=== PATIENT | male | born 1985 | race Caucasian/White ===

== ENCOUNTER 2016-07-14 23:17 | Inpatient (IN) | payer SELFPAY ==
[~2016-07-14] VITALS: Ht 167.6 cm; Wt 90.0 kg
[2016-07-14 23:17] VITALS: O2SAT 100
[~2016-07-14 23:17] MED LIST: NORMOSOL R INJ 1,000 ML IV ONE; ONDANSETRON HCL 4 MG/2 ML VIAL IV PUSH ONE; PRED1 PO; PROPOFOL 200 MG/20 ML AMP IV ONE; SULF-154 PO; Z.0.NO CURRENT MEDS
[2016-07-14] MEDS ORDERED: MORPHINE SULFATE 8 MG/ML INJ ONE (23:23)
[2016-07-14] MEDS ORDERED: ceFAZolin 2 GM PREMIX 50 ML ONE (23:30)
[2016-07-14] MEDS ORDERED: DIPHTH/TETANUS/ACEL PERTUSSIS (BOOSTER) 0.5 ML VIAL/PFS IM ONE (23:30)
[2016-07-14 23:35] LABS: I-STAT POTASSIUM 3.8 MMOL/L (3.5-4.9)
[2016-07-14 23:41] LABS: HEMATOCRIT 42.9 % (39.0-51.0); HEMO FLAGS AUTO DIFF; MEAN CELL VOLUME 88.2 FL (80.0-100.0); MEAN CORPUSCULAR HEMOGLOBIN 30.2 PG (27.0-34.0); MEAN CORPUSCULAR HGB CONC 34.3 % (32.0-36.0); PLATELET COUNT 379 TH/MM3 (150-450); RED BLOOD COUNT 4.86 MIL/MM3 (4.50-5.90); WHITE BLOOD COUNT 16.6 TH/MM3 (4.0-11.0)
[2016-07-14 23:45] LABS: APTT (PATIENT) 26.5 SEC (24.3-30.1); PROTHROMBIN TIME - PATIENT 10.8 SEC (9.8-11.6)
[2016-07-15] VITALS (7 sets, daily range): BP systolic 93–149; BP diastolic 54–81; PULSE 72–101; RESP 17–20; TEMP 97.9–99.5; O2SAT 95–100
[2016-07-15] MEDS ORDERED: SUGAMMADEX SODIUM 200 MG/2 ML VIAL IV PUSH ONE ×2 (00:16)
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
[2016-07-15 00:43] LABS: BANDS 1 % (0-6); EOSINOPHILS 4 % (0-4); METAMYELOCYTES 1 % (0-1); NEUTROPHIL # MANUAL DIFF 9.3 TH/MM3 (1.8-7.7); PLATELET ESTIMATE SMEAR HIGH (NORMAL); PLATELET MORPHOLOGY NORMAL (NORMAL); POLYS (SEG NEUTROPHILS) 54 % (16-70); SCAN/DIFF FINAL DIFF MANUAL; WBC DIFF SAMPLE 100
[2016-07-15] MEDS ORDERED: *MEPERIDINE 25 MG INJ VIAL PERIprocedural Use ONLY ONE (00:44)
[2016-07-15] MEDS ORDERED: Post-op Orders (for Pharmacy) MISC XX ONE (00:45)
[2016-07-15] MEDS ORDERED: NALOXONE HCL 0.4 MG/ML AMP IV PRN (00:45)
[2016-07-15] MEDS ORDERED: ONDANSETRON HCL 4 MG/2 ML VIAL IV PRN (00:45)
[2016-07-15] MEDS ORDERED: SODIUM CHLORIDE 0.9% FLUSH 10 ML FLUSH IV FLUSH PRN (00:45)
[2016-07-15] MEDS ORDERED: *diphenhydrAMINE HCL 50 MG/ML VIAL PERIprocedural Use ONLY ONE ×2 (00:50→01:50)
[2016-07-15] MEDS ORDERED: fentaNYL CITRATE 250 MCG/5 ML AMP ONE (00:51)
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
--- NOTE | 2016-07-15 01:17 | RADRPT ---
EXAM DATE/TIME: 07/15/2016 00:41 [facility] COMPARISON: CHEST SINGLE AP, July 14, 2016, 23:11. INDICATIONS : Chest tube placement. MEDICAL HISTORY : None. SURGICAL HISTORY : None. ENCOUNTER: Subsequent ACUITY: 1 day PAIN SCORE: Non-responsive. LOCATION: Left chest FINDINGS: The cardiac silhouette is normal in transverse diameter. The lungs are free of acute parenchymal opac ity. No effusions are identified. A left chest tube is in place. There is no evidence of pneumothorax . CONCLUSION: 1. Chest tube placement. There is no evidence of pneumothorax. Norris Boss MD on July 15, 2016 at 1:15 Board Certified Radiologist. This report was verified electronically.
[2016-07-15] MEDS ORDERED: MORPHINE SULFATE 8 MG/ML INJ ONE ×2 (01:27→01:49)
[2016-07-15] MEDS ORDERED: DO NOT ADM ANY ANTICOAGULANT DRUGS PRN (01:30)
[2016-07-15] MEDS: MORPHINE SULFATE 4 MG/ML INJ IV PRN ×5 (02:34→22:38)
[2016-07-15] MEDS: SODIUM CHLOR 0.9% 1000 ML INJ 1,000 ML IV SCH ×2 (05:55→11:00)
[2016-07-15] MEDS ORDERED: LACTULOSE SYRUP 20 GM/30 ML CUP PO PRN (07:45)
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
[2016-07-15] MEDS: DOCUSATE SODIUM 50 MG/SENNA 8.6 MG TAB PO SCH ×2 (09:44→20:44)
[2016-07-15] MEDS: SODIUM CHLORIDE 0.9% FLUSH 10 ML FLUSH IV FLUSH SCH ×2 (09:44→20:45)
[2016-07-15] MEDS: METHOCARBAMOL 500 MG TAB PO SCH ×3 (09:48→20:43)
--- NOTE | 2016-07-15 10:18 | RADRPT ---
EXAM DATE/TIME: 07/15/2016 07:44 [facility] COMPARISON: CHEST SINGLE AP, July 15, 2016, 0:41. INDICATIONS : Pneumothorax MEDICAL HISTORY : None. SURGICAL HISTORY : None. ENCOUNTER: Subsequent ACUITY: 2 days PAIN SCORE: 0/10 LOCATION: Bilateral chest FINDINGS: Single AP view of the chest. Left-sided chest tube. Increased patchy opacity in the left mid to lower lung. No evidence of pneumothorax or pleural effusion. Right lung clear. Cardiomediastinal silhouett e within normal limits. CONCLUSION: Increased patchy opacity in the left mid to lower lung. No evidence of pneumothorax. Sergio Johnston MD on July 15, 2016 at 10:16 Board Certified Radiologist. This report was verified electronically.
[2016-07-15] MEDS: oxyCODONE/ACETAMINOPHEN 5 MG/325 MG TAB PO PRN ×3 (10:54→20:45)
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
[2016-07-15 22:08] LABS: LDH SERUM 207 U/L (87-241)
[2016-07-15 22:10] LABS: BETA HCG TUMOR MARKER 3 MIU/ML (0-5)
[2016-07-16 00:41] VITALS: BP 133/80; PULSE 72; RESP 16; TEMP 98.2; O2SAT 96
[2016-07-16] MEDS ORDERED: LACTATED RINGER'S 1000 ML IV PRN (05:15)
[2016-07-16] MEDS ORDERED: INSULIN HUMAN REGULAR 1,000 UNITS/10 ML VIAL SQ PRN (05:15)
[2016-07-16] MEDS ORDERED: CHLORHEXIDINE GLUCONATE 2 % 1 PACK (2 CLOTHS) TOPICAL PRN (05:15)
[2016-07-16] MEDS ORDERED: SODIUM CHLORID 0.9% 500 ML IV PRN (05:15)
[2016-07-16] MEDS ORDERED: POVIDONE IODINE 5% (ANTISEPSIS KIT) 4 APPLICATIONS EACH NARE PRN (05:15)
[2016-07-16 05:16] VITALS: BP 130/65; PULSE 66; RESP 16; TEMP 98; O2SAT 96
[2016-07-16] MEDS: MORPHINE SULFATE 4 MG/ML INJ IV PRN ×2 (06:31→09:57)
[2016-07-16] MEDS: METHOCARBAMOL 500 MG TAB PO SCH ×3 (06:32→22:00)
[2016-07-16 08:00] VITALS: BP 132/79; PULSE 85; RESP 20; TEMP 96.3; O2SAT 99
[2016-07-16 08:53] LABS: AUTOMATED NEUTROPHIL # 9.3 TH/MM3 (1.8-7.7); BASOPHIL # 0.1 TH/MM3 (0-0.2); BASOPHIL % 0.6 % (0.0-2.0); EOSINOPHIL # 0.4 TH/MM3 (0-0.4); EOSINOPHIL % 2.9 % (0.0-4.0); HEMATOCRIT 38.9 % (39.0-51.0); HEMO FLAGS DIFF FINAL; LYMPH % 14.7 % (9.0-44.0); LYMPHOCYTE # 1.9 TH/MM3 (1.0-4.8); MEAN CELL VOLUME 89.3 FL (80.0-100.0); MEAN CORPUSCULAR HEMOGLOBIN 30.2 PG (27.0-34.0); MEAN CORPUSCULAR HGB CONC 33.9 % (32.0-36.0); MONO % 8.8 % (0.0-8.0); PLATELET COUNT 260 TH/MM3 (150-450); RED BLOOD COUNT 4.36 MIL/MM3 (4.50-5.90); RED CELL DISTRIBUTION WIDTH 13.1 % (11.6-17.2); WHITE BLOOD COUNT 12.8 TH/MM3 (4.0-11.0)
[2016-07-16] MEDS: SODIUM CHLORIDE 0.9% FLUSH 10 ML FLUSH IV FLUSH SCH (09:00)
--- NOTE | 2016-07-16 09:13 | RADRPT ---
EXAM DATE/TIME: 07/16/2016 07:55 [facility] COMPARISON: CHEST SINGLE AP, July 15, 2016, 7:44. INDICATIONS : Evaluate for pneumothorax. MEDICAL HISTORY : None. SURGICAL HISTORY : None. ENCOUNTER: Subsequent ACUITY: 3 days PAIN SCORE: 5/10 LOCATION: chest FINDINGS: Single AP view of the chest. Left-sided chest tube. Mild patchy left lung opacity unchanged. Cardiome diastinal silhouette unchanged. No evidence of pleural effusion or pneumothorax. CONCLUSION: No significant change. Left-sided chest tube in place. No evidence of pneumothorax. Sergio Johnston MD on July 16, 2016 at 9:11 Board Certified Radiologist. This report was verified electronically.
[2016-07-16 09:52] VITALS: O2SAT 94
[2016-07-16] MEDS: DOCUSATE SODIUM 50 MG/SENNA 8.6 MG TAB PO SCH ×2 (09:56→21:00)
[2016-07-16] MEDS ORDERED: LACTATED RINGER'S 1000 ML INJ 2,000 ML IV ONE (12:00)
[2016-07-16] MEDS ORDERED: PROPOFOL 200 MG/20 ML AMP IV ONE (12:00)
[2016-07-16] MEDS ORDERED: ONDANSETRON HCL 4 MG/2 ML VIAL IV PUSH ONE (12:00)
[2016-07-16] MEDS: oxyCODONE/ACETAMINOPHEN 5 MG/325 MG TAB PO PRN ×2 (13:42→23:00)
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
[2016-07-16] MEDS ORDERED: ACETAMINOPHEN 1000 MG/100 ML VIAL IV ONE (15:39)
[2016-07-16] MEDS ORDERED: DEXAMETHASONE SOD PHOS 4 MG/ML VIAL ONE (15:39)
[2016-07-16] MEDS ORDERED: FAMOTIDINE 20 MG/2 ML VIAL ONE (15:40)
[2016-07-16] MEDS ORDERED: ceFAZolin INJ 1,000 MG VIAL ONE (16:44)
[2016-07-16] MEDS ORDERED: BUPIVACAINE HCL PF 0.25% 30 ML VIAL ONE (17:20)
[2016-07-16] MEDS ORDERED: HYDROmorphone HCL PF 2 MG/ML VIAL ONE (17:42)
[2016-07-16] MEDS ORDERED: BACITRACIN TOP OINT 15 GM TUBE ONE (18:25)
[2016-07-16] MEDS ORDERED: DO NOT ADM ANY ANTICOAGULANT DRUGS PRN (19:30)
[2016-07-16] MEDS ORDERED: fentaNYL CITRATE 250 MCG/5 ML AMP ONE (20:05)
[2016-07-16] MEDS ORDERED: MIDAZOLAM HCL 2 MG/2 ML VIAL ONE (20:06)
[2016-07-16 20:48] VITALS: BP 145/90; PULSE 83; RESP 17; TEMP 98.5; O2SAT 95
[2016-07-17] MEDS: MORPHINE SULFATE 4 MG/ML INJ IV PRN ×2 (00:51→05:26)
[2016-07-17 00:52] VITALS: BP 152/72; PULSE 93; RESP 17; TEMP 98.2; O2SAT 97
[2016-07-17] MEDS: SODIUM CHLORIDE 0.9% FLUSH 10 ML FLUSH IV FLUSH SCH (01:49)
[2016-07-17] MEDS: METHOCARBAMOL 500 MG TAB PO SCH ×2 (05:24→14:45)
[2016-07-17 06:25] VITALS: BP 136/75; PULSE 86; RESP 17; TEMP 98.2; O2SAT 93
--- NOTE | 2016-07-17 08:11 | RADRPT ---
EXAM DATE/TIME: 07/17/2016 07:49 [place] COMPARISON: CHEST SINGLE AP, July 16, 2016, 7:55. INDICATIONS : Evaluate pneumothorax MEDICAL HISTORY : Pneumothorax SURGICAL HISTORY : Chest tube left side ENCOUNTER: Subsequent ACUITY: 4 - 6 days PAIN SCORE: 4/10 LOCATION: chest FINDINGS: Single AP view of the chest. Left-sided chest tube again seen. Patchy left lung opacity unchanged. No evidence of pleural effusion or pneumothorax. Cardiomediastinal silhouette unchanged. CONCLUSION: No significant interval change. Left sided chest tube remains in place. No evidence of pneumothorax. Sergio Johnston MD on July 17, 2016 at 8:07 Board Certified Radiologist. This report was verified electronically.
[2016-07-17 09:18] VITALS: BP 124/70; PULSE 78; RESP 18; TEMP 97.7; O2SAT 96
[2016-07-17] MEDS: DOCUSATE SODIUM 50 MG/SENNA 8.6 MG TAB PO SCH (09:20)
[2016-07-17] MEDS: oxyCODONE/ACETAMINOPHEN 5 MG/325 MG TAB PO PRN ×2 (09:21→14:46)
[2016-07-17 10:10] VITALS: O2SAT 95
[2016-07-17 12:30] VITALS: BP 124/67; PULSE 85; RESP 17; TEMP 97.4; O2SAT 94
[2016-07-17] MEDS ORDERED: PERC5TAB12 PO (13:07)
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
== END 2016-07-17 15:30 | disposition home or self-care (01) | DRG 983 ==
LOC: NEPI 23:17 → MERGE 07-15 00:15 → EDBD 07-15 00:15 → EEVIPCON 07-15 00:15 → NEDA 07-15 00:15 → N05A 07-15 02:21 → N05B 07-15 14:11
PROVIDERS: ADMIT Surgery; ATTEND Surgery
PROC: 0T9B70Z Drainage of Bladder with Drainage Device, Via Natural or Artificial Opening (ICD-10-PCS; 2016-07-14)
PROC: 0W9B30Z Drainage of Left Pleural Cavity with Drainage Device, Percutaneous Approach (ICD-10-PCS; 2016-07-14)
PROC: 0HQ5XZZ Repair Chest Skin, External Approach (ICD-10-PCS; 2016-07-14)
PROC: 0HQBXZZ Repair Right Upper Arm Skin, External Approach (ICD-10-PCS; 2016-07-14)
PROC: 30233N1 Transfusion of Nonautologous Red Blood Cells into Peripheral Vein, Percutaneous Approach (ICD-10-PCS; principal; 2016-07-14 23:38)
PROC: 0VTB0ZZ Resection of Left Testis, Open Approach (ICD-10-PCS; 2016-07-16)
DX: S21.112A Laceration without foreign body of left front wall of thorax without penetration into thoracic cavity, initial encounter (principal); F12.90 Cannabis use, unspecified, uncomplicated; S39.848A Other specified injuries of external genitals, initial encounter; N50.812 Left testicular pain; R00.0 Tachycardia, unspecified; S41.011A Laceration without foreign body of right shoulder, initial encounter; S41.112A Laceration without foreign body of left upper arm, initial encounter; X99.1XXA Assault by knife, initial encounter; Y93.9 Activity, unspecified; Y92.9 Unspecified place or not applicable; Y99.9 Unspecified external cause status; S27.0XXA Traumatic pneumothorax, initial encounter; Y04.0XXA Assault by unarmed brawl or fight, initial encounter
CPT/HCPCS: 36430; 71010; 76870; 82105; 82435; 82565; 82947; 83615; 84132; 84295; 84520; 84702; 85007; 85025; 85027; 85610; 85730; 86850; 86900; 86901; 86920; 88307; 88309; 90471; 90715; 93975; 94150; 96374; 96375; 99291; G0390; J0131; J0690; J1100; J1170; J1200; J2175; J2250; J2270; J2405; J3010; J7030; J7120; P9016

== ENCOUNTER 2016-07-20 11:34 | Emergency (ER) | payer SELFPAY ==
[~2016-07-20] VITALS: Ht 167.6 cm; Wt 93.0 kg
[~2016-07-20 11:34] MED LIST changes: -NORMOSOL R INJ 1,000 ML IV ONE; -ONDANSETRON HCL 4 MG/2 ML VIAL IV PUSH ONE; +PERC5TAB12 PO; -PROPOFOL 200 MG/20 ML AMP IV ONE
[2016-07-20 11:41] VITALS: BP 136/76; PULSE 111; RESP 20; TEMP 99.3; O2SAT 98
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
[2016-07-20] MEDS ORDERED: oxyCODONE/ACETAMINOPHEN 5 MG/325 MG TAB PO ONE (13:15)
[2016-07-20 14:27] LABS: AUTOMATED NEUTROPHIL # 8.4 TH/MM3 (1.8-7.7); BASOPHIL # 0.1 TH/MM3 (0-0.2); BASOPHIL % 0.7 % (0.0-2.0); EOSINOPHIL # 0.5 TH/MM3 (0-0.4); EOSINOPHIL % 3.9 % (0.0-4.0); HEMATOCRIT 32.9 % (39.0-51.0); HEMO FLAGS DIFF FINAL; LYMPH % 20.6 % (9.0-44.0); LYMPHOCYTE # 2.6 TH/MM3 (1.0-4.8); MEAN CELL VOLUME 88.1 FL (80.0-100.0); MEAN CORPUSCULAR HEMOGLOBIN 29.8 PG (27.0-34.0); MEAN CORPUSCULAR HGB CONC 33.9 % (32.0-36.0); MONO % 7.6 % (0.0-8.0); NEUT % 67.2 % (16.0-70.0); PLATELET COUNT 425 TH/MM3 (150-450); RED BLOOD COUNT 3.73 MIL/MM3 (4.50-5.90); RED CELL DISTRIBUTION WIDTH 12.8 % (11.6-17.2); WHITE BLOOD COUNT 12.6 TH/MM3 (4.0-11.0)
[2016-07-20 14:32] LABS: BLOOD, URINE NEG (NEG); COMMENT (UR) CULT NOT INDICATED; CULTURE IF INDICATED CULT NOT INDICATED; GLUCOSE,URINE NEG (NEG); KETONE, URINE NEG (NEG); MUCUS URINE FEW /lpf (OCC); NITRITE,URINE NEG (NEG); URINE COLOR YELLOW (YELLW/STRAW)
[2016-07-20 14:42] LABS: POTASSIUM 4.1 MEQ/L (3.5-5.1)
--- NOTE | 2016-07-20 14:56 | RADRPT ---
EXAM DATE/TIME: 07/20/2016 13:25 [facility] COMPARISON: No previous studies available for comparison. INDICATIONS : Testicle pain. MEDICAL HISTORY : None. Substance use. SURGICAL HISTORY : Testical removed. ENCOUNTER: Subsequent ACUITY: 1 week PAIN SCORE: 10/10 LOCATION: Left Testicular sac. MEASUREMENTS: RIGHT TESTICLE: 5.0 x 3.3 x 2.3cm LEFT TESTICLE: Removed FINDINGS: RIGHT TESTICLE: Homogeneous echotexture without intra or extratesticular mass. Blood flow is symmetric and within no rmal limits. No hydrocele or varicocele. Epididymis is within normal limits. LEFT TESTICLE: The patient is post left orchiectomy. There is debris and hydrocele evident within the testicular cav ity. This appears quite complex. I cannot exclude abscess. SCROTUM: Within normal limits. CONCLUSION: 1. The left scrotum is filled with debris and fluid. In the appropriate clinical setting this could r epresent abscess. 2. The right testicle is intact. Aron Abernathy MD on July 20, 2016 at 14:53 Board Certified Radiologist. This report was verified electronically.
[2016-07-20] MEDS ORDERED: BACT800T5 PO (15:03)
== END 2016-07-20 15:23 | disposition left against medical advice (07) ==
LOC: NEPD 11:34
DX: N45.4 Abscess of epididymis or testis (principal); F12.90 Cannabis use, unspecified, uncomplicated; Z72.0 Tobacco use; Z88.0 Allergy status to penicillin; Z53.21 Procedure and treatment not carried out due to patient leaving prior to being seen by health care provider
CPT/HCPCS: 76870; 80048; 81001; 85025; 93975; 99284

== ENCOUNTER 2016-07-22 19:04 | Emergency (ER) | payer SELFPAY ==
[~2016-07-22] VITALS: Ht 167.6 cm; Wt 72.0 kg
[~2016-07-22 19:04] MED LIST changes: +BACT800T5 PO
[2016-07-22 19:20] VITALS: RESP 16; O2SAT 98
[2016-07-22 19:23] VITALS: BP 153/75; PULSE 96; RESP 16; TEMP 98.3; O2SAT 98
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
[2016-07-22] MEDS ORDERED: SODIUM CHLOR 0.9% 1000 ML INJ 1,000 ML IV SCH (19:45)
[2016-07-22] MEDS ORDERED: VANCOMYCIN INJ 1,000 MG in SODIUM CHLOR 0.9% 250 ML INJ 250 ML IV ONE (19:45)
[2016-07-22 19:55] LABS: AUTOMATED NEUTROPHIL # 8.8 TH/MM3 (1.8-7.7); BASOPHIL # 0.1 TH/MM3 (0-0.2); BASOPHIL % 0.7 % (0.0-2.0); EOSINOPHIL # 0.4 TH/MM3 (0-0.4); EOSINOPHIL % 3.6 % (0.0-4.0); HEMATOCRIT 31.5 % (39.0-51.0); HEMO FLAGS DIFF FINAL; LYMPH % 17.6 % (9.0-44.0); LYMPHOCYTE # 2.1 TH/MM3 (1.0-4.8); MEAN CELL VOLUME 88.4 FL (80.0-100.0); MEAN CORPUSCULAR HEMOGLOBIN 30.3 PG (27.0-34.0); MEAN CORPUSCULAR HGB CONC 34.2 % (32.0-36.0); MONO % 5.4 % (0.0-8.0); NEUT % 72.7 % (16.0-70.0); PLATELET COUNT 466 TH/MM3 (150-450); RED BLOOD COUNT 3.57 MIL/MM3 (4.50-5.90); RED CELL DISTRIBUTION WIDTH 13.1 % (11.6-17.2); WHITE BLOOD COUNT 12.1 TH/MM3 (4.0-11.0)
[2016-07-22 20:07] LABS: ANION GAP 9 MEQ/L (5-15); AST (GOT) 31 U/L (15-37); BICARBONATE 23.8 MEQ/L (21.0-32.0); BLOOD UREA NITROGEN 12 MG/DL (7-18); CHLORIDE 106 MEQ/L (98-107); GLOMERULAR FILTRATION RATE 127 ML/MIN (>89); POTASSIUM 3.6 MEQ/L (3.5-5.1); SODIUM (NA) 139 MEQ/L (136-145)
[2016-07-22 20:08] LABS: ALT (GPT) 90 U/L (12-78)
[2016-07-22 20:10] LABS: ALKALINE PHOSPHATASE 132 U/L (45-117); TOTAL BILIRUBIN ADULT 0.4 MG/DL (0.2-1.0)
[2016-07-22 20:13] LABS: APTT (PATIENT) 26.2 SEC (24.3-30.1); INTERNATIONAL NORMALIZED RATIO 0.9 RATIO; PROTHROMBIN TIME - PATIENT 9.8 SEC (9.8-11.6)
[2016-07-22] MEDS ORDERED: diphenhydrAMINE HCL 50 MG/ML VIAL IV PUSH ONE (21:00)
[2016-07-22 21:27] LABS: BLOOD, URINE NEG (NEG); COMMENT (UR) CULT NOT INDICATED; CULTURE IF INDICATED CULT NOT INDICATED; GLUCOSE,URINE NEG (NEG); KETONE, URINE NEG (NEG); MUCUS URINE FEW /lpf (OCC); NITRITE,URINE NEG (NEG); PH, URINE 5.5 (5.0-8.5); URINE COLOR YELLOW (YELLW/STRAW)
== END 2016-07-22 22:15 | disposition left against medical advice (07) ==
LOC: NEPD 19:04
DX: N49.2 Inflammatory disorders of scrotum (principal); F17.210 Nicotine dependence, cigarettes, uncomplicated
CPT/HCPCS: 80053; 81001; 85025; 85610; 85730; 87040; 96374; 99284; J3370; J7030; J7050

== ENCOUNTER 2016-07-25 10:46 | Inpatient (IN) | payer SELFPAY ==
[~2016-07-25] VITALS: Ht 167.6 cm; Wt 91.5 kg
[~2016-07-25 10:46] MED LIST changes: -PRED1 PO; -SULF-154 PO; -Z.0.NO CURRENT MEDS
[2016-07-25 10:49] VITALS: BP 129/61; PULSE 84; RESP 24; TEMP 99.4; O2SAT 99
[2016-07-25 11:07] VITALS: BP 119/63; PULSE 82; RESP 20; TEMP 100.3; O2SAT 98
[2016-07-25] MEDS ORDERED: VANCOMYCIN INJ 1,000 MG in SODIUM CHLOR 0.9% 250 ML INJ 250 ML IV STA (11:17)
[2016-07-25] MEDS ORDERED: SODIUM CHLOR 0.9% 1000 ML INJ 1,000 ML IV SCH (11:17)
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
[2016-07-25] MEDS ORDERED: ONDANSETRON HCL 4 MG/2 ML VIAL IVP ONE (11:30)
[2016-07-25] MEDS ORDERED: MORPHINE SULFATE 4 MG/ML INJ IV PUSH ONE (11:30)
[2016-07-25] MEDS ORDERED: SODIUM CHLORIDE 0.9% FLUSH 10 ML FLUSH IV FLUSH PRN ×2 (11:30→12:45)
[2016-07-25 11:31] VITALS: O2SAT 98
[2016-07-25] MEDS ORDERED: ACETAMINOPHEN 325 MG TAB PO ONE (11:45)
--- NOTE | 2016-07-25 11:49 | RADRPT ---
EXAM DATE/TIME: 07/25/2016 11:25 [facility] COMPARISON: No previous studies available for comparison. INDICATIONS : Fever. MEDICAL HISTORY : None. SURGICAL HISTORY : None. ENCOUNTER: Initial ACUITY: 1 day PAIN SCORE: 0/10 LOCATION: Bilateral chest FINDINGS: Minimal parenchymal changes are seen in the left base. Considerations would include inflammatory pro cess. The right lung is clear. Herat and pulmonary vascularity are normal. CONCLUSION: Minimal parenchymal changes left base. Pete Abernathy MD FACR on July 25, 2016 at 11:42 Board Certified Radiologist. This report was verified electronically.
[2016-07-25 11:51] LABS: AUTOMATED NEUTROPHIL # 13.3 TH/MM3 (1.8-7.7); BASOPHIL # 0.1 TH/MM3 (0-0.2); BASOPHIL % 0.3 % (0.0-2.0); EOSINOPHIL # 0.3 TH/MM3 (0-0.4); HEMATOCRIT 30.5 % (39.0-51.0); HEMO FLAGS DIFF FINAL; LYMPH % 8.6 % (9.0-44.0); LYMPHOCYTE # 1.4 TH/MM3 (1.0-4.8); MEAN CELL VOLUME 87.2 FL (80.0-100.0); MEAN CORPUSCULAR HEMOGLOBIN 30.3 PG (27.0-34.0); MEAN CORPUSCULAR HGB CONC 34.7 % (32.0-36.0); MONO % 9.2 % (0.0-8.0); NEUT % 79.9 % (16.0-70.0); PLATELET COUNT 411 TH/MM3 (150-450); WHITE BLOOD COUNT 16.7 TH/MM3 (4.0-11.0)
[2016-07-25 12:02] LABS: APTT (PATIENT) 27.1 SEC (24.3-30.1); INTERNATIONAL NORMALIZED RATIO 0.9 RATIO
[2016-07-25 12:10] LABS: ALT (GPT) 73 U/L (12-78); ANION GAP 8 MEQ/L (5-15); AST (GOT) 21 U/L (15-37); BICARBONATE 24.1 MEQ/L (21.0-32.0); BLOOD UREA NITROGEN 11 MG/DL (7-18); CHLORIDE 106 MEQ/L (98-107); GLOMERULAR FILTRATION RATE 144 ML/MIN (>89); SODIUM (NA) 138 MEQ/L (136-145)
[2016-07-25 12:12] LABS: ALKALINE PHOSPHATASE 129 U/L (45-117); TOTAL BILIRUBIN ADULT 0.4 MG/DL (0.2-1.0)
[2016-07-25] MEDS ORDERED: ONDANSETRON HCL 4 MG/2 ML VIAL IVP PRN (12:45)
[2016-07-25] MEDS ORDERED: NALOXONE HCL 0.4 MG/ML AMP IV PRN (12:45)
[2016-07-25] MEDS ORDERED: ACETAMINOPHEN 325 MG TAB PO PRN ×2 (12:45)
[2016-07-25] MEDS ORDERED: ACETAMINOPHEN/HYDROcodone 325 MG/5 MG TAB PO PRN (12:45)
[2016-07-25] MEDS ORDERED: MAGNESIUM HYDROXIDE SUSP 30 ML CUP PO PRN (12:45)
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
[2016-07-25 15:41] LABS: BLOOD, URINE NEG (NEG); COMMENT (UR) CULT NOT INDICATED; CULTURE IF INDICATED CULT NOT INDICATED; GLUCOSE,URINE NEG (NEG); KETONE, URINE NEG (NEG); MUCUS URINE FEW /lpf (OCC); NITRITE,URINE NEG (NEG); PH, URINE 5.5 (5.0-8.5); URINE COLOR YELLOW (YELLW/STRAW)
[2016-07-25] MEDS: ACETAMINOPHEN/HYDROcodone 325 MG/7.5 MG TAB PO PRN ×2 (15:42→20:28)
[2016-07-25 16:25] VITALS: BP 110/78; PULSE 75; RESP 18; TEMP 98.4; O2SAT 99
--- NOTE | 2016-07-25 16:46 | RADRPT ---
EXAM DATE/TIME: 07/25/2016 13:29 [facility] COMPARISON: US TESTICLE W/DOPPLER, July 20, 2016, 13:25. INDICATIONS : Left testicular pain. MEDICAL HISTORY : Substance use. Tobacco use. SURGICAL HISTORY : Left testicle removal. ENCOUNTER: Subsequent ACUITY: 2 days PAIN SCORE: 8/10 LOCATION: Left scrotal fossa. MEASUREMENTS: LEFT TESTICLE: Surgically removed FINDINGS: RIGHT TESTICLE: Homogeneous echotexture without intra or extratesticular mass. Blood flow is sym metric and within normal limits. No hydrocele or varicocele. Epididymis is within normal limits. LEFT TESTICLE: The left testicle is surgically absent. There is a complex fluid collection in th e left scrotum that does show some peripheral blood flow evident. This may well be a hematoma. This does not extend into the inguinal canal. CONCLUSION: Complex fluid collection left evelio scrotum similar to what was seen on the study of 0 07/20/2016 without change. Differential continues to be abscess versus hematoma. Pete Abernathy MD FACR on July 25, 2016 at 16:33 Board Certified Radiologist. This report was verified electronically.
[2016-07-25] MEDS: MORPHINE SULFATE 4 MG/ML INJ IV PUSH PRN ×2 (17:14→23:37)
[2016-07-25 20:00] VITALS: BP 112/82; PULSE 79; RESP 18; TEMP 98.5; O2SAT 98
[2016-07-25] MEDS: LACTOBACILLUS ACIDOPHILUS TAB PO SCH (20:28)
[2016-07-25] MEDS: CLINDAMYCIN INJ 600 MG in SODIUM CHLORIDE 0.9% INJ 100 ML IV SCH (20:29)
[2016-07-25] MEDS: SODIUM CHLORIDE 0.9% FLUSH 10 ML FLUSH IV FLUSH SCH (20:29)
[2016-07-26] VITALS (7 sets, daily range): BP systolic 107–124; BP diastolic 62–75; PULSE 68–89; RESP 16–18; TEMP 97.6–99.6; O2SAT 96–99
[2016-07-26] MEDS: ACETAMINOPHEN/HYDROcodone 325 MG/7.5 MG TAB PO PRN ×2 (00:46→08:48)
[2016-07-26] MEDS: CLINDAMYCIN INJ 600 MG in SODIUM CHLORIDE 0.9% INJ 100 ML IV SCH ×2 (04:14→13:08)
[2016-07-26 05:07] LABS: AUTOMATED NEUTROPHIL # 8.9 TH/MM3 (1.8-7.7); BASOPHIL # 0.1 TH/MM3 (0-0.2); BASOPHIL % 0.6 % (0.0-2.0); EOSINOPHIL # 0.3 TH/MM3 (0-0.4); EOSINOPHIL % 2.7 % (0.0-4.0); HEMATOCRIT 31.8 % (39.0-51.0); HEMO FLAGS DIFF FINAL; LYMPH % 14.7 % (9.0-44.0); LYMPHOCYTE # 1.9 TH/MM3 (1.0-4.8); MEAN CELL VOLUME 88.9 FL (80.0-100.0); MEAN CORPUSCULAR HEMOGLOBIN 29.4 PG (27.0-34.0); MEAN CORPUSCULAR HGB CONC 33.1 % (32.0-36.0); MONO % 12.5 % (0.0-8.0); NEUT % 69.5 % (16.0-70.0); PLATELET COUNT 379 TH/MM3 (150-450); RED BLOOD COUNT 3.57 MIL/MM3 (4.50-5.90); RED CELL DISTRIBUTION WIDTH 13.4 % (11.6-17.2); WHITE BLOOD COUNT 12.8 TH/MM3 (4.0-11.0)
[2016-07-26 05:31] LABS: ANION GAP 10 MEQ/L (5-15); AST (GOT) 14 U/L (15-37); BICARBONATE 25.5 MEQ/L (21.0-32.0); BLOOD UREA NITROGEN 12 MG/DL (7-18); CHLORIDE 104 MEQ/L (98-107); GLOMERULAR FILTRATION RATE 153 ML/MIN (>89); POTASSIUM 3.5 MEQ/L (3.5-5.1); SODIUM (NA) 139 MEQ/L (136-145)
[2016-07-26 05:32] LABS: ALT (GPT) 57 U/L (12-78)
[2016-07-26 05:39] LABS: ALKALINE PHOSPHATASE 121 U/L (45-117); TOTAL BILIRUBIN ADULT 0.4 MG/DL (0.2-1.0)
[2016-07-26] MEDS: SODIUM CHLORIDE 0.9% FLUSH 10 ML FLUSH IV FLUSH SCH (08:47)
[2016-07-26] MEDS: LACTOBACILLUS ACIDOPHILUS TAB PO SCH (08:48)
--- NOTE | 2016-07-26 09:51 | HHI.PR ---
Subjective Remarks Follow-up left testicular abscess/hematoma 07/26/16-patient seen and examined, reports swelling of the left testicle however complains of poorly controlled pain and is requesting Percocet instead of Narco. Currently afebrile Objective Vitals Vital Signs Date Time Temp Pulse Resp B/P Pulse Ox O2 Delivery O2 Flow Rate FiO2 07/26/16 08:43 107/75 07/26/16 08:15 98.2 82 16 107/75 99 07/26/16 08:00 98.2 82 16 107/75 99 07/26/16 00:00 99.6 89 18 122/62 96 07/25/16 20:00 98.5 79 18 112/82 98 07/25/16 16:25 98.4 75 18 110/78 99 07/25/16 12:58 18 07/25/16 11:50 18 07/25/16 11:31 98 Room Air 07/25/16 11:07 100.3 82 20 119/63 98 Room Air 07/25/16 11:07 20 07/25/16 10:49 99.4 84 24 129/61 99 Room Air I/O 07/25/16 07/25/16 07/25/16 07/26/16 07/26/16 07/26/16 07:00 15:00 23:00 07:00 15:00 23:00 Intake Total 240 ml 240 ml Output Total 125 ml 0 ml Balance 115 ml 240 ml Intake Oral 240 ml 240 ml Output Urine Total 125 ml 0 ml # Bowel Movements 0 0 Result Diagram: 07/26/16 0423 07/26/16 0423 Imaging Last Impressions Chest X-Ray 07/25/16 1117 Signed Impressions: Service Date/Time: Monday, July 25, 2016 11:25 - CONCLUSION: Minimal parenchymal changes left base. Pete Abernathy MD FACR Scrotum Ultrasound 07/25/16 0000 Signed Impressions: Service Date/Time: Monday, July 25, 2016 13:29 - CONCLUSION: Complex fluid collection left evelio scrotum similar to what was seen on the study of 2016 without change. Differential continues to be abscess versus hematoma. Pete Abernathy MD FACR Objective Remarks GENERAL: NAD SKIN: Warm and dry. HEAD: Normocephalic. EYES: No scleral icterus. No injection or drainage. NECK: Supple, trachea midline. No JVD or lymphadenopathy. CARDIOVASCULAR: Regular rate and rhythm without murmurs, gallops, or rubs. RESPIRATORY: Breath sounds equal bilaterally. No accessory muscle use. GASTROINTESTINAL: Abdomen soft, non-tender, nondistended. MUSCULOSKELETAL: No cyanosis, or edema. BACK: Nontender without obvious deformity. No CVA tenderness. : Swelling left testicle; absent right testicle A/P Problem List: (1) Testicular abscess ICD Code: N45.4 Status: Acute (2) Scrotal abscess ICD Code: N49.2 Status: Acute Assessment and Plan 30-year-old man with Testicular abscess versus scrotal hematoma Status post vancomycin IV 1 in ED, continue Clindamycin 600mg IV Q8H pending blood and wound culture report Testicular ultrasound noted and review by me and Urology consultation pending Parenteral pain management Leukocytosis Likely secondary from above infectious process, continue to monitor wounds stitches and lucy RN to remove Tobacco abuse Tobacco counseling providing Nicotine patch DVT prophylaxis: Encourage ambulation Ernst Ordonez MD Jul 26, 2016 09:51
[2016-07-26] MEDS: MORPHINE SULFATE 4 MG/ML INJ IV PUSH PRN (10:30)
[2016-07-26] MEDS ORDERED: oxyCODONE/ACETAMINOPHEN 10 MG/325 MG TAB PO PRN (11:00)
[2016-07-26] MEDS ORDERED: oxyCODONE/ACETAMINOPHEN 5 MG/325 MG TAB PO PRN (11:00)
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
[2016-07-26] MEDS ORDERED: CLIN1CAP6 PO (15:26)
[2016-07-26] MEDS ORDERED: BACT800T5 PO (15:26)
[2016-07-26] MEDS ORDERED: PERC7.5T13 PO (15:27)
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
== END 2016-07-26 18:00 | disposition home or self-care (01) | DRG 920 ==
LOC: NEPC 10:46 → NEDA 12:34 → N07B 14:39
PROVIDERS: ADMIT Internal Medicine; ATTEND Internal Medicine
DX: N99.840 Postprocedural hematoma of a genitourinary system organ or structure following a genitourinary system procedure (principal); N45.4 Abscess of epididymis or testis; F17.210 Nicotine dependence, cigarettes, uncomplicated; Y83.8 Other surgical procedures as the cause of abnormal reaction of the patient, or of later complication, without mention of misadventure at the time of the procedure
CPT/HCPCS: 71010; 76870; 76999; 80053; 81001; 83605; 85025; 85610; 85730; 87040; 87070; 87077; 87186; 87205; 93975; 96365; 96375; J2270; J2405; J3370; J7030; J7050

== ENCOUNTER 2016-11-24 16:15 | Emergency (ER) | payer MEDICAID ==
[~2016-11-24] VITALS: Ht 167.6 cm; Wt 87.0 kg
[~2016-11-24 16:15] MED LIST changes: +CLIN1CAP6 PO; +PERC7.5T13 PO
[2016-11-24 16:17] VITALS: BP 129/81; PULSE 99; RESP 18; TEMP 98.7; O2SAT 94
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
[2016-11-24] MEDS ORDERED: SODIUM CHLORID 0.9% 500 ML INJ 500 ML IV ONE (17:30)
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
[2016-11-24 17:54] LABS: BLOOD, URINE NEG (NEG); COMMENT (UR) CULT NOT INDICATED; CULTURE IF INDICATED CULT NOT INDICATED; GLUCOSE,URINE NEG (NEG); KETONE, URINE NEG (NEG); MUCUS URINE MANY /lpf (OCC); NITRITE,URINE NEG (NEG); PH, URINE 5.5 (5.0-8.5); SQUAMOUS EPITHELIAL CELL URINE <1 /hpf (0-5); URINE COLOR YELLOW (YELLW/STRAW)
[2016-11-24 18:00] LABS: AUTOMATED NEUTROPHIL # 10.2 TH/MM3 (1.8-7.7); BASOPHIL # 0.1 TH/MM3 (0-0.2); BASOPHIL % 0.9 % (0.0-2.0); EOSINOPHIL # 1.1 TH/MM3 (0-0.4); EOSINOPHIL % 7.7 % (0.0-4.0); HEMATOCRIT 46.2 % (39.0-51.0); HEMO FLAGS DIFF FINAL; LYMPH % 13.5 % (9.0-44.0); LYMPHOCYTE # 1.9 TH/MM3 (1.0-4.8); MEAN CELL VOLUME 79.2 FL (80.0-100.0); MEAN CORPUSCULAR HEMOGLOBIN 26.9 PG (27.0-34.0); MONO % 5.7 % (0.0-8.0); NEUT % 72.2 % (16.0-70.0); PLATELET COUNT 326 TH/MM3 (150-450); RED BLOOD COUNT 5.83 MIL/MM3 (4.50-5.90); RED CELL DISTRIBUTION WIDTH 16.4 % (11.6-17.2); WHITE BLOOD COUNT 14.1 TH/MM3 (4.0-11.0)
[2016-11-24 18:17] LABS: ANION GAP 7 MEQ/L (5-15); AST (GOT) 21 U/L (15-37); BICARBONATE 24.7 MEQ/L (21.0-32.0); BLOOD UREA NITROGEN 9 MG/DL (7-18); CHLORIDE 104 MEQ/L (98-107); GLOMERULAR FILTRATION RATE 91 ML/MIN (>89); POTASSIUM 4.1 MEQ/L (3.5-5.1); SODIUM (NA) 136 MEQ/L (136-145)
[2016-11-24 18:18] LABS: ALT (GPT) 57 U/L (12-78)
[2016-11-24 18:20] LABS: ALCOHOL LESS THAN 3 MG/DL (0-5)
[2016-11-24 18:28] LABS: ALKALINE PHOSPHATASE 149 U/L (45-117); TOTAL BILIRUBIN ADULT 0.9 MG/DL (0.2-1.0)
[2016-11-24 18:33] LABS: ACETAMINOPHEN LESS THAN 2.0 MCG/ML (10.0-30.0)
[2016-11-24] MEDS ORDERED: VIST50CA PO (18:58)
== END 2016-11-24 20:12 | disposition home or self-care (01) ==
LOC: NEPD 16:15
DX: F41.9 Anxiety disorder, unspecified (principal); R42 Dizziness and giddiness; R11.11 Vomiting without nausea; F17.210 Nicotine dependence, cigarettes, uncomplicated
CPT/HCPCS: 80053; 80307; 81001; 84443; 85025; 99283; J7040

== ENCOUNTER 2016-12-06 07:48 | Inpatient (IN) | payer MEDICAID ==
[2016-12-06] VITALS (12 sets, daily range): BP systolic 109–132; BP diastolic 63–88; PULSE 73–105; RESP 16–25; TEMP 97.7–99; O2SAT 90–96
[~2016-12-06] VITALS: Ht 167.6 cm; Wt 94.1 kg
[~2016-12-06 07:48] MED LIST changes: +VIST50CA PO
[2016-12-06] MEDS ORDERED: ONDANSETRON HCL 4 MG/2 ML VIAL IV PUSH ONE (08:15)
[2016-12-06] MEDS: RESP: ALBUTEROL 2.5 MG/3 ML NEB (SCH) INH (08:33)
--- NOTE | 2016-12-06 08:40 | RADRPT ---
EXAM DATE/TIME: 12/06/2016 08:31 [facility] COMPARISON: CHEST SINGLE AP, July 25, 2016, 11:25. INDICATIONS : Chest pain and cough. MEDICAL HISTORY : None. SURGICAL HISTORY : None. ENCOUNTER: Initial ACUITY: 2 weeks PAIN SCORE: 7/10 LOCATION: Bilateral chest center FINDINGS: Markedly abnormal. Diffuse bilateral pulmonary nodules and masses measuring up to [address] eural effusion and associated left lower lobe airspace disease. Cardiomedi centimeters within normal limits. Bony thorax is intact. CONCLUSION: 1. Diffuse bilateral pulmonary nodules and masses. 2. Small left pleural effusion with left lower lobe airspace disease. 3. Differential considerations include septic emboli versus metastatic disease amongst other etiologi es. Fernando Singh MD on December 06, 2016 at 8:36 Board Certified Radiologist. This report was verified electronically.
[2016-12-06] MEDS ORDERED: LEVOFLOXACIN 750 MG PREMIX INJ 150 ML IV ONE (08:45)
[2016-12-06] MEDS ORDERED: SODIUM CHLORIDE 0.9% FLUSH 10 ML FLUSH IVF PRN (08:45)
[2016-12-06 08:46] LABS: AUTOMATED NEUTROPHIL # 8.9 TH/MM3 (1.8-7.7); BASOPHIL # 0.1 TH/MM3 (0-0.2); BASOPHIL % 0.7 % (0.0-2.0); EOSINOPHIL # 1.5 TH/MM3 (0-0.4); HEMATOCRIT 40.1 % (39.0-51.0); HEMO FLAGS DIFF FINAL; LYMPH % 14.1 % (9.0-44.0); MEAN CELL VOLUME 79.1 FL (80.0-100.0); MEAN CORPUSCULAR HEMOGLOBIN 26.2 PG (27.0-34.0); MEAN CORPUSCULAR HGB CONC 33.1 % (32.0-36.0); MONO % 9.9 % (0.0-8.0); NEUT % 64.3 % (16.0-70.0); PLATELET COUNT 384 TH/MM3 (150-450); RED BLOOD COUNT 5.07 MIL/MM3 (4.50-5.90); RED CELL DISTRIBUTION WIDTH 15.9 % (11.6-17.2); WHITE BLOOD COUNT 13.9 TH/MM3 (4.0-11.0)
[2016-12-06 08:51] LABS: BICARBONATE 22.3 MEQ/L (21.0-32.0); POTASSIUM 3.7 MEQ/L (3.5-5.1)
[2016-12-06] MEDS ORDERED: AZTREONAM INJ 2,000 MG in SODIUM CHLORIDE 0.9% INJ 100 ML IV ONE (09:15)
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
[2016-12-06 10:15] LABS: APTT (PATIENT) 32.5 SEC (24.3-30.1); PROTHROMBIN TIME - PATIENT 10.9 SEC (9.8-11.6)
[2016-12-06] MEDS ORDERED: IOHEXOL 350 MG/ML 10 ML VIAL (for RAD DIAG) IVCONTRAST ONE (10:52)
--- NOTE | 2016-12-06 11:07 | RADRPT ---
EXAM DATE/TIME: 12/06/2016 10:33 [facility] COMPARISON: CHEST PA & LAT, December 06, 2016, 8:31. CHEST SINGLE AP, July 17, 2016, 7:49. US TESTICLE W/DOPPLER , July 15, 2016, 14:59. US TESTICLE W/DOPPLER, July 25, 2016, 13:29. INDICATIONS : Shortness of breath IV CONTRAST: 75 cc Omnipaque 350 (iohexol) IV RADIATION DOSE: 20.34 CTDIvol (mGy) MEDICAL HISTORY : None SURGICAL HISTORY : None. ENCOUNTER: Initial ACUITY: 2 days PAIN SCALE: 0/10 LOCATION: chest TECHNIQUE: Volumetric scanning of the chest was performed using a pulmonary embolism protocol MIP images were re constructed. Using automated exposure control and adjustment of the mA and/or kV according to patien t size, radiation dose was kept as low as reasonably achievable to obtain optimal diagnostic quality images. DICOM format image data is available electronically for review and comparison. Follow-up recommendations for detected pulmonary nodules are based at a minimum on nodule size and pa tient risk factors according to Fleischner Society Guidelines. FINDINGS: PULMONARY ARTERIES: No filling defects are seen in the pulmonary arteries through the segmental level. LUNGS: Innumerable pulmonary masses. The majority measure 2 cm in diameter. There is a dominant mass within the left lower lobe that measures 11.0 x 1.0 x 8.6 cm. PLEURAE: A moderate size left pleural effusion. No effusion on the right. MEDIASTINUM: There is good visualization of the great vessels of the middle mediastinum. No evidence of mediastin al or hilar adenopathy/mass. MUSCULOSKELETAL: Within normal limits for patient age. MISCELLANEOUS: The visualized upper abdominal organs demonstrate no acute abnormality. CONCLUSION: 1. No pulmonary emboli. 2. Multiple pulmonary masses and a moderate size left pleural effusion. This is consistent with metas tatic disease possibly testicular in origin. Alternatively, lymphoma could have a similar appearance. Septic emboli are felt less likely although within the differential. Xavi Childers Jr., MD on December 06, 2016 at 10:58 Board Certified Radiologist. This report was verified electronically.
[2016-12-06] MEDS ORDERED: ACETAMINOPHEN 325 MG TAB PO PRN ×2 (11:15)
[2016-12-06] MEDS ORDERED: MORPHINE SULFATE 4 MG/ML INJ IV PUSH PRN ×2 (11:15)
[2016-12-06] MEDS ORDERED: BISACODYL 10 MG SUPP RECTAL PRN (11:15)
[2016-12-06] MEDS ORDERED: oxyCODONE/ACETAMINOPHEN 5 MG/325 MG TAB PO PRN (11:15)
[2016-12-06] MEDS ORDERED: SENNOSIDES 8.6 MG TAB PO PRN (11:15)
[2016-12-06] MEDS ORDERED: PROCHLORPERAZINE 25 MG SUPP RECTAL PRN (11:15)
[2016-12-06] MEDS ORDERED: NALOXONE HCL 0.4 MG/ML AMP IV PUSH PRN (11:15)
[2016-12-06] MEDS ORDERED: ONDANSETRON HCL 4 MG/2 ML VIAL IVP PRN (11:15)
[2016-12-06] MEDS ORDERED: RESP: ALBUTEROL 2.5 MG/IPRATROPIUM 0.5 MG NEB (PRN) INH (11:15)
[2016-12-06] MEDS ORDERED: SODIUM CHLORIDE 0.9% FLUSH 10 ML FLUSH IV FLUSH PRN ×2 (11:15)
[2016-12-06] MEDS ORDERED: LACTULOSE SYRUP 20 GM/30 ML CUP PO PRN (11:15)
[2016-12-06] MEDS ORDERED: MAGNESIUM HYDROXIDE SUSP 30 ML CUP PO PRN (11:15)
[2016-12-06 11:48] LABS: BLOOD, URINE NEG (NEG); GLUCOSE,URINE NEG (NEG); KETONE, URINE NEG (NEG); MUCUS URINE FEW /lpf (OCC); NITRITE,URINE NEG (NEG); PH, URINE 5.5 (5.0-8.5); URINE COLOR YELLOW (YELLW/STRAW)
[2016-12-06 11:54] LABS: COMMENT (UR) CULT NOT INDICATED; CULTURE IF INDICATED CULT NOT INDICATED
[2016-12-06 12:05] LABS: MAGNESIUM 1.9 MG/DL (1.5-2.5)
[2016-12-06] MEDS: guaiFENesin E.R. 600 MG TAB PO SCH ×2 (12:28→22:22)
[2016-12-06] MEDS: methylPREDNISolone SOD SUCC 40 MG/1 ML VIAL IV PUSH SCH ×2 (12:28→22:22)
[2016-12-06] MEDS: SODIUM CHLOR 0.9% 1000 ML INJ 1,000 ML IV SCH ×2 (12:29→22:23)
[2016-12-06] MEDS ORDERED: ENOXAPARIN SODIUM 40 MG/0.4 ML SYRINGE SQ SCH (13:00)
--- NOTE | 2016-12-06 13:36 | RADRPT ---
EXAM DATE/TIME: 12/06/2016 13:04 [facility] COMPARISON: US TESTICLE W/DOPPLER, July 25, 2016, 13:29. INDICATIONS : Shortness of breath. MEDICAL HISTORY : Shortness of breath. SURGICAL HISTORY : Left testicle removed. ENCOUNTER: Initial ACUITY: 1 day PAIN SCORE: 1/10 LOCATION: Left testicle. MEASUREMENTS: RIGHT TESTICLE: 4.0 x 1.9 x 3.8cm FINDINGS: RIGHT TESTICLE: Homogeneous echotexture without intra or extratesticular mass. Blood flow is symmetric and within no rmal limits. No hydrocele or varicocele. Epididymis is within normal limits. LEFT TESTICLE: Status post orchiectomy. SCROTUM: Interval resolution of previously described heterogeneous mass in the left scrotum. No significant re sidual mass in the left scrotum. CONCLUSION: 1. Status post left orchiectomy. No residual scrotal mass. 2. Unremarkable sonographic appearance of the right testicle. Fernando Singh MD on December 06, 2016 at 13:32 Board Certified Radiologist. This report was verified electronically.
--- NOTE | 2016-12-06 13:39 | RADRPT ---
EXAM DATE/TIME: 12/06/2016 12:39 [facility] COMPARISON: No previous studies available for comparison. INDICATIONS : Shortness of breath. MEDICAL HISTORY : Shortness of breath. SURGICAL HISTORY : Left testicle removed. ENCOUNTER: Initial ACUITY: 1 day PAIN SCORE: 3/10 LOCATION: Left chest MEASUREMENTS: SKIN TO PARIETAL PLEURA: 2.8 cm SKIN TO MAX SAFE DEPTH: 4.7 cm ESTIMATED FLUID VOLUME: 554 cc FLUID COMPOSITION: simple FINDINGS: Pleural effusion as above. A angella was placed on the skin surface superficial to the pleural fluid col lection. CONCLUSION: Moderate size left pleural effusion with skin marking performed Xavi Blakely MD on December 06, 2016 at 13:36 Board Certified Radiologist. This report was verified electronically.
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
--- NOTE | 2016-12-06 14:55 | EKG ---
Date Performed: 12/06/2016 Time Performed: 09:14:50 PTAGE: 31 years EKG: SINUS TACHYCARDIA INCOMPLETE RIGHT BUNDLE BRANCH BLOCK ABNORMAL RHYTHM ECG NO PREVIOUS TRACING DOCTOR: Arvind Martin Interpretating Date/Time 12/06/2016 14:53:08
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
[2016-12-06 16:34] LABS: TOTAL PROTEIN,PLEURAL FLUID 4.8 GM/DL
--- NOTE | 2016-12-06 16:37 | RADRPT ---
EXAM DATE/TIME: 12/06/2016 16:39 [facility] COMPARISON: CHEST PA & LAT, December 06, 2016, 8:31. CT PULMONARY ANGIOGRAM, December 06, 2016, 10:33. INDICATIONS : Post thoracentesis. MEDICAL HISTORY : None. SURGICAL HISTORY : None. ENCOUNTER: Initial ACUITY: 1 day PAIN SCORE: 4/10 LOCATION: Left chest. FINDINGS: Single frontal view of the chest and expiration status post left thoracentesis demonstrates no eviden ce of pneumothorax. Again noted are extensive numerous bilateral varying sized pulmonary nodules. T he heart is normal size. There is consolidation in the left lower lobe with loss of delineation of t he left hemidiaphragm. CONCLUSION: No evidence of pneumothorax status post thoracentesis. Xavi Blakely MD on December 06, 2016 at 16:34 Board Certified Radiologist. This report was verified electronically.
[2016-12-06] MEDS: oxyCODONE/ACETAMINOPHEN 10 MG/325 MG TAB PO PRN ×2 (16:53→22:38)
[2016-12-06] MEDS: ALPRAZolam 0.25 MG TAB PO PRN (16:53)
[2016-12-06] MEDS: cefTRIAXone INJ 1,000 MG in SODIUM CHLORIDE 0.9% INJ 100 ML IV SCH (16:54)
[2016-12-06] MEDS: AZITHROMYCIN INJ 500 MG in SODIUM CHLOR 0.9% 250 ML INJ 250 ML IV SCH (16:57)
[2016-12-06 17:31] LABS: PLEURAL FLUID LYMPHS 11 %
[2016-12-06] MEDS ORDERED: DIATRIZOATE MEGLUM/DIATRIZOATE SOD 9 ML CUP PO ONE (21:00)
[2016-12-06] MEDS: DOCUSATE SODIUM 50 MG/SENNA 8.6 MG TAB PO SCH (21:00)
[2016-12-06] MEDS ORDERED: SODIUM CHLORIDE 0.9% FLUSH 10 ML FLUSH IV FLUSH SCH (21:00)
[2016-12-06] MEDS: SODIUM CHLORIDE 0.9% FLUSH 10 ML FLUSH IV FLUSH SCH (21:00)
[2016-12-07] VITALS (12 sets, daily range): BP systolic 117–141; BP diastolic 57–83; PULSE 75–99; RESP 16–22; TEMP 97.4–98.2; O2SAT 92–96
[2016-12-07] MEDS ORDERED: IOHEXOL 350 MG/ML 10 ML VIAL (for RAD DIAG) IVCONTRAST ONE (00:40)
--- NOTE | 2016-12-07 00:45 | RADRPT ---
EXAM DATE/TIME: 12/07/2016 00:35 [facility] COMPARISON: No previous studies available for comparison. INDICATIONS : Evaluate for metastatic disease. RADIATION DOSE: 58.02 CTDIvol (mGy) ; Tabletop CT Head MEDICAL HISTORY : None SURGICAL HISTORY : Left orchiectomy ENCOUNTER: Initial ACUITY: 1 day PAIN SCALE: 0/10 LOCATION: cranial TECHNIQUE: Multiple contiguous axial images were obtained of the head. Using automated exposure control and adj ustment of the mA and/or kV according to patient size, radiation dose was kept as low as reasonably a chievable to obtain optimal diagnostic quality images. DICOM format image data is available electro nically for review and comparison. FINDINGS: CEREBRUM: The ventricles are normal for age. No evidence of midline shift, mass lesion, hemorrhage or acute in farction. No extra-axial fluid collections are seen. POSTERIOR FOSSA: The cerebellum and brainstem are intact. The 4th ventricle is midline. The cerebellopontine angle i s unremarkable. EXTRACRANIAL: The visualized portion of the orbits is intact. Minimal fluid in the maxillary sinuses. SKULL: The calvaria is intact. No evidence of skull fracture. CONCLUSION: 1. No acute intracranial abnormality. 2. Minimal fluid in maxillary sinuses. Ernst Sequeira MD on December 07, 2016 at 0:42 Board Certified Radiologist. This report was verified electronically.
[2016-12-07] MEDS: ALPRAZolam 0.25 MG TAB PO PRN ×3 (01:01→18:15)
--- NOTE | 2016-12-07 01:37 | RADRPT ---
EXAM DATE/TIME: 12/07/2016 00:38 [facility] COMPARISON: No previous studies available for comparison. INDICATIONS : Evaluate for metastatic disease. IV CONTRAST: 75 cc Omnipaque 350 (iohexol) IV ORAL CONTRAST: Prescribed oral contrast ingested. RADIATION DOSE: 15.02 CTDIvol (mGy) MEDICAL HISTORY : None SURGICAL HISTORY : Left orchiectomy ENCOUNTER: Initial ACUITY: 1 day PAIN SCALE: 0/10 LOCATION: Abdomen. TECHNIQUE: Volumetric scanning of the abdomen and pelvis was performed. Using automated exposure control and ad justment of the mA and/or kV according to patient size, radiation dose was kept as low as reasonably achievable to obtain optimal diagnostic quality images. DICOM format image data is available electro nically for review and comparison. FINDINGS: LOWER LUNGS: Numerous bilateral pulmonary nodules and masses are seen. Left pleural effusion which appears somewha t complex. LIVER: Homogeneous density without lesion. There is no dilation of the biliary tree. No calcified gallston es. SPLEEN: Normal size without lesion. PANCREAS: Within normal limits. KIDNEYS: Normal in size and shape. There is no mass, stone or hydronephrosis. ADRENAL GLANDS: Within normal limits. VASCULAR: There is no aortic aneurysm. BOWEL/MESENTERY: The stomach, small bowel, and colon demonstrate no acute abnormality. There is no free intraperitone al air or fluid. ABDOMINAL WALL: Within normal limits. RETROPERITONEUM: There is a mass in left para-aortic location along the lower aspects of each kidney measuring 4.0 x 4 .2 cm.. BLADDER: No wall thickening or mass. REPRODUCTIVE: Within normal limits. INGUINAL: There is no lymphadenopathy or hernia. MUSCULOSKELETAL: Within normal limits for patient age. CONCLUSION: 1. Large mass in the left periaortic region measuring 4.0 x 4.2 cm. 2. Numerous pulmonary metastasis and complex left pleural effusion. Ernst Sequeira MD on December 07, 2016 at 1:32 Board Certified Radiologist. This report was verified electronically.
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
[2016-12-07 08:25] LABS: AUTOMATED NEUTROPHIL # 15.9 TH/MM3 (1.8-7.7); BASOPHIL % 0.2 % (0.0-2.0); EOSINOPHIL % 0.1 % (0.0-4.0); HEMATOCRIT 42.1 % (39.0-51.0); HEMO FLAGS DIFF FINAL; LYMPH % 5.8 % (9.0-44.0); MEAN CELL VOLUME 79.2 FL (80.0-100.0); MEAN CORPUSCULAR HEMOGLOBIN 26.1 PG (27.0-34.0); MEAN CORPUSCULAR HGB CONC 32.9 % (32.0-36.0); MONO % 3.8 % (0.0-8.0); NEUT % 90.1 % (16.0-70.0); PLATELET COUNT 428 TH/MM3 (150-450); RED BLOOD COUNT 5.32 MIL/MM3 (4.50-5.90); RED CELL DISTRIBUTION WIDTH 15.8 % (11.6-17.2); WHITE BLOOD COUNT 17.7 TH/MM3 (4.0-11.0)
[2016-12-07] MEDS ORDERED: RESP: ALBUTEROL 2.5 MG/3 ML NEB (PRN) NEB (08:30)
[2016-12-07 08:43] LABS: ANION GAP 7 MEQ/L (5-15); AST (GOT) 26 U/L (15-37); BICARBONATE 22.6 MEQ/L (21.0-32.0); BLOOD UREA NITROGEN 11 MG/DL (7-18); CHLORIDE 104 MEQ/L (98-107); GLOMERULAR FILTRATION RATE 141 ML/MIN (>89); MAGNESIUM 2.2 MG/DL (1.5-2.5); POTASSIUM 4.3 MEQ/L (3.5-5.1); SODIUM (NA) 134 MEQ/L (136-145)
[2016-12-07 08:44] LABS: ALT (GPT) 47 U/L (12-78)
[2016-12-07 08:53] LABS: ALKALINE PHOSPHATASE 131 U/L (45-117); FREE T4 1.27 NG/DL (0.76-1.46); TOTAL BILIRUBIN ADULT 0.7 MG/DL (0.2-1.0)
[2016-12-07] MEDS: SODIUM CHLORIDE 0.9% FLUSH 10 ML FLUSH IV FLUSH SCH ×2 (09:00→20:23)
[2016-12-07 09:13] LABS: FERRITIN 151 NG/ML (26-388); TRANSFERRIN IRON PROFILE 198 MG/DL (200-360)
[2016-12-07] MEDS: guaiFENesin E.R. 600 MG TAB PO SCH ×2 (09:41→20:21)
[2016-12-07] MEDS: oxyCODONE/ACETAMINOPHEN 10 MG/325 MG TAB PO PRN ×2 (09:43→18:16)
[2016-12-07] MEDS: DOCUSATE SODIUM 50 MG/SENNA 8.6 MG TAB PO SCH ×2 (09:43→20:21)
[2016-12-07] MEDS: SODIUM CHLOR 0.9% 1000 ML INJ 1,000 ML IV SCH (09:49)
[2016-12-07] MEDS ORDERED: INFLUENZA VIRUS VACCINE (QUADRIVALENT) 0.5 ML SYR IM ONE (10:00)
[2016-12-07] MEDS ORDERED: PNEUMOCOCCAL POLYVALENT INJ 25 MCG/0.5 ML SYR IM ONE (10:00)
[2016-12-07] MEDS ORDERED: cefTRIAXone INJ 1,000 MG in SODIUM CHLORIDE 0.9% INJ 100 ML IV SCH (10:00)
[2016-12-07 10:45] LABS: HEMOGLOBIN A1a 1.2 %; HEMOGLOBIN A1b 1.7 %; HEMOGLOBIN Ao 84.8 %; HEMOGLOBIN LA1C 2.3 %; HEMOGLOBIN P3 3.9 %
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
[2016-12-07] MEDS: cefTRIAXone INJ 1,000 MG in SODIUM CHLORIDE 0.9% INJ 100 ML IV SCH (13:15)
[2016-12-07] MEDS ORDERED: MIDAZOLAM HCL 2 MG/2 ML VIAL ONE (13:33)
[2016-12-07] MEDS ORDERED: LIDOCAINE 1%/EPINEPHrine 1:100,000 SOLN 20 ML VIAL ONE (14:13)
--- NOTE | 2016-12-07 14:22 | PD.ONC.PN ---
Subjective Subjective Remarks Afebrile overnight Pt resting in bed surrounded by visitors Asking what time he will be going for biopsy Objective Data Date Time Temp Pulse Resp B/P (MAP) Pulse Ox O2 Delivery O2 Flow Rate FiO2 12/07/16 12:00 97.5 88 18 120/58 (78) 93 12/07/16 10:50 16 12/07/16 10:39 93 21 12/07/16 08:03 89 12/07/16 08:00 97.7 94 18 119/59 (79) 92 12/07/16 04:00 97.8 84 19 117/57 (77) 94 12/07/16 00:00 97.4 95 22 139/83 (101) 93 12/06/16 21:39 96 12/06/16 21:30 97.7 95 25 127/73 (91) 94 12/06/16 20:03 98.0 101 18 114/65 (81) 90 12/06/16 20:00 95 12/06/16 18:03 105 12/06/16 16:34 98.4 92 24 113/70 (84) 95 12/06/16 16:00 98.7 89 16 130/63 (85) 92 12/06/16 15:45 98.7 87 18 126/73 (90) 94 12/06/16 14:28 99.0 94 20 109/72 (84) 94 12/07/16 12/07/16 12/07/16 07:00 15:00 23:00 Intake Total 660 ml 1000 ml Output Total 850 ml Balance -190 ml 1000 ml Result Diagram: 12/07/16 0555 12/07/16 0555 Laboratory Results Laboratory Tests Test 12/06/16 14:42 12/07/16 05:55 Pleural Fluid pH 8.0 Pleural Fluid WBC 5192 /MM3 Pleural Fluid RBC 69491 /MM3 Pleural Fluid Neutrophils 8 % Pleural Fluid Lymphocytes 11 % Pleural Fluid Monocytes 2 % Pleural Fluid Eosinophils 77 % Pleural Fluid Histiocytes 2 % Pleural Fluid Total Protein 4.8 GM/DL Pleural Fluid LDH 1297 U/L Pleural Fluid Glucose 67 MG/DL White Blood Count 17.7 TH/MM3 Red Blood Count 5.32 MIL/MM3 Hemoglobin 13.9 GM/DL Hematocrit 42.1 % Mean Corpuscular Volume 79.2 FL Mean Corpuscular Hemoglobin 26.1 PG Mean Corpuscular Hemoglobin Concent 32.9 % Red Cell Distribution Width 15.8 % Platelet Count 428 TH/MM3 Mean Platelet Volume 7.8 FL Neutrophils (%) (Auto) 90.1 % Lymphocytes (%) (Auto) 5.8 % Monocytes (%) (Auto) 3.8 % Eosinophils (%) (Auto) 0.1 % Basophils (%) (Auto) 0.2 % Neutrophils # (Auto) 15.9 TH/MM3 Lymphocytes # (Auto) 1.0 TH/MM3 Monocytes # (Auto) 0.7 TH/MM3 Eosinophils # (Auto) 0.0 TH/MM3 Basophils # (Auto) 0.0 TH/MM3 CBC Comment DIFF FINAL Differential Comment Blood Urea Nitrogen 11 MG/DL Creatinine 0.66 MG/DL Random Glucose 114 MG/DL Total Protein 6.9 GM/DL Albumin 3.2 GM/DL Calcium Level 8.6 MG/DL Phosphorus Level 2.5 MG/DL Magnesium Level 2.2 MG/DL Alkaline Phosphatase 131 U/L Aspartate Amino Transf (AST/SGOT) 26 U/L Alanine Aminotransferase (ALT/SGPT) 47 U/L Total Bilirubin 0.7 MG/DL Sodium Level 134 MEQ/L Potassium Level 4.3 MEQ/L Chloride Level 104 MEQ/L Carbon Dioxide Level 22.6 MEQ/L Anion Gap 7 MEQ/L Estimat Glomerular Filtration Rate 141 ML/MIN Hemoglobin A1c 5.7 % Iron Level 25 MCG/DL Total Iron Binding Capacity 277 MCG/DL Percent Iron Saturation 9.0 % Ferritin 151 NG/ML Vitamin B12 Level 496 PG/ML Free Thyroxine 1.27 NG/DL Thyroid Stimulating Hormone 3rd Gen 0.402 uIU/ML Culture Results Microbiology Date/Time Source Procedure Growth Status 12/06/16 09:21 Blood Peripheral Aerobic Blood Culture - Preliminary NO GROWTH IN 1 DAY Resulted 12/06/16 09:21 Blood Peripheral Anaerobic Blood Culture - Preliminary NO GROWTH IN 1 DAY Resulted 12/06/16 09:11 Blood Peripheral Aerobic Blood Culture - Preliminary NO GROWTH IN 1 DAY Resulted 12/06/16 09:11 Blood Peripheral Anaerobic Blood Culture - Preliminary NO GROWTH IN 1 DAY Resulted 12/06/16 14:42 Fluid Pleural Fluid Acid Fast Stain Pending Received 12/06/16 14:42 Fluid Pleural Fluid Mycobacterial Culture Pending Received 12/06/16 14:42 Fluid Pleural Fluid Gram Stain - Final Resulted 12/06/16 14:42 Fluid Pleural Fluid Body Fluid Culture - Preliminary NO GROWTH IN 24 HOURS. Resulted 12/06/16 11:19 Urine Clean Catch Legionella Antigen - Final PRESUMPTIVE NEGATIVE FOR LEGIONELLA P... Complete 12/06/16 11:19 Urine Clean Catch Streptococcus pneumoniae Antigen (M - Final PRESUMPTIVE NEGATIVE FOR STREPTOCOCCU... Complete Administered Medications Medications (Trade) Dose Ordered Sig/Harleen Route PRN Reason Start Time Stop Time Status Last Admin Dose Admin Sodium Chloride 1,000 ml @ 100 mls/hr Q10H IV 12/06/16 11:02 12/07/16 09:49 Oxycodone/ Acetaminophen (Percocet 10-325 Mg) 1 tab Q6H PRN PO PAIN SCALE 6 TO 10 12/06/16 11:15 12/07/16 09:43 Senna/Docusate Sodium (Dorothy-Colace) 1 tab BID PO 12/06/16 21:00 12/07/16 09:43 Sodium Chloride (NS Flush) 2 ml BID IV FLUSH 12/06/16 21:00 12/06/16 21:00 Azithromycin 500 mg/Sodium Chloride 250 ml @ 250 mls/hr Q24H IV 12/06/16 15:00 12/06/16 16:57 Guaifenesin (Mucinex Er) 600 mg BID PO 12/06/16 11:15 12/07/16 09:41 Hydroxyzine Pamoate (Vistaril) 50 mg BID PO 12/06/16 21:00 12/07/16 11:26 Alprazolam (Xanax) 0.25 mg Q8H PRN PO ANXIETY 12/06/16 12:00 12/07/16 09:41 Ceftriaxone Sodium 1000 mg/ Sodium Chloride 100 ml @ 200 mls/hr Q24H IV 12/06/16 14:00 12/07/16 13:15 Objective Remarks GENERAL: Young male resting in bed in no acute distress SKIN: Warm and dry. HEAD: Normocephalic. EYES: No injection or drainage. NECK: Supple, trachea midline. CARDIOVASCULAR: Regular rate and rhythm RESPIRATORY: Diminished breath sounds to the left side. Breathing unlabored. GASTROINTESTINAL: Abdomen soft, non-tender, nondistended. EXTREMITIES: No cyanosis, or edema. MUSCULOSKELETAL: Adequate muscle tone. Assessment/Plan Problem List: (1) Lung mass ICD Codes: R91.8 - Other nonspecific abnormal finding of lung field Plan: -- CT-guided lung biopsy ordered -- CTA shows a large dominant mass in the left lower lobe which measures 11 x 1 x 8.6 cm. Most of the innumerable masses are greater than 2 cm. -- Differential diagnosis includes mediastinal teratoma versus germ cell tumor versus primary lung cancer versus lymphoma Hx/Workup: Patient endorses fever, night sweats and fatigue over the last few weeks. 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 However he was lost to follow-up. He had thoracentesis and the cytology is pending (2) Testicular teratoma ICD Codes: C62.90 - Malignant neoplasm of unspecified testis, unspecified whether descended or undescended Plan: -- He had undergone left testicular orchiectomy in July 2016. Surgery was complicated by postoperative hematoma versus abscess. --Ultrasound this admission shows left orchiectomy with no residual masses and a normal right testicle -- The patient was lost to follow-up after discharge (3) Iron deficiency ICD Codes: E61.1 - Iron deficiency Plan: -- Iron and iron saturation low -- Give iron sucrose 2 days Assessment This is a 31-year-old male with a past medical history of testicular teratoma status post orchiectomy who presents to the emergency department with progressive shortness of breath and was found to have a large lung mass along with multiple pulmonary nodules. Plan 1. Await CT-guided biopsy results 2. Give 2 days of iron sucrose as iron studies appear low 3. Monitor CBC Attending Statement The exam, history, and the medical decision-making described in the above note were completed with the assistance of the mid-level provider. I reviewed and agree with the findings presented. I attest that I had a [id number] encounter with the patient on the same day, and personally performed and documented my assessment and findings in the medical record. CT scans reviewed large periaortic mass d.w radiology--this mass is more amenable to biopsy//will biopsy check LDH, AFP and Beta HCG iron studies show some iron deficiency will replete iron via IV--if diagnosed with malignancy-- will need systemic treatment//this will help quickly restore iron reserves prior to any treatments d/w rn o/n events reviewed Jazmin Yepez Dec 07, 2016 14:22 Rip Olivier MD Dec 07, 2016 22:19
--- NOTE | 2016-12-07 14:26 | PD.RAD ---
Post CT Procedure Prog Note Pre Procedure Diagnosis: (1) Lung mass Post Procedure Diagnosis: (1) Lung mass Procedure Date: Dec 07, 2016 Supervising Radiologist: Fernando Singh Anesthesia: Conscious Sedation Plan of Activity Patient to Unit: Nursing Unit Patient Condition: Good See PACS Report for procedural detail/treatment Fernando Singh MD Dec 07, 2016 14:26
--- NOTE | 2016-12-07 15:41 | RADRPT ---
EXAM DATE/TIME: 12/07/2016 14:04 [facility] COMPARISON: No previous studies available for comparison. INDICATIONS : Numerous apparent metastases in the lungs with large left retroperitoneal mass. SEDATION TIME: 30 minutes BIOPSY SITE: Left retroperitoneum MEDICATION(S): 1.) 2 mg midazolam (Versed) IV 2.) 100 mcg fentanyl (Sublimaze) IV DEVICE(S): 1.) 17 gauge introducer 2.) 18 gauge Temno core biopsy needle MEDICAL HISTORY : Carcinoma, testicular. SURGICAL HISTORY : None. ENCOUNTER: Initial ACUITY: 1 day PAIN SCORE: 0/10 LOCATION: abdomen A total of four core specimen(s) were obtained and sent to the laboratory for pathologic evaluation. PROCEDURE: 1. CT guided abdomen biopsy. Prior to the procedure informed consent was obtained. Any appropriate prior imaging studies were rev iewed. Using automated exposure control and adjustment of the mA and/or kV according to patient size, radiat ion dose was kept as low as reasonably achievable to obtain optimal diagnostic quality images. DICOM format image data is available electronically for review and comparison. The site was prepped in a sterile fashion. Full sterile technique was used, including cap, mask, kelsi rile gloves and gown and a large sterile sheet. Hand hygiene and 2% chlorhexidine and/or betadine/al cohol prep was utilized per protocol for cutaneous antisepsis. The skin and subcutaneous tissues wer e infiltrated with local anesthetic solution. With CT guidance the previously identified target was localized. Biopsy was performed using the presc ribed needle as above. In total, five 18 gauge core biopsies were obtained. Adequate hemostasis was obtained with compression at the puncture site. Follow-up CT scan reveals no hemorrhage. The patient tolerated the procedure well and there were no complications. The patient was returned to the Radiology Outpatient Unit in stable condition. CONCLUSION: Uncomplicated CT guided biopsy of large left retroperitoneal mass. Fernando Singh MD on December 07, 2016 at 15:38 Board Certified Radiologist. This report was verified electronically.
[2016-12-07] MEDS: AZITHROMYCIN INJ 500 MG in SODIUM CHLOR 0.9% 250 ML INJ 250 ML IV SCH (18:09)
[2016-12-07] MEDS: IRON SUCROSE INJ 200 MG in SODIUM CHLORIDE 0.9% INJ 100 ML IV SCH (20:20)
--- NOTE | 2016-12-07 20:48 | ECHRPT ---
Indication: SHORTNESS OF BREATH CONCLUSIONS Normal left ventricular size. Wall thickness is normal. The left ventricular systolic function is normal with an estimated ejection fraction in the range of 55-60%. BP: 129 / 68 HR: 84 Rhythm: Sinus MEASUREMENTS (Male / Female) Normal Values Technical Quality:Good 2D ECHO LV Diastolic Diameter PLAX 4.9 cm 4.2 - 5.9 / 3.9 - 5.3 cm LV Systolic Diameter PLAX 3.6 cm IVS Diastolic Thickness 1.1 cm 0.6 - 1.0 / 0.6 - 0.9 cm LVPW Diastolic Thickness 0.8 cm 0.6 - 1.0 / 0.6 - 0.9 cm LV Relative Wall Thickness 0.4 LA Systolic Diameter LX 3.8 cm 3.0 - 4.0 / 2.7 - 3.8 cm M-MODE Aortic Root Diameter MM 3.7 cm AV Cusp Separation MM 2.0 cm DOPPLER Mitral E Point Velocity 78.5 cm/s Mitral A Point Velocity 66.6 cm/s Mitral E to A Ratio 1.2 TR Peak Velocity 151.0 cm/s TR Peak Gradient 9.1 mmHg FINDINGS LEFT VENTRICLE Normal left ventricular size. Wall thickness is normal. The left ventricular systolic function is normal with an estimated ejection fraction in the range of 55-60%. RIGHT VENTRICLE Normal right ventricular size and systolic function. LEFT ATRIUM The left atrial size is normal. RIGHT ATRIUM The right atrial size is normal. ATRIAL SEPTUM Normal atrial septal thickness without atrial level shunting by limited color doppler interrogation. AORTA The aortic root and proximal ascending aorta are normal in size on limited imaging. MITRAL VALVE Structurally normal mitral valve. No mitral valve stenosis or regurgitation. AORTIC VALVE Trileaflet aortic valve. No aortic valve stenosis or regurgitation. TRICUSPID VALVE Structurally normal tricuspid valve. No tricuspid valve stenosis or regurgitation. PULMONARY VALVE The pulmonary valve is not well visualized. VESSELS The inferior vena cava is normal in size. PERICARDIUM No pericardial effusion. Shant Doran MD, FACC (Electronically Signed) Final Date:07 December 2016 20:47
[2016-12-08] VITALS: BP 124/59; PULSE 88; RESP 18; TEMP 97.9; O2SAT 93
[2016-12-08] MEDS: oxyCODONE/ACETAMINOPHEN 10 MG/325 MG TAB PO PRN ×2 (00:03→06:54)
[2016-12-08] MEDS: SODIUM CHLOR 0.9% 1000 ML INJ 1,000 ML IV SCH (00:05)
[2016-12-08] MEDS: ALPRAZolam 0.25 MG TAB PO PRN (03:33)
[2016-12-08 04:10] VITALS: BP 117/72; PULSE 80; RESP 18; TEMP 97.9; O2SAT 81
[2016-12-08 08:00] VITALS: BP 105/56; PULSE 77; PULSE 82; RESP 18; TEMP 98.8; O2SAT 93
[2016-12-08] MEDS: IRON SUCROSE INJ 200 MG in SODIUM CHLORIDE 0.9% INJ 100 ML IV SCH (09:26)
[2016-12-08] MEDS: SODIUM CHLORIDE 0.9% FLUSH 10 ML FLUSH IV FLUSH SCH (09:27)
[2016-12-08] MEDS: DOCUSATE SODIUM 50 MG/SENNA 8.6 MG TAB PO SCH (09:27)
[2016-12-08] MEDS: guaiFENesin E.R. 600 MG TAB PO SCH (09:27)
[2016-12-08 10:04] VITALS: O2SAT 95
[2016-12-08 12:00] VITALS: BP 117/57; PULSE 82; RESP 18; TEMP 98.3; O2SAT 92
[2016-12-08] MEDS ORDERED: ALPR.25 PO (13:26)
[2016-12-08] MEDS ORDERED: OXYC1TAB63 PO (13:26)
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
[2016-12-08] MEDS ORDERED: LEVA750T9 PO (14:05)
[2016-12-08] MEDS: AZITHROMYCIN INJ 500 MG in SODIUM CHLOR 0.9% 250 ML INJ 250 ML IV SCH (15:00)
[2016-12-08 16:00] VITALS: BP 132/76; PULSE 80; RESP 16; TEMP 99.5; O2SAT 95
[2016-12-08] MEDS: cefTRIAXone INJ 1,000 MG in SODIUM CHLORIDE 0.9% INJ 100 ML IV SCH (16:30)
--- NOTE | 2016-12-09 00:05 | PD.ONC.PN ---
Subjective Subjective Remarks patient seen on 12/08 eager to go home f/u outpatient biopsy results pending AFP/BetaHCG pending Objective Data Date Time Temp Pulse Resp B/P (MAP) Pulse Ox O2 Delivery O2 Flow Rate FiO2 12/08/16 16:00 99.5 80 16 132/76 (94) 95 12/08/16 12:00 98.3 82 18 117/57 (77) 92 12/08/16 10:04 95 21 12/08/16 08:00 77 12/08/16 08:00 98.8 82 18 105/56 (72) 93 12/08/16 04:10 97.9 80 18 117/72 (87) 81 Result Diagram: 12/07/16 0555 12/07/16 0555 Laboratory Results Laboratory Tests Test 12/08/16 06:44 Tumor Marker Alpha Fetoprotein 2506.0 NG/ML Tumor Marker HCG 19 MIU/ML Culture Results Microbiology Date/Time Source Procedure Growth Status 12/06/16 09:21 Blood Peripheral Aerobic Blood Culture - Preliminary NO GROWTH IN 2 DAYS Resulted 12/06/16 09:21 Blood Peripheral Anaerobic Blood Culture - Preliminary NO GROWTH IN 2 DAYS Resulted 12/06/16 09:11 Blood Peripheral Aerobic Blood Culture - Preliminary NO GROWTH IN 2 DAYS Resulted 12/06/16 09:11 Blood Peripheral Anaerobic Blood Culture - Preliminary NO GROWTH IN 2 DAYS Resulted 12/06/16 14:42 Fluid Pleural Fluid Acid Fast Stain - Final NO ACID FAST BACILLI SEEN Resulted 12/06/16 14:42 Fluid Pleural Fluid Mycobacterial Culture Pending Resulted 12/06/16 14:42 Fluid Pleural Fluid Gram Stain - Final Resulted 12/06/16 14:42 Fluid Pleural Fluid Body Fluid Culture - Preliminary NO GROWTH IN 48 HOURS. Resulted 12/06/16 11:19 Urine Clean Catch Legionella Antigen - Final PRESUMPTIVE NEGATIVE FOR LEGIONELLA P... Complete 12/06/16 11:19 Urine Clean Catch Streptococcus pneumoniae Antigen (M - Final PRESUMPTIVE NEGATIVE FOR STREPTOCOCCU... Complete Objective Remarks GENERAL: nad SKIN: Warm and dry. NECK: Supple, trachea midline. No JVD or lymphadenopathy. LYMPHATIC: No adenopathy. CARDIOVASCULAR: Regular rate and rhythm without murmurs. RESPIRATORY: Breath sounds equal bilaterally. No accessory muscle use. GASTROINTESTINAL: Abdomen soft, non-tender, nondistended. EXTREMITIES: No cyanosis, or edema. Assessment/Plan Problem List: (1) Lung mass ICD Codes: R91.8 - Other nonspecific abnormal finding of lung field Plan: -- CT-guided lung biopsy ordered -- CTA shows a large dominant mass in the left lower lobe which measures 11 x 1 x 8.6 cm. Most of the innumerable masses are greater than 2 cm. -- Differential diagnosis includes mediastinal teratoma versus germ cell tumor versus primary lung cancer versus lymphoma Hx/Workup: Patient endorses fever, night sweats and fatigue over the last few weeks. 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 However he was lost to follow-up. He had thoracentesis and the cytology is pending (2) Testicular teratoma ICD Codes: C62.90 - Malignant neoplasm of unspecified testis, unspecified whether descended or undescended Plan: -- He had undergone left testicular orchiectomy in July 2016. Surgery was complicated by postoperative hematoma versus abscess. --Ultrasound this admission shows left orchiectomy with no residual masses and a normal right testicle -- The patient was lost to follow-up after discharge (3) Iron deficiency ICD Codes: E61.1 - Iron deficiency Plan: -- Iron and iron saturation low -- Give iron sucrose 2 days Assessment This is a 31-year-old male with a past medical history of testicular teratoma status post orchiectomy who presents to the emergency department with progressive shortness of breath and was found to have a large lung mass along with multiple pulmonary nodules. Plan 1. Await CT-guided biopsy results 2. tolerated iron infusions 3. Monitor CBC Rip Olivier MD Dec 09, 2016 00:05
== END 2016-12-08 19:15 | disposition home or self-care (01) | DRG 180 ==
LOC: NEPC 07:48 → NEDA 10:52 → NEPGCP 14:45 → N04B 21:14
PROVIDERS: ADMIT Internal Medicine; ATTEND Internal Medicine
PROC: 0W9B3ZZ Drainage of Left Pleural Cavity, Percutaneous Approach (ICD-10-PCS; principal; 2016-12-06)
PROC: 0WBH3ZX Excision of Retroperitoneum, Percutaneous Approach, Diagnostic (ICD-10-PCS; 2016-12-07)
DX: C78.02 Secondary malignant neoplasm of left lung (principal); J18.9 Pneumonia, unspecified organism; C78.6 Secondary malignant neoplasm of retroperitoneum and peritoneum; J90 Pleural effusion, not elsewhere classified; C78.01 Secondary malignant neoplasm of right lung; J45.909 Unspecified asthma, uncomplicated; E61.1 Iron deficiency; F12.90 Cannabis use, unspecified, uncomplicated; F17.210 Nicotine dependence, cigarettes, uncomplicated; Z23 Encounter for immunization; Z85.47 Personal history of malignant neoplasm of testis; Z88.0 Allergy status to penicillin; Z90.79 Acquired absence of other genital organ(s)
CPT/HCPCS: 32555; 49180; 70450; 71010; 71020; 71275; 74177; 76604; 76870; 77012; 80048; 80053; 80307; 81001; 82105; 82150; 82607; 82728; 82747; 82945; 83036; 83540; 83550; 83605; 83615; 83735; 83986; 84100; 84155; 84157; 84439; 84443; 84702; 85025; 85610; 85730; 87015; 87040; 87070; 87116; 87205; 87206; 87449; 88305; 88307; 89051; 90686; 90732; 93005; 93306; 93975; 94150; 94640; 94664; 96365; 96375; 99152; 99153; C1729; J0456; J0696; J1756; J1956; J2250; J2405; J2920; J3010; J7030; J7050; J7613; Q2038; Q9963; Q9967

== ENCOUNTER 2017-01-02 00:46 | Emergency (ER) | payer OTHER ==
[~2017-01-02] VITALS: Ht 175.3 cm; Wt 85.0 kg
[~2017-01-02 00:46] MED LIST changes: -BACT800T5 PO; -CLIN1CAP6 PO; +LEVA750T9 PO; +OXYC1TAB63 PO; -PERC5TAB12 PO; -PERC7.5T13 PO; -VIST50CA PO
[2017-01-02 00:47] VITALS: BP 131/78; PULSE 91; RESP 20; TEMP 98.4; O2SAT 94
[2017-01-02] MEDS ORDERED: SODIUM CHLORIDE 0.9% FLUSH 10 ML FLUSH IVF PRN (01:15)
[2017-01-02] MEDS ORDERED: KETOROLAC TROMETHAMINE 30 MG/ML (IVP) VIAL IV PUSH ONE (01:15)
[2017-01-02] MEDS ORDERED: RESP: ALBUTEROL 2.5 MG/IPRATROPIUM 0.5 MG NEB (SCH) INH ONE (01:15)
[2017-01-02 01:16] VITALS: O2SAT 95
[2017-01-02] MEDS ORDERED: ALBU6.7H INH (02:06)
[2017-01-02] MEDS ORDERED: HYDR-3516 PO (02:06)
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
[2017-01-02] MEDS ORDERED: ALBUTEROL SULFATE 90 MCG/ACT HFA 8 GM INHALER INH ONE (02:15)
== END 2017-01-02 02:35 | disposition home or self-care (01) ==
LOC: NEPC 00:46
DX: R06.09 Other forms of dyspnea (principal); M54.9 Dorsalgia, unspecified; J45.909 Unspecified asthma, uncomplicated; Z79.899 Other long term (current) drug therapy; Z72.0 Tobacco use
CPT/HCPCS: 94664; 96374; 99284; J1885

== ENCOUNTER 2017-01-08 11:18 | Inpatient (IN) | payer OTHER ==
[~2017-01-08] VITALS: Ht 167.6 cm; Wt 92.5 kg
[2017-01-08] VITALS (8 sets, daily range): BP systolic 114–140; BP diastolic 56–79; PULSE 100–118; RESP 16–32; TEMP 98.2; O2SAT 93–95
[~2017-01-08 11:18] MED LIST changes: +ALBU6.7H INH; +HYDR-3516 PO
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
[2017-01-08] MEDS ORDERED: SODIUM CHLORIDE 0.9% FLUSH 10 ML FLUSH IVF PRN (12:15)
[2017-01-08] MEDS ORDERED: methylPREDNISolone SOD SUCC 125 MG/2 ML VIAL IV PUSH ONE (12:15)
[2017-01-08] MEDS ORDERED: RESP: ALBUTEROL 2.5 MG/IPRATROPIUM 0.5 MG NEB (SCH) INH ONE (12:15)
--- NOTE | 2017-01-08 12:34 | RADRPT ---
EXAM DATE/TIME: 01/08/2017 12:10 [facility] COMPARISON: CHEST PA & LAT, December 12, 2016, 8:53. CHEST SINGLE AP, July 25, 2016, 11:25. INDICATIONS : Short of breath MEDICAL HISTORY : Carcinoma, lung. Metastatic disease. testicular ca. lung SURGICAL HISTORY : thoracentesis left lung ENCOUNTER: Initial ACUITY: 1 day PAIN SCORE: 0/10 LOCATION: chest FINDINGS: Prior chest x-ray on 12/12/16 demonstrated disseminated rounded masses throughout both lungs characte ristic of metastatic disease with the masses measuring up to 3.7 cm. On today's examination, there h as been a significant progression of disease with increase in size of almost all of the nodules seen. One example, lateral left midlung previously measured 2.4 cm and now measures 4.3 cm. There is los s of delineation of the left hemidiaphragm. The heart contours are obscured. CONCLUSION: Significant progression of metastatic disease with marked increase in size of disseminated bilateral pulmonary nodules when compared to 12/12/16. Xavi Blakely MD on January 08, 2017 at 12:30 Board Certified Radiologist. This report was verified electronically.
[2017-01-08 12:54] LABS: AUTOMATED NEUTROPHIL # 7.9 TH/MM3 (1.8-7.7); BASOPHIL # 0.1 TH/MM3 (0-0.2); BASOPHIL % 1.1 % (0.0-2.0); EOSINOPHIL # 0.5 TH/MM3 (0-0.4); EOSINOPHIL % 4.8 % (0.0-4.0); HEMATOCRIT 44.6 % (39.0-51.0); HEMO FLAGS DIFF FINAL; LYMPH % 15.3 % (9.0-44.0); LYMPHOCYTE # 1.7 TH/MM3 (1.0-4.8); MEAN CELL VOLUME 81.5 FL (80.0-100.0); MEAN CORPUSCULAR HEMOGLOBIN 26.3 PG (27.0-34.0); MEAN CORPUSCULAR HGB CONC 32.2 % (32.0-36.0); MONO % 8.7 % (0.0-8.0); NEUT % 70.1 % (16.0-70.0); PLATELET COUNT 377 TH/MM3 (150-450); RED BLOOD COUNT 5.48 MIL/MM3 (4.50-5.90); RED CELL DISTRIBUTION WIDTH 14.8 % (11.6-17.2); WHITE BLOOD COUNT 11.2 TH/MM3 (4.0-11.0)
[2017-01-08 13:02] LABS: PROTHROMBIN TIME - PATIENT 10.6 SEC (9.8-11.6)
[2017-01-08 13:22] LABS: BICARBONATE 22.8 MEQ/L (21.0-32.0)
[2017-01-08] MEDS ORDERED: IOHEXOL 350 MG/ML 10 ML VIAL (for RAD DIAG) IVCONTRAST ONE (14:02)
--- NOTE | 2017-01-08 14:40 | RADRPT ---
EXAM DATE/TIME: 01/08/2017 13:35 [facility] COMPARISON: CT PULMONARY ANGIOGRAM, December 06, 2016, 10:33. INDICATIONS : Shortness of breath. IV CONTRAST: 70 cc Omnipaque 350 (iohexol) IV RADIATION DOSE: 16.09 CTDIvol (mGy) MEDICAL HISTORY : Carcinoma, lung. SURGICAL HISTORY : None. ENCOUNTER: Initial ACUITY: 1 day PAIN SCALE: 4/10 LOCATION: Bilateral chest TECHNIQUE: Volumetric scanning of the chest was performed using a pulmonary embolism protocol MIP images were re constructed. Using automated exposure control and adjustment of the mA and/or kV according to patien t size, radiation dose was kept as low as reasonably achievable to obtain optimal diagnostic quality images. DICOM format image data is available electronically for review and comparison. Follow-up recommendations for detected pulmonary nodules are based at a minimum on nodule size and pa tient risk factors according to Fleischner Society Guidelines. FINDINGS: PULMONARY ARTERIES: No filling defects are seen in the pulmonary arteries through the segmental level. LUNGS: Numerous disseminated bilateral pulmonary nodules which have increased in size when compared to prior chest x-ray 12/12/16. The largest mass is posterior in the medial lower lung measuring 7.5 cm. The re is also a mass in the right para mediastinal region causing flattening of the right heart border w hich measures 8.3 cm. PLEURAE: 5.3 cm left pleural effusion with heterogeneous internal areas of density.. MEDIASTINUM: There is good visualization of the great vessels of the middle mediastinum. No evidence of mediastin al or hilar adenopathy/mass. CONCLUSION: 1. The study is negative for pulmonary embolism. 2. Progression of thoracic metastatic disease with numerous bilateral disseminated pulmonary nodules measuring up to 8 cm and large left pleural effusion. Xavi Blakely MD on January 08, 2017 at 14:35 Board Certified Radiologist. This report was verified electronically.
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
[2017-01-08] MEDS ORDERED: LACTULOSE SYRUP 20 GM/30 ML CUP PO PRN (17:15)
[2017-01-08] MEDS ORDERED: NALOXONE HCL 0.4 MG/ML AMP IV PUSH PRN ×2 (17:15)
[2017-01-08] MEDS ORDERED: SODIUM CHLORIDE 0.9% FLUSH 10 ML FLUSH IV FLUSH PRN (17:15)
[2017-01-08] MEDS ORDERED: MORPHINE SULFATE 4 MG/ML INJ IV PUSH PRN (17:15)
[2017-01-08] MEDS ORDERED: SENNOSIDES 8.6 MG TAB PO PRN (17:15)
[2017-01-08] MEDS ORDERED: BISACODYL 10 MG SUPP RECTAL PRN (17:15)
[2017-01-08] MEDS ORDERED: MAGNESIUM HYDROXIDE SUSP 30 ML CUP PO PRN (17:15)
[2017-01-08] MEDS: SODIUM CHLOR 0.9% 1000 ML INJ 1,000 ML IV SCH (17:17)
[2017-01-08] MEDS ORDERED: RESP: ALBUTEROL 2.5 MG/IPRATROPIUM 0.5 MG NEB (PRN) NEB (17:30)
[2017-01-08] MEDS ORDERED: ACETAMINOPHEN 500 MG CPLT PO PRN (17:30)
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
[2017-01-08] MEDS: ENOXAPARIN SODIUM 40 MG/0.4 ML SYRINGE SQ SCH (17:47)
[2017-01-08] MEDS: MORPHINE SULFATE 4 MG/ML INJ IV PUSH PRN ×2 (17:50→21:36)
[2017-01-08] MEDS: ONDANSETRON HCL 4 MG/2 ML VIAL IV PUSH PRN (17:51)
[2017-01-08 17:54] LABS: LDH SERUM 385 U/L (87-241)
[2017-01-08 17:57] LABS: BETA HCG TUMOR MARKER 39 MIU/ML (0-5)
[2017-01-08] MEDS: SODIUM CHLORIDE 0.9% FLUSH 10 ML FLUSH IV FLUSH SCH (21:00)
[2017-01-08] MEDS: DOCUSATE SODIUM 50 MG/SENNA 8.6 MG TAB PO SCH (21:00)
--- NOTE | 2017-01-08 21:19 | EKG ---
Date Performed: 01/08/2017 Time Performed: 12:34:35 PTAGE: 31 years EKG: SINUS TACHYCARDIA LEFT AXIS DEVIATION ABNORMAL ECG PREVIOUS TRACING : 12/06/2016 09.14 No significant change from previous tracing noted. DOCTOR: Tom Escoto Interpretating Date/Time 01/08/2017 21:17:20
[2017-01-08] MEDS: ALLOPURINOL 300 MG TAB PO SCH (21:31)
[2017-01-09] VITALS (10 sets, daily range): BP systolic 126–153; BP diastolic 76–86; PULSE 79–107; RESP 14–20; TEMP 97.6–99.5; O2SAT 92–96
[2017-01-09] MEDS: MORPHINE SULFATE 4 MG/ML INJ IV PUSH PRN ×6 (00:38→22:03)
[2017-01-09 05:21] LABS: APTT (PATIENT) 30.9 SEC (24.3-30.1); PROTHROMBIN TIME - PATIENT 10.7 SEC (9.8-11.6)
[2017-01-09 05:41] LABS: ANION GAP 7 MEQ/L (5-15); AST (GOT) 15 U/L (15-37); BLOOD UREA NITROGEN 16 MG/DL (7-18); CHLORIDE 102 MEQ/L (98-107); GLOMERULAR FILTRATION RATE 108 ML/MIN (>89); POTASSIUM 4.3 MEQ/L (3.5-5.1); SODIUM (NA) 136 MEQ/L (136-145)
[2017-01-09 05:42] LABS: ALT (GPT) 34 U/L (12-78)
[2017-01-09 05:45] LABS: ALKALINE PHOSPHATASE 130 U/L (45-117); TOTAL BILIRUBIN ADULT 0.6 MG/DL (0.2-1.0)
[2017-01-09 05:52] LABS: AUTOMATED NEUTROPHIL # 11.8 TH/MM3 (1.8-7.7); BASOPHIL % 0.1 % (0.0-2.0); HEMO FLAGS DIFF FINAL; LYMPH % 8.2 % (9.0-44.0); LYMPHOCYTE # 1.1 TH/MM3 (1.0-4.8); MEAN CELL VOLUME 80.6 FL (80.0-100.0); MEAN CORPUSCULAR HEMOGLOBIN 26.3 PG (27.0-34.0); MEAN CORPUSCULAR HGB CONC 32.6 % (32.0-36.0); MONO % 6.2 % (0.0-8.0); NEUT % 85.5 % (16.0-70.0); PLATELET COUNT 391 TH/MM3 (150-450); RED BLOOD COUNT 4.96 MIL/MM3 (4.50-5.90); RED CELL DISTRIBUTION WIDTH 14.6 % (11.6-17.2); WHITE BLOOD COUNT 13.9 TH/MM3 (4.0-11.0)
[2017-01-09] MEDS: SODIUM CHLOR 0.9% 1000 ML INJ 1,000 ML IV SCH ×2 (06:33→16:50)
--- NOTE | 2017-01-09 08:13 | PD.ONC.PN ---
Subjective Subjective Remarks Patient seen and examined, vital signs, labs and medications reviewed. Pulmonary function testing reviewed as well. Subjectively he reports feeling cold, he continues to feel short of breath and reports back pain. PICC line to be placed later today, CT head is pending as well. Objective Data Date Time Temp Pulse Resp B/P (MAP) Pulse Ox O2 Delivery O2 Flow Rate FiO2 01/09/17 07:55 93 Nasal Cannula 2.00 01/09/17 07:16 79 01/09/17 03:52 97.7 92 14 126/77 (93) 92 01/09/17 02:14 96 01/09/17 01:19 98.1 107 18 153/76 (101) 94 01/09/17 00:53 94 Nasal Cannula 3.00 01/08/17 22:46 100 16 114/56 (75) 95 Nasal Cannula 3.00 01/08/17 20:00 93 01/08/17 18:50 112 24 132/71 (91) 93 Nasal Cannula 5.00 01/08/17 18:00 20 01/08/17 17:10 103 28 130/75 (93) 93 Nasal Cannula 5.00 01/08/17 14:34 106 32 124/79 (94) 93 Nasal Cannula 2.00 01/08/17 12:44 95 Nasal Cannula 2.00 01/08/17 12:22 28 94 Nasal Cannula 2.00 01/08/17 12:15 93 Nasal Cannula 2.00 01/08/17 11:52 30 98 Nasal Cannula 2.00 01/08/17 11:19 98.2 118 18 140/73 (95) 95 01/09/17 01/09/17 01/09/17 07:00 15:00 23:00 Intake Total 1000 ml Output Total 250 ml Balance 750 ml Result Diagram: 01/09/17 0455 01/09/17 0455 Laboratory Results Laboratory Tests Test 01/08/17 12:15 01/08/17 17:03 01/09/17 04:55 White Blood Count 11.2 TH/MM3 13.9 TH/MM3 Red Blood Count 5.48 MIL/MM3 4.96 MIL/MM3 Hemoglobin 14.4 GM/DL 13.0 GM/DL Hematocrit 44.6 % 40.0 % Mean Corpuscular Volume 81.5 FL 80.6 FL Mean Corpuscular Hemoglobin 26.3 PG 26.3 PG Mean Corpuscular Hemoglobin Concent 32.2 % 32.6 % Red Cell Distribution Width 14.8 % 14.6 % Platelet Count 377 TH/MM3 391 TH/MM3 Mean Platelet Volume 7.4 FL 7.2 FL Neutrophils (%) (Auto) 70.1 % 85.5 % Lymphocytes (%) (Auto) 15.3 % 8.2 % Monocytes (%) (Auto) 8.7 % 6.2 % Eosinophils (%) (Auto) 4.8 % 0.0 % Basophils (%) (Auto) 1.1 % 0.1 % Neutrophils # (Auto) 7.9 TH/MM3 11.8 TH/MM3 Lymphocytes # (Auto) 1.7 TH/MM3 1.1 TH/MM3 Monocytes # (Auto) 1.0 TH/MM3 0.9 TH/MM3 Eosinophils # (Auto) 0.5 TH/MM3 0.0 TH/MM3 Basophils # (Auto) 0.1 TH/MM3 0.0 TH/MM3 CBC Comment DIFF FINAL DIFF FINAL Differential Comment Prothrombin Time 10.6 SEC 10.7 SEC Prothromb Time International Ratio 1.0 RATIO 1.0 RATIO Activated Partial Thromboplast Time 32.0 SEC 30.9 SEC Blood Urea Nitrogen 12 MG/DL 16 MG/DL Creatinine 0.73 MG/DL 0.83 MG/DL Random Glucose 92 MG/DL 144 MG/DL Calcium Level 8.9 MG/DL 8.6 MG/DL Sodium Level 134 MEQ/L 136 MEQ/L Potassium Level 4.0 MEQ/L 4.3 MEQ/L Chloride Level 103 MEQ/L 102 MEQ/L Carbon Dioxide Level 22.8 MEQ/L 27.0 MEQ/L Anion Gap 8 MEQ/L 7 MEQ/L Estimat Glomerular Filtration Rate 125 ML/MIN 108 ML/MIN Lactate Dehydrogenase 385 U/L Tumor Marker Alpha Fetoprotein 4797.7 NG/ML Tumor Marker HCG 39 MIU/ML Acetaminophen Level LESS THAN 2.0 MCG/ML Total Protein 7.2 GM/DL Albumin 3.2 GM/DL Alkaline Phosphatase 130 U/L Aspartate Amino Transf (AST/SGOT) 15 U/L Alanine Aminotransferase (ALT/SGPT) 34 U/L Total Bilirubin 0.6 MG/DL Imaging Studies Last 24 hours Impressions Chest X-Ray 01/08/17 1203 Signed Impressions: Service Date/Time: Sunday, January 08, 2017 12:10 - CONCLUSION: Significant progression of metastatic disease with marked increase in size of disseminated bilateral pulmonary nodules when compared to 12/12/16. Xavi Blakely MD CT Angiography 01/08/17 1203 Signed Impressions: Service Date/Time: Sunday, January 08, 2017 13:35 - CONCLUSION: 1. The study is negative for pulmonary embolism. 2. Progression of thoracic metastatic disease with numerous bilateral disseminated pulmonary nodules measuring up to 8 cm and large left pleural effusion. Xavi Blakely MD Administered Medications Medications (Trade) Dose Ordered Sig/Harleen Route PRN Reason Start Time Stop Time Status Last Admin Dose Admin Allopurinol (Zyloprim) 300 mg BID PO 01/08/17 21:00 01/08/17 21:31 Sodium Chloride 1,000 ml @ 84 mls/hr [id number] IV 01/08/17 17:00 01/09/17 06:33 Ondansetron HCl (Zofran Inj) 4 mg Q8HR PRN IV PUSH NAUSEA OR VOMITING 01/08/17 16:45 01/08/17 17:51 Morphine Sulfate (Morphine Inj) 4 mg Q3H PRN IV PUSH Pain 6-10 01/08/17 17:15 01/09/17 06:36 Enoxaparin Sodium (Lovenox Inj) 40 mg Q24H SQ 01/08/17 17:15 Future Hold 01/08/17 17:47 Objective Remarks GENERAL: Young male, laying in bed, appears to be trembling, not acutely distressed area SKIN: Cool and dry. Heavily tattooed. HEAD: Normocephalic. EYES: No scleral icterus. No injection or drainage. NECK: Supple, trachea midline. No JVD or lymphadenopathy. LYMPHATIC: No adenopathy. CARDIOVASCULAR: Tachycardic, regular, S1 and S2 normal murmurs or gallops. RESPIRATORY: Decreased bibasilar breath sounds, no wheezing, rhonchi or rails. GASTROINTESTINAL: Abdomen soft, non-tender, nondistended. EXTREMITIES: No cyanosis, or edema. MUSCULOSKELETAL: Adequate muscle tone. NEUROLOGICAL: No obvious focal deficit. Awake, alert, and oriented x3. PSYCHIATRIC: Appropriate mood and affect; insight and judgment normal. Urogenital: Status post left orchiectomy, right testicle without abnormalities or masses. No inguinal lymphadenopathy. Assessment/Plan Assessment Mr. 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 This patient has extensive pulmonary metastases, mediastinal lymphadenopathy as well as retroperitoneal lymphadenopathy. The primary tumor involving the left testis has been removed. He comes into the hospital with complaints of difficulty breathing and palpitations and the cause is the extensive mediastinal disease burden with what appears to be direct compression on the ventricles and the right atrium of the heart. He is being admitted to the hospital for urgent initiation of inpatient chemotherapy. He did undergo pulmonary function testing two weeks ago, I do not believe DLCO was performed at that time. He is otherwise healthy other than having been a smoker of both tobacco and cannabinoids. I did talk to the patient and his mother about his disease. I explained to him that his disease is very advanced and warrants urgent initiation of therapy. I will also explained to them that because he has a mixed germ cell tumor consisting mostly of mature and immature teratoma, his prognosis will defer from seminoma / non seminoma testicular cancers. Seminoma and non-seminoma testicular cancers typically have an excellent prognosis whereas the prognosis for teratomas is more guarded and often involves a multidisciplinary approach which includes chemotherapy followed by surgical resection. Plan 1. 31-year-old male with diagnosis of rapidly progressive testicular teratoma consisting of both mature and immature components as well as a minute component of yolk sac tumor. He has retroperitoneal lymph node metastases as well as extensive mediastinal metastases and pulmonary metastases. Pulmonary function testing was reviewed, his DLCO is 65% of predicted. I did talk to the patient about initiation of systemic chemotherapy emergently as a life saving measure given the extent of his thoracic disease burden and symptoms of dyspnea, tachycardia and hypoxia. I would recommend initiating him on systemic therapy with ifosfamide, cisplatin, etoposide and mesna. He will be dosed to a body surface area of 2 meters squared. Await PICC line placement. CT scan of the head with contrast to rule out brain metastases. Serum tumor markers were reviewed, alpha-fetoprotein level has increased to over 4500, LDH and beta hCG levels are also elevated. He has intermediate to high risk disease. Initiate IV fluids. Initiated DVT prophylaxis after placement of PICC line. Initiate allopurinol for tumor lysis syndrome prophylaxis. Chemotherapy orders have been written and are placed in the chart, the chemotherapy regimen template printout has also been placed in the chart along with appropriate references. The plan is to deliver first cycle of the current treatment regimen, repeat PFTs to be done after 1 cycle to assess for improvement in DLCO at which point if he has shown significant improvement and normalization we may treat him with bleomycin, etoposide, cisplatin which is the standard of care. Lul Carlson MD Jan 09, 2017 08:13
[2017-01-09] MEDS: ALLOPURINOL 300 MG TAB PO SCH (08:56)
[2017-01-09] MEDS: DOCUSATE SODIUM 50 MG/SENNA 8.6 MG TAB PO SCH ×2 (08:56→21:00)
[2017-01-09] MEDS: SODIUM CHLORIDE 0.9% FLUSH 10 ML FLUSH IV FLUSH SCH ×2 (08:59→22:03)
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
[2017-01-09] MEDS ORDERED: PNEUMOCOCCAL POLYVALENT INJ 25 MCG/0.5 ML SYR IM ONE (09:00)
[2017-01-09] MEDS ORDERED: INFLUENZA VIRUS VACCINE (QUADRIVALENT) 0.5 ML SYR IM ONE (09:00)
[2017-01-09] MEDS: ONDANSETRON HCL 4 MG/2 ML VIAL IV PUSH PRN ×3 (11:18→23:37)
[2017-01-09] MEDS ORDERED: D5-1/2 NS + KCL 20 MEQ INJ 1,000 ML IV SCH ×2 (12:00)
[2017-01-09] MEDS: oxyCODONE/ACETAMINOPHEN 10 MG/325 MG TAB PO PRN ×2 (13:26→19:25)
--- NOTE | 2017-01-09 13:29 | RADRPT ---
EXAM DATE/TIME: 01/09/2017 13:04 [facility] COMPARISON: CT PULMONARY ANGIOGRAM, January 08, 2017, 13:35. CHEST SINGLE AP, January 08, 2017, 12:10. INDICATIONS : Post PICC placement. MEDICAL HISTORY : Carcinoma, lung. Metastatic disease. testicular ca. lung SURGICAL HISTORY : thoracentesis left lung ENCOUNTER: Subsequent ACUITY: 2 days PAIN SCORE: 0/10 LOCATION: Bilateral chest FINDINGS: A single portable frontal view the chest shows numerous pulmonary masses consistent with metastatic d isease. These are grossly unchanged. There is a right-sided PICC line with the tip at the cavoatrial junction. No infiltrate or effusion. Heart is normal in size. CONCLUSION: 1. Right-sided PICC line in good position. 2. Metastatic disease to the chest. Xavi Childers Jr., MD on January 09, 2017 at 13:26 Board Certified Radiologist. This report was verified electronically.
--- NOTE | 2017-01-09 15:06 | ECHRPT ---
Indication: SOB, R/O TAMPONADE CONCLUSIONS The transthoracic study is normal by two-dimensional, color flow imaging and Doppler interrogation. BP: 126 / 77 HR: 92 Rhythm: Sinus MEASUREMENTS (Male / Female) Normal Values Technical Quality:Fair 2D ECHO LV Diastolic Diameter PLAX 5.6 cm 4.2 - 5.9 / 3.9 - 5.3 cm LV Systolic Diameter PLAX 3.0 cm IVS Diastolic Thickness 0.8 cm 0.6 - 1.0 / 0.6 - 0.9 cm LVPW Diastolic Thickness 0.8 cm 0.6 - 1.0 / 0.6 - 0.9 cm LV Relative Wall Thickness 0.3 LVOT Diameter 2.4 cm Aortic Root Diameter 3.1 cm LA Systolic Diameter LX 3.3 cm 3.0 - 4.0 / 2.7 - 3.8 cm M-MODE AV Cusp Separation MM 2.3 cm DOPPLER AV Peak Velocity 117.0 cm/s AV Peak Gradient 5.5 mmHg AV Mean Gradient 2.0 mmHg AV Velocity Time Integral 18.2 cm LVOT Peak Velocity 83.5 cm/s LVOT Peak Gradient 2.8 mmHg LVOT Velocity Time Integral 14.7 cm LVOT Cardiac Index 2892.6 cm/minm AV Area Cont Eq vti 3.7 cm AV Area Cont Eq pk 3.2 cm Mitral E Point Velocity 76.0 cm/s Mitral A Point Velocity 68.1 cm/s Mitral E to A Ratio 1.1 LV E' Lateral Velocity 13.1 cm/s Mitral E to LV E' Lateral Ratio 5.8 LV E' Septal Velocity 13.5 cm/s Mitral E to LV E' Septal Ratio 5.6 PV Peak Velocity 66.2 cm/s PV Peak Gradient 1.8 mmHg FINDINGS LEFT VENTRICLE Normal left ventricular size and wall thickness. The left ventricular systolic function is normal wi th an estimated ejection fraction in the range of 60-65%. No regional wall motion abnormalities are presen t. RIGHT VENTRICLE Normal right ventricular size and systolic function. LEFT ATRIUM The left atrial size is normal. RIGHT ATRIUM The right atrial size is normal. ATRIAL SEPTUM Normal atrial septal thickness without atrial level shunting by limited color doppler interrogation. AORTA The aortic root and proximal ascending aorta are normal in size on limited imaging. MITRAL VALVE Structurally normal mitral valve. No mitral valve stenosis or regurgitation. AORTIC VALVE Trileaflet aortic valve. No aortic valve stenosis or regurgitation. TRICUSPID VALVE Structurally normal tricuspid valve. No tricuspid valve stenosis or regurgitation. PULMONARY VALVE No pulmonary valve regurgitation or stenosis. VESSELS The inferior vena cava is normal in size. PERICARDIUM No pericardial effusion. Noam Gil MD (Electronically Signed) Final Date:09 January 2017 15:06
--- NOTE | 2017-01-09 16:10 | RADRPT ---
EXAM DATE/TIME: 01/09/2017 15:23 [facility] COMPARISON: No previous studies available for comparison. INDICATIONS : Cephalgia. IV CONTRAST: 75 cc Omnipaque 350 (iohexol) IV RADIATION DOSE: 45.62 CTDIvol (mGy) MEDICAL HISTORY : Carcinoma, lung. Carcinoma, testicular. SURGICAL HISTORY : None. ENCOUNTER: Initial ACUITY: 1 day PAIN SCALE: 0/10 LOCATION: cranial TECHNIQUE: Multiple contiguous axial images were obtained of the head. Using automated exposure control and adj ustment of the mA and/or kV according to patient size, radiation dose was kept as low as reasonably a chievable to obtain optimal diagnostic quality images. DICOM format image data is available electro nically for review and comparison. FINDINGS: CEREBRUM: The ventricles are normal for age. No evidence of midline shift, cerebral edema or blood products. No extra-axial fluid collections are seen. POSTERIOR FOSSA: The cerebellum and brainstem are intact. The 4th ventricle is midline. The cerebellar pontine angle is unremarkable. EXTRACRANIAL: The visualized portion of the orbits is intact. Mucosal thickening without air-fluid levels involving the ethmoid air cells bilaterally. SKULL: The calvaria is intact. No evidence of skull fracture. POST CONTRAST: No abnormal areas of parenchymal or dural enhancement. No evidence of blood-brain barrier breakdown. CONCLUSION: 1. No acute intracranial abnormality. 2. Chronic bilateral ethmoid sinus disease. Xavi Childers Jr., MD on January 09, 2017 at 16:05 Board Certified Radiologist. This report was verified electronically.
[2017-01-09] MEDS: GRANISETRON HCL 1 MG/ML VIAL IV SCH (16:57)
[2017-01-09] MEDS ORDERED: IOHEXOL 350 MG/ML 10 ML VIAL (for RAD DIAG) IVCONTRAST ONE (16:57)
[2017-01-09] MEDS: DEXAMETHASONE SOD PHOS 20 MG/5 ML VIAL IV SCH (16:58)
[2017-01-09] MEDS: LORazepam 2 MG/ML VIAL IV PUSH SCH (16:58)
[2017-01-09] MEDS: CISPLATIN IV SCH (17:32)
[2017-01-09] MEDS: SODIUM CHLOR 0.9% IV SCH (17:32)
[2017-01-09] MEDS: SODIUM CHLORIDE 0.9% IV SCH ×2 (18:17→23:12)
[2017-01-09] MEDS: MESNA IV SCH ×2 (18:17→23:12)
[2017-01-09] MEDS: SODIUM CHLORID 0.9% IV SCH (18:43)
[2017-01-09] MEDS: IFOSFAMIDE IV SCH (18:43)
[2017-01-09] MEDS: NS IV SCH (21:50)
[2017-01-09] MEDS: ETOPOSIDE IV SCH (21:50)
[2017-01-09] MEDS: D5-1/2 NS + KCL 20 MEQ INJ 1,000 ML IV SCH (22:02)
[2017-01-10] VITALS (8 sets, daily range): BP systolic 109–130; BP diastolic 60–83; PULSE 74–97; RESP 15–20; TEMP 97.7–98.4; O2SAT 92–95
[2017-01-10] MEDS: D5-1/2 NS + KCL 20 MEQ INJ 1,000 ML IV SCH ×5 (01:20→20:36)
[2017-01-10] MEDS: oxyCODONE/ACETAMINOPHEN 10 MG/325 MG TAB PO PRN ×3 (01:56→20:34)
[2017-01-10] MEDS: MESNA IV SCH ×3 (02:52→22:28)
[2017-01-10] MEDS: SODIUM CHLORIDE 0.9% IV SCH ×3 (02:52→22:28)
[2017-01-10] MEDS: SODIUM CHLOR 0.9% 1000 ML INJ 1,000 ML IV SCH ×2 (04:45→16:40)
[2017-01-10 04:48] LABS: AUTOMATED NEUTROPHIL # 11.6 TH/MM3 (1.8-7.7); BASOPHIL % 0.1 % (0.0-2.0); HEMO FLAGS DIFF FINAL; LYMPH % 6.3 % (9.0-44.0); LYMPHOCYTE # 0.8 TH/MM3 (1.0-4.8); MEAN CELL VOLUME 81.9 FL (80.0-100.0); MEAN CORPUSCULAR HGB CONC 32.9 % (32.0-36.0); MONO % 1.9 % (0.0-8.0); NEUT % 91.7 % (16.0-70.0); PLATELET COUNT 360 TH/MM3 (150-450); RED BLOOD COUNT 4.76 MIL/MM3 (4.50-5.90); RED CELL DISTRIBUTION WIDTH 14.7 % (11.6-17.2); WHITE BLOOD COUNT 12.7 TH/MM3 (4.0-11.0)
[2017-01-10 05:12] LABS: ALT (GPT) 41 U/L (12-78); ANION GAP 6 MEQ/L (5-15); AST (GOT) 15 U/L (15-37); BICARBONATE 27.4 MEQ/L (21.0-32.0); BLOOD UREA NITROGEN 14 MG/DL (7-18); CHLORIDE 103 MEQ/L (98-107); SODIUM (NA) 136 MEQ/L (136-145)
[2017-01-10 05:15] LABS: ALKALINE PHOSPHATASE 115 U/L (45-117); GLOMERULAR FILTRATION RATE 121 ML/MIN (>89); TOTAL BILIRUBIN ADULT 0.6 MG/DL (0.2-1.0)
--- NOTE | 2017-01-10 05:24 | RADRPT ---
EXAM DATE/TIME: 01/10/2017 04:17 [facility] COMPARISON: CHEST SINGLE AP, January 09, 2017, 13:04. INDICATIONS : Shortness of breath. MEDICAL HISTORY : Carcinoma, lung. Metastatic disease. testicular ca. lung SURGICAL HISTORY : thoracentesis left lung. ENCOUNTER: Subsequent ACUITY: 2 weeks PAIN SCORE: 0/10 LOCATION: Bilateral chest FINDINGS: Numerous masses are seen throughout the lungs bilaterally. The there is decreasing aeration throughou t much of the left lung when compared to the prior exam. The heart border is obscured. There is a PIC C line placed from the right arm with tip overlying the SVC. CONCLUSION: Numerous large masses. There is decreased aeration in the left lung suggesting superimposed inflammat ory change given the rapid change from yesterday's chest x-ray. Luis Enriquez MD on January 10, 2017 at 5:20 Board Certified Radiologist. This report was verified electronically.
--- NOTE | 2017-01-10 08:06 | HHI.FPPN ---
Subjective Remarks Patient seen and examined this morning. No acute events overnight. Vital signs remain stable with his oxygenation in the mid to upper 90s on 3L nasal cannula. Patient states he feels better to day overall, but did have a "couple" of episodes of vomiting with nausea overnight. He states that his pain is controlled on his current regiment and the Zofran alleviates his nausea. He currently has no other complaints and denies any fevers, chills, SOB, chest pain , ABD pain, or calf tenderness. (Trevor Xie MD R2) Objective Vitals Vital Signs Date Time Temp Pulse Resp B/P (MAP) Pulse Ox O2 Delivery O2 Flow Rate FiO2 01/10/17 04:00 86 01/10/17 04:00 98.4 76 18 123/67 (85) 95 01/10/17 02:56 20 01/10/17 00:00 85 01/10/17 00:00 98.3 90 20 130/83 (99) 92 01/09/17 23:03 18 01/09/17 20:10 95 Nasal Cannula 2.00 01/09/17 20:00 99.5 89 20 130/86 (101) 94 01/09/17 20:00 97 01/09/17 16:56 98.0 80 18 126/82 (97) 95 01/09/17 11:23 97.6 89 18 133/80 (97) 95 01/09/17 09:00 97.6 85 20 142/78 (99) 96 I/O 01/09/17 01/09/17 01/09/17 01/10/17 01/10/17 01/10/17 07:00 15:00 23:00 07:00 15:00 23:00 Intake Total 1000 ml 672 ml 3253 ml 1356 ml Output Total 250 ml 250 ml 750 ml 500 ml Balance 750 ml 422 ml 2503 ml 856 ml Intake Oral 1180 ml 240 ml IV Total 1000 ml 672 ml 2073 ml 1116 ml Output Urine Total 250 ml 250 ml 750 ml 500 ml (Trevor Xie MD R2) Result Diagram: 01/10/1742901/10/17429 Objective Remarks GENERAL: Well developed, well nourished male lying in bed awakened on entering the room in [facility]. SKIN: Wam and dry. Tattoos on trunk and extremities . HEENT: AT, NC with EOMI. MM dry. No rhinorrhea. No JVD or LAD appreciated. CARDIOVASCULAR: RRR with no MGR. 2+ pulses in all 4 ext. RESPIRATORY: Decreased bibasilar breath sounds. No CRW appreciated. No increased WOB. GASTROINTESTINAL: Abdomen soft, non-tender, nondistended with +BS. No masses appreciated. EXTREMITIES: No cyanosis or edema. No calf tenderness. NEUROLOGICAL: Afocal. AAOx3. Normal speech and judgement. 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 Patient also reports lower back pain x1 month and head pain for the past 1 1/2 weeks. Admitted for initiation of chemotherapy and supportive care. Discharge Planning Pending clinical stabilization s/p initiation of chemotherapy. (Trevor Xie MD R2) Attending Attestation Patient seen and examined. Case reviewed and discussed with the resident team. Agree with plan of care as discussed with me and documented in the resident note. he reports his nausea is better with zofran but then it wears off and he vomits before he gets his next dose of zofran. asked Ashley about phenergan as he could alternate this with zofran and hopefully improve with the nausea. He had nonsustained ventricular ectopy. he did not have a sustained arrhythmia. His EKG does not show QT prolongation. antiemetics can prolong QT but he should be fine as his QT is normal. appreciate Ashley and Dr Covington! (Ai Zaragoza MD) Problem List: (1) Shortness of breath ICD Codes: R06.02 - Shortness of breath Status: Acute Plan: Patient with shortness of breath for the past few weeks. Likely due to metastatic disease and associated pleural effusion. On admission, T 98.2, HR 106 , RR 28, pulse ox 94% on 2 L NC. WBC 11.2. Chest x-ray reads significant progression of metastatic disease with marked increase in size of disseminated bilateral pulmonary nodules when compared to 12/12/16. CT angiography reads negative for pulmonary embolism, progression of thoracic metastatic disease with numerous bilateral disseminated pulmonary nodules measuring up to 8 cm and large left pleural effusion. Orders/Labs: * Monitor oxygen saturation. * Incentive Spirometry. * Repeat CXR: Numerous large masses. Decreased aeration in the L lung suggesting superimposed inflammatory change for yesterday's CXR. Discussed findings with Dr. Carlson who agrees with low suspicion of inflammatory reaction due to his stable clinical picture and initial CT chest showing no inflammatory signs. * Plan for thoracentesis tomorrow. Discussed with Oncology and IR. Order to be placed tomorrow AM for US guided thoracentesis. Lovenox held 01/10/17 pre- procedure. Patient agrees to plan of care. 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 Tumor size 11.5 cm x 8.0 x 6.5 cm. Patient also with extensive metastasis to lungs, found on CT. Orders/Labs: * Consulted Oncology - patient seen by Dr. Carlson, appreciate recommendations * Lactate Dehydrogenase 385H, Tumor Marker AFP 4797.7H, and Tumor Marker HCG 39H. Medication: * Allopurinol 300mg BID PO for tumor lysis syndrome. * NS 1,000ml at 84ml/hr IV for hydration. * Initiated Mesna, Etoposide, Ifosfamide, and Cisplatin on 01/09/17 (3) Lung metastases ICD Codes: C78.00 - Secondary malignant neoplasm of unspecified lung Status: Acute Plan: See Plan for Shortness of breath. (4) Tachycardia ICD Codes: R00.0 - Tachycardia, unspecified Status: Acute Plan: HR 106 on admission. Likely due to metastatic disease with compression of the heart. Telemetry with 5-6 beat runs of V-tach with trigeminy overnight. Patient is high risk Orders/Labs: * Echocardiogram 01/09: Normal L ventricular size and thickness. Systolic function normal with EF of 60-65%. No wall motion abnormalities. * Cardiology consulted, appreciate recommendations (5) Back pain ICD Codes: M54.9 - Dorsalgia, unspecified Plan: Patient reports lower, left-sided back pain x1 month, the pain is a continuous, non-radiating, sharp pain. Orders/Labs: * May consider further imaging to investigate source of pain probably mets. Medication: * Pain medications as above (6) Headache ICD Codes: R51 - Headache Plan: Patient reports head pain, located on the right, anterior and superior to ear. Now better, thankfully. Orders/Labs: * CT [place]: No acute intracranial abnormality. Chronic bilateral sinus disease. Medications: * See Plan for Back pain. (7) Asthma ICD Codes: J45.909 - Unspecified asthma, uncomplicated Plan: History of asthma. No wheezing noted on exam. Breathing difficulties likely due to metastatic disease rather than asthma. Orders/Labs: * Monitor oxygen saturation. * Incentive Spirometry. Medication: * Duoneb q4hr NEB PRN SHORTNESS OF BREATH. (8) Pleural effusion on left ICD Codes: J90 - Pleural effusion, not elsewhere classified Status: Acute Plan: Evidence of pleural effusion. Likely due to metastatic disease process. thoracentesis when needed by IR Orders/Labs: * US thoracentesis planned for tomorrow, Lovenox held, order to be placed tomorrow (9) Fluid, Electrolyte, Nutrition, and Prophylaxis Status: Acute Plan: Fluids: * NS 1,000ml at 84ml/hr IV for hydration. Electrolytes: * Monitor and replete as necessary. Nutrition: * Regular diet Prophylaxis: * Lovenox held for thoracentesis scheduled for tomorrow (Trevor Xie MD R2) Problem Qualifiers (1) Testicular teratoma: Qualified Codes: C62.92 - Malignant neoplasm of left testis, unspecified whether descended or undescended (2) Lung metastases: Qualified Codes: C78.00 - Secondary malignant neoplasm of unspecified lung (3) Back pain: Qualified Codes: M54.6 - Pain in thoracic spine (4) Headache: Qualified Codes: G44.89 - Other headache syndrome (5) Asthma: Qualified Codes: J45.998 - Other asthma Trevor Xie MD R2 Jan 10, 2017 08:06 Ai Zaragoza MD Jan 10, 2017 15:54
--- NOTE | 2017-01-10 08:07 | PD.ONC.PN ---
Subjective Subjective Remarks Patient was seen and examined, vital signs, labs, medications, imaging studies and procedure notes were reviewed. He underwent right upper extremity PICC line placement yesterday following which he was initiated on systemic chemotherapy. The patient reports feeling less pressure in his chest this morning and subjectively feels his breathing to be improved. He continues to have back pain and tells me this is quite severe. He does have nausea, hiccups and loss of appetite. He denies fevers or chills. Objective Data Date Time Temp Pulse Resp B/P (MAP) Pulse Ox O2 Delivery O2 Flow Rate FiO2 01/10/17 04:00 86 01/10/17 04:00 98.4 76 18 123/67 (85) 95 01/10/17 02:56 20 01/10/17 00:00 85 01/10/17 00:00 98.3 90 20 130/83 (99) 92 01/09/17 23:03 18 01/09/17 20:10 95 Nasal Cannula 2.00 01/09/17 20:00 99.5 89 20 130/86 (101) 94 01/09/17 20:00 97 01/09/17 16:56 98.0 80 18 126/82 (97) 95 01/09/17 11:23 97.6 89 18 133/80 (97) 95 01/09/17 09:00 97.6 85 20 142/78 (99) 96 01/10/17 01/10/17 01/10/17 07:00 15:00 23:00 Intake Total 1356 ml Output Total 500 ml Balance 856 ml Result Diagram: 01/10/17 0430 01/10/17 0430 Laboratory Results Laboratory Tests Test 01/10/17 04:30 White Blood Count 12.7 TH/MM3 Red Blood Count 4.76 MIL/MM3 Hemoglobin 12.8 GM/DL Hematocrit 39.0 % Mean Corpuscular Volume 81.9 FL Mean Corpuscular Hemoglobin 27.0 PG Mean Corpuscular Hemoglobin Concent 32.9 % Red Cell Distribution Width 14.7 % Platelet Count 360 TH/MM3 Mean Platelet Volume 7.2 FL Neutrophils (%) (Auto) 91.7 % Lymphocytes (%) (Auto) 6.3 % Monocytes (%) (Auto) 1.9 % Eosinophils (%) (Auto) 0.0 % Basophils (%) (Auto) 0.1 % Neutrophils # (Auto) 11.6 TH/MM3 Lymphocytes # (Auto) 0.8 TH/MM3 Monocytes # (Auto) 0.2 TH/MM3 Eosinophils # (Auto) 0.0 TH/MM3 Basophils # (Auto) 0.0 TH/MM3 CBC Comment DIFF FINAL Differential Comment Blood Urea Nitrogen 14 MG/DL Creatinine 0.75 MG/DL Random Glucose 164 MG/DL Total Protein 6.9 GM/DL Albumin 3.1 GM/DL Calcium Level 8.2 MG/DL Alkaline Phosphatase 115 U/L Aspartate Amino Transf (AST/SGOT) 15 U/L Alanine Aminotransferase (ALT/SGPT) 41 U/L Total Bilirubin 0.6 MG/DL Sodium Level 136 MEQ/L Potassium Level 4.0 MEQ/L Chloride Level 103 MEQ/L Carbon Dioxide Level 27.4 MEQ/L Anion Gap 6 MEQ/L Estimat Glomerular Filtration Rate 121 ML/MIN Administered Medications Medications (Trade) Dose Ordered Sig/Harleen Route PRN Reason Start Time Stop Time Status Last Admin Dose Admin Sodium Chloride 1,000 ml @ 84 mls/hr [id number] IV 01/08/17 17:00 01/09/17 06:33 Morphine Sulfate (Morphine Inj) 2 mg Q3H PRN IV PUSH BREAKTHROUGH PAIN 01/08/17 17:15 01/09/17 22:03 Sodium Chloride (NS Flush) 2 ml BID IV FLUSH 01/08/17 21:00 01/09/17 22:03 Enoxaparin Sodium (Lovenox Inj) 40 mg Q24H SQ 01/08/17 17:15 Future Hold 01/08/17 17:47 Senna/Docusate Sodium (Dorothy-Colace) 1 tab BID PO 01/08/17 21:00 01/09/17 08:56 Cisplatin 40 mg/ Sodium Chloride 290 ml @ 580 mls/hr Q24H IV 01/09/17 14:00 01/13/17 14:29 01/09/17 17:32 Ifosfamide 2400 mg/Sodium Chloride 500 ml @ 250 mls/hr Q24H IV 01/09/17 14:00 01/13/17 15:59 01/09/17 18:43 Mesna 800 mg/ Sodium Chloride 58 ml @ 232 mls/hr Q24H IV 01/09/17 13:45 01/13/17 13:59 01/09/17 18:17 Mesna 800 mg/ Sodium Chloride 58 ml @ 232 mls/hr Q24H IV 01/09/17 18:00 01/13/17 18:14 01/09/17 23:12 Mesna 800 mg/ Sodium Chloride 58 ml @ 232 mls/hr Q24H IV 01/09/17 22:00 01/13/17 22:14 01/10/17 02:52 Potassium Chloride/Dextrose/ Sod Cl 1,000 ml @ 150 mls/hr Q6H40M IV 01/09/17 12:00 01/13/17 23:59 01/10/17 05:50 Granisetron HCl (Kytril Inj) 1 mg Q24H IV 01/09/17 13:30 01/14/17 13:31 01/09/17 16:57 Lorazepam (Ativan Inj) 1 mg Q24H IV PUSH 01/09/17 13:30 01/14/17 13:31 01/09/17 16:58 Dexamethasone Sodium Phosphate (Decadron Inj) 20 mg Q24H IV 01/09/17 13:30 01/14/17 13:31 01/09/17 16:58 Etoposide 200 mg/ Sodium Chloride 510 ml @ 510 mls/hr Q24H IV 01/09/17 16:00 01/13/17 16:59 01/09/17 21:50 Oxycodone/ Acetaminophen (Percocet 10-325 Mg) 1 tab Q4H PRN PO PAIN SCALE 6 TO 10 01/09/17 12:00 01/10/17 01:56 Ondansetron HCl (Zofran Inj) 4 mg Q4HR PRN IV PUSH NAUSEA OR VOMITING 01/09/17 16:00 01/09/17 23:37 Objective Remarks GENERAL: Young male, laying in bed, appears to be trembling, not acutely distressed area SKIN: Cool and dry. Heavily tattooed. HEAD: Normocephalic. EYES: No scleral icterus. No injection or drainage. NECK: Supple, trachea midline. No JVD or lymphadenopathy. LYMPHATIC: No adenopathy. CARDIOVASCULAR: Tachycardic, regular, S1 and S2 normal murmurs or gallops. RESPIRATORY: Decreased bibasilar breath sounds, no wheezing, rhonchi or rails. GASTROINTESTINAL: Abdomen soft, non-tender, nondistended. EXTREMITIES: No cyanosis, or edema. MUSCULOSKELETAL: Adequate muscle tone. NEUROLOGICAL: No obvious focal deficit. Awake, alert, and oriented x3. PSYCHIATRIC: Appropriate mood and affect; insight and judgment normal. Urogenital: Status post left orchiectomy, right testicle without abnormalities or masses. No inguinal lymphadenopathy. Assessment/Plan Assessment Mr. 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 This patient has extensive pulmonary metastases, mediastinal lymphadenopathy as well as retroperitoneal lymphadenopathy. The primary tumor involving the left testis has been removed. He comes into the hospital with complaints of difficulty breathing and palpitations and the cause is the extensive mediastinal disease burden with what appears to be direct compression on the ventricles and the right atrium of the heart. He is being admitted to the hospital for urgent initiation of inpatient chemotherapy. He did undergo pulmonary function testing two weeks ago, I do not believe DLCO was performed at that time. He is otherwise healthy other than having been a smoker of both tobacco and cannabinoids. I did talk to the patient and his mother about his disease. I explained to him that his disease is very advanced and warrants urgent initiation of therapy. I will also explained to them that because he has a mixed germ cell tumor consisting mostly of mature and immature teratoma, his prognosis will defer from seminoma / non seminoma testicular cancers. Seminoma and non-seminoma testicular cancers typically have an excellent prognosis whereas the prognosis for teratomas is more guarded and often involves a multidisciplinary approach which includes chemotherapy followed by surgical resection. Plan 1. 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 He has retroperitoneal lymph node metastases as well as extensive mediastinal metastases and pulmonary metastases. Pulmonary function testing was reviewed, his DLCO is 65% of predicted. He has been initiated on inpatient systemic chemotherapy as a life saving measure given the extent of his thoracic disease burden and symptoms of dyspnea, tachycardia and hypoxia. He was initiated on cycle 1 ifosfamide, cisplatin, etoposide and mesna on 01/09/2017. Chemotherapy was dosed to a body surface area of 2 meters squared. Serum tumor markers were reviewed, alpha-fetoprotein level has increased to over 4500, LDH and beta hCG levels are also elevated. He has intermediate to high risk disease. Continue ongoing care, today will be day 2 of the VIP chemotherapy regimen. He seems to be tolerating treatment without difficulties. Repeat CMP on 01/11/2017 with magnesium and phosphate levels to assess for tumor lysis. Continue allopurinol 300 mg daily and IV fluids. Lovenox for DVT prophylaxis. Lul Carlson MD Jan 10, 2017 08:06
[2017-01-10] MEDS: SODIUM CHLORIDE 0.9% FLUSH 10 ML FLUSH IV FLUSH SCH ×2 (09:00→20:34)
[2017-01-10] MEDS: ONDANSETRON HCL 4 MG/2 ML VIAL IV PUSH PRN (10:09)
[2017-01-10] MEDS: DOCUSATE SODIUM 50 MG/SENNA 8.6 MG TAB PO SCH ×2 (10:11→20:34)
[2017-01-10] MEDS: ALLOPURINOL 300 MG TAB PO SCH (10:12)
[2017-01-10] MEDS ORDERED: PROMETHAZINE HCL 25 MG TAB PO PRN (11:30)
[2017-01-10] MEDS: MORPHINE SULFATE 4 MG/ML INJ IV PUSH PRN ×2 (11:31→22:32)
[2017-01-10] MEDS: MAGNESIUM SULFATE 1 GM PREMIX 100 ML IV SCH ×2 (11:31→13:27)
[2017-01-10 12:29] LABS: ALT (GPT) 33 U/L (12-78); ANION GAP 6 MEQ/L (5-15); AST (GOT) 14 U/L (15-37); BICARBONATE 27.1 MEQ/L (21.0-32.0); BLOOD UREA NITROGEN 12 MG/DL (7-18); CHLORIDE 102 MEQ/L (98-107); GLOMERULAR FILTRATION RATE 151 ML/MIN (>89); MAGNESIUM 2.1 MG/DL (1.5-2.5); SODIUM (NA) 135 MEQ/L (136-145)
[2017-01-10 12:31] LABS: ALKALINE PHOSPHATASE 107 U/L (45-117); TOTAL BILIRUBIN ADULT 0.6 MG/DL (0.2-1.0)
[2017-01-10] MEDS: PROMETHAZINE INJ 25 MG/ML VIAL IV-CENTRAL PRN ×2 (13:10→22:32)
[2017-01-10] MEDS: 1/2 NS IV SCH ×2 (14:00→14:34)
[2017-01-10] MEDS: D5 IV SCH ×2 (14:00→14:34)
[2017-01-10] MEDS: KCL IV SCH ×2 (14:00→14:34)
--- NOTE | 2017-01-10 16:04 | MB ---
cc: TOM CALLEJAS M.D. DATE OF CONSULTATION 01/10/2017 REASON FOR CONSULTATION Ventricular tachycardia. HISTORY OF PRESENT ILLNESS History is currently unobtainable from the patient. He is very sedated from some pain medication he received earlier this afternoon. He apparently is a 31-year-old white male with a history of metastatic testicular cancer, asthma who presented to the emergency room with increasing shortness of breath, hemoptysis. On monitoring here in the hospital he has demonstrated salvos of wide complex tachycardia. According to his family member he has had no complaints of palpitations, dizziness, syncope, shortness of breath today. PAST MEDICAL HISTORY 1. Asthma 2. Metastatic left testicular cancer (teratoma), with extensive pulmonary metastases and mediastinal and retroperitoneal lymphadenopathy. PAST SURGICAL HISTORY 1. Left orchiectomy 07/16/2016. 2. Left retroperitoneal, periaortic mass biopsy. MEDICATIONS His current cardiac medications, none. ALLERGIES NO KNOWN DRUG ALLERGIES. FAMILY HISTORY Noncontributory. SOCIAL HISTORY The patient quit smoking 2 weeks ago. He smokes marijuana on a daily basis. There is no history of alcohol abuse. REVIEW OF SYSTEMS Currently unobtainable. PHYSICAL EXAMINATION VITAL SIGNS: Blood pressure 114/63 with a pulse of 87, respirations 18. GENERAL: He is a well-developed, somnolent white male in no acute distress, currently sleeping. HEENT: Jugular venous pressure is hard to assess. Carotid pulses are 2+ bilaterally and without bruits. CHEST: Examination of the chest reveals clear lung araya. CARDIOVASCULAR: On cardiac examination he has a regular rhythm and rate without S3-S4 or murmur. ABDOMEN: On abdominal examination he has a soft abdomen. Bowel sounds are present. There is no definite hepatosplenomegaly. EXTREMITIES: Examination of the extremities reveals no clubbing, cyanosis or edema. LABORATORY DATA EKG shows sinus rhythm, right axis deviation. Laboratory data includes WBC 12.7, hemoglobin 12.8, platelets 360. Potassium 4.0, BUN 12, creatinine 0.62. IMPRESSION Occasional salvos of wide complex tachycardia in this 31-year-old white male with a history of metastatic testicular cancer, asthma. His numerous rhythm strips have been reviewed. I suspect the wide complex tachy arrhythmias are aberrantly conducted supraventricular arrhythmias, although it is difficult to exclude ventricular tachycardia. Episodes do appear to began with a long- short RR interval, and in lead V1 the initial portion of the QRS complex is similar to the initial deflection of the complex in the tachycardia. A couple episodes also show preceding atrial activity. History is currently unobtainable from the patient, but according to his family he has been asymptomatic with these arrhythmias. Echocardiogram is pending. RECOMMENDATIONS 1. We will start sotalol. 2. Await his 2-D echo. Tom Callejas MD [facility] /3:06 PM /3:39 PM [place]
[2017-01-10] MEDS: GRANISETRON HCL 1 MG/ML VIAL IV SCH (16:22)
[2017-01-10] MEDS: LORazepam 2 MG/ML VIAL IV PUSH SCH (16:22)
[2017-01-10] MEDS: DEXAMETHASONE SOD PHOS 20 MG/5 ML VIAL IV SCH (16:22)
[2017-01-10] MEDS: CISPLATIN IV SCH (17:15)
[2017-01-10] MEDS: SODIUM CHLOR 0.9% IV SCH (17:15)
--- NOTE | 2017-01-10 17:40 | EKG ---
Date Performed: 01/10/2017 Time Performed: 11:08:34 PTAGE: 31 years EKG: Sinus rhythm WITH SINUS ARRHYTHMIA MARKED RIGHT AXIS DEVIATION Since previous tracing, no significant change note d ABNORMAL ECG PREVIOUS TRACING : 01/08/2017 12.34 DOCTOR: Dolores Daniel Interpretating Date/Time 01/10/2017 17:39:08
[2017-01-10] MEDS: SODIUM CHLORID 0.9% IV SCH (18:23)
[2017-01-10] MEDS: IFOSFAMIDE IV SCH (18:23)
[2017-01-10] MEDS: SOTALOL HCL 80 MG TAB PO SCH (20:34)
[2017-01-10] MEDS: NS IV SCH (20:56)
[2017-01-10] MEDS: ETOPOSIDE IV SCH (20:56)
[2017-01-11] VITALS (11 sets, daily range): BP systolic 104–119; BP diastolic 59–70; PULSE 63–100; RESP 17–21; TEMP 97.1–98.6; O2SAT 94–97
[2017-01-11] MEDS: SODIUM CHLORIDE 0.9% IV SCH ×4 (02:23→22:33)
[2017-01-11] MEDS: MESNA IV SCH ×4 (02:23→22:33)
[2017-01-11] MEDS: D5-1/2 NS + KCL 20 MEQ INJ 1,000 ML IV SCH ×3 (04:00→17:20)
[2017-01-11] MEDS: SODIUM CHLOR 0.9% 1000 ML INJ 1,000 ML IV SCH ×2 (04:35→16:30)
[2017-01-11 05:31] LABS: HEMATOCRIT 38.3 % (39.0-51.0); MEAN CELL VOLUME 81.4 FL (80.0-100.0); MEAN CORPUSCULAR HEMOGLOBIN 26.4 PG (27.0-34.0); MEAN CORPUSCULAR HGB CONC 32.4 % (32.0-36.0); PLATELET COUNT 372 TH/MM3 (150-450); RED BLOOD COUNT 4.71 MIL/MM3 (4.50-5.90); RED CELL DISTRIBUTION WIDTH 14.8 % (11.6-17.2); REVIEW FLAG FINAL; WHITE BLOOD COUNT 12.4 TH/MM3 (4.0-11.0)
[2017-01-11 05:40] LABS: APTT (PATIENT) 27.3 SEC (24.3-30.1); PROTHROMBIN TIME - PATIENT 11.1 SEC (9.8-11.6)
[2017-01-11 05:51] LABS: ANION GAP 7 MEQ/L (5-15); AST (GOT) 14 U/L (15-37); BLOOD UREA NITROGEN 10 MG/DL (7-18); CHLORIDE 105 MEQ/L (98-107); GLOMERULAR FILTRATION RATE 146 ML/MIN (>89); MAGNESIUM 2.2 MG/DL (1.5-2.5); POTASSIUM 4.2 MEQ/L (3.5-5.1); SODIUM (NA) 138 MEQ/L (136-145)
[2017-01-11 05:54] LABS: ALKALINE PHOSPHATASE 101 U/L (45-117); ALT (GPT) 36 U/L (12-78); TOTAL BILIRUBIN ADULT 0.5 MG/DL (0.2-1.0)
--- NOTE | 2017-01-11 07:42 | PD.ONC.PN ---
Subjective Subjective Remarks Patient seen and examined, vital signs, labs, medications, EKG and rhythm strips from yesterday were reviewed. Hat Presser notes are reviewed as well. Objective Data Date Time Temp Pulse Resp B/P (MAP) Pulse Ox O2 Delivery O2 Flow Rate FiO2 01/11/17 04:54 98.1 89 17 104/63 (77) 94 01/11/17 04:02 71 01/11/17 00:28 98.4 90 17 110/59 (76) 96 01/11/17 00:01 89 01/10/17 22:40 18 01/10/17 21:34 18 01/10/17 20:24 98.2 97 15 112/63 (79) 92 01/10/17 20:13 93 01/10/17 16:28 97.7 74 20 109/60 (76) 95 01/10/17 12:15 97.7 87 18 114/63 (80) 94 01/10/17 08:03 77 01/10/17 08:00 98.2 79 18 120/66 (84) 95 01/11/17 01/11/17 01/11/17 07:00 15:00 23:00 Intake Total 2005 ml Output Total 150 ml Balance 1855 ml Result Diagram: 01/11/17 0500 01/11/17 0500 Laboratory Results Laboratory Tests Test 01/10/17 11:53 01/11/17 05:00 Blood Urea Nitrogen 12 MG/DL 10 MG/DL Creatinine 0.62 MG/DL 0.64 MG/DL Random Glucose 104 MG/DL 140 MG/DL Total Protein 6.6 GM/DL 6.2 GM/DL Albumin 3.1 GM/DL 2.8 GM/DL Calcium Level 8.4 MG/DL 8.0 MG/DL Magnesium Level 2.1 MG/DL 2.2 MG/DL Alkaline Phosphatase 107 U/L 101 U/L Aspartate Amino Transf (AST/SGOT) 14 U/L 14 U/L Alanine Aminotransferase (ALT/SGPT) 33 U/L 36 U/L Total Bilirubin 0.6 MG/DL 0.5 MG/DL Sodium Level 135 MEQ/L 138 MEQ/L Potassium Level 4.0 MEQ/L 4.2 MEQ/L Chloride Level 102 MEQ/L 105 MEQ/L Carbon Dioxide Level 27.1 MEQ/L 26.0 MEQ/L Anion Gap 6 MEQ/L 7 MEQ/L Estimat Glomerular Filtration Rate 151 ML/MIN 146 ML/MIN White Blood Count 12.4 TH/MM3 Red Blood Count 4.71 MIL/MM3 Hemoglobin 12.4 GM/DL Hematocrit 38.3 % Mean Corpuscular Volume 81.4 FL Mean Corpuscular Hemoglobin 26.4 PG Mean Corpuscular Hemoglobin Concent 32.4 % Red Cell Distribution Width 14.8 % Platelet Count 372 TH/MM3 Mean Platelet Volume 7.1 FL Prothrombin Time 11.1 SEC Prothromb Time International Ratio 1.0 RATIO Activated Partial Thromboplast Time 27.3 SEC Phosphorus Level 2.9 MG/DL Administered Medications Medications (Trade) Dose Ordered Sig/Harleen Route PRN Reason Start Time Stop Time Status Last Admin Dose Admin Sodium Chloride 1,000 ml @ 84 mls/hr [id number] IV 01/08/17 17:00 01/09/17 06:33 Morphine Sulfate (Morphine Inj) 2 mg Q3H PRN IV PUSH BREAKTHROUGH PAIN 01/08/17 17:15 01/10/17 22:32 Sodium Chloride (NS Flush) 2 ml BID IV FLUSH 01/08/17 21:00 01/10/17 20:34 Enoxaparin Sodium (Lovenox Inj) 40 mg Q24H SQ 01/08/17 17:15 Future Hold 01/08/17 17:47 Senna/Docusate Sodium (Dorothy-Colace) 1 tab BID PO 01/08/17 21:00 01/10/17 20:34 Cisplatin 40 mg/ Sodium Chloride 290 ml @ 580 mls/hr Q24H IV 01/09/17 14:00 01/13/17 14:29 01/10/17 17:15 Ifosfamide 2400 mg/Sodium Chloride 500 ml @ 250 mls/hr Q24H IV 01/09/17 14:00 01/13/17 15:59 01/10/17 18:23 Mesna 800 mg/ Sodium Chloride 58 ml @ 232 mls/hr Q24H IV 01/09/17 13:45 01/13/17 13:59 01/10/17 17:51 Mesna 800 mg/ Sodium Chloride 58 ml @ 232 mls/hr Q24H IV 01/09/17 18:00 01/13/17 18:14 01/10/17 22:28 Mesna 800 mg/ Sodium Chloride 58 ml @ 232 mls/hr Q24H IV 01/09/17 22:00 01/13/17 22:14 01/11/17 02:23 Potassium Chloride/Dextrose/ Sod Cl 1,000 ml @ 150 mls/hr Q6H40M IV 01/09/17 12:00 01/13/17 23:59 01/10/17 20:36 Granisetron HCl (Kytril Inj) 1 mg Q24H IV 01/09/17 13:30 01/14/17 13:31 01/10/17 16:22 Lorazepam (Ativan Inj) 1 mg Q24H IV PUSH 01/09/17 13:30 01/14/17 13:31 01/10/17 16:22 Dexamethasone Sodium Phosphate (Decadron Inj) 20 mg Q24H IV 01/09/17 13:30 01/14/17 13:31 01/10/17 16:22 Etoposide 200 mg/ Sodium Chloride 510 ml @ 510 mls/hr Q24H IV 01/09/17 16:00 01/13/17 16:59 01/10/17 20:56 Allopurinol (Zyloprim) 300 mg DAILY PO 01/10/17 09:00 01/10/17 10:12 Oxycodone/ Acetaminophen (Percocet 10-325 Mg) 1 tab Q4H PRN PO PAIN SCALE 6 TO 10 01/09/17 12:00 01/10/17 20:34 Ondansetron HCl (Zofran Inj) 4 mg Q4HR PRN IV PUSH NAUSEA OR VOMITING 01/09/17 16:00 01/10/17 10:09 Potassium Chloride/Dextrose/ Sod Cl 500 ml @ 250 mls/hr Q24H IV 01/10/17 12:00 01/13/17 13:59 01/10/17 14:34 Promethazine HCl (Phenergan Inj) 12.5 mg Q4H PRN IV-CENTRAL vomiting 01/10/17 13:00 01/10/17 22:32 Sotalol HCl (Betapace) 80 mg Q12HR PO 01/10/17 21:00 01/10/17 20:34 Objective Remarks GENERAL: Young male, laying in bed, appears to be trembling, not acutely distressed area SKIN: Cool and dry. Heavily tattooed. HEAD: Normocephalic. EYES: No scleral icterus. No injection or drainage. NECK: Supple, trachea midline. No JVD or lymphadenopathy. LYMPHATIC: No adenopathy. CARDIOVASCULAR: Tachycardic, regular, S1 and S2 normal murmurs or gallops. RESPIRATORY: Decreased bibasilar breath sounds, no wheezing, rhonchi or rails. GASTROINTESTINAL: Abdomen soft, non-tender, nondistended. EXTREMITIES: No cyanosis, or edema. MUSCULOSKELETAL: Adequate muscle tone. NEUROLOGICAL: No obvious focal deficit. Awake, alert, and oriented x3. PSYCHIATRIC: Appropriate mood and affect; insight and judgment normal. Urogenital: Status post left orchiectomy, right testicle without abnormalities or masses. No inguinal lymphadenopathy. Assessment/Plan Assessment Mr. 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 This patient has extensive pulmonary metastases, mediastinal lymphadenopathy as well as retroperitoneal lymphadenopathy. The primary tumor involving the left testis has been removed. He comes into the hospital with complaints of difficulty breathing and palpitations and the cause is the extensive mediastinal disease burden with what appears to be direct compression on the ventricles and the right atrium of the heart. He is being admitted to the hospital for urgent initiation of inpatient chemotherapy. He did undergo pulmonary function testing two weeks ago, I do not believe DLCO was performed at that time. He is otherwise healthy other than having been a smoker of both tobacco and cannabinoids. I did talk to the patient and his mother about his disease. I explained to him that his disease is very advanced and warrants urgent initiation of therapy. I will also explained to them that because he has a mixed germ cell tumor consisting mostly of mature and immature teratoma, his prognosis will defer from seminoma / non seminoma testicular cancers. Seminoma and non-seminoma testicular cancers typically have an excellent prognosis whereas the prognosis for teratomas is more guarded and often involves a multidisciplinary approach which includes chemotherapy followed by surgical resection. Plan 1. 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 He has retroperitoneal lymph node metastases as well as extensive mediastinal metastases and pulmonary metastases. Pulmonary function testing was reviewed, his DLCO is 65% of predicted. He has been initiated on inpatient systemic chemotherapy as a life saving measure given the extent of his thoracic disease burden and symptoms of dyspnea, tachycardia and hypoxia. He was initiated on cycle 1 ifosfamide, cisplatin, etoposide and mesna on 01/09/2017. Chemotherapy was dosed to a body surface area of 2 meters squared. Serum tumor markers were reviewed, alpha-fetoprotein level has increased to over 4500, LDH and beta hCG levels are also elevated. He has intermediate to high risk disease. Continue ongoing care, today will be day 3 of the VIP chemotherapy regimen. Patient developed 5 beat run of white complex ventricular tachycardia/QRS complexes on the morning of 01/10/2017. Cardiology input appreciated. He was initiated on sotalol for management of cardiac arrhythmia. Recurrent arrhythmias have not been reported. Continue allopurinol 300 mg daily and IV fluids. Left sided pleural effusion: Ultrasound-guided thoracentesis planned for later today. Draining this may help his respiratory status and help his hiccups as well. Lul Carlson MD Jan 11, 2017 07:42
--- NOTE | 2017-01-11 07:57 | PD.CARD.PN ---
Subjective Subjective Remarks No CP, palpitations, dyspnea. Occasional brief palpitations yesterday, none today so far. Objective Medications Item Value Date Time Sotalol HCl 80 mg 01/10/172099 (Betapace) Q12HR/PO 01/10/172033 Current Medications Medications (Trade) Dose Ordered Sig/Harleen Route Start Time Stop Time Status Last Admin (NS Flush) 2 ml UNSCH PRN IVF 01/08/17 12:15 Sodium Chloride 1,000 ml @ 84 mls/hr [id number] IV 01/08/17 17:00 01/09/17 06:33 (Morphine Inj) 2 mg Q3H PRN IV PUSH 01/08/17 17:15 01/10/17 22:32 (Narcan Inj) 0.4 mg UNSCH PRN IV PUSH 01/08/17 17:15 (NS Flush) 2 ml UNSCH PRN IV FLUSH 01/08/17 17:15 (NS Flush) 2 ml BID IV FLUSH 01/08/17 21:00 01/10/17 20:34 (Lovenox Inj) 40 mg Q24H SQ 01/08/17 17:15 Future Hold 01/08/17 17:47 (Narcan Inj) 0.4 mg UNSCH PRN IV PUSH 01/08/17 17:15 (Dorothy-Colace) 1 tab BID PO 01/08/17 21:00 01/10/17 20:34 (Milk Of Magnesia Liq) 30 ml Q12H PRN PO 01/08/17 17:15 (Senokot) 17.2 mg Q12H PRN PO 01/08/17 17:15 (Dulcolax Supp) 10 mg DAILY PRN RECTAL 01/08/17 17:15 (Lactulose Liq) 30 ml DAILY PRN PO 01/08/17 17:15 (Duoneb Neb) 1 ampule Q4HR NEB PRN NEB 01/08/17 17:30 (Tylenol) 500 mg Q4H PRN PO 01/08/17 17:30 Cisplatin 40 mg/ Sodium Chloride 290 ml @ 580 mls/hr Q24H IV 01/09/17 14:00 01/13/17 14:29 01/10/17 17:15 Ifosfamide 2400 mg/Sodium Chloride 500 ml @ 250 mls/hr Q24H IV 01/09/17 14:00 01/13/17 15:59 01/10/17 18:23 Mesna 800 mg/ Sodium Chloride 58 ml @ 232 mls/hr Q24H IV 01/09/17 13:45 01/13/17 13:59 01/10/17 17:51 Mesna 800 mg/ Sodium Chloride 58 ml @ 232 mls/hr Q24H IV 01/09/17 18:00 01/13/17 18:14 01/10/17 22:28 Mesna 800 mg/ Sodium Chloride 58 ml @ 232 mls/hr Q24H IV 01/09/17 22:00 01/13/17 22:14 01/11/17 02:23 Potassium Chloride/Dextrose/ Sod Cl 1,000 ml @ 150 mls/hr Q6H40M IV 01/09/17 12:00 01/13/17 23:59 01/10/17 20:36 (Kytril Inj) 1 mg Q24H IV 01/09/17 13:30 01/14/17 13:31 01/10/17 16:22 (Ativan Inj) 1 mg Q24H IV PUSH 01/09/17 13:30 01/14/17 13:31 01/10/17 16:22 (Decadron Inj) 20 mg Q24H IV 01/09/17 13:30 01/14/17 13:31 01/10/17 16:22 Etoposide 200 mg/ Sodium Chloride 510 ml @ 510 mls/hr Q24H IV 01/09/17 16:00 01/13/17 16:59 01/10/17 20:56 (Zyloprim) 300 mg DAILY PO 01/10/17 09:00 01/10/17 10:12 (Percocet 10-325 Mg) 1 tab Q4H PRN PO 01/09/17 12:00 01/10/17 20:34 (Zofran Inj) 4 mg Q4HR PRN IV PUSH 01/09/17 16:00 01/10/17 10:09 Potassium Chloride/Dextrose/ Sod Cl 500 ml @ 250 mls/hr Q24H IV 01/10/17 12:00 01/13/17 13:59 01/10/17 14:34 Potassium Chloride/Dextrose/ Sod Cl 500 ml @ 75 mls/hr Q24H IV 01/10/17 14:00 01/13/17 20:39 (Phenergan Inj) 12.5 mg Q4H PRN IV-CENTRAL 01/10/17 13:00 01/10/17 22:32 (Betapace) 80 mg Q12HR PO 01/10/17 21:00 01/10/17 20:34 Vital Signs / I&O Vital Signs Date Time Temp Pulse Resp B/P (MAP) Pulse Ox O2 Delivery O2 Flow Rate FiO2 01/11/17 04:54 98.1 89 17 104/63 (77) 94 01/11/17 04:02 71 01/11/17 00:28 98.4 90 17 110/59 (76) 96 01/11/17 00:01 89 01/10/17 22:40 18 01/10/17 21:34 18 01/10/17 20:24 98.2 97 15 112/63 (79) 92 01/10/17 20:13 93 01/10/17 16:28 97.7 74 20 109/60 (76) 95 01/10/17 12:15 97.7 87 18 114/63 (80) 94 01/10/17 08:03 77 01/10/17 08:00 98.2 79 18 120/66 (84) 95 I/O 01/10/17 01/10/17 01/10/17 01/11/17 01/11/17 01/11/17 07:00 15:00 23:00 07:00 15:00 23:00 Intake Total 1356 ml 200 ml 850 ml 2005 ml Output Total 500 ml 650 ml 850 ml 150 ml Balance 856 ml -450 ml 0 ml 1855 ml Intake Oral 240 ml IV Total 1116 ml 200 ml 850 ml 2005 ml Output Urine Total 500 ml 650 ml 850 ml 150 ml Physical Exam GENERAL: Well developed, well nourished. No acute distress. HEENT: Jugular venous pressure is normal. CHEST: Lungs clear to auscultation bilaterally. Unlabored respiratory effort. CARDIAC: Regular rate and rhythm without S3, S4, or murmur. ABDOMEN: Soft, nontender, no hepatosplenomegaly. Bowel sounds present. EXTREMITIES: No clubbing, cyanosis, or edema. Laboratory Laboratory Tests Test 01/10/17 11:53 01/11/17 05:00 Blood Urea Nitrogen 12 MG/DL 10 MG/DL Creatinine 0.62 MG/DL 0.64 MG/DL Random Glucose 104 MG/DL 140 MG/DL Total Protein 6.6 GM/DL 6.2 GM/DL Albumin 3.1 GM/DL 2.8 GM/DL Calcium Level 8.4 MG/DL 8.0 MG/DL Magnesium Level 2.1 MG/DL 2.2 MG/DL Alkaline Phosphatase 107 U/L 101 U/L Aspartate Amino Transf (AST/SGOT) 14 U/L 14 U/L Alanine Aminotransferase (ALT/SGPT) 33 U/L 36 U/L Total Bilirubin 0.6 MG/DL 0.5 MG/DL Sodium Level 135 MEQ/L 138 MEQ/L Potassium Level 4.0 MEQ/L 4.2 MEQ/L Chloride Level 102 MEQ/L 105 MEQ/L Carbon Dioxide Level 27.1 MEQ/L 26.0 MEQ/L Anion Gap 6 MEQ/L 7 MEQ/L Estimat Glomerular Filtration Rate 151 ML/MIN 146 ML/MIN White Blood Count 12.4 TH/MM3 Red Blood Count 4.71 MIL/MM3 Hemoglobin 12.4 GM/DL Hematocrit 38.3 % Mean Corpuscular Volume 81.4 FL Mean Corpuscular Hemoglobin 26.4 PG Mean Corpuscular Hemoglobin Concent 32.4 % Red Cell Distribution Width 14.8 % Platelet Count 372 TH/MM3 Mean Platelet Volume 7.1 FL Prothrombin Time 11.1 SEC Prothromb Time International Ratio 1.0 RATIO Activated Partial Thromboplast Time 27.3 SEC Phosphorus Level 2.9 MG/DL Assessment and Plan Problem List: (1) Wide QRS ventricular tachycardia ICD Codes: I47.2 - Ventricular tachycardia Status: Acute Plan: Stable overnight. Much less wide complex ectopy and salvoes on sotalol. Again, suspect the wide complex arrhythmias have been aberrantly conducted SVT , possibly atrial tachycardia. Echo normal this admission. REC continue sotalol Code Status full code Discussed Condition With patient Tom Escoto MD Jan 11, 2017 07:57
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
[2017-01-11] MEDS: ONDANSETRON HCL 4 MG/2 ML VIAL IV PUSH PRN ×2 (08:58→20:34)
[2017-01-11] MEDS: SODIUM CHLORIDE 0.9% FLUSH 10 ML FLUSH IV FLUSH SCH ×2 (09:00→20:36)
[2017-01-11] MEDS: DOCUSATE SODIUM 50 MG/SENNA 8.6 MG TAB PO SCH ×2 (10:04→20:35)
[2017-01-11] MEDS: SOTALOL HCL 80 MG TAB PO SCH ×2 (10:04→20:35)
[2017-01-11] MEDS: ALLOPURINOL 300 MG TAB PO SCH (10:04)
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
[2017-01-11] MEDS: oxyCODONE/ACETAMINOPHEN 10 MG/325 MG TAB PO PRN ×3 (10:07→22:32)
[2017-01-11] MEDS: PROMETHAZINE INJ 25 MG/ML VIAL IV-CENTRAL PRN (12:22)
[2017-01-11] MEDS: MORPHINE SULFATE 4 MG/ML INJ IV PUSH PRN ×2 (12:22→20:35)
[2017-01-11] MEDS: D5 IV SCH ×2 (14:08→16:03)
[2017-01-11] MEDS: 1/2 NS IV SCH ×2 (14:08→16:03)
[2017-01-11] MEDS: KCL IV SCH ×2 (14:08→16:03)
[2017-01-11] MEDS: DEXAMETHASONE SOD PHOS 20 MG/5 ML VIAL IV SCH (16:02)
[2017-01-11] MEDS: GRANISETRON HCL 1 MG/ML VIAL IV SCH (16:03)
[2017-01-11] MEDS: LORazepam 2 MG/ML VIAL IV PUSH SCH (16:03)
[2017-01-11] MEDS: SODIUM CHLOR 0.9% IV SCH (17:10)
[2017-01-11] MEDS: CISPLATIN IV SCH (17:10)
[2017-01-11] MEDS: ENOXAPARIN SODIUM 40 MG/0.4 ML SYRINGE SQ SCH (18:29)
[2017-01-11] MEDS: SODIUM CHLORID 0.9% IV SCH (18:36)
[2017-01-11] MEDS: IFOSFAMIDE IV SCH (18:36)
[2017-01-11] MEDS: ETOPOSIDE IV SCH (23:00)
[2017-01-11] MEDS: NS IV SCH (23:00)
[2017-01-12] VITALS (14 sets, daily range): BP systolic 112–135; BP diastolic 67–79; PULSE 69–90; RESP 16–22; TEMP 96.8–98.6; O2SAT 92–97
[2017-01-12] MEDS: PROMETHAZINE INJ 25 MG/ML VIAL IV-CENTRAL PRN ×2 (00:23→19:49)
[2017-01-12] MEDS: MORPHINE SULFATE 4 MG/ML INJ IV PUSH PRN ×3 (00:23→19:50)
[2017-01-12] MEDS: D5-1/2 NS + KCL 20 MEQ INJ 1,000 ML IV SCH ×4 (02:43→20:00)
[2017-01-12] MEDS: MESNA IV SCH ×3 (02:44→22:16)
[2017-01-12] MEDS: SODIUM CHLORIDE 0.9% IV SCH ×3 (02:44→22:16)
[2017-01-12] MEDS: SODIUM CHLOR 0.9% 1000 ML INJ 1,000 ML IV SCH ×2 (04:25→16:20)
[2017-01-12] MEDS: oxyCODONE/ACETAMINOPHEN 10 MG/325 MG TAB PO PRN ×4 (05:31→23:40)
--- NOTE | 2017-01-12 07:42 | PD.ONC.PN ---
Subjective Subjective Remarks Patient seen and examined, vital signs, labs, medications, chemotherapy administration timings and imaging studies including ultrasound of the chest dated 01/11/2017 were reviewed. Subjectively; patient reports his back pain and breathing are both improved. He tells me he continues to have nausea, hiccups and occasional vomiting. He is overall tolerating chemotherapy without significant additional adverse effects and denies febrile illness. Objective Data Date Time Temp Pulse Resp B/P (MAP) Pulse Ox O2 Delivery O2 Flow Rate FiO2 01/12/17 06:30 16 01/12/17 05:14 98.2 77 16 118/71 (87) 96 01/12/17 04:05 76 01/12/17 00:29 97.9 83 20 118/71 (87) 94 01/12/17 00:28 16 01/12/17 00:02 90 01/11/17 20:42 98.6 100 21 118/70 (86) 95 01/11/17 20:05 91 01/11/17 16:25 98.2 89 18 107/63 (78) 96 01/11/17 16:12 97 Nasal Cannula 2.00 01/11/17 09:15 97.1 64 20 105/67 (80) 97 01/11/17 08:53 98.5 63 20 119/66 (83) 95 01/11/17 07:59 77 01/12/17 01/12/17 01/12/17 07:00 15:00 23:00 Output Total 1300 ml Balance -1300 ml Result Diagram: 01/11/17 0500 01/11/17 0500 Administered Medications Medications (Trade) Dose Ordered Sig/Harleen Route PRN Reason Start Time Stop Time Status Last Admin Dose Admin Sodium Chloride 1,000 ml @ 84 mls/hr [id number] IV 01/08/17 17:00 01/09/17 06:33 Morphine Sulfate (Morphine Inj) 2 mg Q3H PRN IV PUSH BREAKTHROUGH PAIN 01/08/17 17:15 01/12/17 00:23 Sodium Chloride (NS Flush) 2 ml BID IV FLUSH 01/08/17 21:00 01/11/17 20:36 Enoxaparin Sodium (Lovenox Inj) 40 mg Q24H SQ 01/08/17 17:15 Future hold 01/11/17 18:29 Senna/Docusate Sodium (Dorothy-Colace) 1 tab BID PO 01/08/17 21:00 01/11/17 20:35 Cisplatin 40 mg/ Sodium Chloride 290 ml @ 580 mls/hr Q24H IV 01/09/17 14:00 01/13/17 14:29 01/11/17 17:10 Ifosfamide 2400 mg/Sodium Chloride 500 ml @ 250 mls/hr Q24H IV 01/09/17 14:00 01/13/17 15:59 01/11/17 18:36 Mesna 800 mg/ Sodium Chloride 58 ml @ 232 mls/hr Q24H IV 01/09/17 13:45 01/13/17 13:59 01/11/17 13:45 Mesna 800 mg/ Sodium Chloride 58 ml @ 232 mls/hr Q24H IV 01/09/17 18:00 01/13/17 18:14 01/11/17 22:33 Mesna 800 mg/ Sodium Chloride 58 ml @ 232 mls/hr Q24H IV 01/09/17 22:00 01/13/17 22:14 01/12/17 02:44 Potassium Chloride/Dextrose/ Sod Cl 1,000 ml @ 150 mls/hr Q6H40M IV 01/09/17 12:00 01/13/17 23:59 01/12/17 02:43 Granisetron HCl (Kytril Inj) 1 mg Q24H IV 01/09/17 13:30 01/14/17 13:31 01/11/17 16:03 Lorazepam (Ativan Inj) 1 mg Q24H IV PUSH 01/09/17 13:30 01/14/17 13:31 01/11/17 16:03 Dexamethasone Sodium Phosphate (Decadron Inj) 20 mg Q24H IV 01/09/17 13:30 01/14/17 13:31 01/11/17 16:02 Etoposide 200 mg/ Sodium Chloride 510 ml @ 510 mls/hr Q24H IV 01/09/17 16:00 01/13/17 16:59 01/11/17 23:00 Allopurinol (Zyloprim) 300 mg DAILY PO 01/10/17 09:00 01/11/17 10:04 Oxycodone/ Acetaminophen (Percocet 10-325 Mg) 1 tab Q4H PRN PO PAIN SCALE 6 TO 10 01/09/17 12:00 01/12/17 05:31 Ondansetron HCl (Zofran Inj) 4 mg Q4HR PRN IV PUSH NAUSEA OR VOMITING 01/09/17 16:00 01/11/17 20:34 Potassium Chloride/Dextrose/ Sod Cl 500 ml @ 250 mls/hr Q24H IV 01/10/17 12:00 01/13/17 13:59 01/11/17 14:08 Potassium Chloride/Dextrose/ Sod Cl 500 ml @ 75 mls/hr Q24H IV 01/10/17 14:00 01/13/17 20:39 01/11/17 16:03 Promethazine HCl (Phenergan Inj) 12.5 mg Q4H PRN IV-CENTRAL vomiting 01/10/17 13:00 01/12/17 00:23 Sotalol HCl (Betapace) 80 mg Q12HR PO 01/10/17 21:00 01/11/17 20:35 Objective Remarks GENERAL: Young male, laying in bed, appears to be trembling, not acutely distressed area SKIN: Cool and dry. Heavily tattooed. HEAD: Normocephalic. EYES: No scleral icterus. No injection or drainage. NECK: Supple, trachea midline. No JVD or lymphadenopathy. LYMPHATIC: No adenopathy. CARDIOVASCULAR: Tachycardic, regular, S1 and S2 normal murmurs or gallops. RESPIRATORY: Decreased bibasilar breath sounds, no wheezing, rhonchi or rails. GASTROINTESTINAL: Abdomen soft, non-tender, nondistended. EXTREMITIES: No cyanosis, or edema. MUSCULOSKELETAL: Adequate muscle tone. NEUROLOGICAL: No obvious focal deficit. Awake, alert, and oriented x3. PSYCHIATRIC: Appropriate mood and affect; insight and judgment normal. Urogenital: Status post left orchiectomy, right testicle without abnormalities or masses. No inguinal lymphadenopathy. Assessment/Plan Assessment Mr. 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 This patient has extensive pulmonary metastases, mediastinal lymphadenopathy as well as retroperitoneal lymphadenopathy. The primary tumor involving the left testis has been removed. He comes into the hospital with complaints of difficulty breathing and palpitations and the cause is the extensive mediastinal disease burden with what appears to be direct compression on the ventricles and the right atrium of the heart. He is being admitted to the hospital for urgent initiation of inpatient chemotherapy. He did undergo pulmonary function testing two weeks ago, I do not believe DLCO was performed at that time. He is otherwise healthy other than having been a smoker of both tobacco and cannabinoids. I did talk to the patient and his mother about his disease. I explained to him that his disease is very advanced and warrants urgent initiation of therapy. I will also explained to them that because he has a mixed germ cell tumor consisting mostly of mature and immature teratoma, his prognosis will defer from seminoma / non seminoma testicular cancers. Seminoma and non-seminoma testicular cancers typically have an excellent prognosis whereas the prognosis for teratomas is more guarded and often involves a multidisciplinary approach which includes chemotherapy followed by surgical resection. Plan 1. 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 He has retroperitoneal lymph node metastases as well as extensive mediastinal metastases and pulmonary metastases. Pulmonary function testing was reviewed, his DLCO is 65% of predicted. He has been initiated on inpatient systemic chemotherapy as a life saving measure given the extent of his thoracic disease burden and symptoms of dyspnea, tachycardia and hypoxia. He was initiated on cycle 1 ifosfamide, cisplatin, etoposide and mesna on 01/09/2017. Chemotherapy was dosed to a body surface area of 2 meters squared. Serum tumor markers were reviewed, alpha-fetoprotein level has increased to over 4500, LDH and beta hCG levels are also elevated. He has intermediate to high risk disease. Continue ongoing care, today will be day 4 of the VIP chemotherapy regimen. Patient developed 5 beat run of white complex ventricular tachycardia/QRS complexes on the morning of 01/10/2017. And was initiated on sotalol for management of the cardiac arrhythmia. Recurrent arrhythmias have not been reported. Continue allopurinol 300 mg daily and IV fluids. Left sided pleural effusion: Was evaluated with ultrasonography, there was no fluid present, the abnormality noted on CT scan is in fact a solid metastatic mass. Disposition: He may be cleared for discharge following completion of chemotherapy day 5. He will require growth factor support and close outpatient follow-up. I will make arrangements for outpatient follow-up and growth factor support with [facility]. Lul Carlson MD Jan 12, 2017 07:42
[2017-01-12] MEDS: DOCUSATE SODIUM 50 MG/SENNA 8.6 MG TAB PO SCH ×2 (08:05→19:49)
[2017-01-12] MEDS: SODIUM CHLORIDE 0.9% FLUSH 10 ML FLUSH IV FLUSH SCH ×2 (08:05→19:50)
[2017-01-12] MEDS: SOTALOL HCL 80 MG TAB PO SCH ×2 (08:05→19:49)
[2017-01-12] MEDS: ALLOPURINOL 300 MG TAB PO SCH (08:05)
[2017-01-12 08:08] LABS: HEMATOCRIT 39.1 % (39.0-51.0); MEAN CELL VOLUME 82.2 FL (80.0-100.0); MEAN CORPUSCULAR HEMOGLOBIN 27.3 PG (27.0-34.0); MEAN CORPUSCULAR HGB CONC 33.3 % (32.0-36.0); PLATELET COUNT 335 TH/MM3 (150-450); RED BLOOD COUNT 4.76 MIL/MM3 (4.50-5.90); RED CELL DISTRIBUTION WIDTH 14.7 % (11.6-17.2); REVIEW FLAG FINAL; WHITE BLOOD COUNT 11.9 TH/MM3 (4.0-11.0)
[2017-01-12 08:17] LABS: BICARBONATE 26.5 MEQ/L (21.0-32.0); POTASSIUM 4.2 MEQ/L (3.5-5.1)
--- NOTE | 2017-01-12 08:22 | PD.CARD.PN ---
Subjective Subjective Remarks No CP, palpitations, dyspnea, palpitations Objective Medications Item Value Date Time Sotalol HCl 80 mg 01/10/17 2100 (Betapace) Q12HR/PO 01/12/17 0805 Current Medications Medications (Trade) Dose Ordered Sig/Harleen Route Start Time Stop Time Status Last Admin (NS Flush) 2 ml UNSCH PRN IVF 01/08/17 12:15 Sodium Chloride 1,000 ml @ 84 mls/hr [id number] IV 01/08/17 17:00 01/09/17 06:33 (Morphine Inj) 2 mg Q3H PRN IV PUSH 01/08/17 17:15 01/12/17 00:23 (Narcan Inj) 0.4 mg UNSCH PRN IV PUSH 01/08/17 17:15 (NS Flush) 2 ml UNSCH PRN IV FLUSH 01/08/17 17:15 (NS Flush) 2 ml BID IV FLUSH 01/08/17 21:00 01/11/17 20:36 (Lovenox Inj) 40 mg Q24H SQ 01/08/17 17:15 Future hold 01/11/17 18:29 (Narcan Inj) 0.4 mg UNSCH PRN IV PUSH 01/08/17 17:15 (Dorothy-Colace) 1 tab BID PO 01/08/17 21:00 01/12/17 08:05 (Milk Of Magnesia Liq) 30 ml Q12H PRN PO 01/08/17 17:15 (Senokot) 17.2 mg Q12H PRN PO 01/08/17 17:15 (Dulcolax Supp) 10 mg DAILY PRN RECTAL 01/08/17 17:15 (Lactulose Liq) 30 ml DAILY PRN PO 01/08/17 17:15 (Duoneb Neb) 1 ampule Q4HR NEB PRN NEB 01/08/17 17:30 (Tylenol) 500 mg Q4H PRN PO 01/08/17 17:30 Cisplatin 40 mg/ Sodium Chloride 290 ml @ 580 mls/hr Q24H IV 01/09/17 14:00 01/13/17 14:29 01/11/17 17:10 Ifosfamide 2400 mg/Sodium Chloride 500 ml @ 250 mls/hr Q24H IV 01/09/17 14:00 01/13/17 15:59 01/11/17 18:36 Mesna 800 mg/ Sodium Chloride 58 ml @ 232 mls/hr Q24H IV 01/09/17 13:45 01/13/17 13:59 01/11/17 13:45 Mesna 800 mg/ Sodium Chloride 58 ml @ 232 mls/hr Q24H IV 01/09/17 18:00 01/13/17 18:14 01/11/17 22:33 Mesna 800 mg/ Sodium Chloride 58 ml @ 232 mls/hr Q24H IV 01/09/17 22:00 01/13/17 22:14 01/12/17 02:44 Potassium Chloride/Dextrose/ Sod Cl 1,000 ml @ 150 mls/hr Q6H40M IV 01/09/17 12:00 01/13/17 23:59 01/12/17 02:43 (Kytril Inj) 1 mg Q24H IV 01/09/17 13:30 01/14/17 13:31 01/11/17 16:03 (Ativan Inj) 1 mg Q24H IV PUSH 01/09/17 13:30 01/14/17 13:31 01/11/17 16:03 (Decadron Inj) 20 mg Q24H IV 01/09/17 13:30 01/14/17 13:31 01/11/17 16:02 Etoposide 200 mg/ Sodium Chloride 510 ml @ 510 mls/hr Q24H IV 01/09/17 16:00 01/13/17 16:59 01/11/17 23:00 (Zyloprim) 300 mg DAILY PO 01/10/17 09:00 01/12/17 08:05 (Percocet 10-325 Mg) 1 tab Q4H PRN PO 01/09/17 12:00 01/12/17 05:31 (Zofran Inj) 4 mg Q4HR PRN IV PUSH 01/09/17 16:00 01/11/17 20:34 Potassium Chloride/Dextrose/ Sod Cl 500 ml @ 250 mls/hr Q24H IV 01/10/17 12:00 01/13/17 13:59 01/11/17 14:08 Potassium Chloride/Dextrose/ Sod Cl 500 ml @ 75 mls/hr Q24H IV 01/10/17 14:00 01/13/17 20:39 01/11/17 16:03 (Phenergan Inj) 12.5 mg Q4H PRN IV-CENTRAL 01/10/17 13:00 01/12/17 00:23 (Betapace) 80 mg Q12HR PO 01/10/17 21:00 01/12/17 08:05 Vital Signs / I&O Vital Signs Date Time Temp Pulse Resp B/P (MAP) Pulse Ox O2 Delivery O2 Flow Rate FiO2 01/12/17 08:03 98.5 73 18 112/71 (85) 95 01/12/17 06:30 16 01/12/17 05:14 98.2 77 16 118/71 (87) 96 01/12/17 04:05 76 01/12/17 00:29 97.9 83 20 118/71 (87) 94 01/12/17 00:28 16 01/12/17 00:02 90 01/11/17 20:42 98.6 100 21 118/70 (86) 95 01/11/17 20:05 91 01/11/17 16:25 98.2 89 18 107/63 (78) 96 01/11/17 16:12 97 Nasal Cannula 2.00 01/11/17 09:15 97.1 64 20 105/67 (80) 97 01/11/17 08:53 98.5 63 20 119/66 (83) 95 I/O 01/11/17 01/11/17 01/11/17 01/12/17 01/12/17 01/12/17 07:00 15:00 23:00 07:00 15:00 23:00 Intake Total 2005 ml 400 ml 1150 ml Output Total 150 ml 125 ml 800 ml 1300 ml Balance 1855 ml 275 ml 350 ml -1300 ml Intake Oral 400 ml IV Total 2005 ml 1150 ml Output Urine Total 150 ml 125 ml 800 ml 1300 ml Physical Exam GENERAL: Well developed, well nourished. No acute distress. HEENT: Jugular venous pressure is normal. CHEST: Lungs clear to auscultation anteriorly. CARDIAC: Regular rate and rhythm without S3, S4, or murmur. ABDOMEN: Soft, nontender, no hepatosplenomegaly. Bowel sounds present. EXTREMITIES: No clubbing, cyanosis, or edema. Laboratory Laboratory Tests Test 01/12/17 06:52 White Blood Count 11.9 TH/MM3 Red Blood Count 4.76 MIL/MM3 Hemoglobin 13.0 GM/DL Hematocrit 39.1 % Mean Corpuscular Volume 82.2 FL Mean Corpuscular Hemoglobin 27.3 PG Mean Corpuscular Hemoglobin Concent 33.3 % Red Cell Distribution Width 14.7 % Platelet Count 335 TH/MM3 Mean Platelet Volume 7.2 FL Blood Urea Nitrogen 9 MG/DL Creatinine 0.61 MG/DL Random Glucose 95 MG/DL Calcium Level 8.0 MG/DL Phosphorus Level 2.8 MG/DL Magnesium Level 2.0 MG/DL Sodium Level 134 MEQ/L Potassium Level 4.2 MEQ/L Chloride Level 102 MEQ/L Carbon Dioxide Level 26.5 MEQ/L Anion Gap 6 MEQ/L Estimat Glomerular Filtration Rate 154 ML/MIN Assessment and Plan Problem List: (1) Wide QRS ventricular tachycardia ICD Codes: I47.2 - Ventricular tachycardia Status: Acute Plan: Stable overnight. Monitoring uneventful. Again, suspect the wide complex arrhythmias were aberrantly conducted SVT, possibly atrial tachycardia. Echo normal this admission. REC continue sotalol, will f/u as needed Code Status full code Discussed Condition With patient Tom Escoto MD Jan 12, 2017 08:22
--- NOTE | 2017-01-12 08:54 | HHI.FPPN ---
Subjective Remarks Seen and examined this morning by medical team. No acute events overnight, however patient reports he has had continued vomiting with some dark red blood. He feels that his back pain and breathing have improved since admission. He states that he is tolerating chemotherapy well with his only other complaint being continued checkups which are likely related to mass effect causing diaphragmatic irritation. He denies any new fevers, chills, chest pain, abdominal pain, or calf tenderness. (Trevor Xie MD R2) Objective Vitals Vital Signs Date Time Temp Pulse Resp B/P (MAP) Pulse Ox O2 Delivery O2 Flow Rate FiO2 01/12/17 08:03 98.5 73 18 112/71 (85) 95 01/12/17 06:30 16 01/12/17 05:14 98.2 77 16 118/71 (87) 96 01/12/17 04:05 76 01/12/17 00:29 97.9 83 20 118/71 (87) 94 01/12/17 00:28 16 01/12/17 00:02 90 01/11/17 20:42 98.6 100 21 118/70 (86) 95 01/11/17 20:05 91 01/11/17 16:25 98.2 89 18 107/63 (78) 96 01/11/17 16:12 97 Nasal Cannula 2.00 01/11/17 09:15 97.1 64 20 105/67 (80) 97 01/11/17 08:53 98.5 63 20 119/66 (83) 95 I/O 01/11/17 01/11/17 01/11/17 01/12/17 01/12/17 01/12/17 06:59 14:59 22:59 06:59 14:59 22:59 Intake Total 2005 ml 400 ml 1150 ml Output Total 150 ml 125 ml 800 ml 1300 ml Balance 1855 ml 275 ml 350 ml -1300 ml Intake Oral 400 ml IV Total 2005 ml 1150 ml Output Urine Total 150 ml 125 ml 800 ml 1300 ml (Trevor Xie MD R2) Result Diagram: 01/12/1752 01/12/1752 Objective Remarks GENERAL: Well developed, well nourished male lying in bed watching television a significant other at bedside. SKIN: Wam and dry. Tattoos on trunk and extremities . HEENT: AT, NC with EOMI. MMM.. No rhinorrhea. No JVD or LAD appreciated. CARDIOVASCULAR: RRR with no MGR. 2+ pulses in all 4 ext. RESPIRATORY: Improved breath sounds bilaterally since admission. No CRW appreciated. No increased WOB. GASTROINTESTINAL: Abdomen soft, non-tender, nondistended with +BS. No masses appreciated. EXTREMITIES: No cyanosis or edema. No calf tenderness. Ambulating well. NEUROLOGICAL: Afocal. AAOx3. Normal speech and judgement. 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 Patient also reports lower back pain x1 month and head pain for the past 1 1/2 weeks. Admitted for initiation of chemotherapy and supportive care. Discharge Planning Following completion of chemotherapy day 5, 01/13/17, with oncology recommendations. (Trevor Xie MD R2) Attending Attestation Patient seen and examined. Case reviewed and discussed with the resident team. Agree with plan of care as discussed with me and documented in the resident note. he is tolerating chemo well overall. (Ai Zaragoza MD) Problem List: (1) Shortness of breath ICD Codes: R06.02 - Shortness of breath Status: Acute Plan: Patient with shortness of breath for the past few weeks. Likely due to metastatic disease and associated pleural effusion. On admission, T 98.2, HR 106 , RR 28, pulse ox 94% on 2 L NC. WBC 11.2. Chest x-ray reads significant progression of metastatic disease with marked increase in size of disseminated bilateral pulmonary nodules when compared to 12/12/16. CT angiography reads negative for pulmonary embolism, progression of thoracic metastatic disease with numerous bilateral disseminated pulmonary nodules measuring up to 8 cm and large left pleural effusion. Patient reporting continued hiccups since admission , likely related to mass effect causing diaphragmatic irritation. Orders/Labs: * Monitor oxygen saturation. * Incentive Spirometry. * Repeat CXR: Numerous large masses. Decreased aeration in the L lung suggesting superimposed inflammatory change for yesterday's CXR. Discussed findings with Dr. Carlson who agrees with low suspicion of inflammatory reaction due to his stable clinical picture and initial CT chest showing no inflammatory signs. * Thoracentesis ordered, however repeat ultrasound shows no drainable pleural effusion, 01/11/17. 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 Tumor size 11.5 cm x 8.0 x 6.5 cm. Patient also with extensive metastasis to lungs, found on CT. Orders/Labs: * Consulted Oncology - patient seen by Dr. Carlson, appreciate recommendations * Lactate Dehydrogenase 385H, Tumor Marker AFP 4797.7H, and Tumor Marker HCG 39H. Medication: * Allopurinol 300mg BID PO for tumor lysis syndrome. * NS 1,000ml at 84ml/hr IV for hydration. * Initiated Mesna, Etoposide, Ifosfamide, and Cisplatin on 01/09/17 (3) Hematemesis with nausea ICD Codes: K92.0 - Hematemesis Status: Acute Plan: Patient with reported hematemesis overnight on 01/11/17. Patient recently initiated chemotherapy due to testicular teratoma resulting in numerous episodes of vomiting and likely gastric/esophageal irritation causing bleed. Patient also endorses new onset as reflux. Imaging/study: * CBC: H/H13/39.1, stable from admission Medications: * Protonix 40 mg daily (4) Lung metastases ICD Codes: C78.00 - Secondary malignant neoplasm of unspecified lung Status: Acute Plan: See Plan for Shortness of breath. (5) Tachycardia ICD Codes: R00.0 - Tachycardia, unspecified Status: Acute Plan: HR 106 on admission. Likely due to metastatic disease with compression of the heart. Telemetry with 5-6 beat runs of V-tach with trigeminy. Patient is high risk. Orders/Labs: * Echocardiogram 01/09: Normal L ventricular size and thickness. Systolic function normal with EF of 60-65%. No wall motion abnormalities. * Cardiology consulted, appreciate recommendations Medications: * Sotalol 80 mg twice a day (6) Back pain ICD Codes: M54.9 - Dorsalgia, unspecified Plan: Patient reports lower, left-sided back pain x1 month, the pain is a continuous, non-radiating, sharp pain. Orders/Labs: * May consider further imaging to investigate source of pain probably mets. Medication: * Pain medications as above (7) Headache ICD Codes: R51 - Headache Plan: Patient reports head pain, located on the right, anterior and superior to ear. Now better, thankfully. Orders/Labs: * CT [place]: No acute intracranial abnormality. Chronic bilateral sinus disease. Medications: * See Plan for Back pain. (8) Asthma ICD Codes: J45.909 - Unspecified asthma, uncomplicated Plan: History of asthma. No wheezing noted on exam. Breathing difficulties likely due to metastatic disease rather than asthma. Orders/Labs: * Monitor oxygen saturation. * Incentive Spirometry. Medication: * Duoneb q4hr NEB PRN SHORTNESS OF BREATH. (9) Pleural effusion on left ICD Codes: J90 - Pleural effusion, not elsewhere classified Status: Acute Plan: Evidence of pleural effusion. Likely due to metastatic disease process. thoracentesis when needed by IR Orders/Labs: * US thoracentesis planned for tomorrow, Lovenox held, order to be placed tomorrow (10) Fluid, Electrolyte, Nutrition, and Prophylaxis Status: Acute Plan: Fluids: * NS 1,000ml at 84ml/hr IV for hydration. Electrolytes: * Monitor and replete as necessary. Nutrition: * Regular diet Prophylaxis: * Lovenox (Trevor Xie MD R2) Problem Qualifiers (1) Testicular teratoma: Qualified Codes: C62.92 - Malignant neoplasm of left testis, unspecified whether descended or undescended (2) Lung metastases: Qualified Codes: C78.00 - Secondary malignant neoplasm of unspecified lung (3) Back pain: Qualified Codes: M54.6 - Pain in thoracic spine (4) Headache: Qualified Codes: G44.89 - Other headache syndrome (5) Asthma: Qualified Codes: J45.998 - Other asthma Trevor Xie MD R2 Jan 12, 2017 08:54 Ai Zaragoza MD Jan 12, 2017 13:19
[2017-01-12] MEDS: PANTOPRAZOLE SOD 40 MG DELAYED RELEASE TAB PO SCH (10:00)
[2017-01-12] MEDS: D5 IV SCH ×2 (12:49→14:00)
[2017-01-12] MEDS: KCL IV SCH ×2 (12:49→14:00)
[2017-01-12] MEDS: 1/2 NS IV SCH ×2 (12:49→14:00)
[2017-01-12] MEDS: GRANISETRON HCL 1 MG/ML VIAL IV SCH (13:20)
[2017-01-12] MEDS: DEXAMETHASONE SOD PHOS 20 MG/5 ML VIAL IV SCH (13:20)
[2017-01-12] MEDS: LORazepam 2 MG/ML VIAL IV PUSH SCH (13:21)
[2017-01-12] MEDS: CISPLATIN IV SCH (15:41)
[2017-01-12] MEDS: SODIUM CHLOR 0.9% IV SCH (15:41)
[2017-01-12] MEDS: ENOXAPARIN SODIUM 40 MG/0.4 ML SYRINGE SQ SCH (15:41)
[2017-01-12] MEDS: ONDANSETRON HCL 4 MG/2 ML VIAL IV PUSH PRN (15:56)
[2017-01-12] MEDS: SODIUM CHLORID 0.9% IV SCH (17:56)
[2017-01-12] MEDS: IFOSFAMIDE IV SCH (17:56)
[2017-01-12] MEDS: ETOPOSIDE IV SCH (22:16)
[2017-01-12] MEDS: NS IV SCH (22:16)
[2017-01-13] VITALS (9 sets, daily range): BP systolic 111–136; BP diastolic 53–76; PULSE 67–91; RESP 18–20; TEMP 98.1–98.8; O2SAT 94–95
[2017-01-13] MEDS: D5-1/2 NS + KCL 20 MEQ INJ 1,000 ML IV SCH ×3 (02:17→20:50)
[2017-01-13] MEDS: SODIUM CHLORIDE 0.9% IV SCH ×3 (02:17→21:01)
[2017-01-13] MEDS: MESNA IV SCH ×3 (02:17→21:01)
[2017-01-13] MEDS: SODIUM CHLOR 0.9% 1000 ML INJ 1,000 ML IV SCH ×2 (04:15→16:10)
[2017-01-13 06:35] LABS: HEMATOCRIT 39.5 % (39.0-51.0); MEAN CELL VOLUME 81.9 FL (80.0-100.0); MEAN CORPUSCULAR HEMOGLOBIN 27.2 PG (27.0-34.0); MEAN CORPUSCULAR HGB CONC 33.2 % (32.0-36.0); PLATELET COUNT 363 TH/MM3 (150-450); RED BLOOD COUNT 4.82 MIL/MM3 (4.50-5.90); RED CELL DISTRIBUTION WIDTH 14.7 % (11.6-17.2); REVIEW FLAG FINAL; WHITE BLOOD COUNT 11.1 TH/MM3 (4.0-11.0)
[2017-01-13 06:54] LABS: BICARBONATE 25.5 MEQ/L (21.0-32.0); POTASSIUM 4.1 MEQ/L (3.5-5.1)
[2017-01-13] MEDS: PANTOPRAZOLE SOD 40 MG DELAYED RELEASE TAB PO SCH (07:56)
[2017-01-13] MEDS: DOCUSATE SODIUM 50 MG/SENNA 8.6 MG TAB PO SCH (07:56)
[2017-01-13] MEDS: ALLOPURINOL 300 MG TAB PO SCH (07:56)
[2017-01-13] MEDS: SOTALOL HCL 80 MG TAB PO SCH ×2 (07:56→20:51)
[2017-01-13] MEDS: ONDANSETRON HCL 4 MG/2 ML VIAL IV PUSH PRN ×3 (07:57→20:43)
[2017-01-13] MEDS: oxyCODONE/ACETAMINOPHEN 10 MG/325 MG TAB PO PRN ×4 (08:03→23:04)
[2017-01-13] MEDS: SODIUM CHLORIDE 0.9% FLUSH 10 ML FLUSH IV FLUSH SCH ×2 (08:05→20:51)
[2017-01-13] MEDS: PROMETHAZINE INJ 25 MG/ML VIAL IV-CENTRAL PRN ×2 (10:21→23:05)
[2017-01-13] MEDS: MORPHINE SULFATE 4 MG/ML INJ IV PUSH PRN ×3 (10:48→20:44)
--- NOTE | 2017-01-13 13:42 | HHI.FPPN ---
Subjective Remarks Patient seen and examined by medical team this morning. No acute events overnight with stable vital signs. Patient continues to have nausea with intermittent episodes of vomiting. He denies any new episodes of hematemesis. He reports his lower back pain is controlled on his current pain regimen. Otherwise he has not complaints and denies any new fevers, chills, chest pain, shortness of breath, abdominal pain, or calf tenderness. (Trevor Xie MD R2) Objective Vitals Vital Signs Date Time Temp Pulse Resp B/P (MAP) Pulse Ox O2 Delivery O2 Flow Rate FiO2 01/13/17 10:52 98.1 82 20 120/74 (89) 95 01/13/17 10:29 94 01/13/17 08:00 77 01/13/17 07:57 98.2 67 20 129/71 (90) 95 01/13/17 05:37 98.6 84 18 131/71 (91) 95 01/13/17 04:12 74 01/13/17 00:40 16 01/12/17 23:41 98.6 72 16 120/74 (89) 96 01/12/17 23:02 70 01/12/17 20:02 83 01/12/17 19:55 16 01/12/17 19:45 97.9 79 22 131/79 (96) 94 01/12/17 17:31 94 Nasal Cannula 1.00 01/12/17 16:39 96.8 84 18 135/79 (97) 92 I/O 01/12/17 01/12/17 01/12/17 01/13/17 01/13/17 01/13/17 07:00 15:00 23:00 07:00 15:00 23:00 Output Total 1300 ml 2150 ml 1350 ml 750 ml Balance -1300 ml -2150 ml -1350 ml -750 ml Output Urine Total 1300 ml 2150 ml 1350 ml 750 ml (Trevor Xie MD R2) Result Diagram: 01/13/1754401/13/17544 Objective Remarks GENERAL: Well developed, well nourished male lying in bed watching television in [facility]. SKIN: Wam and dry. Tattoos on trunk and extremities . HEENT: AT, NC with EOMI. MMM.. No rhinorrhea. No JVD or LAD appreciated. CARDIOVASCULAR: RRR with no MGR. 2+ pulses in all 4 ext. RESPIRATORY: Improved breath sounds bilaterally since admission. No CRW appreciated. No increased WOB. GASTROINTESTINAL: Abdomen soft, non-tender, nondistended with +BS. No masses appreciated. EXTREMITIES: No cyanosis or edema. No calf tenderness. Ambulating well per report. NEUROLOGICAL: Afocal. AAOx3. Normal speech and judgement. 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 Patient also reports lower back pain x1 month and head pain for the past 1 1/2 weeks. Admitted for initiation of chemotherapy and supportive care. Discharge Planning Following completion of chemotherapy day 5, 01/13/17, with oncology recommendations. Patient to be discharged home on 01/14/17. (Trevor Xie MD R2) Attending Attestation Patient seen and examined. Case reviewed and discussed with the resident team. Agree with plan of care as discussed with me and documented in the resident note. He is tolerating his chemo well and looking forward to going home soon (Ai Zaragoza MD) Problem List: (1) Shortness of breath ICD Codes: R06.02 - Shortness of breath Status: Acute Plan: Patient with shortness of breath for the past few weeks. Likely due to metastatic disease and associated pleural effusion. On admission, T 98.2, HR 106 , RR 28, pulse ox 94% on 2 L NC. WBC 11.2. Chest x-ray reads significant progression of metastatic disease with marked increase in size of disseminated bilateral pulmonary nodules when compared to 12/12/16. CT angiography reads negative for pulmonary embolism, progression of thoracic metastatic disease with numerous bilateral disseminated pulmonary nodules measuring up to 8 cm and large left pleural effusion. Patient reporting continued hiccups since admission , likely related to mass effect causing diaphragmatic irritation. Orders/Labs: * Monitor oxygen saturation. * Incentive Spirometry. * Repeat CXR: Numerous large masses. Decreased aeration in the L lung suggesting superimposed inflammatory change for yesterday's CXR. Discussed findings with Dr. Carlson who agrees with low suspicion of inflammatory reaction due to his stable clinical picture and initial CT chest showing no inflammatory signs. * Thoracentesis ordered, however repeat ultrasound shows no drainable pleural effusion, 01/11/17. 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 Tumor size 11.5 cm x 8.0 x 6.5 cm. Patient also with extensive metastasis to lungs, found on CT. Orders/Labs: * Consulted Oncology - patient seen by Dr. Carlson, appreciate recommendations * Lactate Dehydrogenase 385H, Tumor Marker AFP 4797.7H, and Tumor Marker HCG 39H. Medication: * Allopurinol 300mg BID PO for tumor lysis syndrome. * NS 1,000ml at 84ml/hr IV for hydration. * Initiated Mesna, Etoposide, Ifosfamide, and Cisplatin on 01/09/17 (3) Hematemesis with nausea ICD Codes: K92.0 - Hematemesis Status: Resolved Plan: Patient with reported hematemesis overnight on 01/11/17. Patient recently initiated chemotherapy due to testicular teratoma resulting in numerous episodes of vomiting and likely gastric/esophageal irritation causing bleed. Patient also endorses new onset as reflux. Imaging/study: * CBC: H/H13/39.1, stable from admission Medications: * Protonix 40 mg daily (4) Lung metastases ICD Codes: C78.00 - Secondary malignant neoplasm of unspecified lung Status: Acute Plan: See Plan for Shortness of breath. (5) Tachycardia ICD Codes: R00.0 - Tachycardia, unspecified Status: Acute Plan: HR 106 on admission. Likely due to metastatic disease with compression of the heart. Telemetry with 5-6 beat runs of V-tach with trigeminy. Patient is high risk. Orders/Labs: * Echocardiogram 01/09: Normal L ventricular size and thickness. Systolic function normal with EF of 60-65%. No wall motion abnormalities. * Cardiology consulted, appreciate recommendations Medications: * Sotalol 80 mg twice a day (6) Back pain ICD Codes: M54.9 - Dorsalgia, unspecified Plan: Patient reports lower, left-sided back pain x1 month, the pain is a continuous, non-radiating, sharp pain. Orders/Labs: * May consider further imaging to investigate source of pain probably mets. Medication: * Pain medications as above (7) Headache ICD Codes: R51 - Headache Plan: Patient reports head pain, located on the right, anterior and superior to ear. Now better, thankfully. Orders/Labs: * CT [facility]: No acute intracranial abnormality. Chronic bilateral sinus disease. Medications: * See Plan for Back pain. (8) Asthma ICD Codes: J45.909 - Unspecified asthma, uncomplicated Plan: History of asthma. No wheezing noted on exam. Breathing difficulties likely due to metastatic disease rather than asthma. Orders/Labs: * Monitor oxygen saturation. * Incentive Spirometry. Medication: * Duoneb q4hr NEB PRN SHORTNESS OF BREATH. (9) Pleural effusion on left ICD Codes: J90 - Pleural effusion, not elsewhere classified Status: Acute Plan: Evidence of pleural effusion. Likely due to metastatic disease process. thoracentesis when needed by IR Orders/Labs: * US thoracentesis planned for tomorrow, Lovenox held, order to be placed tomorrow (10) Fluid, Electrolyte, Nutrition, and Prophylaxis Status: Acute Plan: Fluids: * NS 1,000ml at 84ml/hr IV for hydration. Electrolytes: * Monitor and replete as necessary. Nutrition: * Regular diet Prophylaxis: * Lovenox (Trevor Xie MD R2) Problem Qualifiers (1) Testicular teratoma: Qualified Codes: C62.92 - Malignant neoplasm of left testis, unspecified whether descended or undescended (2) Lung metastases: Qualified Codes: C78.00 - Secondary malignant neoplasm of unspecified lung (3) Back pain: Qualified Codes: M54.6 - Pain in thoracic spine (4) Headache: Qualified Codes: G44.89 - Other headache syndrome (5) Asthma: Qualified Codes: J45.998 - Other asthma Trevor Xie MD R2 Jan 13, 2017 13:42 Ai Zaragoza MD Jan 14, 2017 16:34
[2017-01-13] MEDS: KCL IV SCH (14:07)
[2017-01-13] MEDS: D5 IV SCH (14:07)
[2017-01-13] MEDS: 1/2 NS IV SCH (14:07)
--- NOTE | 2017-01-13 14:40 | HHI.DCPOC ---
Discharge Care Plan Diagnosis: (1) Testicular teratoma (2) Lung metastases Goals to Promote Your Health * To prevent worsening of your condition and complications * To maintain your health at the optimal level Directions to Meet Your Goals Take your medications as prescribed Follow your dietary instruction Follow activity as directed Keep your appointments as scheduled Take your immunizations and boosters as scheduled If your symptoms worsen call your PCP, if no PCP go to Urgent Care Center or Emergency Room Smoking is Dangerous to Your Health. Avoid second hand smoke Call the 24-hour hour crisis hotline for domestic abuse at Trevor Xie MD R2 Jan 13, 2017 14:40
[2017-01-13] MEDS ORDERED: PANT40TA3 PO (14:44)
[2017-01-13] MEDS ORDERED: SOTA80 PO (14:44)
[2017-01-13] MEDS ORDERED: PERI PO (14:44)
[2017-01-13] MEDS: GRANISETRON HCL 1 MG/ML VIAL IV SCH (15:15)
[2017-01-13] MEDS: DEXAMETHASONE SOD PHOS 20 MG/5 ML VIAL IV SCH (15:15)
[2017-01-13] MEDS: LORazepam 2 MG/ML VIAL IV PUSH SCH (15:15)
[2017-01-13] MEDS ORDERED: NEBULIZER1 MI1 (15:33)
[2017-01-13] MEDS ORDERED: NEBULIZER/ADULT1 KIT (15:33)
[2017-01-13] MEDS ORDERED: ALBU0.08 NEB (15:33)
[2017-01-13] MEDS: SODIUM CHLOR 0.9% IV SCH (16:09)
[2017-01-13] MEDS: CISPLATIN IV SCH (16:09)
--- NOTE | 2017-01-13 16:50 | PD.ONC.PN ---
Subjective Subjective Remarks Pt seen and examined at 7:00AM this morning, this note reflects that encounter. Subjectively, the pt reports nausea after chemo infusion. He tells me he is able to eat and drink well until he gets the chemotherapy at night time. He denies fevers, or chills, he feels less short of breath, he denies chest pain. He continues to have back pain. He is eager to go home when chemo infusion is complete. Objective Data Date Time Temp Pulse Resp B/P (MAP) Pulse Ox O2 Delivery O2 Flow Rate FiO2 01/13/17 15:27 98.8 82 20 111/53 (72) 95 01/13/17 10:52 98.1 82 20 120/74 (89) 95 01/13/17 10:29 94 01/13/17 08:00 77 01/13/17 07:57 98.2 67 20 129/71 (90) 95 01/13/17 05:37 98.6 84 18 131/71 (91) 95 01/13/17 04:12 74 01/13/17 00:40 16 01/12/17 23:41 98.6 72 16 120/74 (89) 96 01/12/17 23:02 70 01/12/17 20:02 83 01/12/17 19:55 16 01/12/17 19:45 97.9 79 22 131/79 (96) 94 01/12/17 17:31 94 Nasal Cannula 1.00 01/13/17 01/13/17 01/13/17 07:00 15:00 23:00 Intake Total 200 ml Output Total 1350 ml 750 ml 350 ml Balance -1350 ml -750 ml -150 ml Result Diagram: 01/13/17 0545 01/13/17 0545 Laboratory Results Laboratory Tests Test 01/13/17 05:45 White Blood Count 11.1 TH/MM3 Red Blood Count 4.82 MIL/MM3 Hemoglobin 13.1 GM/DL Hematocrit 39.5 % Mean Corpuscular Volume 81.9 FL Mean Corpuscular Hemoglobin 27.2 PG Mean Corpuscular Hemoglobin Concent 33.2 % Red Cell Distribution Width 14.7 % Platelet Count 363 TH/MM3 Mean Platelet Volume 7.2 FL Blood Urea Nitrogen 10 MG/DL Creatinine 0.62 MG/DL Random Glucose 106 MG/DL Calcium Level 8.2 MG/DL Phosphorus Level 2.9 MG/DL Magnesium Level 2.0 MG/DL Sodium Level 133 MEQ/L Potassium Level 4.1 MEQ/L Chloride Level 102 MEQ/L Carbon Dioxide Level 25.5 MEQ/L Anion Gap 6 MEQ/L Estimat Glomerular Filtration Rate 151 ML/MIN Administered Medications Medications (Trade) Dose Ordered Sig/Harleen Route PRN Reason Start Time Stop Time Status Last Admin Dose Admin Sodium Chloride 1,000 ml @ 84 mls/hr [id number] IV 01/08/17 17:00 01/09/17 06:33 Morphine Sulfate (Morphine Inj) 2 mg Q3H PRN IV PUSH BREAKTHROUGH PAIN 01/08/17 17:15 01/13/17 10:48 Sodium Chloride (NS Flush) 2 ml BID IV FLUSH 01/08/17 21:00 01/12/17 19:50 Enoxaparin Sodium (Lovenox Inj) 40 mg Q24H SQ 01/08/17 17:15 Future hold 01/12/17 15:41 Senna/Docusate Sodium (Dorothy-Colace) 1 tab BID PO 01/08/17 21:00 01/13/17 07:56 Mesna 800 mg/ Sodium Chloride 58 ml @ 232 mls/hr Q24H IV 01/09/17 18:00 01/13/17 18:14 01/12/17 22:16 Mesna 800 mg/ Sodium Chloride 58 ml @ 232 mls/hr Q24H IV 01/09/17 22:00 01/13/17 22:14 01/13/17 02:17 Potassium Chloride/Dextrose/ Sod Cl 1,000 ml @ 150 mls/hr Q6H40M IV 01/09/17 12:00 01/13/17 23:59 01/13/17 10:48 Granisetron HCl (Kytril Inj) 1 mg Q24H IV 01/09/17 13:30 01/14/17 13:31 01/13/17 15:15 Lorazepam (Ativan Inj) 1 mg Q24H IV PUSH 01/09/17 13:30 01/14/17 13:31 01/13/17 15:15 Dexamethasone Sodium Phosphate (Decadron Inj) 20 mg Q24H IV 01/09/17 13:30 01/14/17 13:31 01/13/17 15:15 Etoposide 200 mg/ Sodium Chloride 510 ml @ 510 mls/hr Q24H IV 01/09/17 16:00 01/13/17 16:59 01/12/17 22:16 Allopurinol (Zyloprim) 300 mg DAILY PO 01/10/17 09:00 01/13/17 07:56 Oxycodone/ Acetaminophen (Percocet 10-325 Mg) 1 tab Q4H PRN PO PAIN SCALE 6 TO 10 01/09/17 12:00 01/13/17 14:07 Ondansetron HCl (Zofran Inj) 4 mg Q4HR PRN IV PUSH NAUSEA OR VOMITING 01/09/17 16:00 01/13/17 14:06 Potassium Chloride/Dextrose/ Sod Cl 500 ml @ 75 mls/hr Q24H IV 01/10/17 14:00 01/13/17 20:39 01/12/17 14:00 Promethazine HCl (Phenergan Inj) 12.5 mg Q4H PRN IV-CENTRAL vomiting 01/10/17 13:00 01/13/17 10:21 Sotalol HCl (Betapace) 80 mg Q12HR PO 01/10/17 21:00 01/13/17 07:56 Pantoprazole Sodium (Protonix) 40 mg DAILY PO 01/12/17 09:00 01/13/17 07:56 Objective Remarks GENERAL: Young male, laying in bed, appears to be trembling, not acutely distressed area SKIN: Cool and dry. Heavily tattooed. HEAD: Normocephalic. EYES: No scleral icterus. No injection or drainage. NECK: Supple, trachea midline. No JVD or lymphadenopathy. LYMPHATIC: No adenopathy. CARDIOVASCULAR: Tachycardic, regular, S1 and S2 normal murmurs or gallops. RESPIRATORY: Decreased bibasilar breath sounds, no wheezing, rhonchi or rails. GASTROINTESTINAL: Abdomen soft, non-tender, nondistended. EXTREMITIES: No cyanosis, or edema. MUSCULOSKELETAL: Adequate muscle tone. NEUROLOGICAL: No obvious focal deficit. Awake, alert, and oriented x3. PSYCHIATRIC: Appropriate mood and affect; insight and judgment normal. Urogenital: Status post left orchiectomy, right testicle without abnormalities or masses. No inguinal lymphadenopathy. Assessment/Plan Assessment Mr. 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 This patient has extensive pulmonary metastases, mediastinal lymphadenopathy as well as retroperitoneal lymphadenopathy. The primary tumor involving the left testis has been removed. He comes into the hospital with complaints of difficulty breathing and palpitations and the cause is the extensive mediastinal disease burden with what appears to be direct compression on the ventricles and the right atrium of the heart. He is being admitted to the hospital for urgent initiation of inpatient chemotherapy. He did undergo pulmonary function testing two weeks ago, I do not believe DLCO was performed at that time. He is otherwise healthy other than having been a smoker of both tobacco and cannabinoids. I did talk to the patient and his mother about his disease. I explained to him that his disease is very advanced and warrants urgent initiation of therapy. I will also explained to them that because he has a mixed germ cell tumor consisting mostly of mature and immature teratoma, his prognosis will defer from seminoma / non seminoma testicular cancers. Seminoma and non-seminoma testicular cancers typically have an excellent prognosis whereas the prognosis for teratomas is more guarded and often involves a multidisciplinary approach which includes chemotherapy followed by surgical resection. Plan 1. 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 He has retroperitoneal lymph node metastases as well as extensive mediastinal metastases and pulmonary metastases. Pulmonary function testing was reviewed, his DLCO is 65% of predicted. He has been initiated on inpatient systemic chemotherapy as a life saving measure given the extent of his thoracic disease burden and symptoms of dyspnea, tachycardia and hypoxia. He was initiated on cycle 1 ifosfamide, cisplatin, etoposide and mesna on 01/09/2017. Chemotherapy was dosed to a body surface area of 2 meters squared. Serum tumor markers were reviewed, alpha-fetoprotein level has increased to over 4500, LDH and beta hCG levels are also elevated. He has intermediate to high risk disease. Continue ongoing care, today will be day 5 of the VIP chemotherapy regimen. He should be done with the chemo infusion by late tonight/early tomorrow morning. Patient developed 5 beat run of white complex ventricular tachycardia/QRS complexes on the morning of 01/10/2017. And was initiated on sotalol for management of the cardiac arrhythmia. Recurrent arrhythmias have not been reported. Continue allopurinol 300 mg daily and IV fluids. Left sided pleural effusion: Was evaluated with ultrasonography, there was no fluid present, the abnormality noted on CT scan is in fact a solid metastatic mass. Disposition: He may be d/jerome home on the morning of 12 if he is able to tolerated liquids and nutritional supplements. I have requested he receive out patient GCSF growth factor support next week; Monday - Monday at my [facility] Oncology clinic (Neupogen 480mcg SQ daily). Weekly blood work. He will follow up with [facility] in clinic next week or the week after for lab checks and symptom assessment. If he is recovering well, we will schedule re-admission in late January for the cycle 2 VIP. I would advise the primary team to d/c the patient with zofran 4mg po q6hrs prn for nausea. Lul Carlson MD Jan 13, 2017 16:50
[2017-01-13] MEDS: ENOXAPARIN SODIUM 40 MG/0.4 ML SYRINGE SQ SCH (17:11)
[2017-01-13] MEDS: SODIUM CHLORID 0.9% IV SCH (17:50)
[2017-01-13] MEDS: IFOSFAMIDE IV SCH (17:50)
[2017-01-13] MEDS: ETOPOSIDE IV SCH (23:10)
[2017-01-13] MEDS: NS IV SCH (23:10)
[2017-01-14] MEDS: ONDANSETRON HCL 4 MG/2 ML VIAL IV PUSH PRN ×2 (00:37→07:02)
[2017-01-14] MEDS: MORPHINE SULFATE 4 MG/ML INJ IV PUSH PRN (00:37)
[2017-01-14] MEDS: DOCUSATE SODIUM 50 MG/SENNA 8.6 MG TAB PO SCH ×2 (00:37→09:25)
[2017-01-14 00:45] VITALS: BP 119/68; PULSE 81; RESP 20; TEMP 97.9; O2SAT 94
[2017-01-14] MEDS: MESNA IV SCH (01:44)
[2017-01-14] MEDS: SODIUM CHLORIDE 0.9% IV SCH (01:44)
[2017-01-14] MEDS: PROMETHAZINE INJ 25 MG/ML VIAL IV-CENTRAL PRN (03:25)
[2017-01-14] MEDS: SODIUM CHLOR 0.9% 1000 ML INJ 1,000 ML IV SCH (04:05)
[2017-01-14 04:46] VITALS: BP 118/67; PULSE 74; RESP 18; TEMP 98; O2SAT 93
[2017-01-14 05:59] LABS: HEMATOCRIT 39.2 % (39.0-51.0); MEAN CELL VOLUME 81.5 FL (80.0-100.0); MEAN CORPUSCULAR HEMOGLOBIN 27.4 PG (27.0-34.0); MEAN CORPUSCULAR HGB CONC 33.6 % (32.0-36.0); PLATELET COUNT 346 TH/MM3 (150-450); RED BLOOD COUNT 4.82 MIL/MM3 (4.50-5.90); RED CELL DISTRIBUTION WIDTH 14.3 % (11.6-17.2); REVIEW FLAG FINAL; WHITE BLOOD COUNT 10.1 TH/MM3 (4.0-11.0)
[2017-01-14 06:26] LABS: ALKALINE PHOSPHATASE 104 U/L (45-117); ALT (GPT) 95 U/L (12-78); ANION GAP 8 MEQ/L (5-15); AST (GOT) 33 U/L (15-37); BLOOD UREA NITROGEN 13 MG/DL (7-18); CHLORIDE 98 MEQ/L (98-107); GLOMERULAR FILTRATION RATE 132 ML/MIN (>89); SODIUM (NA) 131 MEQ/L (136-145); TOTAL BILIRUBIN ADULT 0.8 MG/DL (0.2-1.0)
[2017-01-14] MEDS: oxyCODONE/ACETAMINOPHEN 10 MG/325 MG TAB PO PRN (07:00)
[2017-01-14 07:42] VITALS: O2SAT 94
[2017-01-14 08:00] VITALS: PULSE 77
[2017-01-14] MEDS ORDERED: ONDA4TAB7 SL ×2 (09:21→12:11)
--- NOTE | 2017-01-14 09:24 | HHI.FPPN ---
Subjective Remarks Patient seen and examined this morning. No acute events overnight vital signs stable. Patient endorses continued vomiting in relation to his chemotherapy. He does state that Zofran helps, but did have 2 episodes of "mucous vomiting." He denies any abdominal pain, constipation, or hematemesis. He states that his back pain is currently controlled on his pain medications. Otherwise has no complaints and denies a complete review of systems including no headaches, fever , chest pain, or calf tenderness. Objective Vitals Vital Signs Date Time Temp Pulse Resp B/P (MAP) Pulse Ox O2 Delivery O2 Flow Rate FiO2 01/14/17 07:42 94 Nasal Cannula 1.00 01/14/17 04:46 98.0 74 18 118/67 (84) 93 01/14/17 00:45 97.9 81 20 119/68 (85) 94 01/13/17 20:00 98.2 91 20 136/76 (96) 94 01/13/17 17:51 95 Nasal Cannula 1.00 01/13/17 15:27 98.8 82 20 111/53 (72) 95 01/13/17 10:52 98.1 82 20 120/74 (89) 95 01/13/17 10:29 94 I/O 01/13/17 01/13/17 01/13/17 01/14/17 01/14/17 01/14/17 07:00 15:00 23:00 07:00 15:00 23:00 Intake Total 560 ml Output Total 1350 ml 750 ml 350 ml 600 ml Balance -1350 ml -750 ml 210 ml -600 ml Intake Oral 200 ml IV Total 360 ml Output Urine Total 1350 ml 750 ml 350 ml 600 ml Result Diagram: 01/14/17 0505 01/14/17 0505 Objective Remarks GENERAL: Well developed, well nourished male lying in bed watching television in [facility]. Significant other and children at bedside. SKIN: Wam and dry. Tattoos on trunk and extremities . HEENT: AT, NC with EOMI. MMM. No rhinorrhea. No JVD or LAD appreciated. CARDIOVASCULAR: RRR with no MGR. 2+ pulses in all 4 ext. RESPIRATORY: Clear to auscultation bilaterally with no CRW. No increased WOB. GASTROINTESTINAL: Abdomen soft, non-tender, nondistended with +BS. No masses appreciated. EXTREMITIES: No cyanosis or edema. No calf tenderness. Ambulating well per report. NEUROLOGICAL: Afocal. AAOx3. Normal speech and judgement. 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 Patient also reports lower back pain x1 month and head pain for the past 1 1/2 weeks. Admitted for initiation of chemotherapy and supportive care. Discharge Planning Following completion of chemotherapy day 5, 01/13/17, with oncology recommendations. Patient to be discharged home on 01/14/17 pending respiratory walk test. Nursing staff to notify M.D. for discharge or after test completion. Problem List: (1) Shortness of breath ICD Codes: R06.02 - Shortness of breath Status: Acute Plan: Patient with shortness of breath for the past few weeks. Likely due to metastatic disease and associated pleural effusion. On admission, T 98.2, HR 106 , RR 28, pulse ox 94% on 2 L NC. WBC 11.2. Chest x-ray reads significant progression of metastatic disease with marked increase in size of disseminated bilateral pulmonary nodules when compared to 12/12/16. CT angiography reads negative for pulmonary embolism, progression of thoracic metastatic disease with numerous bilateral disseminated pulmonary nodules measuring up to 8 cm and large left pleural effusion. Patient reporting continued hiccups since admission , likely related to mass effect causing diaphragmatic irritation. Orders/Labs: * Monitor oxygen saturation. * Incentive Spirometry. * Repeat CXR: Numerous large masses. Decreased aeration in the L lung suggesting superimposed inflammatory change for yesterday's CXR. Discussed findings with Dr. Carlson who agrees with low suspicion of inflammatory reaction due to his stable clinical picture and initial CT chest showing no inflammatory signs. * Thoracentesis ordered, however repeat ultrasound shows no drainable pleural effusion, 01/11/17. 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 Tumor size 11.5 cm x 8.0 x 6.5 cm. Patient also with extensive metastasis to lungs, found on CT. Orders/Labs: * Consulted Oncology - patient seen by Dr. Carlson, appreciate recommendations * Lactate Dehydrogenase 385H, Tumor Marker AFP 4797.7H, and Tumor Marker HCG 39H. Medication: * Allopurinol 300mg BID PO for tumor lysis syndrome. * NS 1,000ml at 84ml/hr IV for hydration. * Initiated Mesna, Etoposide, Ifosfamide, and Cisplatin on 01/09/[address] Carlson, patient will receive outpatient Neupogen next week at his office with lab checks and symptom management. Plan to receive second chemotherapy cycle in late January. (3) Hematemesis with nausea ICD Codes: K92.0 - Hematemesis Status: Acute Plan: Patient with reported hematemesis overnight on 01/11/17. Patient recently initiated chemotherapy due to testicular teratoma resulting in numerous episodes of vomiting and likely gastric/esophageal irritation causing bleed. Patient also endorses new onset as reflux. Imaging/study: * CBC: H/H13/39.1, stable from admission Medications: * Protonix 40 mg daily Patient to be discharged home on daily Protonix and Zofran when necessary for nausea/vomiting (4) Lung metastases ICD Codes: C78.00 - Secondary malignant neoplasm of unspecified lung Status: Acute Plan: See Plan for Shortness of breath. (5) Tachycardia ICD Codes: R00.0 - Tachycardia, unspecified Status: Acute Plan: HR 106 on admission. Likely due to metastatic disease with compression of the heart. Telemetry with 5-6 beat runs of V-tach with trigeminy. Patient is high risk. Orders/Labs: * Echocardiogram 01/09: Normal L ventricular size and thickness. Systolic function normal with EF of 60-65%. No wall motion abnormalities. * Cardiology consulted, appreciate recommendations Medications: * Sotalol 80 mg twice a day Patient to be discharged home on sotalol twice a day (6) Back pain ICD Codes: M54.9 - Dorsalgia, unspecified Plan: Patient reports lower, left-sided back pain x1 month, the pain is a continuous, non-radiating, sharp pain. Orders/Labs: * May consider further imaging to investigate source of pain probably mets. Medication: * Pain medications as above (7) Headache ICD Codes: R51 - Headache Plan: Patient reports head pain, located on the right, anterior and superior to ear. Now better, thankfully. Orders/Labs: * CT [place]: No acute intracranial abnormality. Chronic bilateral sinus disease. Medications: * See Plan for Back pain. (8) Asthma ICD Codes: J45.909 - Unspecified asthma, uncomplicated Plan: History of asthma. No wheezing noted on exam. Breathing difficulties likely due to metastatic disease rather than asthma. Orders/Labs: * Monitor oxygen saturation. * Incentive Spirometry. Medication: * Duoneb q4hr NEB PRN SHORTNESS OF BREATH. (9) Pleural effusion on left ICD Codes: J90 - Pleural effusion, not elsewhere classified Status: Acute Plan: Evidence of pleural effusion. Likely due to metastatic disease process. thoracentesis when needed by IR Orders/Labs: * US thoracentesis planned for tomorrow, Lovenox held, order to be placed tomorrow (10) Fluid, Electrolyte, Nutrition, and Prophylaxis Status: Acute Plan: Fluids: * NS 1,000ml at 84ml/hr IV for hydration. Electrolytes: * Monitor and replete as necessary. Nutrition: * Regular diet Prophylaxis: * Lovenox Problem Qualifiers (1) Testicular teratoma: Qualified Codes: C62.92 - Malignant neoplasm of left testis, unspecified whether descended or undescended (2) Lung metastases: Qualified Codes: C78.00 - Secondary malignant neoplasm of unspecified lung (3) Back pain: Qualified Codes: M54.6 - Pain in thoracic spine (4) Headache: Qualified Codes: G44.89 - Other headache syndrome (5) Asthma: Qualified Codes: J45.998 - Other asthma Trevor Xie MD R2 Jan 14, 2017 09:24
[2017-01-14] MEDS: ALLOPURINOL 300 MG TAB PO SCH (09:25)
[2017-01-14] MEDS: SOTALOL HCL 80 MG TAB PO SCH (09:25)
[2017-01-14] MEDS: PANTOPRAZOLE SOD 40 MG DELAYED RELEASE TAB PO SCH (09:25)
[2017-01-14 09:29] VITALS: BP 125/73; PULSE 84; RESP 12; TEMP 98.8; O2SAT 95
--- NOTE | 2017-01-14 09:59 | PD.ONC.PN ---
Subjective Subjective Remarks Afebrile Reports he needs a refill of his pain meds prior to discharge Excited to be going home today Objective Data Date Time Temp Pulse Resp B/P (MAP) Pulse Ox O2 Delivery O2 Flow Rate FiO2 01/14/17 09:29 98.8 84 12 125/73 (90) 95 01/14/17 07:42 94 Nasal Cannula 1.00 01/14/17 04:46 98.0 74 18 118/67 (84) 93 01/14/17 00:45 97.9 81 20 119/68 (85) 94 01/13/17 20:00 98.2 91 20 136/76 (96) 94 01/13/17 17:51 95 Nasal Cannula 1.00 01/13/17 15:27 98.8 82 20 111/53 (72) 95 01/13/17 10:52 98.1 82 20 120/74 (89) 95 01/13/17 10:29 94 01/14/17 01/14/17 01/14/17 07:00 15:00 23:00 Output Total 600 ml Balance -600 ml Result Diagram: 01/14/17 0505 01/14/17 0505 Laboratory Results Laboratory Tests Test 01/14/17 05:05 White Blood Count 10.1 TH/MM3 Red Blood Count 4.82 MIL/MM3 Hemoglobin 13.2 GM/DL Hematocrit 39.2 % Mean Corpuscular Volume 81.5 FL Mean Corpuscular Hemoglobin 27.4 PG Mean Corpuscular Hemoglobin Concent 33.6 % Red Cell Distribution Width 14.3 % Platelet Count 346 TH/MM3 Mean Platelet Volume 7.3 FL Blood Urea Nitrogen 13 MG/DL Creatinine 0.70 MG/DL Random Glucose 121 MG/DL Total Protein 6.5 GM/DL Albumin 3.1 GM/DL Calcium Level 8.1 MG/DL Phosphorus Level 2.6 MG/DL Magnesium Level 2.0 MG/DL Alkaline Phosphatase 104 U/L Aspartate Amino Transf (AST/SGOT) 33 U/L Alanine Aminotransferase (ALT/SGPT) 95 U/L Total Bilirubin 0.8 MG/DL Sodium Level 131 MEQ/L Potassium Level 4.0 MEQ/L Chloride Level 98 MEQ/L Carbon Dioxide Level 25.0 MEQ/L Anion Gap 8 MEQ/L Estimat Glomerular Filtration Rate 132 ML/MIN Administered Medications Medications (Trade) Dose Ordered Sig/Harleen Route PRN Reason Start Time Stop Time Status Last Admin Dose Admin Sodium Chloride 1,000 ml @ 84 mls/hr [id number] IV 01/08/17 17:00 01/09/17 06:33 Morphine Sulfate (Morphine Inj) 2 mg Q3H PRN IV PUSH BREAKTHROUGH PAIN 01/08/17 17:15 01/14/17 00:37 Sodium Chloride (NS Flush) 2 ml BID IV FLUSH 01/08/17 21:00 01/12/17 19:50 Enoxaparin Sodium (Lovenox Inj) 40 mg Q24H SQ 01/08/17 17:15 Future hold 01/13/17 17:11 Senna/Docusate Sodium (Dorothy-Colace) 1 tab BID PO 01/08/17 21:00 01/14/17 09:25 Granisetron HCl (Kytril Inj) 1 mg Q24H IV 01/09/17 13:30 01/14/17 13:31 01/13/17 15:15 Lorazepam (Ativan Inj) 1 mg Q24H IV PUSH 01/09/17 13:30 01/14/17 13:31 01/13/17 15:15 Dexamethasone Sodium Phosphate (Decadron Inj) 20 mg Q24H IV 01/09/17 13:30 01/14/17 13:31 01/13/17 15:15 Allopurinol (Zyloprim) 300 mg DAILY PO 01/10/17 09:00 01/14/17 09:25 Oxycodone/ Acetaminophen (Percocet 10-325 Mg) 1 tab Q4H PRN PO PAIN SCALE 6 TO 10 01/09/17 12:00 01/14/17 07:00 Ondansetron HCl (Zofran Inj) 4 mg Q4HR PRN IV PUSH NAUSEA OR VOMITING 01/09/17 16:00 01/14/17 07:02 Promethazine HCl (Phenergan Inj) 12.5 mg Q4H PRN IV-CENTRAL vomiting 01/10/17 13:00 01/14/17 03:25 Sotalol HCl (Betapace) 80 mg Q12HR PO 01/10/17 21:00 01/14/17 09:25 Pantoprazole Sodium (Protonix) 40 mg DAILY PO 01/12/17 09:00 01/14/17 09:25 Objective Remarks GENERAL: Young male, laying in bed in no obvious distress SKIN: Cool and dry. Multiple tattoos HEAD: Normocephalic. EYES: No injection or drainage. NECK: Supple, trachea midline. CARDIOVASCULAR: + S1/S2. Regular rhythm RESPIRATORY: Clear anteriorly. Breathing unlabored. GASTROINTESTINAL: Abdomen soft, non-tender, nondistended. EXTREMITIES: No cyanosis, or edema. MUSCULOSKELETAL: Adequate muscle tone. NEUROLOGICAL: No obvious focal deficit. Awake, alert, and oriented x3. Assessment/Plan Assessment Mr. 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 This patient has extensive pulmonary metastases, mediastinal lymphadenopathy as well as retroperitoneal lymphadenopathy. The primary tumor involving the left testis has been removed. He comes into the hospital with complaints of difficulty breathing and palpitations and the cause is the extensive mediastinal disease burden with what appears to be direct compression on the ventricles and the right atrium of the heart. He is being admitted to the hospital for urgent initiation of inpatient chemotherapy. He did undergo pulmonary function testing two weeks ago, I do not believe DLCO was performed at that time. He is otherwise healthy other than having been a smoker of both tobacco and cannabinoids. I did talk to the patient and his mother about his disease. I explained to him that his disease is very advanced and warrants urgent initiation of therapy. I will also explained to them that because he has a mixed germ cell tumor consisting mostly of mature and immature teratoma, his prognosis will defer from seminoma / non seminoma testicular cancers. Seminoma and non-seminoma testicular cancers typically have an excellent prognosis whereas the prognosis for teratomas is more guarded and often involves a multidisciplinary approach which includes chemotherapy followed by surgical resection. Plan 1. 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 He has retroperitoneal lymph node metastases as well as extensive mediastinal metastases and pulmonary metastases. Pulmonary function testing was reviewed, his DLCO is 65% of predicted. He has been initiated on inpatient systemic chemotherapy as a life saving measure given the extent of his thoracic disease burden and symptoms of dyspnea, tachycardia and hypoxia. He was initiated on cycle 1 ifosfamide, cisplatin, etoposide and mesna on 01/09/2017. Chemotherapy was dosed to a body surface area of 2 meters squared. 2. Patient is completed chemotherapy and will be discharged today 3. Discontinue PICC line prior to discharge 4. It was discussed with the patient that [place] [facility] [place] He was instructed to call the office early Monday morning to make sure they receive the approval from his insurance company 5. He is tentatively slated to return for cycle number 2 February 07. Attending Statement The exam, history, and the medical decision-making described in the above note were completed with the assistance of the mid-level provider. I reviewed and agree with the findings presented. I attest that I had a [id number] encounter with the patient on the same day, and personally performed and documented my assessment and findings in the medical record. Completed chemotherapy. +nausea but tolerating po. Continue antiemetic. F/u oncology clinic for [facility] [place] and monitor CBC after d/c. Jazmin Yepez Jan 14, 2017 09:59 Lanre Parks MD Jan 14, 2017 15:17
--- NOTE | 2017-01-14 10:30 | HHI.DCPOC ---
Discharge Care Plan Diagnosis: (1) Testicular teratoma (2) Lung metastases Goals to Promote Your Health * To prevent worsening of your condition and complications * To maintain your health at the optimal level Directions to Meet Your Goals Take your medications as prescribed Follow your dietary instruction Follow activity as directed Keep your appointments as scheduled Take your immunizations and boosters as scheduled If your symptoms worsen call your PCP, if no PCP go to Urgent Care Center or Emergency Room Smoking is Dangerous to Your Health. Avoid second hand smoke Call the 24-hour hour crisis hotline for domestic abuse at Trevor Xie MD R2 Jan 14, 2017 10:30
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
[2017-01-14] MEDS ORDERED: ALLO300 PO (10:57)
[2017-01-14] MEDS ORDERED: OXYC1TAB36 PO (12:12)
[2017-01-14] MEDS ORDERED: ZOFR4TAB3 SL (22:45)
[2017-01-15] MEDS ORDERED: NEBULIZER/ADULT1 KIT INH (09:52)
[2017-01-15] MEDS ORDERED: ALLO300T2 PO (09:52)
[2017-01-15] MEDS ORDERED: DOCU8.6T PO (09:52)
[2017-01-15] MEDS ORDERED: PERC5TAB12 PO (09:52)
[2017-01-15] MEDS ORDERED: NEBULIZER1 MI1 INH (09:52)
[2017-01-15] MEDS ORDERED: ONDA4TAB7 SL (09:52)
[2017-01-15] MEDS ORDERED: SOTA80TA PO (09:52)
[2017-01-15] MEDS ORDERED: PANT40TA3 PO (09:52)
[2017-01-15] MEDS ORDERED: ALBU0.08 NEB (09:52)
== END 2017-01-14 12:52 | disposition home or self-care (01) | DRG 180 ==
LOC: NEPE 11:18 → NEDA 14:55 → HCIN 01-09 01:08
PROVIDERS: ADMIT Family Medicine; ATTEND Family Medicine
PROC: 02HV33Z Insertion of Infusion Device into Superior Vena Cava, Percutaneous Approach (ICD-10-PCS; principal; 2017-01-09)
DX: C78.1 Secondary malignant neoplasm of mediastinum (principal); E88.3 Tumor lysis syndrome; I47.2 Ventricular tachycardia; K92.0 Hematemesis; C78.01 Secondary malignant neoplasm of right lung; C77.1 Secondary and unspecified malignant neoplasm of intrathoracic lymph nodes; C78.02 Secondary malignant neoplasm of left lung; J90 Pleural effusion, not elsewhere classified; C78.6 Secondary malignant neoplasm of retroperitoneum and peritoneum; R04.2 Hemoptysis; C79.51 Secondary malignant neoplasm of bone; C62.92 Malignant neoplasm of left testis, unspecified whether descended or undescended; R51 Headache; R59.0 Localized enlarged lymph nodes; J45.909 Unspecified asthma, uncomplicated; F12.90 Cannabis use, unspecified, uncomplicated; R63.0 Anorexia; R06.6 Hiccough; K21.9 Gastro-esophageal reflux disease without esophagitis; M54.5 Low back pain; F17.210 Nicotine dependence, cigarettes, uncomplicated; Z80.3 Family history of malignant neoplasm of breast; Z90.79 Acquired absence of other genital organ(s)
CPT/HCPCS: 36569; 70470; 71010; 71275; 76604; 76937; 80048; 80053; 80307; 82105; 83615; 83735; 84100; 84702; 85025; 85027; 85610; 85730; 93005; 93306; 94150; 94620; 94664; 96374; J1100; J1626; J1650; J2060; J2270; J2405; J2550; J2930; J3475; J3480; J7030; J7040; J7050; J9060; J9181; J9208; J9209; Q9967

== ENCOUNTER 2017-01-14 21:38 | Emergency (ER) | payer OTHER ==
[~2017-01-14] VITALS: Ht 167.6 cm; Wt 90.0 kg
[~2017-01-14 21:38] MED LIST changes: +ALBU0.08 NEB; +ALLO300 PO; -HYDR-3516 PO; -LEVA750T9 PO; +NEBULIZER/ADULT1 KIT; +NEBULIZER1 MI1; +ONDA4TAB7 SL; +OXYC1TAB36 PO; -OXYC1TAB63 PO; +PANT40TA3 PO; +PERI PO; +SOTA80 PO
[2017-01-14 21:43] VITALS: BP 132/67; PULSE 93; RESP 20; TEMP 99.1; O2SAT 96
[2017-01-14] MEDS ORDERED: ONDANSETRON ODT 4 MG TAB PO ONE ×2 (22:00→23:00)
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
[2017-01-14] MEDS ORDERED: ZOFR4TAB3 SL (22:45)
[2017-01-15] MEDS ORDERED: PANT40TA3 PO (09:52)
[2017-01-15] MEDS ORDERED: ALBU0.08 NEB (09:52)
[2017-01-15] MEDS ORDERED: PERC5TAB12 PO (09:52)
[2017-01-15] MEDS ORDERED: ONDA4TAB7 SL (09:52)
[2017-01-15] MEDS ORDERED: NEBULIZER1 MI1 INH (09:52)
[2017-01-15] MEDS ORDERED: ALLO300T2 PO (09:52)
[2017-01-15] MEDS ORDERED: SOTA80TA PO (09:52)
[2017-01-15] MEDS ORDERED: DOCU8.6T PO (09:52)
[2017-01-15] MEDS ORDERED: NEBULIZER/ADULT1 KIT INH (09:52)
== END 2017-01-14 23:23 | disposition home or self-care (01) ==
LOC: NEPE 21:38
DX: R11.2 Nausea with vomiting, unspecified (principal); T45.1X5A Adverse effect of antineoplastic and immunosuppressive drugs, initial encounter; C61 Malignant neoplasm of prostate; C78.00 Secondary malignant neoplasm of unspecified lung; Z87.09 Personal history of other diseases of the respiratory system; Z86.59 Personal history of other mental and behavioral disorders
CPT/HCPCS: 99283

== ENCOUNTER 2017-01-15 08:07 | Emergency (ER) | payer OTHER ==
[~2017-01-15] VITALS: Ht 167.6 cm; Wt 82.0 kg
[~2017-01-15 08:07] MED LIST changes: +ZOFR4TAB3 SL
[2017-01-15 08:11] VITALS: BP 125/65; PULSE 90; RESP 18; TEMP 98.7; O2SAT 94
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
[2017-01-15] MEDS ORDERED: oxyCODONE/ACETAMINOPHEN 5 MG/325 MG TAB PO ONE ×2 (08:30→10:00)
[2017-01-15] MEDS ORDERED: SODIUM CHLOR 0.9% 1000 ML INJ 1,000 ML IV ONE (08:30)
[2017-01-15] MEDS ORDERED: ONDANSETRON HCL 4 MG/2 ML VIAL IV PUSH ONE (08:30)
[2017-01-15 09:00] LABS: AUTOMATED NEUTROPHIL # 12.2 TH/MM3 (1.8-7.7); BASOPHIL # 0.1 TH/MM3 (0-0.2); BASOPHIL % 0.4 % (0.0-2.0); EOSINOPHIL # 0.2 TH/MM3 (0-0.4); EOSINOPHIL % 1.7 % (0.0-4.0); HEMATOCRIT 43.8 % (39.0-51.0); HEMO FLAGS DIFF FINAL; LYMPH % 12.1 % (9.0-44.0); LYMPHOCYTE # 1.7 TH/MM3 (1.0-4.8); MEAN CORPUSCULAR HEMOGLOBIN 26.5 PG (27.0-34.0); MEAN CORPUSCULAR HGB CONC 32.8 % (32.0-36.0); MONO % 0.5 % (0.0-8.0); NEUT % 85.3 % (16.0-70.0); PLATELET COUNT 342 TH/MM3 (150-450); RED CELL DISTRIBUTION WIDTH 14.9 % (11.6-17.2); WHITE BLOOD COUNT 14.3 TH/MM3 (4.0-11.0)
[2017-01-15 09:27] LABS: BICARBONATE 24.2 MEQ/L (21.0-32.0)
[2017-01-15] MEDS ORDERED: PANT40TA3 PO (09:52)
[2017-01-15] MEDS ORDERED: ALLO300T2 PO (09:52)
[2017-01-15] MEDS ORDERED: NEBULIZER1 MI1 INH (09:52)
[2017-01-15] MEDS ORDERED: ONDA4TAB7 SL (09:52)
[2017-01-15] MEDS ORDERED: DOCU8.6T PO (09:52)
[2017-01-15] MEDS ORDERED: NEBULIZER/ADULT1 KIT INH (09:52)
[2017-01-15] MEDS ORDERED: ALBU0.08 NEB (09:52)
[2017-01-15] MEDS ORDERED: SOTA80TA PO (09:52)
[2017-01-15] MEDS ORDERED: PERC5TAB12 PO (09:52)
[2017-01-15 10:32] VITALS: BP 119/78; PULSE 80; RESP 20; O2SAT 98
== END 2017-01-15 10:33 | disposition home or self-care (01) ==
LOC: NEPC 08:07
DX: G89.3 Neoplasm related pain (acute) (chronic) (principal); R11.0 Nausea; D72.829 Elevated white blood cell count, unspecified; E87.1 Hypo-osmolality and hyponatremia; R06.02 Shortness of breath; J45.909 Unspecified asthma, uncomplicated; F41.9 Anxiety disorder, unspecified; Z79.51 Long term (current) use of inhaled steroids; Z79.899 Other long term (current) drug therapy
CPT/HCPCS: 80048; 85025; 96361; 96374; J2405; J7030

== ENCOUNTER 2017-01-16 13:50 | Inpatient (IN) | payer OTHER ==
[~2017-01-16 13:50] MED LIST changes: +ALLO300T2 PO; +DOCU8.6T PO; +NEBULIZER/ADULT1 KIT INH; +NEBULIZER1 MI1 INH; -OXYC1TAB36 PO; +PERC5TAB12 PO; +SOTA80TA PO; -ZOFR4TAB3 SL
[2017-01-16 13:53] VITALS: BP 120/68; PULSE 115; RESP 24; TEMP 99.2; O2SAT 95
[2017-01-16 14:09] VITALS: BP 117/78; PULSE 102; RESP 17; O2SAT 94
[2017-01-16] MEDS ORDERED: ONDANSETRON HCL 4 MG/2 ML VIAL IV PUSH ONE (14:30)
[2017-01-16] MEDS ORDERED: SODIUM CHLOR 0.9% 1000 ML INJ 1,000 ML IV ONE (14:30)
[2017-01-16] MEDS ORDERED: MORPHINE SULFATE 8 MG/ML INJ IV PUSH ONE (14:30)
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
[2017-01-16 15:27] LABS: BLOOD, URINE NEG (NEG); COMMENT (UR) CULT NOT INDICATED; CULTURE IF INDICATED CULT NOT INDICATED; GLUCOSE,URINE NEG (NEG); KETONE, URINE 40 mg/dL (NEG); MUCUS URINE FEW /lpf (OCC); NITRITE,URINE NEG (NEG); URINE COLOR YELLOW (YELLW/STRAW)
[2017-01-16 15:28] LABS: AUTOMATED NEUTROPHIL # 9.8 TH/MM3 (1.8-7.7); BASOPHIL % 0.3 % (0.0-2.0); EOSINOPHIL # 0.2 TH/MM3 (0-0.4); EOSINOPHIL % 1.7 % (0.0-4.0); HEMATOCRIT 42.5 % (39.0-51.0); HEMO FLAGS DIFF FINAL; LYMPH % 9.4 % (9.0-44.0); MEAN CELL VOLUME 80.8 FL (80.0-100.0); MEAN CORPUSCULAR HEMOGLOBIN 27.3 PG (27.0-34.0); MEAN CORPUSCULAR HGB CONC 33.7 % (32.0-36.0); MONO % 0.7 % (0.0-8.0); NEUT % 87.9 % (16.0-70.0); PLATELET COUNT 310 TH/MM3 (150-450); RED BLOOD COUNT 5.25 MIL/MM3 (4.50-5.90); RED CELL DISTRIBUTION WIDTH 13.9 % (11.6-17.2); WHITE BLOOD COUNT 11.2 TH/MM3 (4.0-11.0)
--- NOTE | 2017-01-16 15:43 | RADRPT ---
EXAM DATE/TIME: 01/16/2017 14:48 [facility] COMPARISON: CT ABDOMEN & PELVIS W CONTRAST, December 07, 2016, 0:38. CT PULMONARY ANGIOGRAM, January 08, 2017, 1 3:35. CHEST SINGLE AP, January 09, 2017, 13:04. CHEST SINGLE AP, January 10, 2017, 4:17. INDICATIONS : Shortness of breath and chest pain- Stage 4 lung cancer. MEDICAL HISTORY : Testicular cancer, asthma. SURGICAL HISTORY : Thoracentesis. ENCOUNTER: Initial ACUITY: 1 week PAIN SCORE: 6/10 LOCATION: Bilateral chest FINDINGS: Portable AP view of the chest demonstrates a normal-sized cardiac silhouette. There are innumerable b ilateral lung masses similar to the prior study. Left lung demonstrates improved aeration. No pneumot horax is visualized. There is a stable left pleural-based opacity. Bones and soft tissues demonstrate no acute finding. CONCLUSION: Improved aeration of the left lung. There are innumerable bilateral pulmonary masses characteristic o f metastatic disease. Moderate size left pleural effusion is also likely present. Luis Almonte MD on January 16, 2017 at 15:38 Board Certified Radiologist. This report was verified electronically.
[2017-01-16 15:56] LABS: ALKALINE PHOSPHATASE 131 U/L (45-117); TOTAL BILIRUBIN ADULT 1.6 MG/DL (0.2-1.0)
[2017-01-16 16:05] LABS: ALT (GPT) 81 U/L (12-78); ANION GAP 9 MEQ/L (5-15); AST (GOT) 31 U/L (15-37); BLOOD UREA NITROGEN 12 MG/DL (7-18); CHLORIDE 99 MEQ/L (98-107); GLOMERULAR FILTRATION RATE 129 ML/MIN (>89); MAGNESIUM 2.3 MG/DL (1.5-2.5); SODIUM (NA) 131 MEQ/L (136-145)
[2017-01-16 16:08] LABS: POTASSIUM 4.4 MEQ/L (3.5-5.1)
[2017-01-16] MEDS ORDERED: SODIUM CHLORIDE 0.9% FLUSH 10 ML FLUSH IV FLUSH PRN (16:45)
[2017-01-16] MEDS ORDERED: ONDANSETRON HCL 4 MG/2 ML VIAL IVP PRN (16:45)
[2017-01-16] MEDS ORDERED: MAGNESIUM HYDROXIDE SUSP 30 ML CUP PO PRN (16:45)
[2017-01-16] MEDS ORDERED: SENNOSIDES 8.6 MG TAB PO PRN (16:45)
[2017-01-16] MEDS ORDERED: BISACODYL 10 MG SUPP RECTAL PRN (16:45)
[2017-01-16] MEDS ORDERED: ACETAMINOPHEN 325 MG TAB PO PRN (16:45)
[2017-01-16] MEDS ORDERED: METOCLOPRAMIDE HCL 10 MG/2 ML VIAL IV PUSH PRN (16:45)
[2017-01-16] MEDS ORDERED: DOCUSATE SODIUM 50 MG/SENNA 8.6 MG TAB PO PRN (16:45)
[2017-01-16] MEDS ORDERED: LACTULOSE SYRUP 20 GM/30 ML CUP PO PRN (16:45)
[2017-01-16] MEDS ORDERED: NALOXONE HCL 0.4 MG/ML AMP IV PUSH PRN ×2 (16:45)
--- NOTE | 2017-01-16 16:54 | HHI.HP ---
[facility] Service Family Medicine Primary Care Physician Lul Carlson MD Admission Diagnosis Metastitic disease, dehydration Diagnoses: International Travel<30 Days: No Contact w/Intl Traveler<30days: No Known Affected Area: No History of Present Illness Mr. Malik is a 31 y/o M presenting to the ED with intractable nausea and vomiting as well as pain secondary to metastatic testicular cancer. Patient recently discharged from the hospital for rapid induction of chemotherapy due to stage IV testicular teratoma. Patient was discharged home after 5 days of chemotherapy on 01/14/17. Since his discharge he has been seen in the ER each of the last 2 days for nausea/vomiting and intractable pain. He states that the Zofran medication is not controlling his nausea like it did in the hospital. He also reports that the Percocet medication "does not even put a different and his pain right now." He rates his pain a 10/10 in describes it as all over his body. He is unable to sleep due to the pain and feels that he has become dehydrated due to the nausea and vomiting. He has started experiencing dizziness , but denies any loss of consciousness. Otherwise he has no complaints and denies any fevers, chest pain, shortness of breath, or calf tenderness. Review of Systems Constitutional: COMPLAINS OF: Dizziness, DENIES: Fever Eyes: DENIES: Blurred vision Ears, nose, mouth, throat: DENIES: Nasal discharge, Throat pain Respiratory: COMPLAINS OF: Cough, Sputum production, DENIES: Shortness of breath Cardiovascular: DENIES: Chest pain Gastrointestinal: COMPLAINS OF: Nausea, Vomiting, Anorexia, DENIES: Diarrhea Genitourinary: DENIES: Dysuria Musculoskeletal: COMPLAINS OF: Joint pain, Muscle aches, Back pain Integumentary: DENIES: Rash Hematologic/lymphatic: DENIES: Lymphadenopathy Neurologic: DENIES: Headache Psychiatric: DENIES: Mood changes Past Family Social History Past Medical History Asthma - diagnosed when patient was 16 years old Testicular cancer with lung metastasis - diagnosed on December 12, 2016 Past Surgical History Left orchiectomy Allergies: Coded Allergies: broccoli (Unverified Allergy, Severe, Hives, 01/15/17) Penicillins (Verified Allergy, Unknown, 01/16/17) amoxicillin (Verified Allergy, Unknown, 01/16/17) Family History Maternal cousin: breast cancer (30s) Maternal cousin: lung cancer (20s) Maternal great aunt: breast cancer (30s) Maternal grandfather: testicular cancer (unknown age) Social History Lives alone. Alcohol: None; never heavy drinker Tobacco: 3 cigarettes per day; used to smoke 1 pack to 1 1/2 pack per day Drugs: Marijuana use every day, multiple times per day Physical Exam Vital Signs Vital Signs Date Time Temp Pulse Resp B/P (MAP) Pulse Ox O2 Delivery O2 Flow Rate FiO2 01/16/17 14:09 102 17 117/78 (91) 94 Room Air 01/16/17 13:53 99.2 115 24 120/68 (85) 95 Room Air Physical Exam GENERAL: This is a well-nourished, well-developed patient, in minimal respiratory distress due to pain. SKIN: No rashes, ecchymoses or lesions. Cool and dry. HEENT: Atraumatic, normocephalic with EOMI. PERRLA. Oropharynx clear without erythema or exudate. Mucous membranes dry. No rhinorrhea. No LAD, JVD, or thyroid abnormality appreciated. CARDIOVASCULAR: Regular rate and rhythm without murmurs, gallops, or rubs. RESPIRATORY: Decreased aeration bilaterally throughout both lung araya. No wheezes, rales, or rhonchi. Mild accessory muscle use. Patient able to speak in complete full sentences. GASTROINTESTINAL: Abdomen soft, nondistended with positive bowel sounds. Mild tenderness to right upper quadrant. Negative Montez sign. No rebound tenderness. No hepatosplenomegaly appreciated. MUSCULOSKELETAL: Extremities without clubbing, cyanosis, or edema. No joint tenderness, effusion, or edema noted. No calf tenderness. BACK: Tenderness upon palpation over left lateral back/flank. NEUROLOGICAL: AAO 3. Afocal. Normal speech and judgment. Ambulating well. Laboratory Laboratory Tests Test 01/16/17 14:35 01/16/17 14:45 White Blood Count 11.2 Red Blood Count 5.25 Hemoglobin 14.3 Hematocrit 42.5 Mean Corpuscular Volume 80.8 Mean Corpuscular Hemoglobin 27.3 Mean Corpuscular Hemoglobin Concent 33.7 Red Cell Distribution Width 13.9 Platelet Count 310 Mean Platelet Volume 7.5 Neutrophils (%) (Auto) 87.9 Lymphocytes (%) (Auto) 9.4 Monocytes (%) (Auto) 0.7 Eosinophils (%) (Auto) 1.7 Basophils (%) (Auto) 0.3 Neutrophils # (Auto) 9.8 Lymphocytes # (Auto) 1.0 Monocytes # (Auto) 0.1 Eosinophils # (Auto) 0.2 Basophils # (Auto) 0.0 CBC Comment DIFF FINAL Differential Comment Blood Urea Nitrogen 12 Creatinine 0.71 Random Glucose 88 Total Protein 7.5 Albumin 3.4 Calcium Level 8.9 Magnesium Level 2.3 Alkaline Phosphatase 131 Aspartate Amino Transf (AST/SGOT) 31 Alanine Aminotransferase (ALT/SGPT) 81 Total Bilirubin 1.6 Sodium Level 131 Potassium Level 4.4 Chloride Level 99 Carbon Dioxide Level 23.0 Anion Gap 9 Estimat Glomerular Filtration Rate 129 Troponin I LESS THAN 0.02 Urine Color YELLOW Urine Turbidity CLEAR Urine pH 6.0 Urine Specific [place] 1.024 Urine Protein 30 Urine Glucose (UA) NEG Urine Ketones 40 Urine Occult Blood NEG Urine Nitrite NEG Urine Bilirubin NEG Urine Urobilinogen 2.0 Urine Leukocyte Esterase NEG Urine WBC 3 Urine Mucus FEW Microscopic Urinalysis Comment CULT NOT INDICATED Result Diagram: 01/16/17 1435 01/16/17 1435 Caprini VTE Risk Assessment Caprini VTE Risk Assessment: Mod/High Risk (score >= 2) Caprini Risk Assessment Model Point Value = 1 Point Value = 2 Point Value = 3 Point Value = 5 Age 41-60 Minor surgery BMI > 25 kg/m2 Swollen legs Varicose veins or History of unexplained or recurrent spontaneous Oral contraceptives or hormone replacement Sepsis (< 1 month) Serious lung disease, including pneumonia (< 1 month) Abnormal pulmonary function Acute myocardial infarction Congestive heart failure (< 1 month) History of inflammatory bowel disease Medical patient at bed rest Age 61-74 Arthroscopic surgery Major open surgery (> 45 min) Laparoscopic surgery (> 45 min) Malignancy Confined to bed (> 72 hours) Immobilizing plaster cast Central venous access Age >= 75 History of VTE Family history of VTE Factor V Leiden Prothrombin [id number] Lupus anticoagulant Anticardiolipin antibodies Elevated serum homocysteine Heparin-induced thrombocytopenia Other congenital or acquired thrombophilia Stroke (< 1 month) Elective arthroplasty Hip, pelvis, or leg fracture Acute spinal cord injury (< 1 month) Prophylaxis Regimen Total Risk Factor Score Risk Level Prophylaxis Regimen 0-1 Low Early ambulation 2 Moderate Order ONE of the following: *Sequential Compression Device (SCD) *Heparin 5000 units SQ BID 3-4 Higher Order ONE of the following medications: *Heparin 5000 units SQ TID *Enoxaparin/Lovenox 40 mg SQ daily (WT < 150 kg, CrCl > 30 mL/min) *Enoxaparin/Lovenox 30 mg SQ daily (WT < 150 kg, CrCl > 10-29 mL/min) *Enoxaparin/Lovenox 30 mg SQ BID (WT < 150 kg, CrCl > 30 mL/min) AND/OR *Sequential Compression Device (SCD) 5 or more Highest Order ONE of the following medications: *Heparin 5000 units SQ TID (Preferred with Epidurals) *Enoxaparin/Lovenox 40 mg SQ daily (WT < 150 kg, CrCl > 30 mL/min) *Enoxaparin/Lovenox 30 mg SQ daily (WT < 150 kg, CrCl > 10-29 mL/min) *Enoxaparin/Lovenox 30 mg SQ BID (WT < 150 kg, CrCl > 30 mL/min) AND *Sequential Compression Device (SCD) Assessment and Plan Assessment and Plan Mr. Malik is a 31 y/o M presenting to the ED with intractable nausea and vomiting as well as pain secondary to metastatic testicular cancer admitted for treatment for dehydration as well as pain control. Code Status Full code Discussed Condition With Dr. Holcomb Problem List: (1) Testicular teratoma ICD Codes: C62.90 - Malignant neoplasm of unspecified testis, unspecified whether descended or undescended Status: Acute Plan: Patient diagnosed with stage IV rapidly progressive testicular teratoma consisting of mature component (70%), immature component (29%) and a minute component of yolk sac tumor (1%). Patient recently completed cycle 1 of ifosfamide, cisplatin, etoposide, and Mensa from 01/09-01/13. Images/orders/studies: -CBC: H/H -CMP: Hyponatremic to 131 -Uric acid: 3.2 -Lipase 55 -Troponin less than 0.02 -Abdominal ultrasound: Pending -Oncology consulted, appreciate recommendations (Patient requesting Dr. Redd) Medications: -Percocet when necessary for pain with morphine for breakthrough pain -Constipation protocol in place -Zofran when necessary for nausea/vomiting -Tylenol when necessary for fever -Continue allopurinol (2) Metastatic cancer to lung ICD Codes: C78.00 - Secondary malignant neoplasm of unspecified lung Status: Acute Plan: Please see plan as above (3) Back pain ICD Codes: M54.9 - Dorsalgia, unspecified Status: Acute Plan: Please see plan as above (4) Tachycardia ICD Codes: R00.0 - Tachycardia, unspecified Status: Acute Plan: Patient found to have intermittent tachycardia during prior hospitalization -Continue sotalol 80 mg twice a day (5) Dehydration ICD Codes: E86.0 - Dehydration Status: Acute Plan: Patient presenting with dehydration and anorexia due to metastatic disease -Regular diet as tolerated -Normal saline at 100 mL per hour -Zofran when necessary for nausea/vomiting (6) Nutrition, metabolism, and development symptoms ICD Codes: R63.8 - Other symptoms and signs concerning food and fluid intake Status: Acute Plan: Diet: Regular as tolerated Fluids: Normal saline at 100 mL per hour Electrolytes hyponatremic, continue to monitor Prophylaxis: Zofran when necessary for nausea/vomiting, Percocet when necessary for pain with morphine for breakthrough pain, Tylenol when necessary for fever (7) No contraindication to deep vein thrombosis (DVT) prophylaxis ICD Codes: Z78.9 - Other specified health status Status: Acute Plan: Lovenox daily SCD/TEDs Problem Qualifiers (1) Testicular teratoma: Qualified Codes: C62.92 - Malignant neoplasm of left testis, unspecified whether descended or undescended Trevor Xie MD R2 Jan 16, 2017 16:54
[2017-01-16] MEDS: SODIUM CHLOR 0.9% 1000 ML INJ 1,000 ML IV SCH (17:33)
[2017-01-16] MEDS: ALLOPURINOL 300 MG TAB PO SCH (18:46)
[2017-01-16] MEDS: ENOXAPARIN SODIUM 40 MG/0.4 ML SYRINGE SQ SCH (18:46)
[2017-01-16 20:00] VITALS: O2SAT 95
[2017-01-16 20:17] LABS: URIC ACID 3.2 MG/DL (2.6-7.2)
[2017-01-16] MEDS: SODIUM CHLORIDE 0.9% FLUSH 10 ML FLUSH IV FLUSH SCH (20:42)
[2017-01-16] MEDS: SOTALOL HCL 80 MG TAB PO SCH (20:42)
[2017-01-16] MEDS: oxyCODONE/ACETAMINOPHEN 10 MG/325 MG TAB PO PRN (20:43)
[2017-01-17] VITALS (7 sets, daily range): BP systolic 110–123; BP diastolic 62–69; PULSE 84–100; RESP 18–20; TEMP 97.8–100.8; O2SAT 94–96
[2017-01-17] MEDS: MORPHINE SULFATE 4 MG/ML INJ IV PUSH PRN ×3 (00:50→17:37)
[2017-01-17] MEDS: oxyCODONE/ACETAMINOPHEN 5 MG/325 MG TAB PO PRN ×3 (03:35→23:00)
[2017-01-17] MEDS: SODIUM CHLOR 0.9% 1000 ML INJ 1,000 ML IV SCH ×3 (03:35→23:09)
[2017-01-17 06:58] LABS: AUTOMATED NEUTROPHIL # 4.6 TH/MM3 (1.8-7.7); BASOPHIL % 0.5 % (0.0-2.0); EOSINOPHIL # 0.1 TH/MM3 (0-0.4); HEMO FLAGS DIFF FINAL; LYMPH % 18.8 % (9.0-44.0); LYMPHOCYTE # 1.1 TH/MM3 (1.0-4.8); MEAN CELL VOLUME 80.9 FL (80.0-100.0); MEAN CORPUSCULAR HEMOGLOBIN 26.9 PG (27.0-34.0); MEAN CORPUSCULAR HGB CONC 33.2 % (32.0-36.0); MONO % 0.9 % (0.0-8.0); NEUT % 77.8 % (16.0-70.0); PLATELET COUNT 228 TH/MM3 (150-450); RED BLOOD COUNT 4.46 MIL/MM3 (4.50-5.90); RED CELL DISTRIBUTION WIDTH 14.3 % (11.6-17.2); WHITE BLOOD COUNT 5.9 TH/MM3 (4.0-11.0)
[2017-01-17 07:01] LABS: PROTHROMBIN TIME - PATIENT 10.2 SEC (9.8-11.6)
[2017-01-17 07:31] LABS: ALKALINE PHOSPHATASE 110 U/L (45-117); ALT (GPT) 55 U/L (12-78); ANION GAP 7 MEQ/L (5-15); AST (GOT) 14 U/L (15-37); BICARBONATE 25.4 MEQ/L (21.0-32.0); BLOOD UREA NITROGEN 11 MG/DL (7-18); CHLORIDE 102 MEQ/L (98-107); GLOMERULAR FILTRATION RATE 163 ML/MIN (>89); MAGNESIUM 2.2 MG/DL (1.5-2.5); POTASSIUM 3.8 MEQ/L (3.5-5.1); SODIUM (NA) 134 MEQ/L (136-145)
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
[2017-01-17] MEDS: SODIUM CHLORIDE 0.9% FLUSH 10 ML FLUSH IV FLUSH SCH ×2 (09:00→20:50)
[2017-01-17] MEDS ORDERED: FILGRASTIM 480 MCG/1.6 ML VIAL SQ ONE (09:00)
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
[2017-01-17] MEDS: SOTALOL HCL 80 MG TAB PO SCH ×2 (10:01→20:50)
[2017-01-17] MEDS: PANTOPRAZOLE SOD 40 MG DELAYED RELEASE TAB PO SCH (10:01)
[2017-01-17] MEDS: ALLOPURINOL 300 MG TAB PO SCH (10:01)
--- NOTE | 2017-01-17 17:12 | HHI.HP ---
[facility] Service Family Medicine Primary Care Physician Lul Carlson MD Admission Diagnosis Metastitic disease, dehydration Diagnoses: (1) Testicular teratoma Diagnosis: Principal (2) Metastatic cancer to lung Diagnosis: Principal (3) Back pain Diagnosis: Principal (4) Tachycardia Diagnosis: Principal (5) Dehydration Diagnosis: Principal (6) Nutrition, metabolism, and development symptoms Diagnosis: Principal (7) No contraindication to deep vein thrombosis (DVT) prophylaxis Diagnosis: Principal International Travel<30 Days: No Contact w/Intl Traveler<30days: No Known Affected Area: No History of Present Illness Mr. Malik is a 31 y/o M presenting to the ED with intractable nausea and vomiting as well as pain secondary to metastatic testicular cancer and s/p chemotherapy. Patient recently discharged from the hospital after rapid induction of chemotherapy due to stage IV testicular teratoma. Patient was discharged home after 5 days of chemotherapy on 01/14/17. Since his discharge he has been seen in the ER each of the last 2 days for nausea/vomiting and intractable pain. He states that the Zofran medication is not controlling his nausea like it did in the hospital. He also reports that the Percocet medication "does not even put a dent in his pain right now." He rated his pain a 10/10 in described it as all over his body. He is unable to sleep due to the pain and feels that he has become dehydrated due to the nausea and vomiting. He has started experiencing dizziness, but denies any loss of consciousness. Otherwise he has no complaints and denies any fevers, chest pain, shortness of breath, or calf tenderness. He was hydrated overnight and feels somewhat improved this am. He is still lying in bed but has been able to eat a little today and drink a bit. His pain is better controlled now. He does complain about some throat pain today as well but is much improved since admission. Review of Systems Other Constitutional: COMPLAINS OF: Dizziness, DENIES: Fever Eyes: DENIES: Blurred vision Ears, nose, mouth, throat: DENIES: Nasal discharge, Throat pain Respiratory: COMPLAINS OF: Cough, Sputum production, DENIES: Shortness of breath Cardiovascular: DENIES: Chest pain Gastrointestinal: COMPLAINS OF: Nausea, Vomiting, Anorexia, DENIES: Diarrhea Genitourinary: DENIES: Dysuria Musculoskeletal: COMPLAINS OF: Joint pain, Muscle aches, Back pain Integumentary: DENIES: Rash Hematologic/lymphatic: DENIES: Lymphadenopathy Neurologic: DENIES: Headache Psychiatric: DENIES: Mood changes Past Family Social History Past Medical History Asthma - diagnosed when patient was 16 years old Testicular cancer with lung metastasis - diagnosed on December 12, 2016 Past Surgical History Left orchiectomy Allergies: Coded Allergies: broccoli (Unverified Allergy, Severe, Hives, 01/15/17) Penicillins (Verified Allergy, Unknown, 01/16/17) amoxicillin (Verified Allergy, Unknown, 01/16/17) Family History Maternal cousin: breast cancer (30s) Maternal cousin: lung cancer (20s) Maternal great aunt: breast cancer (30s) Maternal grandfather: testicular cancer (unknown age) Social History Lives alone. Alcohol: None; never heavy drinker Tobacco: 3 cigarettes per day; used to smoke 1 pack to 1 1/2 pack per day Drugs: Marijuana use every day, multiple times per day Physical Exam Vital Signs Vital Signs Date Time Temp Pulse Resp B/P (MAP) Pulse Ox O2 Delivery O2 Flow Rate FiO2 01/17/17 15:44 98.0 94 18 110/69 (83) 94 01/17/17 11:59 97.8 92 18 118/64 (82) 96 01/17/17 08:18 95 21 01/17/17 08:13 98.3 87 18 114/62 (79) 94 01/16/17 20:00 95 01/16/17 18:13 01/16/17 17:30 21 Physical Exam GENERAL: This is a well-nourished, well-developed patient, who looks strong and healthy at baseline but is lying in bed and weakened at this point SKIN: No rashes, ecchymoses or lesions. Cool and dry. HEENT: Atraumatic, normocephalic with EOMI. PERRLA. Oropharynx clear without erythema or exudate. Mucous membranes dry. No rhinorrhea. No LAD, JVD, or thyroid abnormality appreciated. no obvious mouth ulcers. CARDIOVASCULAR: Regular rate and rhythm without murmurs, gallops, or rubs. RESPIRATORY: Decreased aeration bilaterally throughout both lung araya. No wheezes, rales, or rhonchi. no accessory muscle use now. Patient able to speak in complete full sentences. GASTROINTESTINAL: Abdomen soft, nondistended with positive bowel sounds. Mild tenderness to right upper quadrant. Negative Montez sign. No rebound tenderness. No hepatosplenomegaly appreciated. MUSCULOSKELETAL: Extremities without clubbing, cyanosis, or edema. No joint tenderness, effusion, or edema noted. No calf tenderness. BACK: Tenderness upon palpation over left lateral back/flank. NEUROLOGICAL: AAO 3. Afocal. Normal speech and judgment. Ambulating well. Laboratory Laboratory Tests Test 01/16/17 19:30 01/17/17 05:55 Uric Acid 3.2 Phosphorus Level 2.5 2.7 Magnesium Level 2.0 2.2 Lipase 55 White Blood Count 5.9 Red Blood Count 4.46 Hemoglobin 12.0 Hematocrit 36.0 Mean Corpuscular Volume 80.9 Mean Corpuscular Hemoglobin 26.9 Mean Corpuscular Hemoglobin Concent 33.2 Red Cell Distribution Width 14.3 Platelet Count 228 Mean Platelet Volume 7.1 Neutrophils (%) (Auto) 77.8 Lymphocytes (%) (Auto) 18.8 Monocytes (%) (Auto) 0.9 Eosinophils (%) (Auto) 2.0 Basophils (%) (Auto) 0.5 Neutrophils # (Auto) 4.6 Lymphocytes # (Auto) 1.1 Monocytes # (Auto) 0.1 Eosinophils # (Auto) 0.1 Basophils # (Auto) 0.0 CBC Comment DIFF FINAL Differential Comment Prothrombin Time 10.2 Prothromb Time International Ratio 1.0 Blood Urea Nitrogen 11 Creatinine 0.58 Random Glucose 91 Total Protein 6.1 Albumin 2.9 Calcium Level 8.1 Alkaline Phosphatase 110 Aspartate Amino Transf (AST/SGOT) 14 Alanine Aminotransferase (ALT/SGPT) 55 Total Bilirubin 1.0 Sodium Level 134 Potassium Level 3.8 Chloride Level 102 Carbon Dioxide Level 25.4 Anion Gap 7 Estimat Glomerular Filtration Rate 163 Result Diagram: 01/17/1755 01/17/17554 Caprini VTE Risk Assessment Caprini VTE Risk Assessment: Mod/High Risk (score >= 2) Caprini Risk Assessment Model Point Value = 1 Point Value = 2 Point Value = 3 Point Value = 5 Age 41-60 Minor surgery BMI > 25 kg/m2 Swollen legs Varicose veins or History of unexplained or recurrent spontaneous Oral contraceptives or hormone replacement Sepsis (< 1 month) Serious lung disease, including pneumonia (< 1 month) Abnormal pulmonary function Acute myocardial infarction Congestive heart failure (< 1 month) History of inflammatory bowel disease Medical patient at bed rest Age 61-74 Arthroscopic surgery Major open surgery (> 45 min) Laparoscopic surgery (> 45 min) Malignancy Confined to bed (> 72 hours) Immobilizing plaster cast Central venous access Age >= 75 History of VTE Family history of VTE Factor V Leiden Prothrombin [id number] Lupus anticoagulant Anticardiolipin antibodies Elevated serum homocysteine Heparin-induced thrombocytopenia Other congenital or acquired thrombophilia Stroke (< 1 month) Elective arthroplasty Hip, pelvis, or leg fracture Acute spinal cord injury (< 1 month) Prophylaxis Regimen Total Risk Factor Score Risk Level Prophylaxis Regimen 0-1 Low Early ambulation 2 Moderate Order ONE of the following: *Sequential Compression Device (SCD) *Heparin 5000 units SQ BID 3-4 Higher Order ONE of the following medications: *Heparin 5000 units SQ TID *Enoxaparin/Lovenox 40 mg SQ daily (WT < 150 kg, CrCl > 30 mL/min) *Enoxaparin/Lovenox 30 mg SQ daily (WT < 150 kg, CrCl > 10-29 mL/min) *Enoxaparin/Lovenox 30 mg SQ BID (WT < 150 kg, CrCl > 30 mL/min) AND/OR *Sequential Compression Device (SCD) 5 or more Highest Order ONE of the following medications: *Heparin 5000 units SQ TID (Preferred with Epidurals) *Enoxaparin/Lovenox 40 mg SQ daily (WT < 150 kg, CrCl > 30 mL/min) *Enoxaparin/Lovenox 30 mg SQ daily (WT < 150 kg, CrCl > 10-29 mL/min) *Enoxaparin/Lovenox 30 mg SQ BID (WT < 150 kg, CrCl > 30 mL/min) AND *Sequential Compression Device (SCD) Assessment and Plan Assessment and Plan Mr. Malik is a 31 y/o M presenting to the ED with intractable nausea and vomiting as well as pain secondary to metastatic testicular cancer admitted for treatment for dehydration as well as pain control. Problem List: (1) Testicular teratoma ICD Codes: C62.90 - Malignant neoplasm of unspecified testis, unspecified whether descended or undescended Status: Acute Plan: Patient diagnosed with stage IV rapidly progressive testicular teratoma consisting of mature component (70%), immature component (29%) and a minute component of yolk sac tumor (1%). Patient recently completed cycle 1 of ifosfamide, cisplatin, etoposide, and Mensa from 01/09-01/13. Images/orders/studies: -CBC: H/H -CMP: Hyponatremic to 131 -Uric acid: 3.2 -Lipase 55 -Troponin less than 0.02 -Abdominal ultrasound: Pending -Oncology consulted, appreciate recommendations (Patient requesting Dr. Covington) Medications: -Percocet when necessary for pain with morphine for breakthrough pain -Constipation protocol in place -Zofran when necessary for nausea/vomiting -Tylenol when necessary for fever -Continue allopurinol (2) Metastatic cancer to lung ICD Codes: C78.00 - Secondary malignant neoplasm of unspecified lung Status: Acute Plan: Please see plan as above (3) Back pain ICD Codes: M54.9 - Dorsalgia, unspecified Status: Acute Plan: Please see plan as above (4) Tachycardia ICD Codes: R00.0 - Tachycardia, unspecified Status: Acute Plan: Patient found to have intermittent tachycardia during prior hospitalization -Continue sotalol 80 mg twice a day (5) Dehydration ICD Codes: E86.0 - Dehydration Status: Acute Plan: Patient presenting with dehydration and anorexia due to metastatic disease -Regular diet as tolerated -Normal saline at 100 mL per hour -Zofran when necessary for nausea/vomiting he is improving now and hopefully the worst of the nausea and vomiting is over (6) Nutrition, metabolism, and development symptoms ICD Codes: R63.8 - Other symptoms and signs concerning food and fluid intake Status: Acute Plan: Diet: Regular as tolerated Fluids: Normal saline at 100 mL per hour Electrolytes hyponatremic, continue to monitor Prophylaxis: Zofran when necessary for nausea/vomiting, Percocet when necessary for pain with morphine for breakthrough pain, Tylenol when necessary for fever (7) No contraindication to deep vein thrombosis (DVT) prophylaxis ICD Codes: Z78.9 - Other specified health status Status: Acute Plan: Lovenox daily SCD/TEDs (8) Pain in throat ICD Codes: R07.0 - Pain in throat Status: Acute Plan: he just finished chemo so will give "magic mouthwash". I don't see ulcers right now. Problem Qualifiers (1) Testicular teratoma: Qualified Codes: C62.92 - Malignant neoplasm of left testis, unspecified whether descended or undescended (2) Metastatic cancer to lung: Qualified Codes: C78.00 - Secondary malignant neoplasm of unspecified lung (3) Back pain: Qualified Codes: M54.5 - Low back pain Ai Zaragoza MD Jan 17, 2017 17:12
--- NOTE | 2017-01-17 17:12 | EKG ---
Date Performed: 01/16/2017 Time Performed: 15:06:14 PTAGE: 31 years EKG: Sinus rhythm LEFT AXIS DEVIATION When compared to previous tracing, there has been a leftward Shifted axis. T wav e invertion in lead III is no longer evident. ABNORMAL ECG PREVIOUS TRACING : 01/10/2017 11.08 DOCTOR: Cinthia Hill Interpretating Date/Time 01/17/2017 17:11:09
[2017-01-17] MEDS: ENOXAPARIN SODIUM 40 MG/0.4 ML SYRINGE SQ SCH (17:35)
[2017-01-17] MEDS: oxyCODONE/ACETAMINOPHEN 10 MG/325 MG TAB PO PRN (17:37)
[2017-01-17] MEDS: NYSTAT/DIPHENHY/LIDO MOUTHWASH (Adult) 120ML SWISH-SWAL SCH ×2 (20:50→21:00)
[2017-01-18 00:02] VITALS: PULSE 85
[2017-01-18] MEDS: MORPHINE SULFATE 4 MG/ML INJ IV PUSH PRN ×2 (01:09→04:04)
[2017-01-18 01:30] VITALS: BP 118/57; PULSE 82; RESP 20; TEMP 98.6; O2SAT 95
[2017-01-18 04:08] VITALS: PULSE 89
[2017-01-18 04:20] VITALS: BP 102/48; PULSE 81; RESP 18; TEMP 98.5; O2SAT 94
[2017-01-18 05:29] LABS: MEAN CELL VOLUME 79.9 FL (80.0-100.0); MEAN CORPUSCULAR HEMOGLOBIN 26.5 PG (27.0-34.0); MEAN CORPUSCULAR HGB CONC 33.2 % (32.0-36.0); PLATELET COUNT 198 TH/MM3 (150-450); RED BLOOD COUNT 4.38 MIL/MM3 (4.50-5.90); RED CELL DISTRIBUTION WIDTH 14.2 % (11.6-17.2); WHITE BLOOD COUNT 4.8 TH/MM3 (4.0-11.0)
[2017-01-18 05:38] LABS: HEMO FLAGS AUTO DIFF
[2017-01-18 05:56] LABS: ANION GAP 8 MEQ/L (5-15); AST (GOT) 15 U/L (15-37); BICARBONATE 24.1 MEQ/L (21.0-32.0); BLOOD UREA NITROGEN 8 MG/DL (7-18); CHLORIDE 99 MEQ/L (98-107); GLOMERULAR FILTRATION RATE 167 ML/MIN (>89); POTASSIUM 3.4 MEQ/L (3.5-5.1); SODIUM (NA) 131 MEQ/L (136-145)
[2017-01-18 05:57] LABS: ALT (GPT) 37 U/L (12-78)
[2017-01-18 05:59] LABS: ALKALINE PHOSPHATASE 113 U/L (45-117); TOTAL BILIRUBIN ADULT 0.8 MG/DL (0.2-1.0)
--- NOTE | 2017-01-18 07:44 | PD.ONC.PN ---
Subjective Subjective Remarks Patient was seen and examined, vital signs, labs and medications reviewed. Patient reports his nausea has near completely resolved, he was able to eat a full and regular diet yesterday and feels less pain. He denies difficulty breathing and tells me he has been ambulating in his room without the need for supplemental oxygen. He feels well enough to go home today and is looking forward to going home today. Objective Data Date Time Temp Pulse Resp B/P (MAP) Pulse Ox O2 Delivery O2 Flow Rate FiO2 01/18/17 04:20 98.5 81 18 102/48 (66) 94 01/18/17 04:08 89 01/18/17 01:30 98.6 82 20 118/57 (77) 95 01/18/17 00:02 85 01/17/17 21:39 100 01/17/17 21:18 100.8 96 20 123/66 (85) 94 01/17/17 20:40 99.9 84 20 120/64 (82) 94 01/17/17 15:44 98.0 94 18 110/69 (83) 94 01/17/17 11:59 97.8 92 18 118/64 (82) 96 01/17/17 08:18 95 21 01/17/17 08:13 98.3 87 18 114/62 (79) 94 01/18/17 01/18/17 01/18/17 07:00 15:00 23:00 Intake Total 480 ml Output Total 200 ml Balance 280 ml Result Diagram: 01/18/17 0410 01/18/17 0410 Laboratory Results Laboratory Tests Test 01/18/17 04:10 White Blood Count 4.8 TH/MM3 Red Blood Count 4.38 MIL/MM3 Hemoglobin 11.6 GM/DL Hematocrit 35.0 % Mean Corpuscular Volume 79.9 FL Mean Corpuscular Hemoglobin 26.5 PG Mean Corpuscular Hemoglobin Concent 33.2 % Red Cell Distribution Width 14.2 % Platelet Count 198 TH/MM3 Mean Platelet Volume 7.1 FL CBC Comment AUTO DIFF Blood Urea Nitrogen 8 MG/DL Creatinine 0.57 MG/DL Random Glucose 110 MG/DL Total Protein 6.2 GM/DL Albumin 2.8 GM/DL Calcium Level 7.7 MG/DL Alkaline Phosphatase 113 U/L Aspartate Amino Transf (AST/SGOT) 15 U/L Alanine Aminotransferase (ALT/SGPT) 37 U/L Total Bilirubin 0.8 MG/DL Sodium Level 131 MEQ/L Potassium Level 3.4 MEQ/L Chloride Level 99 MEQ/L Carbon Dioxide Level 24.1 MEQ/L Anion Gap 8 MEQ/L Estimat Glomerular Filtration Rate 167 ML/MIN Administered Medications Medications (Trade) Dose Ordered Sig/Harleen Route PRN Reason Start Time Stop Time Status Last Admin Dose Admin Sodium Chloride 1,000 ml @ 100 mls/hr Q10H IV 01/16/17 16:40 01/17/17 23:09 Sodium Chloride (NS Flush) 2 ml BID IV FLUSH 01/16/17 21:00 01/16/17 20:42 Ondansetron HCl (Zofran Inj) 4 mg Q6H PRN IVP NAUSEA OR VOMITING 01/16/17 16:45 01/17/17 23:03 Enoxaparin Sodium (Lovenox Inj) 40 mg Q24H SQ 01/16/17 18:00 01/17/17 17:35 Oxycodone/ Acetaminophen (Percocet 5-325 Mg) 1 tab Q6H PRN PO PAIN SCALE 1 TO 5 01/16/17 16:45 01/17/17 23:00 Oxycodone/ Acetaminophen (Percocet 10-325 Mg) 1 tab Q6H PRN PO PAIN SCALE 6 TO 10 01/16/17 16:45 01/16/17 20:43 Morphine Sulfate (Morphine Inj) 2 mg Q3H PRN IV PUSH BREAKTHROUGH PAIN 01/16/17 16:45 01/18/17 04:04 Allopurinol (Zyloprim) 300 mg DAILY PO 01/16/17 17:00 01/17/17 10:01 Pantoprazole Sodium (Protonix) 40 mg DAILY PO 01/17/17 09:00 01/17/17 10:01 Sotalol HCl (Betapace) 80 mg BID PO 01/16/17 21:00 01/17/17 20:50 Multi-Ingredient Mouthwash/Gargle (Magic Mouthwash Adult Liq) 10 ml QID SWISH-SWAL 01/17/17 18:00 01/17/17 20:50 Objective Remarks GENERAL APPEARANCE: Jonathan is a young male. He is short and heavyset. He appears to be in no acute distress at this time. He is lying in bed. HEENT: Head is atraumatic, normocephalic. Conjunctivae are non-pale. Sclerae are anicteric. EOMI. PERRLA. Oral exam no pharyngeal erythema. NECK: No palpable cervical or supraclavicular lymphadenopathy. LUNGS: Decreased bibasilar breath sounds, prolonged expiratory phase, scattered rhonchi but overall good air movement over the upper and middle lung zones. HEART: Regular rate and rhythm, S1, S2, no obvious murmurs, rubs or gallops. ABDOMEN: Protuberant belly, soft. No obvious organ enlargement, specifically no hepatosplenomegaly. EXTREMITIES: No pretibial edema. No calf tenderness. NEUROLOGIC: No focal sensory or motor deficits. Good muscle mass, tone and strength. Assessment/Plan Assessment Mr. Malik is a 31-year-old male with a recent diagnosis of metastatic testicular teratoma with both mature and immature components as well as a yolk sac component. He was initially diagnosed in July 2016. Eventually he was able to establish outpatient follow-up and endocrine staging studies. He was found to have extensive and bulky pulmonary metastases as well as mediastinal lymph node involvement as well as retroperitoneal lymph node involvement. His serum tumor markers including LDH, alpha-fetoprotein and beta hCG were elevated. All-in-all he was assessed to have intermediate to high-risk disease and was initiated on systemic chemotherapy with the VIP regimen. He was not eligible for the BEP treatment regimen due to poor pulmonary function which assessed his DLCO to be 65% of predicted. The reason for the impaired pulmonary function was thought to be the extensive tumor burden in his lungs. The plan is to treat him with 1 or 2 cycles of VIP and then repeat pulmonary functions, if at that time he is able to tolerate bleomycin he will be transitioned to the BEP treatment regimen which is considered standard of care. Mr. Malik after being discharged from [facility] on 01/14/2017 reports developing significant nausea and vomiting. He reports feeling weak and tired and spent the past 3 days in bed, unable to eat or drink much. He did come in twice to the emergency room but was given IV fluids and discharged home. On Monday01/16/2017 he called my office quite distraught at his condition. Due to his inability to hold down liquids and solids he was advised to come into the emergency department and from there he has been admitted to the observation unit for IV fluid resuscitation and intravenous antiemetics. Over the past 12 hours the patient reports he has been able to have one meal and has been able to drink. His nausea is improved with IV antiemetics. Plan 1. Chemotherapy associated nausea and vomiting with resultant dehydration: Clinically improved with intravenous Zofran and IV fluid hydration. He has been able to have a regular diet. I have advised him to have his nausea medicines and other prescriptions picked up from the pharmacy before he leaves the hospital so we can ensure he has the appropriate medicines to take at home. One of the issues which occurred after his discharge on Monday01/14/2017 was that he was unable to picker/puller his anti- emetic medications from the pharmacy after discharge. I would like our nurses to review his anti-emetic regimen with him before he leaves so there is no question or confusion about how to take the antiemetic therapy. He has been prescribed Zofran 4 mg by mouth every 6 hours as needed for nausea; it may be appropriate for him to take Zofran 4 mg around the clock for the next 2 or 3 days to prevent recurrent nausea and vomiting. 2. Anticipated myelosuppression related to high dose combination chemotherapy with ifosfamide, etoposide and cisplatin: Neupogen 480 g subcutaneous injection today while inpatient. The patient will be dosed tomorrow and the day after in my clinic. Outpatient follow-up: With Ms. Jazmin RUVALCABA next week with CBC and CMP. Lul Carlson MD Jan 18, 2017 07:44
[2017-01-18] MEDS ORDERED: FILGRASTIM 480 MCG/1.6 ML VIAL SQ ONE (07:45)
[2017-01-18 08:00] VITALS: BP 119/65; PULSE 114; TEMP 98.8; O2SAT 97
[2017-01-18 08:06] LABS: BANDS 1 % (0-6); BASOPHILS 2 % (0-2); NEUTROPHIL # MANUAL DIFF 3.6 TH/MM3 (1.8-7.7); POLYS (SEG NEUTROPHILS) 75 % (16-70); WBC DIFF SAMPLE 100
[2017-01-18 08:07] LABS: PLATELET ESTIMATE SMEAR NORMAL (NORMAL); PLATELET MORPHOLOGY NORMAL (NORMAL); SCAN/DIFF FINAL DIFF MANUAL
[2017-01-18] MEDS ORDERED: ONDA4TAB7 SL (08:29)
--- NOTE | 2017-01-18 08:30 | HHI.FPPN ---
Subjective Remarks Patient seen and examined this morning. 2 acute events overnight per staff. Patient states that his nausea has resolved with Zofran medication and IV hydration. His pain is currently controlled on oral therapy and states that he is ready to be discharged home today. He is discussed proper follow-up with Dr. Carlson and will be seen next week in his office. He has no current complaints and denies any fevers, chills, chest pain, shortness of breath, NVD, abdominal pain, or calf tenderness. (Trevor Xie MD R2) Objective Vitals Vital Signs Date Time Temp Pulse Resp B/P (MAP) Pulse Ox O2 Delivery O2 Flow Rate FiO2 01/18/17 04:20 98.5 81 18 102/48 (66) 94 01/18/17 04:08 89 01/18/17 01:30 98.6 82 20 118/57 (77) 95 01/18/17 00:02 85 01/17/17 21:39 100 01/17/17 21:18 100.8 96 20 123/66 (85) 94 01/17/17 20:40 99.9 84 20 120/64 (82) 94 01/17/17 15:44 98.0 94 18 110/69 (83) 94 01/17/17 11:59 97.8 92 18 118/64 (82) 96 I/O 01/17/17 01/17/17 01/17/17 01/18/17 01/18/17 01/18/17 07:00 15:00 23:00 07:00 15:00 23:00 Intake Total 200 ml 1000 ml 480 ml Output Total 200 ml Balance 200 ml 1000 ml 280 ml Intake Oral 200 ml 480 ml IV Total 1000 ml Output Urine Total 200 ml # Voids 3 (Trevor Xie MD R2) Result Diagram: 01/18/1740901/18/17409 Objective Remarks GENERAL: This is a well-nourished, well-developed patient lying in bed in no acute distress. SKIN: No rashes, ecchymoses or lesions. Cool and dry. HEENT: Atraumatic, normocephalic with EOMI. MMM. No rhinorrhea. No LAD or JVD appreciated. CARDIOVASCULAR: Regular rate and rhythm without murmurs, gallops, or rubs. RESPIRATORY: Improved aeration bilaterally throughout both lung araya. No wheezes, rales, or rhonchi. No accessory muscle use. Patient able to speak in complete full sentences. GASTROINTESTINAL: Abdomen soft, nondistended, nontender with positive bowel sounds. No hepatosplenomegaly appreciated. MUSCULOSKELETAL: Extremities without cyanosis or edema. No calf tenderness. NEUROLOGICAL: AAO 3. Afocal. Normal speech and judgment. Ambulating well. (Trevor Xie MD R2) A/P Assessment and Plan Mr. Malik is a 31 y/o M presenting to the ED with intractable nausea and vomiting as well as pain secondary to metastatic testicular cancer admitted for treatment for dehydration as well as pain control. Discharge Planning Patient to be discharged home today with close oncology and PCP follow-up. (Trevor Xie MD R2) Attending Attestation Patient seen and examined. Case reviewed and discussed with the resident team. Agree with plan of care as discussed with me and documented in the resident note. had discussions with pt about how normally when someone starts to get over the nausea of chemo they don't get worse again until they have their next round. We discussed different strategies to help him stay out of trouble. per pt, the ED did not give him fluids so I encouraged him in future to let his Oncologist know so that he could get the help he needs (Ai Zaragoza MD) Problem List: (1) Testicular teratoma ICD Codes: C62.90 - Malignant neoplasm of unspecified testis, unspecified whether descended or undescended Status: Acute Plan: Patient diagnosed with stage IV rapidly progressive testicular teratoma consisting of mature component (70%), immature component (29%) and a minute component of yolk sac tumor (1%). Patient recently completed cycle 1 of ifosfamide, cisplatin, etoposide, and Mensa from 01/09-01/13. Images/orders/studies: -Oncology consulted, appreciate recommendations (Patient requesting Dr. Covington) -Patient be discharged home with follow-up CBC and CMP next week with his oncology appointment. Medications: -Percocet when necessary for pain with morphine for breakthrough pain -Constipation protocol in place -Zofran when necessary for nausea/vomiting -Tylenol when necessary for fever -Continue allopurinol (2) Metastatic cancer to lung ICD Codes: C78.00 - Secondary malignant neoplasm of unspecified lung Status: Acute Plan: Please see plan as above (3) Back pain ICD Codes: M54.9 - Dorsalgia, unspecified Status: Acute Plan: Please see plan as above (4) Tachycardia ICD Codes: R00.0 - Tachycardia, unspecified Status: Acute Plan: Patient found to have intermittent tachycardia during prior hospitalization -Continue sotalol 80 mg twice a day (5) Dehydration ICD Codes: E86.0 - Dehydration Status: Resolved Plan: Patient presenting with dehydration and anorexia due to metastatic disease -Regular diet as tolerated -Normal saline at 100 mL per hour -Zofran when necessary for nausea/vomiting (6) Pain in throat ICD Codes: R07.0 - Pain in throat Status: Acute Plan: Patient with pain and throat without ulceration s/p chemotherapy. Medications: -Magic mouthwash as needed (7) Nutrition, metabolism, and development symptoms ICD Codes: R63.8 - Other symptoms and signs concerning food and fluid intake Status: Acute Plan: Diet: Regular as tolerated Fluids: Normal saline at 100 mL per hour Electrolytes hyponatremic, continue to monitor Prophylaxis: Zofran when necessary for nausea/vomiting, Percocet when necessary for pain with morphine for breakthrough pain, Tylenol when necessary for fever (8) No contraindication to deep vein thrombosis (DVT) prophylaxis ICD Codes: Z78.9 - Other specified health status Status: Acute Plan: Lovenox daily SCD/TEDs (Trevor Xie MD R2) Problem Qualifiers (1) Testicular teratoma: Qualified Codes: C62.92 - Malignant neoplasm of left testis, unspecified whether descended or undescended (2) Metastatic cancer to lung: Qualified Codes: C78.00 - Secondary malignant neoplasm of unspecified lung (3) Back pain: Qualified Codes: M54.5 - Low back pain Trevor Xie MD R2 Jan 18, 2017 08:30 Ai Zaragoza MD Jan 19, 2017 12:42
--- NOTE | 2017-01-18 08:30 | HHI.DCPOC ---
Discharge Care Plan Diagnosis: (1) Pain in throat (2) Back pain (3) Metastatic cancer to lung (4) Testicular teratoma (5) Tachycardia (6) Dehydration Goals to Promote Your Health * To prevent worsening of your condition and complications * To maintain your health at the optimal level Directions to Meet Your Goals Take your medications as prescribed Follow your dietary instruction Follow activity as directed Keep your appointments as scheduled Take your immunizations and boosters as scheduled If your symptoms worsen call your PCP, if no PCP go to Urgent Care Center or Emergency Room Smoking is Dangerous to Your Health. Avoid second hand smoke Call the 24-hour hour crisis hotline for domestic abuse at Trevor Xie MD R2 Jan 18, 2017 08:30
[2017-01-18] MEDS: SODIUM CHLOR 0.9% 1000 ML INJ 1,000 ML IV SCH (08:40)
[2017-01-18] MEDS: SOTALOL HCL 80 MG TAB PO SCH (09:05)
[2017-01-18] MEDS: PANTOPRAZOLE SOD 40 MG DELAYED RELEASE TAB PO SCH (09:05)
[2017-01-18] MEDS: ALLOPURINOL 300 MG TAB PO SCH (09:05)
[2017-01-18] MEDS: SODIUM CHLORIDE 0.9% FLUSH 10 ML FLUSH IV FLUSH SCH (09:07)
[2017-01-18] MEDS: NYSTAT/DIPHENHY/LIDO MOUTHWASH (Adult) 120ML SWISH-SWAL SCH ×2 (09:10→12:49)
[2017-01-18] MEDS ORDERED: PERC5TAB12 PO (09:24)
[2017-01-18] MEDS ORDERED: POTASSIUM CHLORIDE 10 MEQ CONTROLLED RELEASE TAB PO ONE (10:00)
[2017-01-18] MEDS ORDERED: ONDANSETRON ODT 4 MG TAB PO PRN (12:30)
== END 2017-01-18 15:00 | disposition home or self-care (01) | DRG 948 ==
LOC: NEPC 13:50 → NEDA 16:25 → NEPGCP 18:00 → OBSVTOIN 01-17 13:00 → HCIN 01-17 21:21
PROVIDERS: ADMIT Family Medicine; ATTEND Family Medicine
DX: G89.3 Neoplasm related pain (acute) (chronic) (principal); C78.00 Secondary malignant neoplasm of unspecified lung; C62.90 Malignant neoplasm of unspecified testis, unspecified whether descended or undescended; E86.0 Dehydration; C78.1 Secondary malignant neoplasm of mediastinum; E87.1 Hypo-osmolality and hyponatremia; R63.0 Anorexia; F17.210 Nicotine dependence, cigarettes, uncomplicated; R11.2 Nausea with vomiting, unspecified; J45.909 Unspecified asthma, uncomplicated; T45.1X5A Adverse effect of antineoplastic and immunosuppressive drugs, initial encounter; F41.9 Anxiety disorder, unspecified; M54.5 Low back pain; R07.0 Pain in throat
CPT/HCPCS: 71010; 76700; 80048; 80053; 81001; 83690; 83735; 84100; 84484; 84550; 85007; 85025; 85027; 85610; 93005; 94620; 96361; 96372; 96374; 96375; 96376; G0378; G8987-GP; G8988-GP; J1442; J1650; J2270; J2405; J7030

== ENCOUNTER 2017-01-29 22:32 | Emergency (ER) | payer OTHER ==
[~2017-01-29] VITALS: Ht 167.6 cm; Wt 90.0 kg
[~2017-01-29 22:32] MED LIST changes: -ALLO300T2 PO; -SOTA80 PO
[2017-01-29 22:34] VITALS: BP 132/72; PULSE 73; RESP 16; TEMP 98.9; O2SAT 96
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
[2017-01-29] MEDS ORDERED: MORPHINE SULFATE 8 MG/ML INJ IV PUSH ONE (23:00)
[2017-01-29] MEDS ORDERED: SODIUM CHLORIDE 0.9% FLUSH 10 ML FLUSH IV FLUSH PRN (23:00)
[2017-01-29 23:25] VITALS: O2SAT 98
[2017-01-29 23:30] LABS: AUTOMATED NEUTROPHIL # 6.6 TH/MM3 (1.8-7.7); BASOPHIL % 0.3 % (0.0-2.0); EOSINOPHIL # 0.1 TH/MM3 (0-0.4); HEMATOCRIT 36.9 % (39.0-51.0); HEMOGLOBIN 12.9 GM/DL (13.0-17.0); LYMPH % 22.3 % (9.0-44.0); LYMPHOCYTE # 2.4 TH/MM3 (1.0-4.8); MEAN CELL VOLUME 79.9 FL (80.0-100.0); MEAN CORPUSCULAR HEMOGLOBIN 27.9 PG (27.0-34.0); MEAN PLATELET VOLUME 7.2 FL (7.0-11.0); MONO % 13.9 % (0.0-8.0); MONOCYTE # 1.5 TH/MM3 (0-0.9); NEUT % 62.5 % (16.0-70.0); PLATELET COUNT 275 TH/MM3 (150-450); RED BLOOD COUNT 4.62 MIL/MM3 (4.50-5.90); RED CELL DISTRIBUTION WIDTH 14.8 % (11.6-17.2); WHITE BLOOD COUNT 10.6 TH/MM3 (4.0-11.0)
[2017-01-29 23:45] LABS: ALBUMIN 3.8 GM/DL (3.4-5.0); AST (GOT) 17 U/L (15-37); BICARBONATE 25.5 MEQ/L (21.0-32.0); BLOOD UREA NITROGEN 15 MG/DL (7-18); CALCIUM 8.7 MG/DL (8.5-10.1); CHLORIDE 107 MEQ/L (98-107); CREATININE 0.82 MG/DL (0.60-1.30); GLOMERULAR FILTRATION RATE 110 ML/MIN (>89); GLUCOSE,RANDOM 96 MG/DL (74-106); LIPASE 73 U/L (73-393); SODIUM (NA) 139 MEQ/L (136-145)
[2017-01-29 23:47] LABS: ALKALINE PHOSPHATASE 148 U/L (45-117); ALT (GPT) 49 U/L (12-78); TOTAL BILIRUBIN ADULT 0.3 MG/DL (0.2-1.0); TOTAL PROTEIN 7.6 GM/DL (6.4-8.2)
[2017-01-29 23:50] VITALS: RESP 16
[2017-01-30] MEDS ORDERED: IOHEXOL 350 MG/ML 10 ML VIAL (for RAD DIAG) IVCONTRAST ONE (00:16)
--- NOTE | 2017-01-30 00:32 | RADRPT ---
EXAM DATE/TIME: 01/30/2017 00:10 [facility] COMPARISON: CT ABDOMEN & PELVIS W CONTRAST, December 07, 2016, 0:38. INDICATIONS : Abdominal and back pain; history of stage IV testicular cancer. IV CONTRAST: 70 cc Omnipaque 350 (iohexol) IV ; Cumulative dose for multiple exams. ORAL CONTRAST: No oral contrast ingested. RADIATION DOSE: 17.99 CTDIvol (mGy) ; Combined studies - Thorax/Abdomen/Pelvis MEDICAL HISTORY : Carcinoma, testicular. SURGICAL HISTORY : None. ENCOUNTER: Initial ACUITY: 1 day PAIN SCALE: 8/10 LOCATION: abdomen TECHNIQUE: Volumetric scanning of the abdomen and pelvis was performed. Using automated exposure control and ad justment of the mA and/or kV according to patient size, radiation dose was kept as low as reasonably achievable to obtain optimal diagnostic quality images. DICOM format image data is available electro nically for review and comparison. FINDINGS: LOWER LUNGS: There are multiple masses in the lung bases which appear larger. There is a large mass at the inferio r aspect of the left base LIVER: There is diffuse decreased density to the liver without focal hepatic lesions. SPLEEN: Normal size without lesion. PANCREAS: Within normal limits. KIDNEYS: Normal in size and shape. There is no mass, stone or hydronephrosis. ADRENAL GLANDS: Within normal limits. VASCULAR: There is no aortic aneurysm. BOWEL/MESENTERY: The stomach, small bowel, and colon demonstrate no acute abnormality. There is no free intraperitone al air or fluid. ABDOMINAL WALL: Within normal limits. RETROPERITONEUM: There is a 6.4 cm left retroperitoneal mass in the periaortic region likely related to enlarged adeno oliva. This is increased in size from the prior exam when it measured 4.2 cm. No new areas of adenopa thy are seen. BLADDER: No wall thickening or mass. REPRODUCTIVE: Within normal limits. INGUINAL: There is no lymphadenopathy or hernia. MUSCULOSKELETAL: Within normal limits for patient age. CONCLUSION: 1. Enlarging lung metastatic lesions and enlarging left periaortic lymph node. 2. Hepatic steatosis. Luis Enriquez MD on January 30, 2017 at 0:22 Board Certified Radiologist. This report was verified electronically.
--- NOTE | 2017-01-30 00:38 | RADRPT ---
EXAM DATE/TIME: 01/30/2017 00:10 [facility] COMPARISON: CT ABDOMEN & PELVIS W CONTRAST, December 07, 2016, 0:38. CT PULMONARY ANGIOGRAM, January 08, 2017, 1 3:35. INDICATIONS : Abdominal and back pain; history of stage IV testicular cancer. IV CONTRAST: 70 cc Omnipaque 350 (iohexol) IV ; Cumulative dose for multiple exams. RADIATION DOSE: 17.99 CTDIvol (mGy) ; Combined studies - Thorax/Abdomen/Pelvis MEDICAL HISTORY : Carcinoma, testicular. SURGICAL HISTORY : None. ENCOUNTER: Initial ACUITY: 1 day PAIN SCALE: 8/10 LOCATION: chest TECHNIQUE: Volumetric scanning of the chest was performed. Using automated exposure control and adjustment of t he mA and/or kV according to patient size, radiation dose was kept as low as reasonably achievable to obtain optimal diagnostic quality images. DICOM format image data is available electronically for review and comparison. Follow-up recommendations for detected pulmonary nodules are based at a minimum on nodule size and pa tient risk factors according to Fleischner Society Guidelines. FINDINGS: LUNGS: There are numerous masses seen throughout the lungs compared to the prior CT pulmonary angiogram from 01/08/2017, these masses appear similar. The masses are larger compared to the CT of the abdomen per formed on 12/07/2016. PLEURA: There are several subpleural masses including a large mass at the posterior inferior left base. There is a mild accompanying left pleural effusion. MEDIASTINUM: Definite adenopathy is not clearly identified. There are several appear to be pleural-based masses ab utting the mediastinum. AXILLAE: Within normal limits. No lymphadenopathy. SKELETAL: Within normal limits for patient age. MISCELLANEOUS: Please see the CT of the abdomen and pelvis report. CONCLUSION: Extensive pulmonary masses and pleural masses throughout the chest bilaterally. When compared to the most recent CT pulmonary angiogram, these are unchanged. Compared to the older CT of the abdomen, the se have increased in size. Luis Enriquez MD on January 30, 2017 at 0:30 Board Certified Radiologist. This report was verified electronically.
[2017-01-30] MEDS ORDERED: MORPHINE SULFATE 4 MG/ML INJ IV PUSH ONE (00:45)
[2017-01-30] MEDS ORDERED: HYDR-3580 PO (00:45)
[2017-01-30 01:11] LABS: BANDS 21 % (0-6); LYMPHOCYTES 16 % (9-44); METAMYELOCYTES 5 % (0-1); MONOCYTES 11 % (0-8); MYELOCYTES 3 % (0-0); NEUTROPHIL # MANUAL DIFF 7.7 TH/MM3 (1.8-7.7); POLYS (SEG NEUTROPHILS) 44 % (16-70)
[2017-01-30 01:13] LABS: TOXIC GRANULATION 1+ (NORMAL)
[2017-01-31] MEDS ORDERED: HYDR-4107 PO (05:10)
[2017-01-31] MEDS ORDERED: LEVA500T33 PO (05:10)
[2017-01-31] MEDS ORDERED: MEDR4PAK PO (05:10)
== END 2017-01-30 01:10 | disposition home or self-care (01) ==
LOC: NEPD 22:32
DX: C62.90 Malignant neoplasm of unspecified testis, unspecified whether descended or undescended (principal); C78.00 Secondary malignant neoplasm of unspecified lung; R10.11 Right upper quadrant pain; R10.13 Epigastric pain; J45.909 Unspecified asthma, uncomplicated; F41.9 Anxiety disorder, unspecified; Z79.51 Long term (current) use of inhaled steroids; Z79.899 Other long term (current) drug therapy; Z88.0 Allergy status to penicillin
CPT/HCPCS: 71260; 74177; 80053; 83690; 85007; 85027; 96374; 96375; 99285; J2270; Q9967

== ENCOUNTER 2017-01-31 | Emergency (ER) | payer OTHER ==
[~2017-01-31] VITALS: Ht 167.6 cm; Wt 85.0 kg
[~2017-01-31] MED LIST changes: +HYDR-3580 PO
[2017-01-31 00:04] VITALS: BP 138/71; PULSE 59; RESP 16; TEMP 98.6; O2SAT 97
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
[2017-01-31] MEDS ORDERED: methylPREDNISolone SOD SUCC 125 MG/2 ML VIAL IV PUSH ONE (00:45)
[2017-01-31] MEDS ORDERED: SODIUM CHLORIDE 0.9% FLUSH 10 ML FLUSH IVF PRN (00:45)
[2017-01-31] MEDS: RESP: ALBUTEROL 2.5 MG/IPRATROPIUM 0.5 MG NEB (SCH) INH ×2 (00:55→00:56)
[2017-01-31] MEDS ORDERED: LEVOFLOXACIN 750 MG PREMIX INJ 150 ML IV ONE (01:30)
[2017-01-31] MEDS ORDERED: ACETAMINOPHEN/HYDROcodone 325 MG/5 MG TAB PO ONE (01:30)
--- NOTE | 2017-01-31 01:44 | RADRPT ---
EXAM DATE/TIME: 01/31/2017 01:20 [facility] COMPARISON: CT THORAX W CONTRAST, January 30, 2017, 0:10. CHEST SINGLE AP, January 16, 2017, 14:48. INDICATIONS : Shortness of breath. MEDICAL HISTORY : None. SURGICAL HISTORY : None. ENCOUNTER: Initial ACUITY: 1 day PAIN SCORE: 0/10 LOCATION: Bilateral chest FINDINGS: There are numerous masses throughout the lungs. The heart size is normal. CONCLUSION: Widespread metastatic disease. Luis Enriquez MD on January 31, 2017 at 1:41 Board Certified Radiologist. This report was verified electronically.
[2017-01-31 02:05] LABS: AUTOMATED NEUTROPHIL # 6.7 TH/MM3 (1.8-7.7); BASOPHIL % 0.5 % (0.0-2.0); EOSINOPHIL # 0.1 TH/MM3 (0-0.4); EOSINOPHIL % 0.9 % (0.0-4.0); HEMATOCRIT 37.9 % (39.0-51.0); HEMOGLOBIN 12.8 GM/DL (13.0-17.0); LYMPH % 21.9 % (9.0-44.0); LYMPHOCYTE # 2.2 TH/MM3 (1.0-4.8); MEAN CELL VOLUME 80.5 FL (80.0-100.0); MEAN CORPUSCULAR HEMOGLOBIN 27.2 PG (27.0-34.0); MEAN CORPUSCULAR HGB CONC 33.8 % (32.0-36.0); MEAN PLATELET VOLUME 7.5 FL (7.0-11.0); MONO % 9.6 % (0.0-8.0); NEUT % 67.1 % (16.0-70.0); PLATELET COUNT 291 TH/MM3 (150-450); RED BLOOD COUNT 4.71 MIL/MM3 (4.50-5.90); RED CELL DISTRIBUTION WIDTH 14.7 % (11.6-17.2)
[2017-01-31 02:11] LABS: BILIRUBIN, URINE NEG (NEG); BLOOD, URINE NEG (NEG); GLUCOSE,URINE NEG (NEG); KETONE, URINE NEG (NEG); MUCUS URINE FEW /lpf (OCC); NITRITE,URINE NEG (NEG); URINE COLOR YELLOW (YELLW/STRAW); URINE LEUKOCYTE ESTERASE NEG (NEG)
[2017-01-31 02:30] LABS: ALBUMIN 3.5 GM/DL (3.4-5.0); ALT (GPT) 44 U/L (12-78); AST (GOT) 26 U/L (15-37); BICARBONATE 23.8 MEQ/L (21.0-32.0); BLOOD UREA NITROGEN 12 MG/DL (7-18); CALCIUM 8.5 MG/DL (8.5-10.1); CHLORIDE 105 MEQ/L (98-107); CREATININE 0.77 MG/DL (0.60-1.30); GLOMERULAR FILTRATION RATE 118 ML/MIN (>89); GLUCOSE,RANDOM 124 MG/DL (74-106); MAGNESIUM 2.1 MG/DL (1.5-2.5); SODIUM (NA) 137 MEQ/L (136-145)
[2017-01-31 02:33] LABS: ALKALINE PHOSPHATASE 147 U/L (45-117); TOTAL BILIRUBIN ADULT 0.3 MG/DL (0.2-1.0); TOTAL PROTEIN 7.3 GM/DL (6.4-8.2); TROPONIN I LESS THAN 0.02 NG/ML (0.02-0.05)
[2017-01-31 03:04] LABS: BANDS 6 % (0-6); LYMPHOCYTES 17 % (9-44); MONOCYTES 6 % (0-8); MYELOCYTES 1 % (0-0); NEUTROPHIL # MANUAL DIFF 7.7 TH/MM3 (1.8-7.7); POLYS (SEG NEUTROPHILS) 70 % (16-70)
[2017-01-31 03:05] VITALS: O2SAT 97
[2017-01-31] MEDS ORDERED: IOHEXOL 350 MG/ML 10 ML VIAL (for RAD DIAG) IVCONTRAST ONE (04:00)
--- NOTE | 2017-01-31 04:12 | RADRPT ---
EXAM DATE/TIME: 01/31/2017 03:21 [facility] COMPARISON: CT PULMONARY ANGIOGRAM, January 08, 2017, 13:35. INDICATIONS : Shortness of breath. IV CONTRAST: 75 cc Omnipaque 350 (iohexol) IV RADIATION DOSE: 15.29 CTDIvol (mGy) MEDICAL HISTORY : Carcinoma, testicular. Carcinoma, lung. SURGICAL HISTORY : None. ENCOUNTER: Initial ACUITY: 1 day PAIN SCALE: 5/10 LOCATION: Bilateral chest TECHNIQUE: Volumetric scanning of the chest was performed using a pulmonary embolism protocol MIP images were re constructed. Using automated exposure control and adjustment of the mA and/or kV according to patien t size, radiation dose was kept as low as reasonably achievable to obtain optimal diagnostic quality images. DICOM format image data is available electronically for review and comparison. Follow-up recommendations for detected pulmonary nodules are based at a minimum on nodule size and pa tient risk factors according to Fleischner Society Guidelines. FINDINGS: PULMONARY ARTERIES: No filling defects are seen in the pulmonary arteries through the segmental level. LUNGS: There are numerous masses seen throughout the lungs. There are several pleural based masses. A mass a t the medial right mid chest appears to be narrowing the right atrium. PLEURAE: There is no pleural thickening or pleural effusion. MEDIASTINUM: A pleural-based mass is causing compression of the right atrium. MUSCULOSKELETAL: Within normal limits for patient age. MISCELLANEOUS: The visualized upper abdominal organs demonstrate no acute abnormality. CONCLUSION: 1. No pulmonary embolus. 2. Compression of the right atrium from a pleural-based mass at the right medial chest. 3. Numerous metastatic lesions throughout the lungs. These appear similar to the prior exam. Luis Enriquez MD on January 31, 2017 at 4:08 Board Certified Radiologist. This report was verified electronically.
[2017-01-31] MEDS ORDERED: HYDR-4107 PO (05:10)
[2017-01-31] MEDS ORDERED: MEDR4PAK PO (05:10)
[2017-01-31] MEDS ORDERED: LEVA500T33 PO (05:10)
--- NOTE | 2017-01-31 12:47 | EKG ---
Date Performed: 01/31/2017 Time Performed: 03:12:57 PTAGE: 31 years EKG: Sinus rhythm NORMAL ECG PREVIOUS TRACING : 01/16/2017 15.06 Since previous tracing, no significant change noted DOCTOR: Favio Webber Interpretating Date/Time 01/31/2017 12:46:03
== END 2017-01-31 05:34 | disposition home or self-care (01) ==
LOC: NEPC
DX: J45.41 Moderate persistent asthma with (acute) exacerbation (principal); C78.00 Secondary malignant neoplasm of unspecified lung; C62.90 Malignant neoplasm of unspecified testis, unspecified whether descended or undescended; Z79.899 Other long term (current) drug therapy
CPT/HCPCS: 71010; 71275; 80053; 81001; 82550; 82552; 83605; 83735; 83880; 84484; 85007; 85027; 86403; 87040; 87077; 87205; 93005; 94640; 94664; 96374; 99285; J1956; J2930; Q9967; 87186

== ENCOUNTER 2017-03-04 22:57 | Emergency (ER) | payer OTHER ==
[~2017-03-04] VITALS: Ht 165.1 cm; Wt 78.0 kg
[~2017-03-04 22:57] MED LIST changes: +HYDR-4107 PO; +LEVA500T33 PO; +MEDR4PAK PO
[2017-03-04 22:59] VITALS: BP 131/85; PULSE 73; RESP 20; TEMP 97.8; O2SAT 97
[2017-03-04] MEDS ORDERED: HYDR-3583 (23:32)
--- NOTE | 2017-03-05 00:20 | PD ---
Data Data Last Documented VS Vital Signs Date Time Temp Pulse Resp B/P (MAP) Pulse Ox O2 Delivery O2 Flow Rate FiO2 03/04/17 22:59 97.8 73 20 131/85 (100) 97 Room Air MDM Supervised Visit with DILIP: No Narrative Course Went to see patient in the room, patient with not there. Presumed to have eloped. Patient was not seen. Cristian Watkins MD Mar 05, 2017 00:20
[2017-03-05] MEDS ORDERED: ONDANSETRON HCL 4 MG/2 ML VIAL IV ONE (00:30)
[2017-03-05] MEDS ORDERED: SODIUM CHLOR 0.9% 1000 ML INJ 1,000 ML IV ONE ×2 (00:30)
[2017-03-05] MEDS ORDERED: LOPERAMIDE HCL 2 MG CAP PO ONE (00:30)
== END 2017-03-05 00:22 | disposition left against medical advice (07) ==
LOC: NEPE 22:57
DX: R09.89 Other specified symptoms and signs involving the circulatory and respiratory systems (principal); Z53.21 Procedure and treatment not carried out due to patient leaving prior to being seen by health care provider
CPT/HCPCS: 99281

== ENCOUNTER 2017-03-31 14:55 | Emergency (ER) | payer OTHER ==
[~2017-03-31] VITALS: Ht 167.6 cm; Wt 90.0 kg
[~2017-03-31 14:55] MED LIST changes: -DOCU8.6T PO; -HYDR-3580 PO; +HYDR-3583; -HYDR-4107 PO; -LEVA500T33 PO; -MEDR4PAK PO; -ONDA4TAB7 SL; -PERC5TAB12 PO
[2017-03-31] MEDS ORDERED: IOHEXOL 350 MG/ML 10 ML VIAL (for RAD DIAG) IVCONTRAST ONE (14:56)
[2017-03-31 15:00] VITALS: BP 107/70; PULSE 94; RESP 20; TEMP 101.8; O2SAT 97
[2017-03-31 15:09] VITALS: O2SAT 96
[2017-03-31] MEDS ORDERED: MORPHINE SULFATE 2 MG/ML INJ IV PUSH ONE ×2 (15:15→17:15)
[2017-03-31] MEDS ORDERED: SODIUM CHLOR 0.9% 1000 ML INJ 1,000 ML IV ONE (15:15)
[2017-03-31] MEDS ORDERED: SODIUM CHLORIDE 0.9% FLUSH 10 ML FLUSH IVF PRN (15:15)
[2017-03-31] MEDS ORDERED: ONDANSETRON HCL 4 MG/2 ML VIAL IV PUSH ONE (15:15)
[2017-03-31] MEDS ORDERED: ACETAMINOPHEN 325 MG TAB PO ONE (15:30)
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
[2017-03-31 15:52] LABS: AUTOMATED NEUTROPHIL # 4.1 TH/MM3 (1.8-7.7); BASOPHIL # 0.1 TH/MM3 (0-0.2); EOSINOPHIL # 0.3 TH/MM3 (0-0.4); EOSINOPHIL % 5.3 % (0.0-4.0); HEMATOCRIT 34.9 % (39.0-51.0); HEMOGLOBIN 12.4 GM/DL (13.0-17.0); LYMPH % 14.3 % (9.0-44.0); LYMPHOCYTE # 0.8 TH/MM3 (1.0-4.8); MEAN CELL VOLUME 84.5 FL (80.0-100.0); MEAN CORPUSCULAR HEMOGLOBIN 30.1 PG (27.0-34.0); MEAN CORPUSCULAR HGB CONC 35.6 % (32.0-36.0); MEAN PLATELET VOLUME 7.2 FL (7.0-11.0); MONO % 6.8 % (0.0-8.0); MONOCYTE # 0.4 TH/MM3 (0-0.9); NEUT % 72.6 % (16.0-70.0); PLATELET COUNT 180 TH/MM3 (150-450); RED BLOOD COUNT 4.13 MIL/MM3 (4.50-5.90); RED CELL DISTRIBUTION WIDTH 19.4 % (11.6-17.2); WHITE BLOOD COUNT 5.7 TH/MM3 (4.0-11.0)
[2017-03-31 16:06] LABS: ALBUMIN 3.6 GM/DL (3.4-5.0); ALT (GPT) 32 U/L (12-78); AST (GOT) 13 U/L (15-37); BICARBONATE 23.6 MEQ/L (21.0-32.0); BLOOD UREA NITROGEN 12 MG/DL (7-18); CALCIUM 8.6 MG/DL (8.5-10.1); CHLORIDE 102 MEQ/L (98-107); CREATININE 0.68 MG/DL (0.60-1.30); GLOMERULAR FILTRATION RATE 136 ML/MIN (>89); GLUCOSE,RANDOM 98 MG/DL (74-106); MAGNESIUM 1.9 MG/DL (1.5-2.5); SODIUM (NA) 134 MEQ/L (136-145)
[2017-03-31 16:10] LABS: ALKALINE PHOSPHATASE 121 U/L (45-117); TOTAL BILIRUBIN ADULT 1.6 MG/DL (0.2-1.0); TOTAL PROTEIN 7.3 GM/DL (6.4-8.2); TROPONIN I LESS THAN 0.02 NG/ML (0.02-0.05)
--- NOTE | 2017-03-31 16:16 | RADRPT ---
EXAM DATE/TIME: 03/31/2017 15:47 [facility] COMPARISON: CHEST SINGLE AP, January 31, 2017, 1:20. INDICATIONS : Chest pain for one day. MEDICAL HISTORY : Carcinoma, testicular. Carcinoma, lung. Asthma. SURGICAL HISTORY : Tonsillectomy. Infusa-port. ENCOUNTER: Initial ACUITY: 1 day PAIN SCORE: 3/10 LOCATION: Bilateral chest FINDINGS: Stable right IJ central line. Redemonstration of numerous bilateral lung masses which appear slightly more prominent in the right lower lung zone. Cardiomediastinal contours are stable. Remainder of exa m is unchanged. CONCLUSION: 1. Progressive metastatic disease to the lungs. Fernando Singh MD on March 31, 2017 at 16:13 Board Certified Radiologist. This report was verified electronically.
--- NOTE | 2017-03-31 18:03 | RADRPT ---
EXAM DATE/TIME: 03/31/2017 17:35 [facility] COMPARISON: CT PULMONARY ANGIOGRAM, January 31, 2017, 3:21. INDICATIONS : Chest pains with mets to the lungs. IV CONTRAST: 99 cc Omnipaque 350 (iohexol) IV RADIATION DOSE: 26.43 CTDIvol (mGy) ; Combined studies MEDICAL HISTORY : Carcinoma, lung. Stage 4 Testicular cancer, SURGICAL HISTORY : Left testicle sx ENCOUNTER: Initial ACUITY: 1 day PAIN SCALE: 10/10 LOCATION: Bilateral chest TECHNIQUE: Volumetric scanning of the chest was performed using a pulmonary embolism protocol MIP images were re constructed. Using automated exposure control and adjustment of the mA and/or kV according to patien t size, radiation dose was kept as low as reasonably achievable to obtain optimal diagnostic quality images. DICOM format image data is available electronically for review and comparison. Follow-up recommendations for detected pulmonary nodules are based at a minimum on nodule size and pa tient risk factors according to Fleischner Society Guidelines. FINDINGS: No filling defects to suggest pulmonary embolic disease. Widespread lung metastases slightly worse th an in January 31, 2017. Pleural-based mass on the right continues to compress the right atrium. Infu se-a-Port in superior vena cava. No significant pleural effusion. No acute findings in the upper abdo men. CONCLUSION: 1. Negative for pulmonary embolus. 2. Widespread pulmonary and pleural metastatic disease stable to slightly worse compared with Decembe r 2017. Rodrigo Villarreal MD on March 31, 2017 at 17:58 Board Certified Radiologist. This report was verified electronically.
--- NOTE | 2017-03-31 18:19 | RADRPT ---
EXAM DATE/TIME: 03/31/2017 17:39 [facility] COMPARISON: No previous studies available for comparison. INDICATIONS : Diffuse abdomen pain with history of mets. IV CONTRAST: 99 cc Omnipaque 350 (iohexol) IV ORAL CONTRAST: No oral contrast ingested. RADIATION DOSE: 26.43 CTDIvol (mGy) MEDICAL HISTORY : Carcinoma, lung. Stage 4 testicular cancer. SURGICAL HISTORY : Left testicle removed. ENCOUNTER: Initial ACUITY: 1 day PAIN SCALE: 10/10 LOCATION: Bilateral lower quadrant TECHNIQUE: Volumetric scanning of the abdomen and pelvis was performed. Using automated exposure control and ad justment of the mA and/or kV according to patient size, radiation dose was kept as low as reasonably achievable to obtain optimal diagnostic quality images. DICOM format image data is available electro nically for review and comparison. FINDINGS: Compare January 30, 2017. There is an enlarging left para-aortic lymph node measuring 7.3 cm compare d with previous measurement of 6.4 cm. Mild fatty liver. Spleen, adrenals, kidneys and pancreas unrem arkable. No calcified gallstones. No free fluid. No bowel obstruction. No acute bony abnormalities. Extensive metastatic disease presen t at the lung bases. CONCLUSION: 1. Enlarging basilar lung metastases and left para-aortic lymph node. Mild fatty liver. Rodrigo Villarreal MD on March 31, 2017 at 18:16 Board Certified Radiologist. This report was verified electronically.
[2017-03-31 18:31] VITALS: BP 100/54; PULSE 94; RESP 17; O2SAT 94
[2017-03-31] MEDS ORDERED: ZOFR4TAB PO (18:35)
[2017-03-31] MEDS ORDERED: RESP: ALBUTEROL 2.5 MG/IPRATROPIUM 0.5 MG NEB (SCH) INH ONE (18:45)
[2017-03-31 18:53] VITALS: TEMP 99.4
[2017-03-31] MEDS ORDERED: CIPROFLOXACIN 200 MG PREMIX 100 ML IV ONE (19:00)
[2017-03-31] MEDS ORDERED: CIPR-9 PO (19:21)
[2017-03-31] MEDS ORDERED: ACETAMINOPHEN/HYDROcodone 325 MG/10 MG TAB PO ONE (20:15)
[2017-03-31] MEDS ORDERED: ZOFR4TAB3 SL (21:54)
[2017-03-31] MEDS ORDERED: ALBUAER3 INH (21:54)
--- NOTE | 2017-04-01 14:37 | EKG ---
Date Performed: 03/31/2017 Time Performed: 15:23:29 PTAGE: 31 years EKG: Sinus rhythm INDETERMINATE AXIS ABNORMAL ECG Since PREVIOUS TRACING , no significant change noted PREVIOUS TRACIN01/31/2017 03.12 DOCTOR: Arvind Martin Interpretating Date/Time 04/01/2017 14:36:49
== END 2017-03-31 22:04 | disposition home or self-care (01) ==
LOC: NEPC 14:55
DX: C78.00 Secondary malignant neoplasm of unspecified lung (principal); R50.9 Fever, unspecified; R07.89 Other chest pain; R94.31 Abnormal electrocardiogram [ECG] [EKG]; C62.90 Malignant neoplasm of unspecified testis, unspecified whether descended or undescended; R10.9 Unspecified abdominal pain; R11.2 Nausea with vomiting, unspecified; J45.909 Unspecified asthma, uncomplicated; Z72.0 Tobacco use
CPT/HCPCS: 71045; 71275; 74177; 80053; 82550; 83605; 83690; 83735; 83880; 84484; 85025; 85610; 85730; 87040; 87804; 93005; 94664; 96361; 96365; 96375; J0744; J2270; J2405; J7030; Q9967

== ENCOUNTER 2017-04-01 13:44 | Inpatient (IN) | payer OTHER ==
[~2017-04-01] VITALS: Ht 167.6 cm; Wt 108.3 kg
[~2017-04-01 13:44] MED LIST changes: +ALBUAER3 INH; +CIPR-9 PO; -PANT40TA3 PO; -PERI PO; -SOTA80TA PO; +ZOFR4TAB PO; +ZOFR4TAB3 SL
[2017-04-01 13:46] VITALS: BP 119/85; PULSE 124; RESP 26; TEMP 100.1; O2SAT 93
[2017-04-01] MEDS ORDERED: SODIUM CHLOR 0.9% 1000 ML INJ 700 ML IV ONE (14:14)
[2017-04-01] MEDS ORDERED: SODIUM CHLOR 0.9% 1000 ML INJ 1,000 ML IV ONE ×2 (14:14)
[2017-04-01] MEDS ORDERED: ACETAMINOPHEN 325 MG TAB PO ONE (14:15)
[2017-04-01] MEDS ORDERED: KETOROLAC TROMETHAMINE 30 MG/ML (IVP) VIAL IV PUSH ONE (14:15)
[2017-04-01] MEDS ORDERED: ONDANSETRON HCL 4 MG/2 ML VIAL IV PUSH ONE (14:15)
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
[2017-04-01 15:04] LABS: AUTOMATED NEUTROPHIL # 2.6 TH/MM3 (1.8-7.7); BASOPHIL % 0.8 % (0.0-2.0); EOSINOPHIL % 0.6 % (0.0-4.0); HEMATOCRIT 32.6 % (39.0-51.0); HEMOGLOBIN 11.4 GM/DL (13.0-17.0); LYMPH % 13.8 % (9.0-44.0); LYMPHOCYTE # 0.5 TH/MM3 (1.0-4.8); MEAN CELL VOLUME 84.5 FL (80.0-100.0); MEAN CORPUSCULAR HEMOGLOBIN 29.6 PG (27.0-34.0); MEAN PLATELET VOLUME 7.1 FL (7.0-11.0); MONO % 12.9 % (0.0-8.0); MONOCYTE # 0.5 TH/MM3 (0-0.9); NEUT % 71.9 % (16.0-70.0); PLATELET COUNT 168 TH/MM3 (150-450); RED BLOOD COUNT 3.87 MIL/MM3 (4.50-5.90); RED CELL DISTRIBUTION WIDTH 18.8 % (11.6-17.2); WHITE BLOOD COUNT 3.7 TH/MM3 (4.0-11.0)
[2017-04-01 15:27] LABS: ALBUMIN 3.3 GM/DL (3.4-5.0); ALKALINE PHOSPHATASE 118 U/L (45-117); ALT (GPT) 35 U/L (12-78); AST (GOT) 50 U/L (15-37); BICARBONATE 22.9 MEQ/L (21.0-32.0); BLOOD UREA NITROGEN 10 MG/DL (7-18); CALCIUM 8.5 MG/DL (8.5-10.1); CHLORIDE 98 MEQ/L (98-107); CREATININE 0.68 MG/DL (0.60-1.30); GLOMERULAR FILTRATION RATE 136 ML/MIN (>89); GLUCOSE,RANDOM 115 MG/DL (74-106); SODIUM (NA) 129 MEQ/L (136-145); TOTAL BILIRUBIN ADULT 2.9 MG/DL (0.2-1.0); TOTAL PROTEIN 7.2 GM/DL (6.4-8.2)
[2017-04-01] MEDS ORDERED: MAGNESIUM HYDROXIDE SUSP 30 ML CUP PO PRN (16:45)
[2017-04-01] MEDS ORDERED: SODIUM CHLORIDE 0.9% FLUSH 10 ML FLUSH IV FLUSH PRN (16:45)
[2017-04-01] MEDS ORDERED: CIPROFLOXACIN 400 MG PREMIX 200 ML IV ONE (16:45)
[2017-04-01] MEDS ORDERED: NALOXONE HCL 0.4 MG/ML AMP IV PUSH PRN ×2 (16:45→18:30)
[2017-04-01] MEDS ORDERED: AZTREONAM INJ 1,000 MG in SODIUM CHLORIDE 0.9% INJ 100 ML IV SCH (16:45)
[2017-04-01] MEDS ORDERED: MORPHINE SULFATE 4 MG/ML INJ IV PUSH ONE (16:45)
[2017-04-01] MEDS ORDERED: BISACODYL 10 MG SUPP RECTAL PRN (16:45)
[2017-04-01] MEDS ORDERED: LACTULOSE SYRUP 20 GM/30 ML CUP PO PRN (16:45)
[2017-04-01] MEDS ORDERED: SENNOSIDES 8.6 MG TAB PO PRN (16:45)
[2017-04-01] MEDS ORDERED: VANCOMYCIN INJ 1,000 MG in SODIUM CHLOR 0.9% 250 ML INJ 250 ML IV ONE (17:00)
[2017-04-01] MEDS ORDERED: Vancomycin Consult Pharmacy 1 EA OTHER SCH (17:00)
[2017-04-01 17:06] LABS: BILIRUBIN, URINE NEG (NEG); BLOOD, URINE SMALL (NEG); GLUCOSE,URINE NEG (NEG); KETONE, URINE NEG (NEG); MUCUS URINE FEW /lpf (OCC); NITRITE,URINE NEG (NEG); PH, URINE 5.5 (5.0-8.5); URINE COLOR YELLOW (YELLW/STRAW); URINE LEUKOCYTE ESTERASE NEG (NEG)
--- NOTE | 2017-04-01 17:59 | HHI.HP ---
HPI Service [facility] Primary Care Physician Unknown Admission Diagnosis febrile illness, SIRS, immunocompromised Diagnoses: Chief Complaint: Fever Travel History International Travel<30 Days: No Contact w/Intl Traveler <30 Da: No Traveled to Known Affected Are: No History of Present Illness This is this is a 31-year-old male with history of testicular cancer diagnosed mid-2016, has been started on chemotherapy, received his third cycle of chemotherapy 03/28/2016, presenting with fever, chills and generalized body ache. Per patient, right after chemotherapy, he started having nausea, dry heaves and generalized body aches including chest pain and lower back pain. Yesterday he started having fever, T-max 106, chills, mild cough productive with dark colored sputum associated with mild shortness of breath and dysuria without any frequency or urgency. Patient has had poor oral intake. Admission was recommended however patient decided to go home on antibiotics however today , patient had recurrence of severe symptoms hence he decided to come back to the hospital. There is no vomiting, abdominal pain, or diarrhea. He had mild epistaxis yesterday and this morning. Chest pain is mostly with deep inspiration. Patient denies any sick contacts. 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 Gout Past Surgical History L orchiectomy Reported Medications Zofran Odt (Ondansetron Odt) 4 Mg Tab 4 Mg SL Q6HR PRN Proair Hfa 8.5 GM Inh (Albuterol Sulfate) 90 Mcg/Act Aer 2 Puff INH Q4-6H PRN 108 mcg/actuation Levaquin Zyloprim (Allopurinol) 300 Mg Tab 300 Mg PO DAILY Albuterol Neb (Albuterol Sulfate) 2.5 Mg/3 Ml Neb 2.5 Mg NEB Q4HR NEB PRN Hydrocodone-Acetamin 10-325 mg (Hydrocodone/Acetaminophen) 10 Mg-325 Mg Tablet Allergies: Coded Allergies: broccoli (Unverified Allergy, Severe, Hives, 03/04/17) Penicillins (Verified Allergy, Unknown, 03/04/17) amoxicillin (Verified Allergy, Unknown, 03/04/17) Family History Aunt - breast CA Uncle - lung CA Social History Smokes 1 cigarette a day, no significant alcohol use. Physical Exam Vital Signs Vital Signs Date Time Temp Pulse Resp B/P (MAP) Pulse Ox O2 Delivery O2 Flow Rate FiO2 04/01/17 14:53 96 Nasal Cannula 3.00 04/01/17 13:46 100.1 124 26 119/85 (96) 93 Physical Exam GENERAL: Not in acute distress, swears every 2 minutes. HEAD: Atraumatic. Normocephalic. EYES: PERRL, full EOMs, no jaundice, nonicteric, pink conjunctivae without injection, moist mucosa ENT: Nose without bleeding, purulent drainage. NECK: Trachea midline, no mass, no obvious thyromegaly. CARDIOVASCULAR: Regular rate and rhythm without murmurs, gallops, or rubs. No tenderness on palpation of the anterior chest. RESPIRATORY: Clear to auscultation with normal respiratory effort. Breath sounds equal bilaterally. No use of accessory muscles of respiration. GASTROINTESTINAL: Abdomen soft, normal bowel sounds, non-tender, nondistended. No hepato-splenomegaly or palpable mass. No guarding. NEO and exam deferred. No CVA tenderness. MUSCULOSKELETAL: Extremities without clubbing, cyanosis, or edema. Distal pulses intact, 2+ bilaterally. INTEGUMENTARY: Warm and dry, no rash of generalized distribution. NEUROLOGICAL: Awake, alert, oriented 3. No obvious cranial nerve deficits. Moves all 4 extremities, muscle strength testing 5 over 5. Motor and sensory grossly within normal limits. .Supple neck, no meningeal signs. Grossly negative cerebellar examination. No focal neurologic deficits. PSYCHIATRIC: Normal mood, appropriate affect. Laboratory Laboratory Tests Test 04/01/17 14:40 04/01/17 16:43 White Blood Count 3.7 Red Blood Count 3.87 Hemoglobin 11.4 Hematocrit 32.6 Mean Corpuscular Volume 84.5 Mean Corpuscular Hemoglobin 29.6 Mean Corpuscular Hemoglobin Concent 35.0 Red Cell Distribution Width 18.8 Platelet Count 168 Mean Platelet Volume 7.1 Neutrophils (%) (Auto) 71.9 Lymphocytes (%) (Auto) 13.8 Monocytes (%) (Auto) 12.9 Eosinophils (%) (Auto) 0.6 Basophils (%) (Auto) 0.8 Neutrophils # (Auto) 2.6 Lymphocytes # (Auto) 0.5 Monocytes # (Auto) 0.5 Eosinophils # (Auto) 0.0 Basophils # (Auto) 0.0 CBC Comment DIFF FINAL Differential Comment Blood Urea Nitrogen 10 Creatinine 0.68 Random Glucose 115 Total Protein 7.2 Albumin 3.3 Calcium Level 8.5 Magnesium Level 2.0 Alkaline Phosphatase 118 Aspartate Amino Transf (AST/SGOT) 50 Alanine Aminotransferase (ALT/SGPT) 35 Total Bilirubin 2.9 Sodium Level 129 Potassium Level 3.8 Chloride Level 98 Carbon Dioxide Level 22.9 Anion Gap 8 Estimat Glomerular Filtration Rate 136 Lactic Acid Level 1.1 Urine Color YELLOW Urine Turbidity CLEAR Urine pH 5.5 Urine Specific [place] 1.018 Urine Protein 30 Urine Glucose (UA) NEG Urine Ketones NEG Urine Occult Blood SMALL Urine Nitrite NEG Urine Bilirubin NEG Urine Urobilinogen 2.0 Urine Leukocyte Esterase NEG Urine RBC LESS THAN 1 Urine WBC 1 Urine Mucus FEW Microscopic Urinalysis Comment CULT NOT INDICATED Date/Time Source Procedure Growth Status 04/01/17 17:18 Nasal Washing Influenza Types A,B Antigen (JUANITO) Pending Received Result Diagram: 04/01/17 1440 04/01/17 1440 Caprini VTE Risk Assessment Caprini Risk Assessment Model Point Value = 1 Point Value = 2 Point Value = 3 Point Value = 5 Age 41-60 Minor surgery BMI > 25 kg/m2 Swollen legs Varicose veins or History of unexplained or recurrent spontaneous Oral contraceptives or hormone replacement Sepsis (< 1 month) Serious lung disease, including pneumonia (< 1 month) Abnormal pulmonary function Acute myocardial infarction Congestive heart failure (< 1 month) History of inflammatory bowel disease Medical patient at bed rest Age 61-74 Arthroscopic surgery Major open surgery (> 45 min) Laparoscopic surgery (> 45 min) Malignancy Confined to bed (> 72 hours) Immobilizing plaster cast Central venous access Age >= 75 History of VTE Family history of VTE Factor V Leiden Prothrombin [id number] Lupus anticoagulant Anticardiolipin antibodies Elevated serum homocysteine Heparin-induced thrombocytopenia Other congenital or acquired thrombophilia Stroke (< 1 month) Elective arthroplasty Hip, pelvis, or leg fracture Acute spinal cord injury (< 1 month) Prophylaxis Regimen Total Risk Factor Score Risk Level Prophylaxis Regimen 0-1 Low Early ambulation 2 Moderate Order ONE of the following: *Sequential Compression Device (SCD) *Heparin 5000 units SQ BID 3-4 Higher Order ONE of the following medications: *Heparin 5000 units SQ TID *Enoxaparin/Lovenox 40 mg SQ daily (WT < 150 kg, CrCl > 30 mL/min) *Enoxaparin/Lovenox 30 mg SQ daily (WT < 150 kg, CrCl > 10-29 mL/min) *Enoxaparin/Lovenox 30 mg SQ BID (WT < 150 kg, CrCl > 30 mL/min) AND/OR *Sequential Compression Device (SCD) 5 or more Highest Order ONE of the following medications: *Heparin 5000 units SQ TID (Preferred with Epidurals) *Enoxaparin/Lovenox 40 mg SQ daily (WT < 150 kg, CrCl > 30 mL/min) *Enoxaparin/Lovenox 30 mg SQ daily (WT < 150 kg, CrCl > 10-29 mL/min) *Enoxaparin/Lovenox 30 mg SQ BID (WT < 150 kg, CrCl > 30 mL/min) AND *Sequential Compression Device (SCD) Assessment and Plan Assessment and Plan This is a 31-year-old male with history of [place] cancer and chemotherapy presenting with fever, chest pain, dysuria, and cough Chest pain-likely secondary to metastatic disease, CTA revealed no PE, widespread and worsening metastatic pleural and parenchymal disease. Continue pain control. Check troponin and EKG, likely pleuritic pain Upper back pain-likely secondary to metastatic disease as well Neutropenic fever versus pneumonia-possible pneumonia versus evolving neutropenic fever, recheck CBC tomorrow. Consult hematology. Start cefepime and vancomycin. Follow-up blood culture, check sputum culture, redraw blood cultures today. Rapid flu negative. Mild hyperbilirubinemia and AST elevation-recheck LFTs. Hyponatremia-likely secondary to dehydration, start normal saline, recheck BMP tomorrow. Gout - resume home meds DVT prophylaxis: Lovenox Physician Certification Order for Inpatient Services The services are ordered in accordance with Medicare regulations or non- Medicare payer requirements, as applicable. In the case of services not specified as inpatient-only, they are appropriately provided as inpatient services in accordance with the 2-midnight benchmark. days is the estimated time the patient will need to remain in the hospital, assuming treatment plan goals are met and no additional complications. Jolene Haynes MD Apr 01, 2017 17:59
[2017-04-01] MEDS ORDERED: oxyCODONE/ACETAMINOPHEN 5 MG/325 MG TAB PO PRN (18:30)
[2017-04-01] MEDS ORDERED: ONDANSETRON HCL 4 MG/2 ML VIAL IV PUSH PRN (18:30)
[2017-04-01] MEDS ORDERED: ACETAMINOPHEN 325 MG TAB PO PRN (18:30)
[2017-04-01] MEDS ORDERED: RESP: ALBUTEROL 2.5 MG/IPRATROPIUM 0.5 MG NEB (PRN) NEB (18:30)
[2017-04-01] MEDS ORDERED: VANCOMYCIN INJ 2,000 MG in SODIUM CHLORID 0.9% 500 ML INJ 500 ML IV ONE (19:00)
[2017-04-01] MEDS ORDERED: PHARMACY ORDERED LAB ONE (19:15)
[2017-04-01] MEDS: SODIUM CHLOR 0.9% 1000 ML INJ 1,000 ML IV SCH ×2 (19:25→22:45)
[2017-04-01] MEDS: ENOXAPARIN SODIUM 30 MG/0.3 ML SYRINGE SQ SCH (19:26)
[2017-04-01] MEDS: CEFEPIME INJ 1,000 MG in SODIUM CHLORIDE 0.9% INJ 100 ML IV SCH (19:26)
[2017-04-01 19:29] VITALS: BP 114/60; PULSE 85; RESP 22; O2SAT 93
[2017-04-01] MEDS: oxyCODONE/ACETAMINOPHEN 10 MG/325 MG TAB PO PRN (19:44)
[2017-04-01 20:06] VITALS: O2SAT 92
[2017-04-01] MEDS: DOCUSATE SODIUM 50 MG/SENNA 8.6 MG TAB PO SCH (20:50)
[2017-04-01] MEDS: SODIUM CHLORIDE 0.9% FLUSH 10 ML FLUSH IV FLUSH SCH (20:50)
[2017-04-01 22:55] VITALS: PULSE 106
[2017-04-01] MEDS: MORPHINE SULFATE 2 MG/ML INJ IV PUSH PRN (23:17)
[2017-04-02] VITALS (7 sets, daily range): BP systolic 108–137; BP diastolic 57–69; PULSE 93–114; RESP 16–26; TEMP 100.2–102.2; O2SAT 90–94
[2017-04-02] MEDS: ONDANSETRON HCL 4 MG/2 ML VIAL IVP PRN ×2 (01:59→08:15)
[2017-04-02] MEDS: oxyCODONE/ACETAMINOPHEN 10 MG/325 MG TAB PO PRN ×3 (02:00→21:31)
[2017-04-02] MEDS: CEFEPIME INJ 1,000 MG in SODIUM CHLORIDE 0.9% INJ 100 ML IV SCH ×3 (02:00→17:40)
[2017-04-02] MEDS: MORPHINE SULFATE 2 MG/ML INJ IV PUSH PRN ×4 (02:50→23:34)
[2017-04-02] MEDS: VANCOMYCIN 1,500 MG/NS 500 ML IV SCH ×6 (02:50→19:31)
[2017-04-02] MEDS: DOCUSATE SODIUM 50 MG/SENNA 8.6 MG TAB PO SCH ×2 (08:15→20:39)
[2017-04-02] MEDS: ALLOPURINOL 300 MG TAB PO SCH (08:15)
[2017-04-02] MEDS: SODIUM CHLORIDE 0.9% FLUSH 10 ML FLUSH IV FLUSH SCH ×2 (08:16→20:39)
[2017-04-02 08:49] LABS: AUTOMATED NEUTROPHIL # 1.4 TH/MM3 (1.8-7.7); BASOPHIL % 0.6 % (0.0-2.0); EOSINOPHIL % 2.1 % (0.0-4.0); HEMATOCRIT 29.5 % (39.0-51.0); HEMOGLOBIN 10.3 GM/DL (13.0-17.0); LYMPH % 22.8 % (9.0-44.0); LYMPHOCYTE # 0.5 TH/MM3 (1.0-4.8); MEAN CELL VOLUME 86.8 FL (80.0-100.0); MEAN CORPUSCULAR HEMOGLOBIN 30.4 PG (27.0-34.0); MEAN PLATELET VOLUME 7.1 FL (7.0-11.0); MONO % 15.2 % (0.0-8.0); MONOCYTE # 0.4 TH/MM3 (0-0.9); NEUT % 59.3 % (16.0-70.0); PLATELET COUNT 149 TH/MM3 (150-450); RED CELL DISTRIBUTION WIDTH 18.6 % (11.6-17.2); WHITE BLOOD COUNT 2.3 TH/MM3 (4.0-11.0)
[2017-04-02 08:54] LABS: ALBUMIN 2.8 GM/DL (3.4-5.0); BICARBONATE 26.4 MEQ/L (21.0-32.0); CALCIUM 8.2 MG/DL (8.5-10.1); CREATININE 0.69 MG/DL (0.60-1.30); DIRECT BILIRUBIN ADULT 0.5 MG/DL (0.0-0.2)
[2017-04-02 08:57] LABS: TOTAL BILIRUBIN ADULT 1.5 MG/DL (0.2-1.0); TOTAL PROTEIN 6.5 GM/DL (6.4-8.2)
[2017-04-02] MEDS: SODIUM CHLOR 0.9% 1000 ML INJ 1,000 ML IV SCH ×2 (09:30→20:40)
--- NOTE | 2017-04-02 12:06 | HHI.PR ---
Subjective Remarks Patient seen and examined this morning. Temperature 101.5, pulse 109, respiratory rate 22, blood pressure 137/69, pulse ox 94 on room air. 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 Currently concern for neutropenic fever. He denies any vomiting, but does feel nauseated. Continues to complain of some back pain and chest pain likely due to the metastatic cancer. Objective Vitals Vital Signs Date Time Temp Pulse Resp B/P (MAP) Pulse Ox O2 Delivery O2 Flow Rate FiO2 04/02/17 08:00 101.5 109 26 137/69 (91) 94 04/02/17 04:00 100.2 109 16 117/57 (77) 90 04/02/17 04:00 107 04/02/17 00:04 114 04/02/17 00:00 101.0 105 16 126/67 (86) 90 04/01/17 22:55 106 04/01/17 21:33 04/01/17 20:06 92 04/01/17 19:29 85 22 114/60 (78) 93 Room Air 04/01/17 14:53 96 Nasal Cannula 3.00 04/01/17 13:46 100.1 124 26 119/85 (96) 93 I/O 04/01/17 04/01/17 04/01/17 04/02/17 04/02/17 04/02/17 07:00 15:00 23:00 07:00 15:00 23:00 Intake Total 2900 ml 815 ml Output Total 250 ml Balance 2900 ml 815 ml -250 ml Intake Oral 200 ml IV Total 2900 ml 615 ml Output Urine Total 250 ml # Voids 1 Result Diagram: 04/02/17 0620 04/02/17 0620 Objective Remarks GEN: Well-developed, well-nourished patient. No acute distress. CV: Regular rate and rhythm without obvious murmurs LUNGS: Clear to auscultation bilaterally. Normal respiratory effort. No wheezes , rales, rhonchi. GI: Soft, nontender, nondistended. No palpable masses. Bowel sounds WNL. EXT: No edema. NEURO/PSYCH: Afocal. Awake, alert, and oriented x3. Appropriate insight and judgment. Medications and IVs Current Medications Medications (Trade) Dose Ordered Sig/Harleen Route Start Time Stop Time Status Last Admin Sodium Chloride 1,000 ml @ 125 mls/hr Q8H IV 04/01/17 16:44 04/02/17 09:30 (NS Flush) 2 ml UNSCH PRN IV FLUSH 04/01/17 16:45 (NS Flush) 2 ml BID IV FLUSH 04/01/17 21:00 (Tylenol) 650 mg Q4H PRN PO 04/01/17 16:45 (Zofran Inj) 4 mg Q6H PRN IVP 04/01/17 16:45 04/02/17 08:15 (Lovenox Inj) 30 mg Q24H SQ 04/01/17 17:00 04/01/17 19:26 (Dorothy-Colace) 1 tab BID PO 04/01/17 21:00 04/02/17 08:15 (Milk Of Magnesia Liq) 30 ml Q12H PRN PO 04/01/17 16:45 (Senokot) 17.2 mg Q12H PRN PO 04/01/17 16:45 (Dulcolax Supp) 10 mg DAILY PRN RECTAL 04/01/17 16:45 (Lactulose Liq) 30 ml DAILY PRN PO 04/01/17 16:45 Pharmacy Profile Note 0 ml @ 0 mls/hr UNSCH OTHER 04/01/17 17:00 (Tylenol) 650 mg Q6H PRN PO 04/01/17 18:30 04/02/17 11:26 (Percocet 5-325 Mg) 1 tab Q6H PRN PO 04/01/17 18:30 (Percocet 10-325 Mg) 1 tab Q6H PRN PO 04/01/17 18:30 04/02/17 08:15 (Narcan Inj) 0.4 mg UNSCH PRN IV PUSH 04/01/17 18:30 (Duoneb Neb) 1 ampule Q4HR NEB PRN NEB 04/01/17 18:30 (Zyloprim) 300 mg DAILY PO 04/02/17 09:00 04/02/17 08:15 Cefepime HCl 1000 mg/Sodium Chloride 100 ml @ 200 mls/hr Q8H IV 04/01/17 19:00 04/02/17 09:30 Vancomycin HCl 1500 mg/Sodium Chloride 515 ml @ 257.5 mls/ hr Q8H IV 04/02/17 03:00 04/02/17 10:58 (Morphine Inj) 2 mg Q3H PRN IV PUSH 04/01/17 23:00 04/02/17 09:28 A/P Problem List: (1) Neutropenic ICD Code: D70.9 - Neutropenia, unspecified (2) Metastatic cancer to lung ICD Code: C78.00 - Secondary malignant neoplasm of unspecified lung Status: Acute (3) Back pain ICD Code: M54.9 - Dorsalgia, unspecified Status: Acute (4) SIRS (systemic inflammatory response syndrome) ICD Code: R65.10 - Systemic inflammatory response syndrome (SIRS) of non- infectious origin without acute organ dysfunction Status: Acute (5) Fever ICD Code: R50.9 - Fever, unspecified Status: Acute (6) Testicular teratoma ICD Code: C62.90 - Malignant neoplasm of unspecified testis, unspecified whether descended or undescended Status: Acute (7) Atypical chest pain ICD Code: R07.89 - Other chest pain Status: Acute Assessment and Plan This is a 31-year-old male with history of testicular cancer and chemotherapy presenting with fever, chest pain, dysuria, and cough Chest pain-likely secondary to metastatic disease, CTA revealed no PE, widespread and worsening metastatic pleural and parenchymal disease. Continue pain control. Troponin EKG negative, likely pleuritic pain Upper back pain-likely secondary to metastatic disease as well -Continue morphine and Percocet Neutropenic fever versus pneumonia-possible pneumonia versus evolving neutropenic fever, recheck CBC tomorrow. Consult hematology, recommendations appreciate. Continue cefepime and vancomycin. Follow-up blood culture, check sputum culture. Rapid flu negative. Mild hyperbilirubinemia and AST elevation-trending LFTs, currently within normal limits Hyponatremia-likely secondary to dehydration, improved now 133, patient has increased his fluid intake will decrease IV fluids at this time Gout - resume home meds DVT prophylaxis: Lovenox Discharge Planning Medical workup in process Problem Qualifiers (1) Fever: Qualified Codes: R50.9 - Fever, unspecified Julian Maher MD, R3 Apr 02, 2017 12:06
--- NOTE | 2017-04-02 15:19 | EKG ---
Date Performed: 04/01/2017 Time Performed: 19:20:22 PTAGE: 31 years EKG: Sinus rhythm Since previous tracing, no significant change noted NORMAL ECG PREVIOUS TRACING : 03/31/2017 15.23 DOCTOR: Arvind Martin Interpretating Date/Time 04/02/2017 15:18:46
[2017-04-02] MEDS ORDERED: ACETAMINOPHEN 325 MG TAB PO ONE (15:45)
[2017-04-02] MEDS: ENOXAPARIN SODIUM 30 MG/0.3 ML SYRINGE SQ SCH (16:08)
--- NOTE | 2017-04-02 16:40 | MB ---
cc: HIMA FOWLER RUBY ANNE E. M.D. DATE OF 1985 DATE OF SERVICE 04/02/[address] Varner CHIEF COMPLAINT Dr. Varner requested consultation for Mr. Malik regarding neutropenic fever associated with testicular cancer. HISTORY OF PRESENT ILLNESS Mr. Malik is a 31-year-old man diagnosed with testicular teratoma. He presented with a large mass of the left testis. He underwent orchiectomy and staging evaluation showed retroperitoneal disease and extensive pulmonary metastatic disease. He was under the care of Dr. Lul Carlson and then subsequently by Dr. Olivier. He has been referred to [facility]. He understands that his appointment is supposed to be for the bone marrow transplant. He does not have a contact number or the information with him. He is intent on keeping his appointment on 04/04/2017. He presented to the emergency room on 03/31/2015 with fevers, right-sided chest pain. He had received VIP chemotherapy. His white count on admission was 5.7. During the course of hospitalization his white count has trended down. It is currently 1.4 at the time of the consultation. His bilirubin was elevated at 2.9, trended down to 1.5. They were predominately indirect. Sodium is decreased. He has mild anemia and thrombocytopenia. Denies any mucositis. Denies any diarrhea or urinary complaints. He is complaining of headache and nausea. He has had some persistent headache over the last day. T-max today is 101.5. His blood culture continued to be negative. Sputum was negative. CT scan of the chest / CT angiogram was negative for pulmonary embolism. There is pulmonary metastatic disease that appears to be worse. The CT scan of the abdomen shows left periaortic lymph node and mild fatty liver. No acute process to explain the fevers. PAST MEDICAL HISTORY Testicular teratoma, metastatic disease. PAST SURGICAL HISTORY 1. CT-guided retroperitoneal lymph node biopsy. 2. Orchiectomy. FAMILY HISTORY Parents are both living. Sister is at bedside. Paternal aunt had breast cancer. Paternal grandfather had testicular cancer. Mother and father have no cancer. SOCIAL HISTORY He is single. 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 He is a former smoker. Denies any alcohol or illicit drug use. However, urine tox was positive for cannabinoids from November of 2016. ALLERGIES PENICILLIN, AMOXICILLIN, BROCCOLI. MEDICATIONS Current medications: 1. Acetaminophen. 2. Allopurinol. 3. Vancomycin. 4. Morphine. 5. Dorothy-Colace. 6. Cefepime. 7. Acetaminophen. 8. Percocet p.r.n. PHYSICAL EXAMINATION VITAL SIGNS: Temperature 100.5, heart rate 95, respiratory 20, blood pressure 108/59, saturation 94%. GENERAL: Mr. Malik is a well-developed, well-nourished young man. He has alopecia. He looks clinically ill. HEENT: Pupils are round, reactive to light and accommodation. Oropharynx is clear. NECK: Supple. LUNGS: With rhonchi on both sides. CARDIOVASCULAR: Exam reveals tachycardia. ABDOMEN: Benign. EXTREMITIES: Lower extremities with no edema. NEUROLOGIC: Exam is nonfocal. He has a productive cough. IMAGING STUDIES Described above. LABORATORY DATA Labs with a white blood cell count of 2.3, hemoglobin 10.3, platelet count 149. ANC 1400. ASSESSMENT/PLAN Mr. Malik is a 31-year-old man with metastatic testicular cancer. He is receiving chemotherapy with VIP. There is curative intent. He seems to be having toxicity associated with the chemotherapy with fevers. There is a question of progression in most recent scans compared to previous. We discussed obtaining the information about his transplant referral and appointment. He will get that from home. We will consult with case management to either coordinate rescheduling. Mr. Malik is intent on going even if he has to leave the hospital. He is advised that there might be a better way. We discussed followup with Dr. Carlson on Monday. He reports he has been under care Dr. Olivier at present at [facility]. For now we will continue supportive treatment for his neutropenic fever. His white count is trending down. G-CSF support will be offered. No transfusion is needed at this point. Repeat cultures for the next temperature greater than 100.5. In light of his headaches and metastatic disease MRI of the brain is recommended. He is offered Tylenol for the headaches. In case that the ondansetron is giving him headaches, ondansetron was discontinued. He is offered a trial of Compazine to manage his nausea symptoms. Further recommendations pending on the results of the above. MD MARIA E Love /3:40 PM /4:09 PM
[2017-04-02] MEDS ORDERED: GADODIAMIDE PF 287 MG/ML 20 ML VIAL (for RAD MRI) IVCONTRAST ONE (17:22)
[2017-04-02] MEDS: PROCHLORPERAZINE INJ 10 MG/2 ML VIAL IV PUSH PRN ×2 (17:41→23:34)
--- NOTE | 2017-04-02 17:55 | RADRPT ---
EXAM DATE/TIME: 04/02/2017 16:47 [facility] COMPARISON: CT ABDOMEN & PELVIS W CONTRAST, March 31, 2017, 17:39. INDICATIONS : Metastatic disease. CONTRAST: 20 cc Omniscan (gadodiamide) IV MEDICAL HISTORY : Metastatic, lung. Carcinoma, testicular. SURGICAL HISTORY : Orchiectomy. ENCOUNTER: Initial ACUITY: 1 day PAIN SCORE: 0/10 LOCATION: Abdomen. TECHNIQUE: Multiplanar, multisequence magnetic resonance imaging of the abdomen was performed without and with i ntravenous contrast. FINDINGS: LIVER: No measures 18.8 cm in length and demonstrates moderate severity signal loss on out of phase imaging indicating steatosis. No liver lesion is identified. Portal vein is within normal limits. BILIARY: There is no intra- or extra-hepatic biliary ductal dilatation. Gallbladder contains no stones. SPLEEN: Within normal limits. PANCREAS: Within normal limits. ADRENALS: Within normal limits. KIDNEYS: Normal size and signal intensity. There is no hydronephrosis or mass. There is a simple cyst in the right mid kidney measuring 8 mm. OTHER: Aorta is nonaneurysmal. There is a cystic and solid left periaortic mass and has mild mass effect on the aorta and left psoas muscle. It measures 7.2 x 6.6 x 9.4 cm. There are innumerable nodules and ma sses at the lung bases with the largest confluent mass at the anterior right lung base measuring 10 c m. CONCLUSION: 1. Partially cystic and solid enhancing mass in a left para-aortic location measuring up to 9.4 cm. B ased on location and appearance it is highly suggestive of metastatic disease. This lesion would be a menable to image guided percutaneous biopsy if histologic diagnosis is needed. 2. Innumerable nodules and masses at both lung bases that also likely represent metastatic disease. 3. Hepatic steatosis. No liver lesion is present. Luis Almonte MD on April 02, 2017 at 17:46 Board Certified Radiologist. This report was verified electronically.
[2017-04-02] MEDS ORDERED: PHARMACY ORDERED LAB-VANCO TROUGH ONE (18:45)
[2017-04-02] MEDS: ACETAMINOPHEN 325 MG TAB PO PRN (21:29)
[2017-04-03] VITALS (15 sets, daily range): BP systolic 113–133; BP diastolic 58–70; PULSE 84–108; RESP 15–19; TEMP 97.9–102.1; O2SAT 92–97
[2017-04-03] MEDS: VANCOMYCIN INJ 2,000 MG in SODIUM CHLORID 0.9% 500 ML INJ 500 ML IV SCH ×3 (03:06→23:17)
[2017-04-03] MEDS: CEFEPIME INJ 1,000 MG in SODIUM CHLORIDE 0.9% INJ 100 ML IV SCH ×3 (03:06→19:37)
[2017-04-03] MEDS: PROCHLORPERAZINE INJ 10 MG/2 ML VIAL IV PUSH PRN ×2 (05:38→14:11)
[2017-04-03] MEDS: MORPHINE SULFATE 2 MG/ML INJ IV PUSH PRN ×3 (05:40→23:31)
[2017-04-03 05:51] LABS: HEMATOCRIT 28.3 % (39.0-51.0); HEMOGLOBIN 9.8 GM/DL (13.0-17.0); MEAN CELL VOLUME 85.3 FL (80.0-100.0); MEAN CORPUSCULAR HEMOGLOBIN 29.6 PG (27.0-34.0); MEAN CORPUSCULAR HGB CONC 34.7 % (32.0-36.0); MEAN PLATELET VOLUME 6.8 FL (7.0-11.0); PLATELET COUNT 193 TH/MM3 (150-450); RED BLOOD COUNT 3.32 MIL/MM3 (4.50-5.90); RED CELL DISTRIBUTION WIDTH 18.3 % (11.6-17.2); WHITE BLOOD COUNT 2.1 TH/MM3 (4.0-11.0)
[2017-04-03 06:21] LABS: ALBUMIN 2.6 GM/DL (3.4-5.0); AST (GOT) 23 U/L (15-37); BICARBONATE 24.9 MEQ/L (21.0-32.0); BLOOD UREA NITROGEN 5 MG/DL (7-18); CALCIUM 8.6 MG/DL (8.5-10.1); CHLORIDE 98 MEQ/L (98-107); CREATININE 0.51 MG/DL (0.60-1.30); GLOMERULAR FILTRATION RATE 190 ML/MIN (>89); GLUCOSE,RANDOM 101 MG/DL (74-106); SODIUM (NA) 132 MEQ/L (136-145)
[2017-04-03 06:25] LABS: ALKALINE PHOSPHATASE 97 U/L (45-117); ALT (GPT) 23 U/L (12-78); TOTAL BILIRUBIN ADULT 1.3 MG/DL (0.2-1.0); TOTAL PROTEIN 6.6 GM/DL (6.4-8.2)
--- NOTE | 2017-04-03 08:29 | PD.ONC.PN ---
Subjective Subjective Remarks Patient is seen and examined, vital signs, labs, medications and microbiology reviewed. Subjectively; patient reports some pain in his back but overall feels better than he did when he came into the hospital. The patient had a temperature spike of 102.2F at 4 PM yesterday. He remains on broad-spectrum antibiotic therapy with vancomycin and cefepime and is on growth factor support with Neupogen. Objective Data Date Time Temp Pulse Resp B/P (MAP) Pulse Ox O2 Delivery O2 Flow Rate FiO2 04/03/17 08:05 107 04/03/17 04:15 101 04/03/17 04:00 100.2 95 16 123/66 (85) 93 04/03/17 00:15 94 04/03/17 00:00 98.3 84 15 115/65 (82) 94 04/02/17 20:00 110 04/02/17 20:00 101.6 93 17 131/69 (89) 92 04/02/17 16:00 102.2 113 19 130/67 (88) 93 04/02/17 12:00 100.5 95 22 108/59 (75) 94 04/03/17 04/03/17 04/03/17 07:00 15:00 23:00 Intake Total 1000 ml Balance 1000 ml Result Diagram: 04/03/17 0528 04/03/17 0528 Laboratory Results Laboratory Tests Test 04/02/17 18:45 04/03/17 05:28 Vancomycin Level Trough 8.9 MCG/ML White Blood Count 2.1 TH/MM3 Red Blood Count 3.32 MIL/MM3 Hemoglobin 9.8 GM/DL Hematocrit 28.3 % Mean Corpuscular Volume 85.3 FL Mean Corpuscular Hemoglobin 29.6 PG Mean Corpuscular Hemoglobin Concent 34.7 % Red Cell Distribution Width 18.3 % Platelet Count 193 TH/MM3 Mean Platelet Volume 6.8 FL Blood Urea Nitrogen 5 MG/DL Creatinine 0.51 MG/DL Random Glucose 101 MG/DL Total Protein 6.6 GM/DL Albumin 2.6 GM/DL Calcium Level 8.6 MG/DL Alkaline Phosphatase 97 U/L Aspartate Amino Transf (AST/SGOT) 23 U/L Alanine Aminotransferase (ALT/SGPT) 23 U/L Total Bilirubin 1.3 MG/DL Sodium Level 132 MEQ/L Potassium Level 3.6 MEQ/L Chloride Level 98 MEQ/L Carbon Dioxide Level 24.9 MEQ/L Anion Gap 9 MEQ/L Estimat Glomerular Filtration Rate 190 ML/MIN Culture Results Microbiology Date/Time Source Procedure Growth Status 04/02/17 18:15 Blood Peripheral Aerobic Blood Culture Pending Received 04/02/17 18:15 Blood Peripheral Anaerobic Blood Culture Pending Received 04/02/17 18:00 Blood Peripheral Aerobic Blood Culture Pending Received 04/02/17 18:00 Blood Peripheral Anaerobic Blood Culture Pending Received 04/01/17 19:30 Blood Peripheral Aerobic Blood Culture - Preliminary NO GROWTH IN 1 DAY Resulted 04/01/17 19:30 Blood Peripheral Anaerobic Blood Culture - Preliminary NO GROWTH IN 1 DAY Resulted 04/01/17 19:25 Blood Peripheral Aerobic Blood Culture - Preliminary NO GROWTH IN 1 DAY Resulted 04/01/17 19:25 Blood Peripheral Anaerobic Blood Culture - Preliminary NO GROWTH IN 1 DAY Resulted 04/01/17 19:30 Sputum Expectorated Sputum Gram Stain - Final Resulted 04/01/17 19:30 Sputum Expectorated Sputum Sputum Culture - Preliminary HEAVY GROWTH NORMAL RESPIRATORY MARK... Resulted 04/01/17 17:18 Nasal Washing Influenza Types A,B Antigen (JUANITO) - Final NEGATIVE FOR FLU A AND B ANTIGEN.... Complete Administered Medications Medications (Trade) Dose Ordered Sig/Harleen Route PRN Reason Start Time Stop Time Status Last Admin Dose Admin Sodium Chloride 1,000 ml @ 75 mls/hr [id number] IV 04/01/17 16:44 04/02/17 20:40 Acetaminophen (Tylenol) 650 mg Q4H PRN PO TEMP > 100.4 04/01/17 16:45 04/02/17 21:29 Enoxaparin Sodium (Lovenox Inj) 30 mg Q24H SQ 04/01/17 17:00 04/02/17 16:08 Senna/Docusate Sodium (Dorothy-Colace) 1 tab BID PO 04/01/17 21:00 04/02/17 20:39 Acetaminophen (Tylenol) 650 mg Q6H PRN PO PAIN SCALE 1 TO 2 04/01/17 18:30 04/02/17 11:26 Oxycodone/ Acetaminophen (Percocet 10-325 Mg) 1 tab Q6H PRN PO PAIN SCALE 6 TO 10 04/01/17 18:30 2/18/18 21:31 Allopurinol (Zyloprim) 300 mg DAILY PO 04/02/17 09:00 04/02/17 08:15 Cefepime HCl 1000 mg/Sodium Chloride 100 ml @ 200 mls/hr Q8H IV 04/01/17 19:00 04/03/17 03:06 Morphine Sulfate (Morphine Inj) 2 mg Q3H PRN IV PUSH breakthrough 04/01/17 23:00 04/03/17 05:40 Prochlorperazine Edisylate (Compazine Inj) 5 mg Q6H PRN IV PUSH nausea 04/02/17 15:45 04/03/17 05:38 Vancomycin HCl 2000 mg/Sodium Chloride 520 ml @ 257.5 mls/ hr Q8H IV 04/03/17 04:00 04/03/17 03:06 Objective Remarks GENERAL: Young man, laying in bed, he appears to be no acute distress he's speaking to me in full sentences. SKIN: Warm and dry. HEAD: Normocephalic. EYES: No scleral icterus. No injection or drainage. NECK: Supple, trachea midline. No JVD or lymphadenopathy. LYMPHATIC: No adenopathy. CARDIOVASCULAR: Regular rate and rhythm without murmurs. RESPIRATORY: Breath sounds equal bilaterally. No accessory muscle use. GASTROINTESTINAL: Abdomen soft, non-tender, nondistended. EXTREMITIES: No cyanosis, or edema. MUSCULOSKELETAL: Adequate muscle tone. NEUROLOGICAL: No obvious focal deficit. Awake, alert, and oriented x3. PSYCHIATRIC: Appropriate mood and affect; insight and judgment normal. Assessment/Plan Assessment Mr. 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 The primary tumor involved the left testes and has been removed surgically. The patient has intermediate/high risk disease with elevated serum tumor markers. He is status post 3 cycles of systemic chemotherapy with VIP. The first cycle was delivered at [place] under my care, following that the patient chose to Establish Follow-Up with [facility] and he received the subsequent 2 cycles of VIP under their care. He comes into our hospital with febrile neutropenia. As far as his disease status is concerned he reports his tumors have been shrinking and he has been referred to the [facility] [place] [facility] for possible autologous stem cell transplant evaluation. Plan 1. Testicular teratoma: Currently with chemotherapy associated myelosuppression with resultant febrile neutropenia. Continue G-CSF support and broad-spectrum antibiotics. Encourage by mouth intake. Once he is afebrile and blood cultures are finalized I will would recommend transitioning him from IV to by mouth antibiotics and discharging him home. Continue daily CBC with differential while on Neupogen. Lul Carlson MD Apr 03, 2017 08:29
[2017-04-03] MEDS: DOCUSATE SODIUM 50 MG/SENNA 8.6 MG TAB PO SCH ×2 (08:32→19:43)
[2017-04-03] MEDS: SODIUM CHLORIDE 0.9% FLUSH 10 ML FLUSH IV FLUSH SCH ×2 (08:32→19:46)
[2017-04-03] MEDS: ALLOPURINOL 300 MG TAB PO SCH (08:32)
[2017-04-03] MEDS: oxyCODONE/ACETAMINOPHEN 10 MG/325 MG TAB PO PRN ×2 (08:32→22:07)
[2017-04-03] MEDS: SODIUM CHLOR 0.9% 1000 ML INJ 1,000 ML IV SCH (08:33)
[2017-04-03] MEDS: FILGRASTIM 480 MCG/1.6 ML VIAL SQ SCH (14:10)
[2017-04-03] MEDS ORDERED: LORazepam 2 MG/ML VIAL IV PUSH SCH (15:30)
--- NOTE | 2017-04-03 15:30 | HHI.PR ---
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 Per patient, right after chemotherapy, he started having nausea, dry heaves and generalized body aches including chest pain and lower back pain. Yesterday he started having fever, T-max 106, chills, mild cough productive with dark colored sputum associated with mild shortness of breath and dysuria without any frequency or urgency. Patient has had poor oral intake. Admission was recommended however patient decided to go home on antibiotics however today , patient had recurrence of severe symptoms hence he decided to come back to the hospital. There is no vomiting, abdominal pain, or diarrhea. He had mild epistaxis yesterday and this morning. Chest pain is mostly with deep inspiration. Patient denies any sick contacts. 04-02 Patient seen and examined this morning. Temperature 101.5, pulse 109, respiratory rate 22, blood pressure 137/69, pulse ox 94 on room air. Patient is awaiting evaluation by [employer]. Currently concern for neutropenic fever. He denies any vomiting, but does feel nauseated. Continues to complain of some back pain and chest pain likely due to the metastatic cancer. 04-03 NEEDS TO HAVE MRI OF BRAIN- HAS NOT HAD IT YET DW RN AND PT WILL HAVE [facility]IV[facility] AVAILABLE Objective Vitals Vital Signs Date Time Temp Pulse Resp B/P (MAP) Pulse Ox O2 Delivery O2 Flow Rate FiO2 04/03/17 15:08 90 04/03/17 14:44 89 04/03/17 12:00 97.9 86 18 118/70 (86) 95 04/03/17 09:52 101 04/03/17 08:05 107 04/03/17 08:00 100.6 108 18 113/58 (76) 92 04/03/17 04:15 101 04/03/17 04:00 100.2 95 16 123/66 (85) 93 04/03/17 00:15 94 04/03/17 00:00 98.3 84 15 115/65 (82) 94 04/02/17 20:00 110 04/02/17 20:00 101.6 93 17 131/69 (89) 92 04/02/17 16:00 102.2 113 19 130/67 (88) 93 I/O 04/02/17 04/02/17 04/02/17 04/03/17 04/03/17 04/03/17 07:00 15:00 23:00 07:00 15:00 23:00 Intake Total 815 ml 600 ml 1000 ml 355 ml Output Total 250 ml Balance 815 ml -250 ml 600 ml 1000 ml 355 ml Intake Oral 200 ml 900 ml IV Total 615 ml 600 ml 100 ml 355 ml Output Urine Total 250 ml # Voids 1 10 3 Result Diagram: 04/03/17 0528 04/03/17 0528 Other Results Laboratory Tests Test 04/01/17 14:40 04/01/17 16:43 04/02/17 06:20 04/02/17 18:45 White Blood Count 3.7 TH/MM3 2.3 TH/MM3 Red Blood Count 3.87 MIL/MM3 3.40 MIL/MM3 Hemoglobin 11.4 GM/DL 10.3 GM/DL Hematocrit 32.6 % 29.5 % Mean Corpuscular Volume 84.5 FL 86.8 FL Mean Corpuscular Hemoglobin 29.6 PG 30.4 PG Mean Corpuscular Hemoglobin Concent 35.0 % 35.0 % Red Cell Distribution Width 18.8 % 18.6 % Platelet Count 168 TH/MM3 149 TH/MM3 Mean Platelet Volume 7.1 FL 7.1 FL Neutrophils (%) (Auto) 71.9 % 59.3 % Lymphocytes (%) (Auto) 13.8 % 22.8 % Monocytes (%) (Auto) 12.9 % 15.2 % Eosinophils (%) (Auto) 0.6 % 2.1 % Basophils (%) (Auto) 0.8 % 0.6 % Neutrophils # (Auto) 2.6 TH/MM3 1.4 TH/MM3 Lymphocytes # (Auto) 0.5 TH/MM3 0.5 TH/MM3 Monocytes # (Auto) 0.5 TH/MM3 0.4 TH/MM3 Eosinophils # (Auto) 0.0 TH/MM3 0.0 TH/MM3 Basophils # (Auto) 0.0 TH/MM3 0.0 TH/MM3 CBC Comment DIFF FINAL DIFF FINAL Differential Comment Blood Urea Nitrogen 10 MG/DL 7 MG/DL Creatinine 0.68 MG/DL 0.69 MG/DL Random Glucose 115 MG/DL 94 MG/DL Total Protein 7.2 GM/DL 6.5 GM/DL Albumin 3.3 GM/DL 2.8 GM/DL Calcium Level 8.5 MG/DL 8.2 MG/DL Magnesium Level 2.0 MG/DL Alkaline Phosphatase 118 U/L 97 U/L Aspartate Amino Transf (AST/SGOT) 50 U/L 29 U/L Alanine Aminotransferase (ALT/SGPT) 35 U/L 26 U/L Total Bilirubin 2.9 MG/DL 1.5 MG/DL Sodium Level 129 MEQ/L 133 MEQ/L Potassium Level 3.8 MEQ/L 3.9 MEQ/L Chloride Level 98 MEQ/L 99 MEQ/L Carbon Dioxide Level 22.9 MEQ/L 26.4 MEQ/L Anion Gap 8 MEQ/L 8 MEQ/L Estimat Glomerular Filtration Rate 136 ML/MIN 134 ML/MIN Lactic Acid Level 1.1 mmol/L Troponin I LESS THAN 0.02 NG/ML Urine Color YELLOW Urine Turbidity CLEAR Urine pH 5.5 Urine Specific [place] 1.018 Urine Protein 30 mg/dL Urine Glucose (UA) NEG mg/dL Urine Ketones NEG mg/dL Urine Occult Blood SMALL Urine Nitrite NEG Urine Bilirubin NEG Urine Urobilinogen 2.0 MG/DL Urine Leukocyte Esterase NEG Urine RBC LESS THAN 1 /hpf Urine WBC 1 /hpf Urine Mucus FEW /lpf Microscopic Urinalysis Comment CULT NOT INDICATED Direct Bilirubin 0.5 MG/DL Indirect Bilirubin 1.0 MG/DL Vancomycin Level Trough 8.9 MCG/ML Test 04/03/17 05:28 White Blood Count 2.1 TH/MM3 Red Blood Count 3.32 MIL/MM3 Hemoglobin 9.8 GM/DL Hematocrit 28.3 % Mean Corpuscular Volume 85.3 FL Mean Corpuscular Hemoglobin 29.6 PG Mean Corpuscular Hemoglobin Concent 34.7 % Red Cell Distribution Width 18.3 % Platelet Count 193 TH/MM3 Mean Platelet Volume 6.8 FL Blood Urea Nitrogen 5 MG/DL Creatinine 0.51 MG/DL Random Glucose 101 MG/DL Total Protein 6.6 GM/DL Albumin 2.6 GM/DL Calcium Level 8.6 MG/DL Alkaline Phosphatase 97 U/L Aspartate Amino Transf (AST/SGOT) 23 U/L Alanine Aminotransferase (ALT/SGPT) 23 U/L Total Bilirubin 1.3 MG/DL Sodium Level 132 MEQ/L Potassium Level 3.6 MEQ/L Chloride Level 98 MEQ/L Carbon Dioxide Level 24.9 MEQ/L Anion Gap 9 MEQ/L Estimat Glomerular Filtration Rate 190 ML/MIN Imaging Last Impressions Abdomen MRI 04/02/17 0000 Signed Impressions: Service Date/Time: Sunday, April 02, 2017 16:47 - CONCLUSION: 1. Partially cystic and solid enhancing mass in a left para-aortic location measuring up to 9.4 cm. Based on location and appearance it is highly suggestive of metastatic disease. This lesion would be amenable to image guided percutaneous biopsy if histologic diagnosis is needed. 2. Innumerable nodules and masses at both lung bases that also likely represent metastatic disease. 3. Hepatic steatosis. No liver lesion is present. Luis Almonte MD Objective Remarks GENERAL: AWAKE ALERT AND ORIENTED X3- SKIN: Warm and dry. HEAD: Atraumatic. Normocephalic. EYES: Pupils equal and round. No scleral icterus. No injection or drainage. EOMI ENT: No nasal bleeding or discharge. Mucous membranes pink and moist.TONGUE MIDLINE NECK: Trachea midline. No JVD. SUPPLE CARDIOVASCULAR: Regular rate and rhythm. S1, S2 NO S3 OR S4 NO HEAVE OR THRILL RESPIRATORY: No accessory muscle use. Clear to auscultation. Breath sounds equal bilaterally. GASTROINTESTINAL: Abdomen soft, non-tender, nondistended. Hepatic and splenic margins not palpable. MUSCULOSKELETAL: Extremities without clubbing, cyanosis, or edema. No obvious deformities. NEUROLOGICAL: Awake and alert. No obvious cranial nerve deficits. Motor grossly within normal limits. 4 out of 5 muscle strength in the arms and legs. Normal speech. PSYCHIATRIC: Appropriate mood and affect; insight and judgment normal. Medications and IVs Current Medications Acetaminophen (Tylenol) 650 mg ONCE ONCE PO Last administered on 04/01/17at 14: 55; Start 04/01/17 at 14:15; Stop 04/01/17 at 14:16; Status DC Ondansetron HCl (Zofran Inj) 4 mg ONCE ONCE IV PUSH Last administered on 14:55; Start 04/01/17 at 14:15; Stop 04/01/17 at 14:16; Status DC Sodium Chloride 1,000 ml @ 1,000 mls/hr Q1H ONCE IV Last administered on at 14:54; Start 04/01/17 at 14:14; Stop 04/01/17 at 15:13; Status DC Sodium Chloride 1,000 ml @ 1,000 mls/hr Q1H ONCE IV Last administered on at 14:54; Start 04/01/17 at 14:14; Stop 04/01/17 at 15:13; Status DC Sodium Chloride 700 ml @ 1,000 mls/hr Q42M ONCE IV Last administered on at 15:25; Start 04/01/17 at 14:14; Stop 04/01/17 at 14:55; Status DC Ketorolac Tromethamine (Toradol Inj) 30 mg ONCE ONCE IV PUSH Last administered on 04/01/17at 14:55; Start 04/01/17 at 14:15; Stop 04/01/17 at 14:16 ; Status DC Morphine Sulfate (Morphine Inj) 4 mg ONCE ONCE IV PUSH Last administered on at 17:02; Start 04/01/17 at 16:45; Stop 04/01/17 at 16:46; Status DC Ciprofloxacin/ Dextrose 200 ml @ 200 mls/hr ONCE ONCE IV Last administered on 04/01/17at 17:02; Start 04/01/17 at 16:45; Stop 04/01/17 at 17:44; Status DC Sodium Chloride 1,000 ml @ 75 mls/hr [id number] IV Last administered on at 20:40; Start 04/01/17 at 16:44 Sodium Chloride (NS Flush) 2 ml UNSCH PRN IV FLUSH FLUSH AFTER USING IV ACCESS Last administered on 04/03/17at 11:52; Start 04/01/17 at 16:45 Sodium Chloride (NS Flush) 2 ml BID IV FLUSH ; Start 04/01/17 at 21:00 Acetaminophen (Tylenol) 650 mg Q4H PRN PO TEMP > 100.4 Last administered on at 21:29; Start 04/01/17 at 16:45 Ondansetron HCl (Zofran Inj) 4 mg Q6H PRN IVP NAUSEA OR VOMITING Last administered on 04/02/17at 08:15; Start 04/01/17 at 16:45; Stop 04/02/17 at 15:39 ; Status DC Enoxaparin Sodium (Lovenox Inj) 30 mg Q24H SQ Last administered on 04/02/17at 16 :08; Start 04/01/17 at 17:00 Naloxone HCl (Narcan Inj) 0.4 mg UNSCH PRN IV PUSH SEE LABEL COMMENTS; Start at 16:45; Stop 04/02/17 at 09:46; Status DC Senna/Docusate Sodium (Dorothy-Colace) 1 tab BID PO Last administered on at 20:39; Start 04/01/17 at 21:00 Magnesium Hydroxide (Milk Of Magnesia Liq) 30 ml Q12H PRN PO Mild constipation ; Start 04/01/17 at 16:45 Sennosides (Senokot) 17.2 mg Q12H PRN PO Moderate constipation; Start 04/01/17 at 16:45 Bisacodyl (Dulcolax Supp) 10 mg DAILY PRN RECTAL SEVERE CONSITIPATION; Start at 16:45 Lactulose (Lactulose Liq) 30 ml DAILY PRN PO SEVERE CONSITIPATION; Start at 16:45 Aztreonam 1000 mg/ Sodium Chloride 100 ml @ 200 mls/hr Q8H IV ; Start 04/01/17 at 16:45; Stop 04/01/17 at 18:24; Status DC Vancomycin HCl 1000 mg/Sodium Chloride 250 ml @ 250 mls/hr ONCE ONCE IV ; Start 04/01/17 at 17:00; Stop 04/01/17 at 19:10; Status DC Pharmacy Profile Note 0 ml @ 0 mls/hr UNSCH OTHER ; Start 04/01/17 at 17:00 Acetaminophen (Tylenol) 650 mg Q6H PRN PO PAIN SCALE 1 TO 2 Last administered on 04/02/17at 11:26; Start 04/01/17 at 18:30 Oxycodone/ Acetaminophen (Percocet 5-325 Mg) 1 tab Q6H PRN PO PAIN SCALE 3 TO 5; Start 04/01/17 at 18:30 Oxycodone/ Acetaminophen (Percocet 10-325 Mg) 1 tab Q6H PRN PO PAIN SCALE 6 TO 10 Last administered on 04/03/17at 08:32; Start 04/01/17 at 18:30 Naloxone HCl (Narcan Inj) 0.4 mg UNSCH PRN IV PUSH SEE LABEL COMMENTS; Start at 18:30 Ondansetron HCl (Zofran Inj) 4 mg Q6HR PRN IV PUSH n/v; Start 04/01/17 at 18:30 ; Stop 04/01/17 at 18:56; Status DC Albuterol/ Ipratropium (Duoneb Neb) 1 ampule Q4HR NEB PRN NEB sob/wheezing; Start 04/01/17 at 18:30 Allopurinol (Zyloprim) 300 mg DAILY PO Last administered on 04/03/17at 08:32; Start 04/02/17 at 09:00 Cefepime HCl 1000 mg/Sodium Chloride 100 ml @ 200 mls/hr Q8H IV Last administered on 04/03/17at 11:52; Start 04/01/17 at 19:00 Vancomycin HCl 2000 mg/Sodium Chloride 520 ml @ 250 mls/hr NOW ONCE IV Last administered on 04/01/17at 20:44; Start 04/01/17 at 19:00; Stop 04/01/17 at 21:04 ; Status DC Vancomycin HCl 1500 mg/Sodium Chloride 515 ml @ 257.5 mls/ hr Q8H IV Last administered on 04/02/17at 19:31; Start 04/02/17 at 03:00; Stop 04/02/17 at 22:27 ; Status DC Miscellaneous Information SPECIFIC LAB TO BE SHIVANI... ONCE ONCE .XX ; Start 04/01 at 19:15; Stop 04/01/17 at 19:16; Status DC Morphine Sulfate (Morphine Inj) 2 mg Q3H PRN IV PUSH breakthrough Last administered on 04/03/17at 05:40; Start 04/01/17 at 23:00 Prochlorperazine Edisylate (Compazine Inj) 5 mg Q6H PRN IV PUSH nausea Last administered on 04/03/17at 14:11; Start 04/02/17 at 15:45 Acetaminophen (Tylenol) 650 mg ONCE ONCE PO Last administered on 04/02/17at 16: 07; Start 04/02/17 at 15:45; Stop 04/02/17 at 15:46; Status DC Filgrastim (Neupogen Inj) 480 mcg DAILY@14 SQ Last administered on 04/03/17at 14 :10; Start 04/03/17 at 14:00; Stop 04/06/17 at 13:59 Miscellaneous Information SPECIFIC LAB TO BE SHIVANI... ONCE ONCE .XX Last administered on 04/02/17at 18:45; Start 04/02/17 at 18:45; Stop 04/02/17 at 18:46 ; Status DC Gadodiamide (Omniscan Pf Inj) 20 ml STK-MED ONCE IVCONTRAST Last administered on 04/02/17at 17:22; Start 04/02/17 at 17:22; Stop 04/02/17 at 17:23; Status DC Vancomycin HCl 2000 mg/Sodium Chloride 520 ml @ 257.5 mls/ hr Q8H IV Last administered on 04/03/17at 14:09; Start 04/03/17 at 04:00 Miscellaneous Information SPECIFIC LAB TO BE SHIVANI... ONCE ONCE .XX ; Start 04/04 at 03:45; Stop 04/04/17 at 03:46 A/P Problem List: (1) Neutropenic ICD Code: D70.9 - Neutropenia, unspecified (2) Metastatic cancer to lung ICD Code: C78.00 - Secondary malignant neoplasm of unspecified lung Status: Acute (3) Back pain ICD Code: M54.9 - Dorsalgia, unspecified Status: Acute (4) SIRS (systemic inflammatory response syndrome) ICD Code: R65.10 - Systemic inflammatory response syndrome (SIRS) of non- infectious origin without acute organ dysfunction Status: Acute (5) Fever ICD Code: R50.9 - Fever, unspecified Status: Acute (6) Testicular teratoma ICD Code: C62.90 - Malignant neoplasm of unspecified testis, unspecified whether descended or undescended Status: Acute (7) Atypical chest pain ICD Code: R07.89 - Other chest pain Status: Acute Assessment and Plan This is a 31-year-old male with history of testicular cancer and chemotherapy presenting with fever, chest pain, dysuria, and cough Chest pain-likely secondary to metastatic disease, CTA revealed no PE, widespread and worsening metastatic pleural and parenchymal disease. Continue pain control. Troponin EKG negative, likely pleuritic pain Upper back pain-likely secondary to metastatic disease as well -Continue morphine and Percocet Neutropenic fever versus pneumonia-possible pneumonia versus evolving neutropenic fever, recheck CBC tomorrow. Consult hematology, recommendations appreciate. Continue cefepime and vancomycin. Follow-up blood culture, check sputum culture. Rapid flu negative. Mild hyperbilirubinemia and AST elevation-trending LFTs, currently within normal limits Hyponatremia-likely secondary to dehydration, improved now 133, patient has increased his fluid intake will decrease IV fluids at this time Gout - resume home meds DVT prophylaxis: Al NEEDS MRI OF BRAIN FOR COMPLETENESS Discharge Planning PENDING IMPROVEMENT Problem Qualifiers (1) Fever: Qualified Codes: R50.9 - Fever, unspecified Pete Pham DO Apr 03, 2017 15:30
[2017-04-03] MEDS: ENOXAPARIN SODIUM 30 MG/0.3 ML SYRINGE SQ SCH (16:33)
[2017-04-04] VITALS (7 sets, daily range): BP systolic 121–139; BP diastolic 61–69; PULSE 90–119; RESP 18–19; TEMP 97–99.6; O2SAT 94–97
[2017-04-04] MEDS: CEFEPIME INJ 1,000 MG in SODIUM CHLORIDE 0.9% INJ 100 ML IV SCH ×3 (03:38→21:51)
[2017-04-04] MEDS: ACETAMINOPHEN 325 MG TAB PO PRN (03:59)
[2017-04-04] MEDS: SODIUM CHLOR 0.9% 1000 ML INJ 1,000 ML IV SCH ×2 (04:00→18:28)
[2017-04-04] MEDS: VANCOMYCIN INJ 2,000 MG in SODIUM CHLORID 0.9% 500 ML INJ 500 ML IV SCH (04:29)
[2017-04-04] MEDS: PROCHLORPERAZINE INJ 10 MG/2 ML VIAL IV PUSH PRN ×3 (05:37→21:53)
[2017-04-04] MEDS: MORPHINE SULFATE 2 MG/ML INJ IV PUSH PRN ×2 (05:37→13:43)
[2017-04-04 07:13] LABS: HEMATOCRIT 28.6 % (39.0-51.0); MEAN CELL VOLUME 85.7 FL (80.0-100.0); MEAN CORPUSCULAR HEMOGLOBIN 29.8 PG (27.0-34.0); MEAN CORPUSCULAR HGB CONC 34.8 % (32.0-36.0); MEAN PLATELET VOLUME 6.8 FL (7.0-11.0); PLATELET COUNT 237 TH/MM3 (150-450); RED BLOOD COUNT 3.34 MIL/MM3 (4.50-5.90); RED CELL DISTRIBUTION WIDTH 18.4 % (11.6-17.2); WHITE BLOOD COUNT 3.5 TH/MM3 (4.0-11.0)
[2017-04-04 07:34] LABS: ALBUMIN 2.6 GM/DL (3.4-5.0); AST (GOT) 17 U/L (15-37); BICARBONATE 27.1 MEQ/L (21.0-32.0); CALCIUM 8.6 MG/DL (8.5-10.1); CHLORIDE 97 MEQ/L (98-107); GLUCOSE,RANDOM 90 MG/DL (74-106); MAGNESIUM 2.1 MG/DL (1.5-2.5); SODIUM (NA) 133 MEQ/L (136-145)
[2017-04-04 07:43] LABS: ALKALINE PHOSPHATASE 117 U/L (45-117); ALT (GPT) 24 U/L (12-78); BLOOD UREA NITROGEN 5 MG/DL (7-18); CREATININE 0.66 MG/DL (0.60-1.30); FREE T4 1.49 NG/DL (0.76-1.46); GLOMERULAR FILTRATION RATE 141 ML/MIN (>89); PHOSPHORUS 2.4 MG/DL (2.5-4.9); TOTAL BILIRUBIN ADULT 1.2 MG/DL (0.2-1.0); TOTAL PROTEIN 6.7 GM/DL (6.4-8.2)
[2017-04-04] MEDS: DOCUSATE SODIUM 50 MG/SENNA 8.6 MG TAB PO SCH ×2 (09:00→21:00)
[2017-04-04] MEDS: SODIUM CHLORIDE 0.9% FLUSH 10 ML FLUSH IV FLUSH SCH ×2 (09:00→21:00)
[2017-04-04] MEDS: ALLOPURINOL 300 MG TAB PO SCH (09:02)
[2017-04-04 09:14] LABS: BANDS 19 % (0-6); BLASTS 1 % (0-0); DOHLE BODIES PRESENT (NONE SEEN); LYMPHOCYTES 24 % (9-44); METAMYELOCYTES 2 % (0-1); MONOCYTES 11 % (0-8); NEUTROPHIL # MANUAL DIFF 2.1 TH/MM3 (1.8-7.7); POLYS (SEG NEUTROPHILS) 39 % (16-70); TOXIC GRANULATION 1+ (NORMAL)
[2017-04-04] MEDS ORDERED: POTASSIUM CHLORIDE 10 MEQ CONTROLLED RELEASE TAB PO ONE (11:00)
--- NOTE | 2017-04-04 11:39 | HHI.PR ---
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 Per patient, right after chemotherapy, he started having nausea, dry heaves and generalized body aches including chest pain and lower back pain. Yesterday he started having fever, T-max 106, chills, mild cough productive with dark colored sputum associated with mild shortness of breath and dysuria without any frequency or urgency. Patient has had poor oral intake. Admission was recommended however patient decided to go home on antibiotics however today , patient had recurrence of severe symptoms hence he decided to come back to the hospital. There is no vomiting, abdominal pain, or diarrhea. He had mild epistaxis yesterday and this morning. Chest pain is mostly with deep inspiration. Patient denies any sick contacts. 04-02 Patient seen and examined this morning. Temperature 101.5, pulse 109, respiratory rate 22, blood pressure 137/69, pulse ox 94 on room air. Patient is awaiting evaluation by manager social responsibility. Currently concern for neutropenic fever. He denies any vomiting, but does feel nauseated. Continues to complain of some back pain and chest pain likely due to the metastatic cancer. 04-03 NEEDS TO HAVE MRI OF BRAIN- HAS NOT HAD IT YET DW RN AND PT WILL HAVE ATIVAN AVAILABLE = 04/04. Patient says he is feeling all right. Denies any chest pain or shortness breath. Does not want to do MRI. Continued fevers overnight. Denies any dysuria. Objective Vital Signs Date Time Temp Pulse Resp B/P (MAP) Pulse Ox O2 Delivery O2 Flow Rate FiO2 04/04/17 08:02 98.9 90 19 129/61 (83) 94 04/04/17 05:50 98.6 101 18 139/69 (92) 96 04/03/17 23:15 100.6 107 18 133/67 (89) 97 04/03/17 22:01 102.1 98 19 130/62 (84) 95 04/03/17 18:03 102 04/03/17 16:22 98 04/03/17 16:00 99.0 90 18 116/61 (79) 94 04/03/17 15:08 90 04/03/17 14:44 89 04/03/17 12:00 97.9 86 18 118/70 (86 95 I/O 04/03/17 04/03/17 04/03/17 04/04/17 04/04/17 04/04/17 07:00 15:00 23:00 07:00 15:00 23:00 Intake Total 1000 ml 1075 ml 820 ml 1620 ml Balance 1000 ml 1075 ml 820 ml 1620 ml Intake Oral 900 ml 720 ml 720 ml 480 ml IV Total 100 ml 355 ml 100 ml 1140 ml # Voids 3 5 4 2 # Bowel Movements 1 0 0 Result Diagram: 04/04/17 0556 04/04/17 0526 Objective Remarks GENERAL: Patient sitting up in bed. Appears comfortable. Alert and oriented 3. SKIN: Warm and dry. HEAD: Normocephalic. EYES: No scleral icterus. No injection or drainage. NECK: Supple, trachea midline. No JVD. CARDIOVASCULAR: Regular rate and rhythm without murmurs, gallops, or rubs. RESPIRATORY: Breath sounds equal bilaterally. No accessory muscle use. GASTROINTESTINAL: Abdomen soft, non-tender, nondistended. MUSCULOSKELETAL: No cyanosis, or edema. BACK: Nontender without obvious deformity. No CVA tenderness. A/P Assessment and Plan 04/04/17 //Neutropenic fever. Continued fevers overnight. Neutrophils within normal limits. No obvious source of infection. Consult infectious disease. //Metastatic cancer. Patient refuses MRI brain. Management as per oncology. // Hypokalemia. 3.2 Replace This is a 31-year-old male with history of testicular cancer and chemotherapy presenting with fever, chest pain, dysuria, and cough //Chest pain-likely secondary to metastatic disease, CTA revealed no PE, widespread and worsening metastatic pleural and parenchymal disease. Continue pain control. Troponin EKG negative, likely pleuritic pain //Upper back pain-likely secondary to metastatic disease as well -Continue morphine and Percocet //Neutropenic fever versus pneumonia-possible pneumonia versus evolving neutropenic fever, recheck CBC tomorrow. Consult hematology, recommendations appreciate. Continue cefepime and vancomycin. Follow-up blood culture, check sputum culture. Rapid flu negative. //Mild hyperbilirubinemia and AST elevation-trending LFTs, currently within normal limits //Hyponatremia-likely secondary to dehydration, improved now 133, patient has increased his fluid intake will decrease IV fluids at this time //Gout - resume home meds //DVT prophylaxis: Al NEEDS MRI OF BRAIN FOR COMPLETENESS Discharge Planning Continued fevers. Oncology following infectious disease consulted. Likely can go home when fevers stop, and cleared by oncology and ID. Jase Tamayo MD Apr 04, 2017 11:39
--- NOTE | 2017-04-04 12:06 | PD.ONC.PN ---
Subjective Subjective Remarks Tmax 102.1 overnight. Patient complains of persistent cough. He states he still feels fatigued. He requests something to help suppress his cough. He just took a shower and noticed his left naris had a little bit of bleeding during the shower, but quickly stopped spontaneously. Objective Data Date Time Temp Pulse Resp B/P (MAP) Pulse Ox O2 Delivery O2 Flow Rate FiO2 04/04/17 08:02 98.9 90 19 129/61 (83) 94 04/04/17 05:50 98.6 101 18 139/69 (92) 96 04/03/17 23:15 100.6 107 18 133/67 (89) 97 04/03/17 22:01 102.1 98 19 130/62 (84) 95 04/03/17 18:03 102 04/03/17 16:22 98 04/03/17 16:00 99.0 90 18 116/61 (79) 94 04/03/17 15:08 90 04/03/17 14:44 89 04/03/17 12:00 97.9 86 18 118/70 (86) 95 04/04/17 04/04/17 04/04/17 07:00 15:00 23:00 Intake Total 1620 ml Balance 1620 ml Result Diagram: 04/04/17 0556 04/04/17 0526 Laboratory Results Laboratory Tests Test 04/04/17 05:26 04/04/17 05:56 Blood Urea Nitrogen 5 MG/DL Creatinine 0.66 MG/DL Random Glucose 90 MG/DL Total Protein 6.7 GM/DL Albumin 2.6 GM/DL Calcium Level 8.6 MG/DL Phosphorus Level 2.4 MG/DL Magnesium Level 2.1 MG/DL Alkaline Phosphatase 117 U/L Aspartate Amino Transf (AST/SGOT) 17 U/L Alanine Aminotransferase (ALT/SGPT) 24 U/L Total Bilirubin 1.2 MG/DL Sodium Level 133 MEQ/L Potassium Level 3.2 MEQ/L Chloride Level 97 MEQ/L Carbon Dioxide Level 27.1 MEQ/L Anion Gap 9 MEQ/L Estimat Glomerular Filtration Rate 141 ML/MIN Free Thyroxine 1.49 NG/DL Thyroid Stimulating Hormone 3rd Gen 2.520 uIU/ML White Blood Count 3.5 TH/MM3 Red Blood Count 3.34 MIL/MM3 Hemoglobin 10.0 GM/DL Hematocrit 28.6 % Mean Corpuscular Volume 85.7 FL Mean Corpuscular Hemoglobin 29.8 PG Mean Corpuscular Hemoglobin Concent 34.8 % Red Cell Distribution Width 18.4 % Platelet Count 237 TH/MM3 Mean Platelet Volume 6.8 FL CBC Comment AUTO DIFF Differential Total Cells Counted 100 Neutrophils % (Manual) 39 % Band Neutrophils % 19 % Lymphocytes % 24 % Monocytes % 11 % Eosinophils % 4 % Neutrophils # (Manual) 2.1 TH/MM3 Metamyelocytes 2 % Differential Comment FINAL DIFF MANUAL Blastocytes 1 % Toxic Granulation 1+ Dohle Bodies PRESENT Platelet Estimate NORMAL Platelet Morphology Comment NORMAL Culture Results Microbiology Date/Time Source Procedure Growth Status 04/02/17 18:15 Blood Peripheral Aerobic Blood Culture - Preliminary NO GROWTH IN 2 DAYS Resulted 04/02/17 18:15 Blood Peripheral Anaerobic Blood Culture - Preliminary NO GROWTH IN 2 DAYS Resulted 04/02/17 18:00 Blood Peripheral Aerobic Blood Culture - Preliminary NO GROWTH IN 2 DAYS Resulted 04/02/17 18:00 Blood Peripheral Anaerobic Blood Culture - Preliminary NO GROWTH IN 2 DAYS Resulted 04/01/17 19:30 Blood Peripheral Aerobic Blood Culture - Preliminary NO GROWTH IN 3 DAYS Resulted 04/01/17 19:30 Blood Peripheral Anaerobic Blood Culture - Preliminary NO GROWTH IN 3 DAYS Resulted 18 19:25 Blood Peripheral Aerobic Blood Culture - Preliminary NO GROWTH IN 3 DAYS Resulted 04/01/17 19:25 Blood Peripheral Anaerobic Blood Culture - Preliminary NO GROWTH IN 3 DAYS Resulted 18 19:30 Sputum Expectorated Sputum Gram Stain - Final Complete 18 19:30 Sputum Culture - Final Beta Strep Not Group A Complete 04/01/17 17:18 Nasal Washing Influenza Types A,B Antigen (JUANITO) - Final NEGATIVE FOR FLU A AND B ANTIGEN.... Complete Administered Medications Medications (Trade) Dose Ordered Sig/Harleen Route PRN Reason Start Time Stop Time Status Last Admin Dose Admin Sodium Chloride 1,000 ml @ 75 mls/hr [id number] IV 04/01/17 16:44 04/04/17 04:00 Sodium Chloride (NS Flush) 2 ml UNSCH PRN IV FLUSH FLUSH AFTER USING IV ACCESS 04/01/17 16:45 04/03/17 11:52 Sodium Chloride (NS Flush) 2 ml BID IV FLUSH 04/01/17 21:00 04/03/17 19:46 Acetaminophen (Tylenol) 650 mg Q4H PRN PO TEMP > 100.4 04/01/17 16:45 04/04/17 03:59 Enoxaparin Sodium (Lovenox Inj) 30 mg Q24H SQ 04/01/17 17:00 04/03/17 16:33 Senna/Docusate Sodium (Dorothy-Colace) 1 tab BID PO 04/01/17 21:00 04/02/17 20:39 Acetaminophen (Tylenol) 650 mg Q6H PRN PO PAIN SCALE 1 TO 2 04/01/17 18:30 04/02/17 11:26 Oxycodone/ Acetaminophen (Percocet 10-325 Mg) 1 tab Q6H PRN PO PAIN SCALE 6 TO 10 04/01/17 18:30 04/03/17 22:07 Allopurinol (Zyloprim) 300 mg DAILY PO 04/02/17 09:00 04/04/17 09:02 Morphine Sulfate (Morphine Inj) 2 mg Q3H PRN IV PUSH breakthrough 04/01/17 23:00 04/04/17 05:37 Prochlorperazine Edisylate (Compazine Inj) 5 mg Q6H PRN IV PUSH nausea 04/02/17 15:45 04/04/17 05:37 Filgrastim (Neupogen Inj) 480 mcg DAILY@14 SQ 04/03/17 14:00 04/06/17 13:59 04/03/17 14:10 Cefepime HCl 1000 mg/Sodium Chloride 100 ml @ 200 mls/hr Q8H IV 04/03/17 20:00 04/04/17 03:38 Vancomycin HCl 2000 mg/Sodium Chloride 520 ml @ 257.5 mls/ hr Q8H IV 04/03/17 21:00 04/04/17 04:29 Objective Remarks GENERAL: Young man, sitting up in bed in nad. SKIN: Warm and dry. HEAD: Normocephalic. EYES: No injection or drainage. NECK: Supple, trachea midline. CARDIOVASCULAR: Regular rate and rhythm RESPIRATORY: Breath sounds equal bilaterally. No accessory muscle use. GASTROINTESTINAL: Abdomen soft, non-tender, nondistended. EXTREMITIES: No cyanosis, or edema. NEUROLOGICAL: awake and alert, normal speech. 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 His neutrophil count has now recovered, but he remains febrile. HPI: (brought forward for continuity of care) The primary tumor involved the left testes and has been removed surgically. The patient has intermediate/high risk disease with elevated serum tumor markers. He is status post 3 cycles of systemic chemotherapy with VIP. The first cycle was delivered at [place] under Dr. Carlson's care, following that the patient chose to Establish Follow-Up with [facility] and he received the subsequent 2 cycles of VIP under their care. He comes into our hospital with febrile neutropenia. As far as his disease status is concerned he reports his tumors have been shrinking and he has been referred to the [facility] stem cell transplant center for possible autologous stem cell transplant evaluation. Plan 1. Febrile syndrome: no longer neutropenic. continuing to spike fevers. continue antibiotics. agree with infectious disease consult. 2. cough: patient already receiving Percocet so I am hesitant to add cough syrup with opiates. I will start Tessalon Perles. 3. monitor CBC, no transfusion needed. Elisabeth Bradford Apr 04, 2017 12:06
[2017-04-04] MEDS: oxyCODONE/ACETAMINOPHEN 10 MG/325 MG TAB PO PRN ×2 (12:19→21:51)
[2017-04-04] MEDS ORDERED: PHARMACY ORDERED LAB-VANCO TROUGH ONE (12:45)
[2017-04-04] MEDS: FILGRASTIM 480 MCG/1.6 ML VIAL SQ SCH (12:55)
--- NOTE | 2017-04-04 12:59 | PD.ID.CON ---
History of Present Illness Service ID Consult Requested By Reason for Consult Evaluation and Mment of persistent fevers in a neutropenic immune compromised patient. Primary Care Physician Unknown Diagnoses: History of Present Illness Mr. Malik is a 31-year-old man diagnosed with testicular teratoma few months back. He presented initially few months back with a large mass of the left testis. He underwent orchiectomy and staging evaluation showed retroperitoneal disease and extensive pulmonary metastatic disease. He was under the care of Dr. Lul Carlson and then subsequently by Dr. Olivier. He has been referred to [facility]. He reportedly has to undergo workup for bone marrow transplant at [facility]. He received a few cycles of VIP treatment using port so far. Post chemo he reports neutropenia and fevers which he uses Tylenol for. He presented to the emergency room on 03/31/2015 with fevers, right-sided chest pain. He had received VIP chemotherapy a week prior. His white count on admission was 5.7. During the course of hospitalization his white count has trended down. Denies any mucositis. Denies any diarrhea or urinary complaints. He had complained of headache and nausea which is now resolved spontaneously. he denies any visual complaints. Sepsis/infection workup initiated on admission. Blood culture continue to be negative. Sputum was negative. CT scan of the chest / CT angiogram was negative for pulmonary embolism. There is pulmonary metastatic disease that appears to be worse. The CT scan of the abdomen shows left periaortic lymph node and mild fatty liver. Empiric Cefepime and Vanco IV have been started. ID consulted for evaluation and Mment of persistent fevers in a neutropenic patient who is immune compromised. Review of Systems Constitutional: COMPLAINS OF: Fever, DENIES: Diaphoretic episodes, Fatigue, Weight gain, Weight loss, Chills, Dizziness, Change in appetite, Night Sweats Endocrine: DENIES: Heat/cold intolerance, Polydipsia, Polyuria, Polyphagia Eyes: DENIES: Blurred vision, Diplopia, Eye inflammation, Eye pain, Vision loss , Photosensitivity, Double Vision Ears, nose, mouth, throat: DENIES: Tinnitus, Hearing loss, Vertigo, Nasal discharge, Oral lesions, Throat pain, Hoarseness, Ear Pain, Running Nose, Epistaxis, Sinus Pain, Toothache, Odynophagia Respiratory: DENIES: Apneas, Cough, Snoring, Wheezing, Hemoptysis, Sputum production, Shortness of breath Cardiovascular: COMPLAINS OF: Chest pain, DENIES: Palpitations, Syncope, Dyspnea on Exertion, PND, Lower Extremity Edema, Orthopnea, Claudication Gastrointestinal: DENIES: Abdominal pain, Black stools, Bloody stools, Constipation, Diarrhea, Nausea, Vomiting, Difficulty Swallowing, Anorexia Genitourinary: DENIES: Sexual dysfunction, Urinary frequency, Urinary incontinence, Urgency, Hematuria, Dysuria, Nocturia, Penile Discharge Musculoskeletal: DENIES: Joint pain, Muscle aches, Stiffness, Joint Swelling, Back pain, Neck pain Integumentary: DENIES: Abnormal pigmentation, Nail changes, Pruritus, Rash Hematologic/lymphatic: DENIES: Bruising, Lymphadenopathy Immunologic/allergic: DENIES: Eczema, Urticaria Neurologic: DENIES: Abnormal gait, Headache, Localized weakness, Paresthesias, Seizures, Speech Problems, Tremor, Poor Balance Psychiatric: DENIES: Anxiety, Confusion, Mood changes, Depression, Hallucinations, Agitation, Suicidal Ideation, Homicidal Ideation, Delusions Except as stated in HPI: all other systems reviewed are Neg Past Family Social History Allergies: Coded Allergies: broccoli (Unverified Allergy, Severe, Hives, 03/04/17) Past Medical History Testicular teratoma, metastatic disease. h/o fevers Past Surgical History CT-guided retroperitoneal lymph node biopsy. Orchiectomy. Reported Medications Reported Meds & Active Scripts Active Zofran Odt (Ondansetron Odt) 4 Mg Tab 4 Mg SL Q6HR PRN Proair Hfa 8.5 GM Inh (Albuterol Sulfate) 90 Mcg/Act Aer 2 Puff INH Q4-6H PRN 108 mcg/actuation Cipro (Ciprofloxacin HCl) 500 Mg Tab 500 Mg PO BID 7 Days Zyloprim (Allopurinol) 300 Mg Tab 300 Mg PO DAILY Albuterol Neb (Albuterol Sulfate) 2.5 Mg/3 Ml Neb 2.5 Mg NEB Q4HR NEB PRN Reported Hydrocodone-Acetamin 10-325 mg (Hydrocodone/Acetaminophen) 10 Mg-325 Mg Tablet Active Ordered Medications Current Medications Medications (Trade) Dose Ordered Sig/Harleen Route Start Time Stop Time Status Last Admin Sodium Chloride 1,000 ml @ 75 mls/hr [id number] IV 04/01/17 16:44 04/04/17 18:28 (NS Flush) 2 ml UNSCH PRN IV FLUSH 04/01/17 16:45 04/03/17 11:52 (NS Flush) 2 ml BID IV FLUSH 04/01/17 21:00 04/03/17 19:46 (Tylenol) 650 mg Q4H PRN PO 04/01/17 16:45 04/04/17 03:59 (Lovenox Inj) 30 mg Q24H SQ 04/01/17 17:00 04/04/17 18:27 (Dorothy-Colace) 1 tab BID PO 04/01/17 21:00 04/02/17 20:39 (Milk Of Magnesia Liq) 30 ml Q12H PRN PO 04/01/17 16:45 (Senokot) 17.2 mg Q12H PRN PO 04/01/17 16:45 (Dulcolax Supp) 10 mg DAILY PRN RECTAL 04/01/17 16:45 (Lactulose Liq) 30 ml DAILY PRN PO 04/01/17 16:45 (Tylenol) 650 mg Q6H PRN PO 04/01/17 18:30 04/02/17 11:26 (Percocet 5-325 Mg) 1 tab Q6H PRN PO 04/01/17 18:30 (Percocet 10-325 Mg) 1 tab Q6H PRN PO 04/01/17 18:30 04/04/17 12:19 (Narcan Inj) 0.4 mg UNSCH PRN IV PUSH 04/01/17 18:30 (Duoneb Neb) 1 ampule Q4HR NEB PRN NEB 04/01/17 18:30 (Zyloprim) 300 mg DAILY PO 04/02/17 09:00 04/04/17 09:02 (Morphine Inj) 2 mg Q3H PRN IV PUSH 04/01/17 23:00 04/04/17 13:43 (Compazine Inj) 5 mg Q6H PRN IV PUSH 04/02/17 15:45 04/04/17 15:03 (Neupogen Inj) 480 mcg DAILY@14 SQ 04/03/17 14:00 04/06/17 13:59 04/04/17 12:55 Cefepime HCl 1000 mg/Sodium Chloride 100 ml @ 200 mls/hr Q8H IV 04/03/17 20:00 04/04/17 12:18 (Tessalon) 100 mg TID PRN PO 04/04/17 11:30 04/04/17 15:03 Family History Parents are both living. Sister is at bedside. Paternal aunt had breast cancer. Paternal grandfather had testicular cancer. Mother and father have no cancer. Social History He is single. 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 He is a former smoker. Denies any alcohol or illicit drug use. Urine tox was positive for cannabinoids from November of 2016. He is originally from [place]. Physical Exam Vital Signs Vital Signs Date Time Temp Pulse Resp B/P (MAP) Pulse Ox O2 Delivery O2 Flow Rate FiO2 04/04/17 11:44 99.5 102 19 129/69 (89) 94 04/04/17 08:02 98.9 90 19 129/61 (83) 94 04/04/17 05:50 98.6 101 18 139/69 (92) 96 04/03/17 23:15 100.6 107 18 133/67 (89) 97 04/03/17 22:01 102.1 98 19 130/62 (84) 95 04/03/17 18:03 102 04/03/17 16:22 98 04/03/17 16:00 99.0 90 18 116/61 (79) 94 04/03/17 15:08 90 04/03/17 14:44 89 Physical Exam GENERAL: This is a well-nourished, well-developed patient, in no apparent distress. SKIN: No rashes, ecchymoses or lesions. Cool and dry. HEAD: Atraumatic. Normocephalic. No temporal or scalp tenderness. EYES: Pupils equal round and reactive. Extraocular motions intact. No scleral icterus. No injection or drainage. ENT: Nose without bleeding, purulent drainage or septal hematoma. Throat without erythema, tonsillar hypertrophy or exudate. Uvula midline. Airway patent. NECK: Trachea midline. Supple, nontender, no meningeal signs. CARDIOVASCULAR: HS audible. RESPIRATORY: Clear to auscultation. Breath sounds equal bilaterally. GASTROINTESTINAL: Abdomen soft, non-tender, nondistended. Obese. MUSCULOSKELETAL: Extremities without clubbing, cyanosis, or edema. exam deferred. NEUROLOGICAL: Awake and alert. Non focal exam Psych cooperative IV line sites with no e.o infection. Port site with no e.o infection (not accessed this admission) Laboratory Laboratory Tests Test 04/04/17 05:26 04/04/17 05:56 Blood Urea Nitrogen 5 Creatinine 0.66 Random Glucose 90 Total Protein 6.7 Albumin 2.6 Calcium Level 8.6 Phosphorus Level 2.4 Magnesium Level 2.1 Alkaline Phosphatase 117 Aspartate Amino Transf (AST/SGOT) 17 Alanine Aminotransferase (ALT/SGPT) 24 Total Bilirubin 1.2 Sodium Level 133 Potassium Level 3.2 Chloride Level 97 Carbon Dioxide Level 27.1 Anion Gap 9 Estimat Glomerular Filtration Rate 141 Free Thyroxine 1.49 Thyroid Stimulating Hormone 3rd Gen 2.520 White Blood Count 3.5 Red Blood Count 3.34 Hemoglobin 10.0 Hematocrit 28.6 Mean Corpuscular Volume 85.7 Mean Corpuscular Hemoglobin 29.8 Mean Corpuscular Hemoglobin Concent 34.8 Red Cell Distribution Width 18.4 Platelet Count 237 Mean Platelet Volume 6.8 CBC Comment AUTO DIFF Differential Total Cells Counted 100 Neutrophils % (Manual) 39 Band Neutrophils % 19 Lymphocytes % 24 Monocytes % 11 Eosinophils % 4 Neutrophils # (Manual) 2.1 Metamyelocytes 2 Differential Comment FINAL DIFF MANUAL Blastocytes 1 Toxic Granulation 1+ Dohle Bodies PRESENT Platelet Estimate NORMAL Platelet Morphology Comment NORMAL Date/Time Source Procedure Growth Status 04/02/17 18:15 Blood Peripheral Aerobic Blood Culture - Preliminary NO GROWTH IN 2 DAYS Resulted 04/02/17 18:15 Blood Peripheral Anaerobic Blood Culture - Preliminary NO GROWTH IN 2 DAYS Resulted 04/01/17 19:30 Sputum Expectorated Sputum Gram Stain - Final Complete 04/01/17 19:30 Sputum Culture - Final Beta Strep Not Group A Complete Result Diagram: 04/04/17 0556 04/04/17 0526 Imaging Last Impressions Chest X-Ray 04/04/17 0000 Signed Impressions: Service Date/Time: Tuesday, April 04, 2017 13:32 - CONCLUSION: 1. Widespread metastatic disease characteristic of testicular metastasis. 2. Left basilar atelectasis versus pneumonia. There has been no significant change when compared to the prior exam. Norris Boss MD Abdomen MRI 04/02/17 0000 Signed Impressions: Service Date/Time: Sunday, April 02, 2017 16:47 - CONCLUSION: 1. Partially cystic and solid enhancing mass in a left para-aortic location measuring up to 9.4 cm. Based on location and appearance it is highly suggestive of metastatic disease. This lesion would be amenable to image guided percutaneous biopsy if histologic diagnosis is needed. 2. Innumerable nodules and masses at both lung bases that also likely represent metastatic disease. 3. Hepatic steatosis. No liver lesion is present. Luis Almonte MD Assessment and Plan Assessment and Plan Fever high grade in a neutropenic immune compromised patient. DDx: Neutropenic phase but no skin or mucositis. ? Extensive tumor burden and mets related. Will dw . Rule out Influenza with PCR: check Resp panel. Possible Vanco induced drug fever s/p chemo and port access more than a week back. Does not appear to be chemotherapy related fever. Testicular cancer Neutropenia s/p 2nd dose of neupogen today Recs DC vanco IV (no e/o MRSA in cultures and no skin lesions/cellulitis) Continue Cefepime IV If Flu PCR negative and if WBC increases (no neutropenia), clinically doing well and no fever may possibly discharge patient. Patient was mentioning he will leave hospital in am regardless of what clinicians say. I convinced him to stay till life threatening infections ruled out and neutropenia improves. He agreed to stay another 24 hours for now pending further information. carter machado RN and patient. Sharon Gracia MD Apr 04, 2017 12:59
--- NOTE | 2017-04-04 14:42 | RADRPT ---
EXAM DATE/TIME: 04/04/2017 13:32 [facility] COMPARISON: CHEST PA & LAT, December 12, 2016, 8:53. CHEST SINGLE AP, March 31, 2017, 15:47. INDICATIONS : Pneumonia MEDICAL HISTORY : Metastatic lung carcinoma, testicular SURGICAL HISTORY : Orchiectomy ENCOUNTER: Initial ACUITY: 4 - 6 days PAIN SCORE: 0/10 LOCATION: Bilateral chest FINDINGS: The cardiac silhouette is normal in transverse diameter. [id number] is in place via right internal jugular approach with its tip in the superior vena cava. Widespread large pulmonary metastasis are p resent unchanged. There is left basilar atelectasis versus pneumonia. CONCLUSION: 1. Widespread metastatic disease characteristic of testicular metastasis. 2. Left basilar atelectasis versus pneumonia. There has been no significant change when compared to t he prior exam. Norris Boss MD on April 04, 2017 at 14:28 Board Certified Radiologist. This report was verified electronically.
[2017-04-04] MEDS: BENZONATATE 100 MG CAP PO PRN (15:03)
[2017-04-04 16:50] LABS: HEMOGLOBIN A1C 5.4 % (4.3-6.0)
[2017-04-04] MEDS: ENOXAPARIN SODIUM 30 MG/0.3 ML SYRINGE SQ SCH (18:27)
[2017-04-04] MEDS ORDERED: LORazepam 2 MG/ML VIAL IV ONE (19:30)
[2017-04-04] MEDS ORDERED: GADODIAMIDE PF 287 MG/ML 20 ML VIAL (for RAD MRI) IV PUSH ONE (21:14)
--- NOTE | 2017-04-04 22:04 | RADRPT ---
EXAM DATE/TIME: 04/04/2017 20:21 [place] COMPARISON: No previous studies available for comparison. INDICATIONS : Testicular cancer. CONTRAST: 20 cc Omniscan (gadodiamide) IV MEDICAL HISTORY : Carcinoma, testicular. SURGICAL HISTORY : port, shoulder ENCOUNTER: Subsequent ACUITY: 2 day PAIN SCORE: 0/10 LOCATION: cranial TECHNIQUE: Multiplanar, multisequence MRI of the brain was performed both prior to and following the administrat ion of paramagnetic contrast. FINDINGS: CEREBRUM: The ventricles are normal for age. No evidence of midline shift, mass lesion, hemorrhage or acute in farction. No extraaxial fluid collections are seen. The pituitary gland and suprasellar cistern are normal in configuration. WHITE MATTER: No significant signal abnormalities are seen in the white matter. POSTERIOR FOSSA: The cerebellum and brainstem are intact. The 4th ventricle is midline. The cerebellopontine angle is unremarkable. The cerebellar tonsils are normal in position. DIFFUSION IMAGING: No focal areas of restricted diffusion are seen. No evidence of acute infarction. EXTRACRANIAL: The visualized portions of the orbits and paranasal sinuses are unremarkable. POST-CONTRAST: No abnormal areas of parenchymal or dural enhancement. No evidence of blood-brain barrier breakdown. CONCLUSION: 1. Unremarkable MRI examination of brain. Specifically, no evidence for metastatic disease. Fernando Singh MD on April 04, 2017 at 22:01 Board Certified Radiologist. This report was verified electronically.
[2017-04-05] MEDS: MORPHINE SULFATE 2 MG/ML INJ IV PUSH PRN (00:32)
[2017-04-05 00:40] VITALS: BP 121/70; PULSE 92; RESP 18; TEMP 98.7; O2SAT 95
[2017-04-05] MEDS: SODIUM CHLOR 0.9% 1000 ML INJ 1,000 ML IV SCH (01:14)
[2017-04-05] MEDS: CEFEPIME INJ 1,000 MG in SODIUM CHLORIDE 0.9% INJ 100 ML IV SCH (03:20)
[2017-04-05 03:25] VITALS: BP 126/76; PULSE 91; RESP 18; TEMP 97.8; O2SAT 94
[2017-04-05 03:51] VITALS: PULSE 96
[2017-04-05 08:05] VITALS: BP 123/69; PULSE 109; RESP 19; TEMP 98.3; O2SAT 95
[2017-04-05] MEDS: BENZONATATE 100 MG CAP PO PRN (08:22)
[2017-04-05] MEDS: oxyCODONE/ACETAMINOPHEN 10 MG/325 MG TAB PO PRN (08:23)
[2017-04-05] MEDS: ALLOPURINOL 300 MG TAB PO SCH (08:23)
[2017-04-05] MEDS: DOCUSATE SODIUM 50 MG/SENNA 8.6 MG TAB PO SCH (08:24)
[2017-04-05] MEDS: SODIUM CHLORIDE 0.9% FLUSH 10 ML FLUSH IV FLUSH SCH (08:26)
[2017-04-05 08:33] LABS: BASOPHIL % 0.4 % (0.0-2.0); EOSINOPHIL # 0.2 TH/MM3 (0-0.4); EOSINOPHIL % 2.1 % (0.0-4.0); HEMATOCRIT 30.3 % (39.0-51.0); HEMOGLOBIN 10.3 GM/DL (13.0-17.0); LYMPH % 10.2 % (9.0-44.0); LYMPHOCYTE # 0.8 TH/MM3 (1.0-4.8); MEAN CELL VOLUME 85.9 FL (80.0-100.0); MEAN CORPUSCULAR HEMOGLOBIN 29.3 PG (27.0-34.0); MEAN CORPUSCULAR HGB CONC 34.1 % (32.0-36.0); MEAN PLATELET VOLUME 6.9 FL (7.0-11.0); MONO % 14.6 % (0.0-8.0); MONOCYTE # 1.2 TH/MM3 (0-0.9); NEUT % 72.7 % (16.0-70.0); PLATELET COUNT 275 TH/MM3 (150-450); RED BLOOD COUNT 3.53 MIL/MM3 (4.50-5.90); RED CELL DISTRIBUTION WIDTH 18.8 % (11.6-17.2); WHITE BLOOD COUNT 8.2 TH/MM3 (4.0-11.0)
[2017-04-05 08:53] LABS: ALBUMIN 2.7 GM/DL (3.4-5.0); BICARBONATE 24.9 MEQ/L (21.0-32.0); CALCIUM 9.1 MG/DL (8.5-10.1); CREATININE 0.51 MG/DL (0.60-1.30); MAGNESIUM 2.1 MG/DL (1.5-2.5); PHOSPHORUS 2.9 MG/DL (2.5-4.9)
[2017-04-05 09:23] VITALS: RESP 18
[2017-04-05] MEDS ORDERED: LEVO750T3 PO (09:39)
--- NOTE | 2017-04-05 09:49 | HHI.PR ---
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 Per patient, right after chemotherapy, he started having nausea, dry heaves and generalized body aches including chest pain and lower back pain. Yesterday he started having fever, T-max 106, chills, mild cough productive with dark colored sputum associated with mild shortness of breath and dysuria without any frequency or urgency. Patient has had poor oral intake. Admission was recommended however patient decided to go home on antibiotics however today , patient had recurrence of severe symptoms hence he decided to come back to the hospital. There is no vomiting, abdominal pain, or diarrhea. He had mild epistaxis yesterday and this morning. Chest pain is mostly with deep inspiration. Patient denies any sick contacts. 04-02 Patient seen and examined this morning. Temperature 101.5, pulse 109, respiratory rate 22, blood pressure 137/69, pulse ox 94 on room air. Patient is awaiting evaluation by property administrator. Currently concern for neutropenic fever. He denies any vomiting, but does feel nauseated. Continues to complain of some back pain and chest pain likely due to the metastatic cancer. 2 NEEDS TO HAVE MRI OF BRAIN- HAS NOT HAD IT YET DW RN AND PT WILL HAVE ATIVAN AVAILABLE = 04/04. Patient says he is feeling all right. Denies any chest pain or shortness breath. Does not want to do MRI. Continued fevers overnight. Denies any dysuria. = 04/05. Patient says he is feeling well. Denies chest pain or shortness breath. Denies any nausea or vomiting. No fevers overnight. Feels like going home. Objective Vital Signs Date Time Temp Pulse Resp B/P (MAP) Pulse Ox O2 Delivery O2 Flow Rate FiO2 04/05/17 09:23 18 04/05/17 08:05 98.3 109 19 123/69 (87) 95 04/05/17 03:51 96 04/05/17 03:25 97.8 91 18 126/76 (93) 94 04/05/17 00:40 98.7 92 18 121/70 (87) 95 04/05/17 00:37 18 04/04/17 23:46 101 04/04/17 22:42 Room Air 04/04/17 21:37 99.6 117 19 121/69 (86) 97 04/04/17 20:00 119 04/04/17 16:03 97.0 96 18 123/61 (81) 96 04/04/17 11:44 99.5 102 19 129/69 (89) 94 I/O 04/04/17 04/04/17 04/04/17 04/05/17 04/05/17 04/05/17 07:00 15:00 23:00 07:00 15:00 23:00 Intake Total 1620 ml 750 ml 1060 ml 580 ml Output Total 750 ml 500 ml Balance 1620 ml 0 ml 560 ml 580 ml Intake Oral 480 ml 650 ml 360 ml 480 ml IV Total 1140 ml 100 ml 700 ml 100 ml Output Urine Total 750 ml 500 ml # Voids 2 4 2 # Bowel Movements 0 0 0 Result Diagram: 04/05/1771104/05/17711 Objective Remarks GENERAL: Patient sitting up in bed. Appears comfortable. Alert and oriented 3. no change on exam SKIN: Warm and dry. HEAD: Normocephalic. EYES: No scleral icterus. No injection or drainage. NECK: Supple, trachea midline. No JVD. CARDIOVASCULAR: Regular rate and rhythm without murmurs, gallops, or rubs. RESPIRATORY: Breath sounds equal bilaterally. No accessory muscle use. GASTROINTESTINAL: Abdomen soft, non-tender, nondistended. MUSCULOSKELETAL: No cyanosis, or edema. BACK: Nontender without obvious deformity. No CVA tenderness. A/P Assessment and Plan 04/05/17 //Neutropenic fever. No fevers overnight. White count has improved over 8. She ID assistance. Cultures all negative. //Metastatic cancer. More brain with no metastasis. Follow-up with oncology as outpatient. // Hypokalemia. Potassium 3.6. Resolved after replacement. This is a 31-year-old male with history of testicular cancer and chemotherapy presenting with fever, chest pain, dysuria, and cough //Chest pain-likely secondary to metastatic disease, CTA revealed no PE, widespread and worsening metastatic pleural and parenchymal disease. Continue pain control. Troponin EKG negative, likely pleuritic pain //Upper back pain-likely secondary to metastatic disease as well -Continue morphine and Percocet //Neutropenic fever versus pneumonia-possible pneumonia versus evolving neutropenic fever, recheck CBC tomorrow. Consult hematology, recommendations appreciate. Continue cefepime and vancomycin. Follow-up blood culture, check sputum culture. Rapid flu negative. =no Fevers over the past 24 hours. Discharge home on Levaquin for a 10 day course. //Mild hyperbilirubinemia and AST elevation-trending LFTs, currently within normal limits //Hyponatremia-likely secondary to dehydration, improved now 132, patient has increased his fluid intake. //Gout - resume home meds //DVT prophylaxis: Lovenox Discharge Planning [facility] Jase Tamayo MD Apr 05, 2017 09:49
--- NOTE | 2017-04-05 09:56 | HHI.DS ---
Discharge Summary Admission Date Apr 01, 2017 at 16:48 Discharge Date: Apr 05, 2017 Admitting Diagnosis febrile illness, SIRS, immunocompromised (1) Neutropenic ICD Code: D70.9 - Neutropenia, unspecified (2) Metastatic cancer to lung ICD Code: C78.00 - Secondary malignant neoplasm of unspecified lung Status: Acute (3) Back pain ICD Code: M54.9 - Dorsalgia, unspecified Status: Acute (4) SIRS (systemic inflammatory response syndrome) ICD Code: R65.10 - Systemic inflammatory response syndrome (SIRS) of non- infectious origin without acute organ dysfunction Status: Acute (5) Fever ICD Code: R50.9 - Fever, unspecified Status: Acute (6) Testicular teratoma ICD Code: C62.90 - Malignant neoplasm of unspecified testis, unspecified whether descended or undescended Status: Acute (7) Atypical chest pain ICD Code: R07.89 - Other chest pain Status: Acute Procedures no invasive procedures Brief History - From Admission This is this is a 31-year-old male with history of testicular cancer diagnosed mid-2016, has been started on chemotherapy, received his third cycle of chemotherapy 03/28/2016, presenting with fever, chills and generalized body ache. Per patient, right after chemotherapy, he started having nausea, dry heaves and generalized body aches including chest pain and lower back pain. Yesterday he started having fever, T-max 106, chills, mild cough productive with dark colored sputum associated with mild shortness of breath and dysuria without any frequency or urgency. Patient has had poor oral intake. Admission was recommended however patient decided to go home on antibiotics however today , patient had recurrence of severe symptoms hence he decided to come back to the hospital. There is no vomiting, abdominal pain, or diarrhea. He had mild epistaxis yesterday and this morning. Chest pain is mostly with deep inspiration. Patient denies any sick contacts. CBC/BMP: 04/05/17 0712 04/05/17 0712 Significant Findings Laboratory Tests Test 04/02/17 18:45 04/03/17 05:28 04/04/17 05:26 04/04/17 05:56 White Blood Count 2.1 TH/MM3 (4.0-11.0) 3.5 TH/MM3 (4.0-11.0) Red Blood Count 3.32 MIL/MM3 (4.50-5.90) 3.34 MIL/MM3 (4.50-5.90) Hemoglobin 9.8 GM/DL (13.0-17.0) 10.0 GM/DL (13.0-17.0) Hematocrit 28.3 % (39.0-51.0) 28.6 % (39.0-51.0) Red Cell Distribution Width 18.3 % (11.6-17.2) 18.4 % (11.6-17.2) Mean Platelet Volume 6.8 FL (7.0-11.0) 6.8 FL (7.0-11.0) Blood Urea Nitrogen 5 MG/DL (7-18) 5 MG/DL (7-18) Creatinine 0.51 MG/DL (0.60-1.30) Albumin 2.6 GM/DL (3.4-5.0) 2.6 GM/DL (3.4-5.0) Total Bilirubin 1.3 MG/DL (0.2-1.0) 1.2 MG/DL (0.2-1.0) Sodium Level 132 MEQ/L (136-145) 133 MEQ/L (136-145) Phosphorus Level 2.4 MG/DL (2.5-4.9) Potassium Level 3.2 MEQ/L (3.5-5.1) Chloride Level 97 MEQ/L (98-107) Free Thyroxine 1.49 NG/DL (0.76-1.46) Band Neutrophils % 19 % (0-6) Monocytes % 11 % (0-8) Metamyelocytes 2 % (0-1) Blastocytes 1 % (0-0) Toxic Granulation 1+ (NORMAL) Dohle Bodies PRESENT (NONE SEEN) Test 04/05/17 07:12 Red Blood Count 3.53 MIL/MM3 (4.50-5.90) Hemoglobin 10.3 GM/DL (13.0-17.0) Hematocrit 30.3 % (39.0-51.0) Red Cell Distribution Width 18.8 % (11.6-17.2) Mean Platelet Volume 6.9 FL (7.0-11.0) Neutrophils (%) (Auto) 72.7 % (16.0-70.0) Monocytes (%) (Auto) 14.6 % (0.0-8.0) Lymphocytes # (Auto) 0.8 TH/MM3 (1.0-4.8) Monocytes # (Auto) 1.2 TH/MM3 (0-0.9) Creatinine 0.51 MG/DL (0.60-1.30) Albumin 2.7 GM/DL (3.4-5.0) Sodium Level 132 MEQ/L (136-145) Chloride Level 97 MEQ/L (98-107) Imaging Last Impressions Chest X-Ray 04/04/17 0000 Signed Impressions: Service Date/Time: Tuesday, April 04, 2017 13:32 - CONCLUSION: 1. Widespread metastatic disease characteristic of testicular metastasis. 2. Left basilar atelectasis versus pneumonia. There has been no significant change when compared to the prior exam. Norris Boss MD Brain MRI 04/04/17 0000 Signed Impressions: Service Date/Time: Tuesday, April 04, 2017 20:21 - CONCLUSION: 1. Unremarkable MRI examination of brain. Specifically, no evidence for metastatic disease. Fernando Singh MD Abdomen MRI 04/02/17 0000 Signed Impressions: Service Date/Time: Sunday, April 02, 2017 16:47 - CONCLUSION: 1. Partially cystic and solid enhancing mass in a left para-aortic location measuring up to 9.4 cm. Based on location and appearance it is highly suggestive of metastatic disease. This lesion would be amenable to image guided percutaneous biopsy if histologic diagnosis is needed. 2. Innumerable nodules and masses at both lung bases that also likely represent metastatic disease. 3. Hepatic steatosis. No liver lesion is present. Luis Almonte MD Hospital Course Patient found to have leukopenia which improved after filgrastim. Oncology was consulted, followed during admission. Patient with imaging showing widespread metastatic disease as above. MRI negative for metastatic disease. Sputum culture with beta strep not group A. Fevers continued, infectious disease was consulted. No source of infection can be found. patient is 24 hours without fever at the time of discharge. He will follow up with oncology as outpatient. Complete course of Levaquin Peripheral Levay summary from most recent progress note, please see below. 04/05/17 //Neutropenic fever. No fevers overnight. White count has improved over 8. She ID assistance. Cultures all negative. //Metastatic cancer. More brain with no metastasis. Follow-up with oncology as outpatient. // Hypokalemia. Potassium 3.6. Resolved after replacement. This is a 31-year-old male with history of testicular cancer and chemotherapy presenting with fever, chest pain, dysuria, and cough //Chest pain-likely secondary to metastatic disease, CTA revealed no PE, widespread and worsening metastatic pleural and parenchymal disease. Continue pain control. Troponin EKG negative, likely pleuritic pain //Upper back pain-likely secondary to metastatic disease as well -Continue morphine and Percocet //Neutropenic fever versus pneumonia-possible pneumonia versus evolving neutropenic fever, recheck CBC tomorrow. Consult hematology, recommendations appreciate. Continue cefepime and vancomycin. Follow-up blood culture, check sputum culture. Rapid flu negative. =no Fevers over the past 24 hours. Discharge home on Levaquin for a 10 day course. //Mild hyperbilirubinemia and AST elevation-trending LFTs, currently within normal limits //Hyponatremia-likely secondary to dehydration, improved now 133, patient has increased his fluid intake will decrease IV fluids at this time //Gout - resume home meds //DVT prophylaxis: Lovenox Pt Condition on Discharge: Good Discharge Disposition: Discharge Home Discharge Time: > 30 minutes Discharge Instructions DIET: Follow Instructions for: As Tolerated, No Restrictions Activities you can perform: Regular-No Restrictions Follow up Referrals: Oncology/Hematology - 1 Week with Lul Carlson MD PCP Follow-up - 1 Week New Medications: Levofloxacin (Levofloxacin) 750 Mg Tablet 750 MG PO DAILY for Infection for 5 Days, #5 TAB 0 Refills Continued Medications: Albuterol 8.5 GM Inh (Proair Hfa 8.5 GM Inh) 90 Mcg/Act Aer 2 PUFF INH Q4-6H PRN for SHORTNESS OF BREATH, #1 INHALER 0 Refills 108 mcg/actuation Albuterol Neb (Albuterol Neb) 2.5 Mg/3 Ml Neb 2.5 MG NEB Q4HR NEB PRN for SHORTNESS OF BREATH, #60 NEBULE 1 Refill Allopurinol (Zyloprim) 300 Mg Tab 300 MG PO DAILY, #30 TAB 1 Refill Ciprofloxacin (Cipro) 500 Mg Tab 500 MG PO BID for Infection for 7 Days, #14 TAB 0 Refills Hydrocodone/Acetaminophen (Hydrocodone-Acetamin 10-325 mg) 10 Mg-325 Mg Tablet Ondansetron Odt (Zofran Odt) 4 Mg Tab 4 MG SL Q6HR PRN for Nausea/Vomiting, #20 TAB 0 Refills Jase Tamayo MD Apr 05, 2017 09:56
[2017-04-05 09:58] LABS: BANDS 30 % (0-6); BASOPHILS 1 % (0-2); DOHLE BODIES PRESENT (NONE SEEN); LYMPHOCYTES 16 % (9-44); MONOCYTES 11 % (0-8); MYELOCYTES 1 % (0-0); NEUTROPHIL # MANUAL DIFF 5.6 TH/MM3 (1.8-7.7); POLYS (SEG NEUTROPHILS) 37 % (16-70); TOXIC GRANULATION 2+ (NORMAL)
== END 2017-04-05 10:43 | disposition home or self-care (01) | DRG 809 ==
LOC: NEPE 13:44 → NEDA 16:48 → N06B 21:41
PROVIDERS: ADMIT Internal Medicine; ATTEND Internal Medicine
DX: D70.1 Agranulocytosis secondary to cancer chemotherapy (principal); C78.00 Secondary malignant neoplasm of unspecified lung; R65.10 Systemic inflammatory response syndrome (SIRS) of non-infectious origin without acute organ dysfunction; C79.89 Secondary malignant neoplasm of other specified sites; E87.1 Hypo-osmolality and hyponatremia; D69.6 Thrombocytopenia, unspecified; K76.0 Fatty (change of) liver, not elsewhere classified; C62.90 Malignant neoplasm of unspecified testis, unspecified whether descended or undescended; E86.0 Dehydration; R50.81 Fever presenting with conditions classified elsewhere; F17.210 Nicotine dependence, cigarettes, uncomplicated; E87.6 Hypokalemia; G89.3 Neoplasm related pain (acute) (chronic); M10.9 Gout, unspecified; J45.909 Unspecified asthma, uncomplicated; T45.1X5A Adverse effect of antineoplastic and immunosuppressive drugs, initial encounter; D64.9 Anemia, unspecified; F41.9 Anxiety disorder, unspecified; R00.0 Tachycardia, unspecified; R19.7 Diarrhea, unspecified; Z92.21 Personal history of antineoplastic chemotherapy
CPT/HCPCS: 70553; 71045; 71275; 74177; 74183; 76937; 80048; 80053; 80069; 80076; 80202; 81001; 82550; 83036; 83605; 83690; 83735; 83880; 84100; 84439; 84443; 84484; 85007; 85025; 85027; 85610; 85730; 87040; 87070; 87205; 87804; 93005; 94664; 96361; 96374; 96375; A9579; J0692; J0744; J0780; J1442; J1650; J1885; J2060; J2270; J2405; J3370; J7030; J7040; Q9967

== ENCOUNTER 2017-07-12 13:42 | Emergency (ER) | payer OTHER ==
[~2017-07-12] VITALS: Ht 167.6 cm; Wt 91.0 kg
[~2017-07-12 13:42] MED LIST changes: -ALBU6.7H INH; +LEVO750T3 PO; -NEBULIZER/ADULT1 KIT; -NEBULIZER/ADULT1 KIT INH; -NEBULIZER1 MI1; -NEBULIZER1 MI1 INH; -ZOFR4TAB PO
[2017-07-12 13:50] VITALS: BP 121/66; PULSE 81; RESP 18; TEMP 98.3; O2SAT 97
[2017-07-12] MEDS ORDERED: SODIUM CHLOR 0.9% 1000 ML INJ 1,000 ML IV SCH (14:05)
[2017-07-12] MEDS ORDERED: PANTOPRAZOLE SODIUM 40 MG VIAL IVP ONE (14:15)
[2017-07-12] MEDS ORDERED: ALUMINUM/MAGNESIUM/SIMETH 30 ML CUP PO ONE (14:15)
[2017-07-12] MEDS ORDERED: LIDOCAINE VISCOUS 2% SOLN 15 ML UDC PO ONE (14:15)
[2017-07-12] MEDS ORDERED: PROMETHAZINE INJ 25 MG/ML VIAL IM ONE (14:15)
[2017-07-12] MEDS ORDERED: SODIUM CHLORIDE 0.9% FLUSH 10 ML FLUSH IV FLUSH PRN (14:15)
[2017-07-12] MEDS ORDERED: MORPHINE SULFATE 4 MG/ML INJ IV PUSH ONE (14:15)
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
[2017-07-12 14:40] VITALS: O2SAT 99
[2017-07-12 14:58] VITALS: BP 121/71; PULSE 73; RESP 18; O2SAT 99
[2017-07-12 15:22] LABS: AUTOMATED NEUTROPHIL # 10.3 TH/MM3 (1.8-7.7); BASOPHIL % 0.1 % (0.0-2.0); EOSINOPHIL % 0.3 % (0.0-4.0); HEMATOCRIT 43.8 % (39.0-51.0); HEMOGLOBIN 14.7 GM/DL (13.0-17.0); LYMPH % 10.4 % (9.0-44.0); LYMPHOCYTE # 1.3 TH/MM3 (1.0-4.8); MEAN CELL VOLUME 86.6 FL (80.0-100.0); MEAN CORPUSCULAR HEMOGLOBIN 29.1 PG (27.0-34.0); MEAN CORPUSCULAR HGB CONC 33.6 % (32.0-36.0); MEAN PLATELET VOLUME 7.3 FL (7.0-11.0); MONO % 7.5 % (0.0-8.0); MONOCYTE # 0.9 TH/MM3 (0-0.9); NEUT % 81.7 % (16.0-70.0); PLATELET COUNT 280 TH/MM3 (150-450); RED BLOOD COUNT 5.06 MIL/MM3 (4.50-5.90); WHITE BLOOD COUNT 12.6 TH/MM3 (4.0-11.0)
[2017-07-12 15:33] LABS: PROTHROMBIN TIME - PATIENT 10.4 SEC (9.8-11.6)
[2017-07-12 15:47] LABS: ALBUMIN 3.7 GM/DL (3.4-5.0); ALT (GPT) 52 U/L (12-78); AST (GOT) 22 U/L (15-37); BICARBONATE 24.4 MEQ/L (21.0-32.0); BLOOD UREA NITROGEN 11 MG/DL (7-18); CALCIUM 8.6 MG/DL (8.5-10.1); CHLORIDE 105 MEQ/L (98-107); CREATININE 0.79 MG/DL (0.60-1.30); GLOMERULAR FILTRATION RATE 114 ML/MIN (>89); GLUCOSE,RANDOM 104 MG/DL (74-106); SODIUM (NA) 140 MEQ/L (136-145)
[2017-07-12 15:48] LABS: ALKALINE PHOSPHATASE 133 U/L (45-117); TOTAL BILIRUBIN ADULT 0.8 MG/DL (0.2-1.0); TOTAL PROTEIN 7.1 GM/DL (6.4-8.2)
[2017-07-12] MEDS ORDERED: SODIUM CHLOR 0.9% 1000 ML INJ 1,000 ML IV ONE (16:00)
[2017-07-12] MEDS ORDERED: PROM25TA10 PO (16:17)
[2017-07-12] MEDS ORDERED: OMEP40CA2 PO (16:28)
[2017-07-12 16:57] LABS: BILIRUBIN, URINE NEG (NEG); BLOOD, URINE NEG (NEG); GLUCOSE,URINE NEG (NEG); KETONE, URINE NEG (NEG); MUCUS URINE FEW /lpf (OCC); NITRITE,URINE NEG (NEG); PH, URINE 5.5 (5.0-8.5); URINE COLOR YELLOW (YELLW/STRAW); URINE LEUKOCYTE ESTERASE NEG (NEG)
--- NOTE | 2017-07-13 14:51 | EKG ---
Date Performed: 07/12/2017 Time Performed: 14:35:01 PTAGE: 31 years EKG: Sinus rhythm INDETERMINATE AXIS NONSPECIFIC ST ELEVATION BORDERLINE ECG Since the PREVIOUS TRACING , no significant change noted PREVIOUS [id number] DOCTOR: Arvind Martin Interpretating Date/Time 07/13/2017 14:47:01
== END 2017-07-12 16:39 | disposition home or self-care (01) ==
LOC: NEPC 13:42
DX: C62.90 Malignant neoplasm of unspecified testis, unspecified whether descended or undescended (principal); C78.00 Secondary malignant neoplasm of unspecified lung; C79.89 Secondary malignant neoplasm of other specified sites; R11.2 Nausea with vomiting, unspecified; T45.1X5A Adverse effect of antineoplastic and immunosuppressive drugs, initial encounter
CPT/HCPCS: 80053; 81001; 83690; 85025; 85610; 85730; 93005; 96361; 96374; 99284; C9113; J7030

== ENCOUNTER 2017-07-26 01:29 | Emergency (ER) | payer OTHER ==
[~2017-07-26] VITALS: Ht 167.6 cm; Wt 91.0 kg
[~2017-07-26 01:29] MED LIST changes: +OMEP40CA2 PO; +PROM25TA10 PO
[2017-07-26 01:38] VITALS: BP 130/64; PULSE 84; RESP 16; TEMP 96.6; O2SAT 96
[2017-07-26] MEDS ORDERED: SULFAMETHOXAZOLE-TRIMETHOPRIM DS 800-160 MG TAB PO ONE (02:30)
[2017-07-26] MEDS ORDERED: ACETAMINOPHEN/HYDROcodone 325 MG/5 MG TAB PO ONE (02:30)
[2017-07-26] MEDS ORDERED: DOXYCYCLINE HYCLATE 100 MG CAP PO ONE (02:30)
[2017-07-26] MEDS ORDERED: BACT800T5 PO (02:32)
[2017-07-26] MEDS ORDERED: DOXY100C PO (02:32)
[2017-07-26] MEDS ORDERED: DICL75TA PO (02:32)
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
== END 2017-07-26 02:47 | disposition home or self-care (01) ==
LOC: NEPD 01:29
DX: H60.02 Abscess of left external ear (principal); J45.909 Unspecified asthma, uncomplicated
CPT/HCPCS: 99283

== ENCOUNTER 2017-07-29 22:02 | Emergency (ER) | payer OTHER ==
[~2017-07-29 22:02] MED LIST changes: -ALLO300 PO; +BACT800T5 PO; -CIPR-9 PO; +DICL75TA PO; +DOXY100C PO; -LEVO750T3 PO; -OMEP40CA2 PO; -PROM25TA10 PO
[2017-07-29 22:13] VITALS: BP 118/68; PULSE 104; RESP 18; TEMP 99.8; O2SAT 95
== END 2017-07-29 23:19 | disposition left against medical advice (07) ==
LOC: NED 22:02
DX: R52 Pain, unspecified (principal); Z53.21 Procedure and treatment not carried out due to patient leaving prior to being seen by health care provider
CPT/HCPCS: 99281

== ENCOUNTER 2017-07-30 17:47 | Emergency (ER) | payer OTHER ==
[~2017-07-30] VITALS: Ht 167.6 cm; Wt 90.0 kg
[2017-07-30 17:55] VITALS: BP 120/62; PULSE 92; RESP 18; TEMP 100.4; O2SAT 95
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
--- NOTE | 2017-07-31 23:08 | EKG ---
Date Performed: 07/30/2017 Time Performed: 18:02:00 PTAGE: 31 years EKG: Sinus rhythm POSSIBLE LEFT ATRIAL ENLARGEMENT MARKED LEFT AXIS DEVIATION ABNORMAL ECG INTERPRETATION BASED ON Joni MILANAULT AGE OF 40 YEARS PREVIOUS TRACING : 07/12/2017 14.35 DOCTOR: Marty Carroll Interpretating Date/Time 07/31/2017 22:59:02
== END 2017-07-30 21:37 | disposition left against medical advice (07) ==
LOC: NEPD 17:47
DX: R07.9 Chest pain, unspecified (principal); C62.90 Malignant neoplasm of unspecified testis, unspecified whether descended or undescended; C78.00 Secondary malignant neoplasm of unspecified lung; R94.31 Abnormal electrocardiogram [ECG] [EKG]; M54.6 Pain in thoracic spine; J45.909 Unspecified asthma, uncomplicated; F41.9 Anxiety disorder, unspecified; K21.9 Gastro-esophageal reflux disease without esophagitis; Z72.0 Tobacco use; Z53.20 Procedure and treatment not carried out because of patient's decision for unspecified reasons
CPT/HCPCS: 93005; 99283

== ENCOUNTER 2017-09-15 19:40 | Inpatient (IN) ==
--- NOTE | 2017-09-15 19:49 | ED ---
HPI General Chief Complaint: Back Pain/Injury Stated Complaint: Evac/Medical Time Seen by Provider: 09/15/17 19:45 History of Present Illness HPI Narrative: Mr. Malik is a 31 y/o M presenting to the ED with intractable back pain not responding to his home medication that was prescribed to him by his oncologist he takes Percocet and morphine p.o. for his back metastases and his testicular cancer surgery and his lung cancer. Patient also reports Nausea and abdo pain he denies fever paramedics found him to be 99.2 however in our triage his temperature is 101.2 orally. His main complaint is only lower back pain that comes and goes intermittently but is always a low-grade constant now is exacerbated denies trauma denies falling thinks it is just the course of his bone metastases pain secondary to metastatic testicular cancer and s/p chemotherapy. 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 Related Data Home Medications Medication Instructions Recorded Confirmed albuterol sulfate 2 puff INHALATION Q4-6H PRN 08/19/17 09/15/17 oxycodone-acetaminophen [Percocet] 1 tab PO Q4-6H PRN 08/19/17 09/15/17 Previous Rx's Medication Instructions Recorded albuterol sulfate 2 inh INHALATION Q4H PRN #18 g 08/19/17 Allergies Allergy/AdvReac Type Severity Reaction Status Date / Time broccoli Allergy Severe Hives Verified 09/15/17 19:47 Review of Systems Except as stated in HPI: all other systems reviewed are negative [facility] Social History Social History Substance History: No History of Abuse Second Hand Smoke Exposure: No Smoking Status: Former smoker Tobacco Type: Cigarettes How Often Do You Have a Drink Containing Alcohol: Monthly or less Recent Travel in [facility] within the Last 8 Weeks: No Recent Out of Country Travel within the Last 8 Weeks: No Exam Narrative Exam Narrative: GENERAL: mild pain distress appearance noted to have fever 101 no complaint of fever just pain SKIN: Warm and dry. HEAD: Atraumatic. Normocephalic. EYES: Pupils equal and round. No scleral icterus. No injection or drainage. ENT: No nasal bleeding or discharge. Mucous membranes pink and moist. NECK: Trachea midline. No JVD. CARDIOVASCULAR: Regular rate and rhythm. RESPIRATORY: No accessory muscle use. Clear to auscultation. Breath sounds equal bilaterally. GASTROINTESTINAL: Abdomen soft, non-tender, nondistended. Hepatic and splenic margins not palpable. MUSCULOSKELETAL: Extremities without clubbing, cyanosis, or edema. No obvious deformities. BACK lower back pain NEUROLOGICAL: Awake and alert. No obvious cranial nerve deficits. Motor grossly within normal limits. Five out of 5 muscle strength in the arms and legs. Normal speech. PSYCHIATRIC: Appropriate mood and affect; insight and judgment normal. Course Initial Documented Vital Signs Temperature 101.0 F H 09/15/17 19:48 Pulse Rate 114 H 09/15/17 19:48 Respiratory Rate 18 09/15/17 19:48 Blood Pressure 138/71 09/15/17 19:48 Pulse Oximetry 91 L 09/15/17 19:48 Last Documented Vital Signs Temperature 98.2 F 09/16/17 08:30 Pulse Rate 87 09/16/17 08:30 Respiratory Rate 18 09/16/17 08:30 Blood Pressure 109/59 L 09/16/17 08:30 Pulse Oximetry 95 09/16/17 08:00 Medical Decision Making MDM Narrative Medical decision making narrative: pain managed but fever and chemo decide pt needs antibiotics b/c and admission Differential Diagnosis Differential Diagnosis: worsening of lower back bone metastasis vs other muscle strain radiculopathy versus other Lab Data Result diagrams: 09/16/17 01:25 09/15/17 20:00 Lab Results 09/15/17 09/15/17 09/15/17 Range/Units 20:00 20:00 20:00 WBC 5.1 (4.0-11.0) th/mm3 RBC 4.91 (4.50-5.90) mil/mm3 Hgb 14.4 (13.0-17.0) gm/dL Hct 41.8 (39.0-51.0) % MCV 85.2 (80.0-100.0) fL MCH 29.3 (27.0-34.0) pg MCHC 34.4 (32.0-36.0) % RDW 14.4 (11.6-17.2) % Plt Count 253 (150-450) th/mm3 MPV 6.8 L (7.0-11.0) fL Neut % (Auto) 56.8 (16.0-70.0) % Lymph % (Auto) 21.6 (9.0-44.0) % [place] % (Auto) 20.5 H (0.0-8.0) % Eos % (Auto) 0.6 (0.0-4.0) % Baso % (Auto) 0.5 (0.0-2.0) % Neut # (Auto) 2.9 (1.8-7.7) th/mm3 Lymph # (Auto) 1.1 (1.0-4.8) th/mm3 [place] # (Auto) 1.0 H (0.0-0.9) th/mm3 Eos # (Auto) 0.0 (0.0-0.4) th/mm3 Baso # (Auto) 0.0 (0.0-0.2) th/mm3 WBC Differential . Differential Comment Auto diff final Sodium 138 (136-145) meq/L Potassium 4.0 (3.5-5.1) meq/L Chloride 106 (98-107) meq/L Carbon Dioxide 23.2 (21.0-32.0) meq/L Anion Gap 9 (5-15) meq/L BUN 14 (7-18) mg/dL Creatinine 0.86 (0.60-1.30) mg/dL Estimated GFR Greater than 89 (>89) mL/min Random Glucose 117 H (74-106) mg/dL Lactic Acid 1.5 (0.4-2.0) mmol/L Calcium 8.6 (8.5-10.1) mg/dL Total Bilirubin 0.8 (0.2-1.0) mg/dL AST 28 (15-37) U/L ALT 59 (12-78) U/L Alkaline Phosphatase 155 H (45-117) U/L Total Protein 7.3 (6.4-8.2) g/dL Albumin 3.8 (3.4-5.0) g/dL Urine Color (Yellw/Straw) Urine Clarity (Clear) Urine pH (5.0-8.5) Ur Specific [place] (1.002-1.035) Urine Protein (Neg-Trace) mg/dL Urine Glucose (UA) (Negative) mg/dL Urine Ketones (Negative) mg/dL Urine Occult Blood (Negative) Urine Nitrate (Negative) Urine Bilirubin (Negative) Urine Urobilinogen (Less than 2) mg/dL Ur Leukocyte Esterase (Negative) Urine RBC (0-3) /hpf Urine WBC (0-5) /hpf Urine Mucus (Occasional) /lpf Micro UA Comment Urine Culture Comments 09/15/17 09/16/17 09/16/17 Range/Units 20:09 01:25 01:25 WBC 6.4 (4.0-11.0) th/mm3 RBC 4.50 (4.50-5.90) mil/mm3 Hgb 13.4 (13.0-17.0) gm/dL Hct 38.6 L (39.0-51.0) % MCV 85.7 (80.0-100.0) fL MCH 29.7 (27.0-34.0) pg MCHC 34.6 (32.0-36.0) % RDW 14.7 (11.6-17.2) % Plt Count 228 (150-450) th/mm3 MPV 6.7 L (7.0-11.0) fL Neut % (Auto) 59.3 (16.0-70.0) % Lymph % (Auto) 21.5 (9.0-44.0) % Ulster % (Auto) 18.4 H (0.0-8.0) % Eos % (Auto) 0.4 (0.0-4.0) % Baso % (Auto) 0.4 (0.0-2.0) % Neut # (Auto) 3.8 (1.8-7.7) th/mm3 Lymph # (Auto) 1.4 (1.0-4.8) th/mm3 Ulster # (Auto) 1.2 H (0.0-0.9) th/mm3 Eos # (Auto) 0.0 (0.0-0.4) th/mm3 Baso # (Auto) 0.0 (0.0-0.2) th/mm3 WBC Differential . Differential Comment Auto diff final Sodium (136-145) meq/L Potassium (3.5-5.1) meq/L Chloride (98-107) meq/L Carbon Dioxide (21.0-32.0) meq/L Anion Gap (5-15) meq/L BUN (7-18) mg/dL Creatinine (0.60-1.30) mg/dL Estimated GFR (>89) mL/min Random Glucose (74-106) mg/dL Lactic Acid 1.1 (0.4-2.0) mmol/L Calcium (8.5-10.1) mg/dL Total Bilirubin (0.2-1.0) mg/dL AST (15-37) U/L ALT (12-78) U/L Alkaline Phosphatase (45-117) U/L Total Protein (6.4-8.2) g/dL Albumin (3.4-5.0) g/dL Urine Color Yellow (Yellw/Straw) Urine Clarity Clear (Clear) Urine pH 5.0 (5.0-8.5) Ur Specific [place] 1.023 (1.002-1.035) Urine Protein Negative (Neg-Trace) mg/dL Urine Glucose (UA) Negative (Negative) mg/dL Urine Ketones Negative (Negative) mg/dL Urine Occult Blood Negative (Negative) Urine Nitrate Negative (Negative) Urine Bilirubin Negative (Negative) Urine Urobilinogen Less than 2 (Less than 2) mg/dL Ur Leukocyte Esterase Negative (Negative) Urine RBC 1 (0-3) /hpf Urine WBC Less than 1 (0-5) /hpf Urine Mucus Few H (Occasional) /lpf Micro UA Comment Culture not ind Urine Culture Comments Culture not ind Imaging Data Radiologist's impression: Chest X-Ray 09/15/17 19:50 CONCLUSION: Bilateral lung masses. [id number] in superior vena cava. Discharge Plan Discharge Disposition Patient Disposition: Left Against Medical Advice Discharge Condition Condition: Fair Discharge Order Discharge Orders: AMA Discharge (Routine); Ordered 09/16/17 Ordered By: Pete Pham Discharge Order (Routine); Ordered 09/16/17 Ordered By: Pete Pham Discharge Details Anticipated Discharge Date: 09/16/17 Discharge Comment: LEFT AMA Physicians Team ED Provider: Nathanael Kiser Primary Care Provider: UNKNOWN, Attending Provider: Pete Pham Status ED Status: Left Department Discharge Information Discharge Date/Time: 09/16/17 05:45
[2017-09-15] MEDS ORDERED: Morphine Inj 4 MG/ML Vial IV.PUSH ONE ×2 (19:54→21:02)
[2017-09-15] MEDS ORDERED: Sod Chloride 0.9% Inj 1,000 ML IV.SIG ONE (19:56)
[2017-09-15 20:26] LABS: Baso % (Auto) 0.5 % (0.0-2.0); Eos % (Auto) 0.6 % (0.0-4.0); Hematocrit 41.8 % (39.0-51.0); Hemoglobin 14.4 gm/dL (13.0-17.0); Lymph # (Auto) 1.1 th/mm3 (1.0-4.8); Lymph % (Auto) 21.6 % (9.0-44.0); Mean Corpuscular HGB Conc 34.4 % (32.0-36.0); Mean Corpuscular Hemoglobin 29.3 pg (27.0-34.0); Mean Corpuscular Volume 85.2 fL (80.0-100.0); Mean Platelet Volume 6.8 fL (7.0-11.0); Mono % (Auto) 20.5 % (0.0-8.0); Neut # (Auto) 2.9 th/mm3 (1.8-7.7); Neut % (Auto) 56.8 % (16.0-70.0); Platelet Count 253 th/mm3 (150-450); Red Blood Count 4.91 mil/mm3 (4.50-5.90); Red Cell Distribution Width 14.4 % (11.6-17.2); White Blood Count 5.1 th/mm3 (4.0-11.0)
[2017-09-15 20:45] LABS: Albumin 3.8 g/dL (3.4-5.0); Anion Gap 9 meq/L (5-15); Aspartate Aminotransferase 28 U/L (15-37); Blood Urea Nitrogen 14 mg/dL (7-18); Calcium 8.6 mg/dL (8.5-10.1); Carbon Dioxide 23.2 meq/L (21.0-32.0); Chloride 106 meq/L (98-107); Glomerular Filtration Rate Greater Than 89 mL/min (>89); Glucose,Random 117 mg/dL (74-106); Sodium 138 meq/L (136-145)
[2017-09-15 20:46] LABS: Alanine Aminotransferase 59 U/L (12-78)
[2017-09-15 20:48] LABS: Alkaline Phosphatase 155 U/L (45-117); Total Protein 7.3 g/dL (6.4-8.2)
[2017-09-15 20:52] LABS: Bilirubin,Urine Negative (Negative); Clarity,Urine Clear (Clear); Color,Urine Yellow (Yellw/Straw); Glucose,Urine (UA) Negative (Negative); Leukocyte Esterase,Urine Negative (Negative); Mucus,Urine Few /lpf (Occasional); Nitrite,Urine Negative (Negative); Specific Gravity,Urine 1.023 (1.002-1.035)
--- NOTE | 2017-09-15 21:16 | XR ---
EXAM DATE: 09/15/2017 9:04 PM EDT AGE/SEX: 32 years / Male INDICATIONS: Congestion. CLINICAL DATA: This is the patient's initial encounter. Patient reports that signs and symptoms have been present for 1 day and indicates a pain score of 0/10. MEDICAL/SURGICAL HISTORY: Carcinoma, testicular. Carcinoma, lung. None. COMPARISON: . FINDINGS: Widespread pulmonary parenchymal and probable pleural-based metastases similar to August 19. Infuse-a-Po rt in superior vena cava. Small right effusion. No new infiltrate. CONCLUSION: Bilateral lung masses. [id number] in superior vena cava. Electronically signed by: Rodrigo Villarreal MD 09/15/2017 9:14 PM EDT
[2017-09-15] MEDS ORDERED: Vancomycin Inj 1 GM/200 ML PIGGYBACK IV.SIG ONE (21:53)
[2017-09-15] MEDS ORDERED: Vancomycin Inj 1,000 MG in Sodium Chlor 0.9% Inj 250 ML IV.SIG ONE (22:00)
[2017-09-16] MEDS ORDERED: Morphine Inj 4 MG/ML Vial IV.PUSH ONE (00:16)
[2017-09-16 01:36] LABS: Baso % (Auto) 0.4 % (0.0-2.0); Eos % (Auto) 0.4 % (0.0-4.0); Hematocrit 38.6 % (39.0-51.0); Hemoglobin 13.4 gm/dL (13.0-17.0); Lymph # (Auto) 1.4 th/mm3 (1.0-4.8); Lymph % (Auto) 21.5 % (9.0-44.0); Mean Corpuscular HGB Conc 34.6 % (32.0-36.0); Mean Corpuscular Hemoglobin 29.7 pg (27.0-34.0); Mean Corpuscular Volume 85.7 fL (80.0-100.0); Mean Platelet Volume 6.7 fL (7.0-11.0); Mono # (Auto) 1.2 th/mm3 (0.0-0.9); Mono % (Auto) 18.4 % (0.0-8.0); Neut # (Auto) 3.8 th/mm3 (1.8-7.7); Neut % (Auto) 59.3 % (16.0-70.0); Platelet Count 228 th/mm3 (150-450); Red Cell Distribution Width 14.7 % (11.6-17.2); White Blood Count 6.4 th/mm3 (4.0-11.0)
[2017-09-16] MEDS ORDERED: Bisacodyl 10 MG Supp RECTAL PRN (02:58)
[2017-09-16] MEDS ORDERED: Temazepam 15 MG Capsule PO PRN (02:58)
[2017-09-16] MEDS ORDERED: Acetaminophen 325 MG Tablet PO PRN (02:58)
[2017-09-16] MEDS ORDERED: Morphine Inj 4 MG/ML Vial IV.PUSH PRN (02:59)
[2017-09-16] MEDS ORDERED: oxyCODONE/Acetaminophen 10/325 Tablet PO PRN (03:00)
[2017-09-16] MEDS ORDERED: Sod Chloride 0.9% Inj 1,000 ML IV.CONT SCH (03:00)
[2017-09-16] MEDS ORDERED: Vancomycin Consult Pharmacy 1 EACH OTHER SCH (03:00)
[2017-09-16] MEDS ORDERED: HYDROmorphone PF Inj 2 MG/ML Vial IV.PUSH PRN (03:16)
--- NOTE | 2017-09-16 03:25 | P.HPIM ---
History of Present Illness Primary Care Physician: UNKNOWN History of Present Illness: This is a 32-year-old male with a PMH of Testicular CA w/ Mets to Lung who presented to the ER with complaints of severe back pain in addition to fever. Follows w/ Dr. Olivier for Oncology, today was last day of this chemo cycle, states he has one more cycle of chemo. Normally has nausea/vomiting following chemotherapy, today noted to have fever of 101.2. No cough, SOB, nausea, vomiting or diarrhea. No sick contacts. On arrival, BP 138/71, HR 114, O2 sat 91% on RA, Temp 101.0. CBC unremarkable. Chemistry unremarkable. UA negative for UTI. CXR with bilateral lung masses similar to previous, [id number]. S/ p Blood Cultures/Vanc/Cefepime in ER - Diagnosis (1) SIRS (systemic inflammatory response syndrome) (2) Testicular cancer (3) Intractable pain Review of Systems PAST FAMILY HISTORY: Reviewed. 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 - Medical History Medical History: Medical History (Last Reviewed 08/19/17 @ 06:33 by Amber Ghotra MD) Asthma Lung cancer - Tobacco History Second Hand Smoke Exposure: No Tobacco Use In Past 30 Days: No Smoking Status: Former smoker Tobacco Type: Cigarettes - Alcohol History How Often Do You Have a Drink Containing Alcohol: Never - Substance Use History Substance History: No History of Abuse - Travel History Recent Travel in the [place] Within the Last 8 Weeks: No Recent Travel Out of the Country Within the Last 8 Weeks: No - Immunization History Tetanus Immunization: Unsure Hx Influenza Vaccine This Season: No Medications and Allergies Active Medications: Active Medications Acetaminophen (Tylenol) 650 mg PO Q4H PRN PRN Reason: Temp > 100.4 Al Hydroxide/Mg Hydroxide (Milk Of Magnesia Liq) 30 ml PO Q12H PRN PRN Reason: Mild Constipation Albuterol (Ventolin Hfa Inh) 2 puff INH Q4H PRN PRN Reason: shortness of breath or wheezing Bisacodyl (Dulcolax Supp) 10 mg RECTAL DAILY PRN PRN Reason: SEVERE CONSITIPATION Hydromorphone HCl (Dilaudid Pf Inj) 1 mg IV.PUSH Q4H PRN PRN Reason: PAIN 6-10 Cefepime HCl 1,000 mg/ Sodium (Chloride) 100 mls @ 200 mls/hr IV.SIG Q12H [place] Sodium Chloride (Ns Inj) 1,000 mls @ 100 mls/hr IV.CONT .Q10H [facility] Pharmacy Profile Note (Vancomycin Consult Pharmacy) 0 mls @ 0 mls/hr OTHER UNSCH [place] Vancomycin HCl 1,000 mg/ (Sodium Chloride) 250 mls @ 250 mls/hr IV.SIG ONCE ONE Stop: 09/16/17 04:59 Lactulose (Lactulose Liq) 30 ml PO DAILY PRN PRN Reason: SEVERE CONSITIPATION Ondansetron HCl (Zofran Inj) 4 mg IV.PUSH Q6H PRN PRN Reason: NAUSEA OR VOMITING Oxycodone/Acetaminophen (Percocet 10/325 Mg) 1 tab PO Q4H PRN PRN Reason: PAIN 3-5 Senna/Docusate Sodium (Dorothy-Colace) 1 tab PO BID [facility] Sennosides (Senokot) 17.2 mg PO Q12H PRN PRN Reason: Moderate Constipation Sodium Chloride (Ns Flush) 2 ml IV.FLUSH PRN PRN PRN Reason: FLUSH AFTER USING IV ACCESS Temazepam (Restoril) 15 mg PO HS PRN PRN Reason: INSOMNIA Allergies Allergy/AdvReac Type Severity Reaction Status Date / Time broccoli Allergy Severe Hives Verified 09/15/17 19:47 Home Medications Medication Instructions Recorded Confirmed Type albuterol sulfate 2 puff INHALATION Q4-6H PRN 08/19/17 09/15/17 History oxycodone-acetaminophen [Percocet] 1 tab PO Q4-6H PRN 08/19/17 09/15/17 History Exam Vital signs: Vital Signs 09/15/17 19:48 09/15/17 21:36 09/15/17 21:43 Temperature 101.0 F H 99.0 F Pulse Rate 114 H 89 Respiratory Rate 18 29 H Blood Pressure 138/71 127/71 Pulse Oximetry 91 L 96 96 09/16/17 00:21 Temperature 99.7 F H Pulse Rate 107 H Respiratory Rate Blood Pressure Pulse Oximetry Intake & Output 09/15/17 09/15/17 09/16/17 06:59 18:59 06:59 Weight 94.347 kg Narrative: PE: GENERAL: Young male in moderate distress due to pain complaints. HEENT: PERRLA, EOMI. No scleral icterus or conjunctival pallor. No lid lag or facial droop. CARDIOVASCULAR: Regular rate and rhythm. No obvious murmurs to auscultation. No chest tenderness to palpation. RESPIRATORY: No obvious rhonchi or wheezing. Clear to auscultation. Breath sounds equal bilaterally. GASTROINTESTINAL: Abdomen soft, non-tender, nondistended. BS normal. MUSCULOSKELETAL: Extremities without clubbing, cyanosis, or edema. No obvious deformities. NEUROLOGICAL: Awake, alert and oriented x4. No focal neurologic deficits. Moving both upper and lower extremities spontaneously. Results - Labs CBC & Chem 7: 09/16/17 01:25 09/15/17 20:00 Labs: Short CBC 09/15/17 09/16/17 Range/Units 20:00 01:25 WBC 5.1 6.4 (4.0-11.0) th/mm3 Hgb 14.4 13.4 (13.0-17.0) gm/dL Hct 41.8 38.6 L (39.0-51.0) % Plt Count 253 228 (150-450) th/mm3 BMP 09/15/17 20:00 Sodium 138 Potassium 4.0 Chloride 106 Carbon Dioxide 23.2 BUN 14 Creatinine 0.86 Calcium 8.6 Liver Function 09/15/17 Range/Units 20:00 Total Bilirubin 0.8 (0.2-1.0) mg/dL AST 28 (15-37) U/L ALT 59 (12-78) U/L Alkaline Phosphatase 155 H (45-117) U/L Albumin 3.8 (3.4-5.0) g/dL Urine 09/15/17 Range/Units 20:09 Urine Color Yellow (Yellw/Straw) Urine Clarity Clear (Clear) Urine pH 5.0 (5.0-8.5) Ur Specific [place] 1.023 (1.002-1.035) Urine Protein Negative (Neg-Trace) mg/dL Urine Glucose (UA) Negative (Negative) mg/dL - Imaging Impressions Chest X-Ray 09/15/17 19:50 CONCLUSION: Bilateral lung masses. [id number] in superior vena cava. Caprini VTE Risk Assessment Caprini VTE Risk Assessment: No/Low Risk (score <= 1) Caprini Risk Assessment Model: Point Value = 1 Point Value = 2 Point Value = 3 Point Value = 5 Age 41-60 Minor surgery BMI > 25 kg/m2 Swollen legs Varicose veins or History of unexplained or recurrent spontaneous Oral contraceptives or hormone replacement Sepsis (< 1 month) Serious lung disease, including pneumonia (< 1 month) Abnormal pulmonary function Acute myocardial infarction Congestive heart failure (< 1 month) History of inflammatory bowel disease Medical patient at bed rest Age 61-74 Arthroscopic surgery Major open surgery (> 45 min) Laparoscopic surgery (> 45 min) Malignancy Confined to bed (> 72 hours) Immobilizing plaster cast Central venous access Age >= 75 History of VTE Family history of VTE Factor V Leiden Prothrombin [id number] Lupus anticoagulant Anticardiolipin antibodies Elevated serum homocysteine Heparin-induced thrombocytopenia Other congenital or acquired thrombophilia Stroke (< 1 month) Elective arthroplasty Hip, pelvis, or leg fracture Acute spinal cord injury (< 1 month) Prophylaxis Regimen: Total Risk Factor Score Risk Level Prophylaxis Regimen 0-1 Low Early ambulation 2 Moderate Order ONE of the following: *Sequential Compression Device (SCD) *Heparin 5000 units SQ BID 3-4 Higher Order ONE of the following medications: *Heparin 5000 units SQ TID *Enoxaparin/Lovenox 40 mg SQ daily (WT < 150 kg, CrCl > 30 mL/min) *Enoxaparin/Lovenox 30 mg SQ daily (WT < 150 kg, CrCl > 10-29 mL/min) *Enoxaparin/Lovenox 30 mg SQ BID (WT < 150 kg, CrCl > 30 mL/min) AND/OR *Sequential Compression Device (SCD) 5 or more Highest Order ONE of the following medications: *Heparin 5000 units SQ TID (Preferred with Epidurals) *Enoxaparin/Lovenox 40 mg SQ daily (WT < 150 kg, CrCl > 30 mL/min) *Enoxaparin/Lovenox 30 mg SQ daily (WT < 150 kg, CrCl > 10-29 mL/min) *Enoxaparin/Lovenox 30 mg SQ BID (WT < 150 kg, CrCl > 30 mL/min) AND *Sequential Compression Device (SCD) Assessment and Plan - Assessment (1) SIRS (systemic inflammatory response syndrome) Code(s): R65.10 - Systemic inflammatory response syndrome (SIRS) of non- infectious origin without acute organ dysfunction Status: Acute (2) Testicular cancer Code(s): C62.90 - Malignant neoplasm of unspecified testis, unspecified whether descended or undescended Status: Acute (3) Intractable pain Code(s): R52 - Pain, unspecified Status: Acute - Plan A/P: 1. SIRS: Temp 101.2, HR 114, Source-unclear. S/p Blood Cultures, Vanc/ Cefepime in ER. CXR w/ metastatic disease similar in comparison to previous, images reviewed. U/a negative for UTI. Follow up cultures, continue IV Abx, IVF for hydration. 2. Metastatic Testicular CA: On Chemo, following w/ Dr. Olivier in [facility], completed cycle today, scheduled for one more. Outpatient follow up as scheduled. 3. Intractable Pain: c/o severe pain, unrelieved by home medications, s/p Morphine IV in ER w/ minimal relief, will switch to Dilaudid IV, antiemetics as needed. 4. DVT Prophylaxis: SCD/Teds 5. Social work for d/c planning as needed. 6. Case discussed w/ ER physician at length, labs/records/imaging reviewed by me.
[2017-09-16] MEDS ORDERED: Vancomycin Inj 1,000 MG in Sodium Chlor 0.9% Inj 250 ML IV.SIG ONE (04:00)
[2017-09-16] MEDS ORDERED: Senna/Docusate Sodium 8.6/50 MG Tablet PO SCH (09:00)
--- NOTE | 2017-09-16 11:47 | P.AMA ---
AMA Note - AMA Note Recommended Treatment Course: return to hospital if more fevers AMA Statement: Patient Jonathan Malik SR has decided to leave the hospital against medical advice. This patient has the capacity to refuse care and understands the risks of leaving, including permanent disability and/or , and has had an opportunity to ask questions about his/her condition. The patient has been informed that he/she may return for care at any time, and follow up has been arranged/advised. - AMA Note Discharge Disposition: Left Against Medical Advice Patient Condition on Discharge: Fair
--- NOTE | 2017-09-16 11:51 | P.DS ---
Date of admission: 09/16/17 03:24 Primary care physician: UNKNOWN Attending physician on discharge: Pete Pham Anticipated date of discharge: 09/16/17 Brief History from admission: This is a 32-year-old male with a PMH of Testicular CA w/ Mets to Lung who presented to the ER with complaints of severe back pain in addition to fever. Follows jonathan/ Dr. Olivier for Oncology, today was last day of this chemo cycle, states he has one more cycle of chemo. Normally has nausea/vomiting following chemotherapy, today noted to have fever of 101.2. No cough, SOB, nausea, vomiting or diarrhea. No sick contacts. On arrival, BP 138/71, HR 114, O2 sat 91% on RA, Temp 101.0. CBC unremarkable. Chemistry unremarkable. UA negative for UTI. CXR with bilateral lung masses similar to previous, [id number]. S/ p Blood Cultures/Vanc/Cefepime in ER DS: Diagnosis - Discharge Diagnosis (1) Testicular cancer Status: Acute (2) SIRS (systemic inflammatory response syndrome) Status: Acute (3) Intractable pain Status: Acute DS: Summary Hospital Course: This is a 32-year-old male with a PMH of Testicular CA w/ Mets to Lung who presented to the ER with complaints of severe back pain in addition to fever. Follows agnes Olivier for Oncology, today was last day of this chemo cycle, states he has one more cycle of chemo. Normally has nausea/vomiting following chemotherapy, today noted to have fever of 101.2. No cough, SOB, nausea, vomiting or diarrhea. No sick contacts. On arrival, BP 138/71, HR 114, O2 sat 91% on RA, Temp 101.0. CBC unremarkable. Chemistry unremarkable. UA negative for UTI. CXR with bilateral lung masses similar to previous, [id number]. S/ p Blood Cultures/Vanc/Cefepime in ER 8-4 PT LEFT AMA THIS MORNING WAS NOT SEEN PRIOR TO SIGNING AMA - Time Spent with Patient Total time spent providing and/or coordinating discharge services: Less than 30 minutes - Quality: VTE Deep Vein Thrombosis/Pulmonary Embolism Present on Admission: No Exam Vital signs: Vital Signs 09/15/17 19:48 09/15/17 21:36 09/15/17 21:43 Temperature 101.0 F H 99.0 F Pulse Rate 114 H 89 Respiratory Rate 18 29 H Blood Pressure 138/71 127/71 Pulse Oximetry 91 L 96 96 09/16/17 00:21 09/16/17 05:04 09/16/17 05:54 Temperature 99.7 F H 99.7 F H 99.2 F Pulse Rate 107 H 89 90 Respiratory Rate 18 18 Blood Pressure 121/71 127/72 Pulse Oximetry 09/16/17 06:05 09/16/17 08:00 09/16/17 08:30 Temperature 98.2 F Pulse Rate 90 87 Respiratory Rate 18 Blood Pressure 109/59 L Pulse Oximetry 95 Intake & Output 09/15/17 09/16/17 09/16/17 18:59 06:59 18:59 Intake Total 1720 / 1720 Balance 1720 / 1720 Weight 94.347 kg Intake: IV 1600 / 1600 Maxipime Inj 2,000 MG In NS Inj 100 / 100 100 ML @ 200 mls/hr IV.SIG ONCE ONE Rx#:[id number] NS Inj 1,000 ML @ Wide Open IV. 1000 / 1000 SIG BOLUS ONE Rx#:[id number] Vancomycin Inj 1,000 MG In NS 500 / 500 Inj 250 ML @ 250 mls/hr IV.SIG ONCE ONE Rx#:[id number] Oral 120 / 120 Other: Date of Last Bowel Movement 09/15/17 09/15/17 Weight On Admission 94.347 kg Narrative: LEFT AMA NOT SEEN Results Procedures completed during hospitalization: NONE LEFT AMA Labs on day of discharge: Labs from last 24 hours 09/16/17 09/16/17 09/15/17 01:25 01:25 20:09 WBC 6.4 RBC 4.50 Hgb 13.4 Hct 38.6 L MCV 85.7 MCH 29.7 MCHC 34.6 RDW 14.7 Plt Count 228 MPV 6.7 L Neut % (Auto) 59.3 Lymph % (Auto) 21.5 [place] % (Auto) 18.4 H Eos % (Auto) 0.4 Baso % (Auto) 0.4 Neut # (Auto) 3.8 Lymph # (Auto) 1.4 [place] # (Auto) 1.2 H Eos # (Auto) 0.0 Baso # (Auto) 0.0 WBC Differential . Differential Comment Auto diff final Sodium Potassium Chloride Carbon Dioxide Anion Gap BUN Creatinine Estimated GFR Random Glucose Lactic Acid 1.1 Calcium Total Bilirubin AST ALT Alkaline Phosphatase Total Protein Albumin Urine Color Yellow Urine Clarity Clear Urine pH 5.0 Ur Specific [place] 1.023 Urine Protein Negative Urine Glucose (UA) Negative Urine Ketones Negative Urine Occult Blood Negative Urine Nitrate Negative Urine Bilirubin Negative Urine Urobilinogen Less than 2 Ur Leukocyte Esterase Negative Urine RBC 1 Urine WBC Less than 1 Urine Mucus Few H Micro UA Comment Culture not ind Urine Culture Comments Culture not ind 09/15/17 09/15/17 09/15/17 20:00 20:00 20:00 WBC 5.1 RBC 4.91 Hgb 14.4 Hct 41.8 MCV 85.2 MCH 29.3 MCHC 34.4 RDW 14.4 Plt Count 253 MPV 6.8 L Neut % (Auto) 56.8 Lymph % (Auto) 21.6 [place] % (Auto) 20.5 H Eos % (Auto) 0.6 Baso % (Auto) 0.5 Neut # (Auto) 2.9 Lymph # (Auto) 1.1 [place] # (Auto) 1.0 H Eos # (Auto) 0.0 Baso # (Auto) 0.0 WBC Differential . Differential Comment Auto diff final Sodium 138 Potassium 4.0 Chloride 106 Carbon Dioxide 23.2 Anion Gap 9 BUN 14 Creatinine 0.86 Estimated GFR Greater than 89 Random Glucose 117 H Lactic Acid 1.5 Calcium 8.6 Total Bilirubin 0.8 AST 28 ALT 59 Alkaline Phosphatase 155 H Total Protein 7.3 Albumin 3.8 Urine Color Urine Clarity Urine pH Ur Specific [place] Urine Protein Urine Glucose (UA) Urine Ketones Urine Occult Blood Urine Nitrate Urine Bilirubin Urine Urobilinogen Ur Leukocyte Esterase Urine RBC Urine WBC Urine Mucus Micro UA Comment Urine Culture Comments Preliminary micro results at discharge 09/15/17 20:00 Aerobic Blood Culture - Preliminary Blood - Peripheral No growth in 1 day Anaerobic Blood Culture - Preliminary No growth in 1 day 09/15/17 20:00 Aerobic Blood Culture - Preliminary Blood - Peripheral No growth in 1 day Anaerobic Blood Culture - Preliminary No growth in 1 day - Impressions ITS Impressions Chest X-Ray 09/15/17 19:50 CONCLUSION: Bilateral lung masses. [id number] in superior vena cava. Discharge Plan - Discharge Disposition Patient Disposition: Left Against Medical Advice - Discharge Condition Condition: Fair - Discharge Order Discharge Orders: AMA Discharge (Routine); Ordered 09/16/17 Ordered By: Pete Pham Discharge Order (Routine); Ordered 09/16/17 Ordered By: Pete Pham - Discharge Details Anticipated Discharge Date: 09/16/17 Discharge Comment: LEFT AMA - Physicians Team Primary Care Provider: UNKNOWN, Attending Provider: Pete Pham
[2017-09-16] MEDS ORDERED: Vancomycin Inj 1,500 MG in Sodium Chlor 0.9% Inj 500 ML IV.SIG SCH (17:00)
[2017-09-18] MEDS ORDERED: Pharmacy Ordered Lab Info OTHER ONE (04:45)
[2017-09-19 18:35] VITALS: BP 109/59; PULSE 87; RESP 18; TEMP 98.2; O2SAT 95
== END 2017-09-16 10:59 | disposition left against medical advice (07) ==
LOC: NEPE 19:40 → NEDA 09-16 03:24 → HCIN 09-16 05:45
PROVIDERS: ADMIT Hospitalist; ATTEND Hospitalist

== ENCOUNTER 2017-12-22 20:14 | Inpatient (IN) ==
[2017-12-22] MEDS ORDERED: Morphine Sulfate Inj 8 MG/ML Vial IV.PUSH ONE ×2 (20:46→22:38)
[2017-12-22] MEDS ORDERED: ceFAZolin 2 GM Premix Inj 2 GM/50 ML PIGGYBACK IV.SIG ONE (20:48)
[2017-12-22] MEDS ORDERED: Ampicillin/Sulbactam Inj 3 GM in Sodium Chloride 0.9% Inj 100 ML IV.SIG ONE (21:17)
[2017-12-22 21:22] LABS: Baso % (Auto) 0.4 % (0.0-2.0); Eos # (Auto) 0.2 th/mm3 (0.0-0.4); Eos % (Auto) 2.2 % (0.0-4.0); Hematocrit 39.3 % (39.0-51.0); Hemoglobin 13.9 gm/dL (13.0-17.0); Lymph # (Auto) 4.6 th/mm3 (1.0-4.8); Lymph % (Auto) 46.2 % (9.0-44.0); Mean Corpuscular HGB Conc 35.4 % (32.0-36.0); Mean Corpuscular Hemoglobin 30.7 pg (27.0-34.0); Mean Corpuscular Volume 86.6 fL (80.0-100.0); Mean Platelet Volume 6.8 fL (7.0-11.0); Mono # (Auto) 0.9 th/mm3 (0.0-0.9); Neut # (Auto) 4.2 th/mm3 (1.8-7.7); Neut % (Auto) 42.2 % (16.0-70.0); Platelet Count 237 th/mm3 (150-450); Red Blood Count 4.53 mil/mm3 (4.50-5.90); Red Cell Distribution Width 13.6 % (11.6-17.2); White Blood Count 9.9 th/mm3 (4.0-11.0)
[2017-12-22 21:44] LABS: Anion Gap 8 meq/L (5-15); Blood Urea Nitrogen 12 mg/dL (7-18); Calcium 8.1 mg/dL (8.5-10.1); Carbon Dioxide 26.8 meq/L (21.0-32.0); Chloride 103 meq/L (98-107); Glomerular Filtration Rate Greater Than 89 mL/min (>89); Glucose,Random 105 mg/dL (74-106); Potassium 3.7 meq/L (3.5-5.1); Sodium 138 meq/L (136-145)
--- NOTE | 2017-12-22 21:48 | XR ---
EXAM DATE: 12/22/2017 9:44 PM EST AGE/SEX: 32 years / Male INDICATIONS: Pain from laceration to middle of anterior and medial forearm. CLINICAL DATA: This is the patient's initial encounter. Patient reports that signs and symptoms have been present for 1 day and indicates a pain score of 10/10. MEDICAL/SURGICAL HISTORY: None. None. COMPARISON: No prior exams available for comparison. FINDINGS: Deep soft tissue lacerations are seen medially at the level of the mid forearm. I don't see any radio paque foreign bodies here but there may be some debris anteriorly more distal, presumably on the skin . The right radius and ulna are intact. CONCLUSION: Deep soft tissue lacerations anteromedially of the mid forearm. No bony abnormality. Electronically signed by: uLis Freeman MD 12/22/2017 9:47 PM EST
[2017-12-22 21:56] LABS: Platelet Estimate Normal (Normal); Platelet Morphology Normal (Normal)
--- NOTE | 2017-12-22 22:13 | ED ---
HPI General Chief Complaint: Syncope Stated Complaint: Dizziness Time Seen by Provider: 12/22/17 20:29 Source: patient and EMS Mode of arrival: EMS Limitations: other History of Present Illness HPI narrative: 32-year-old male came to the emergency room brought in by EMS for a sink full episode followed by a dog bite to his right forearm. Patient is extremely anxious currently and says that his arm is hurting a lot. It is difficult to get a focused history from him. History is partly obtained from EMS and family members. He has stage IV lung cancer. Patient says his oncologist is Dr. Olivier. He does not know what exactly happened but said he passed out. His girlfriend/roommate noticed that he was shaking at which point she started to scream and the dog panicked and bit on his forearm. His forearm was wrapped by EMS. Patient says that it hurts a lot. Currently he is awake and answering questions. Vital signs are stable. Related Data Home Medications Medication Instructions Recorded Confirmed oxycodone-acetaminophen [Percocet] 1 tab PO Q4-6H PRN 08/19/17 12/22/17 ondansetron [Zofran ODT] 4 mg PO TID PRN 10/11/17 12/22/17 prochlorperazine 10 mg PO Q8HR 10/11/17 12/22/17 sotalol 80 mg PO BID 10/11/17 12/22/17 Previous Rx's Medication Instructions Recorded albuterol sulfate 2 inh INHALATION Q4H PRN #18 g 08/19/17 amoxicillin-pot clavulanate 1 tab PO Q12H #14 tab 12/25/17 [Augmentin] oxycodone-acetaminophen 1 tab PO Q4H PRN #10 tab 12/25/17 Allergies Allergy/AdvReac Type Severity Reaction Status Date / Time broccoli Allergy Severe Hives Verified 12/10/17 01:57 Review of Systems ROS: all other systems reviewed are negative [facility] Medical History Medical History Asthma (Acute) Lung cancer (Acute) Testicular cancer (Acute) Surgical History Surgical History History of surgery on arm (Acute) Social History Social History Substance History: No History of Abuse Second Hand Smoke Exposure: Yes Smoking Status: Former smoker Tobacco Type: Cigarettes Cigarettes Per Day: 4 How Often Do You Have a Drink Containing Alcohol: Never Recent Travel in [facility] within the Last 8 Weeks: No Recent Out of Country Travel within the Last 8 Weeks: No Immunization History Tetanus Immunization: <5 Years Exam Narrative Exam Narrative: GENERAL: Awake, alert, anxious, moderate to significant distress SKIN: Focused skin assessment warm/dry. Right arm distal forearm has 2 of 5 cm lacerations that are wide open. Deeper tissue including the muscle bellies exposed. No active bleeding noticed. Patient refused to move his fingers or wrist due to the pain. Distal pulses and sensation intact. HEAD: Atraumatic. Normocephalic. EYES: Pupils equal and round. No scleral icterus. No injection or drainage. ENT: No nasal bleeding or discharge. Mucous membranes pink and moist. NECK: Trachea midline. No JVD. CARDIOVASCULAR: Regular rate and rhythm. No murmur appreciated. RESPIRATORY: No accessory muscle use. Clear to auscultation. Breath sounds equal bilaterally. GASTROINTESTINAL: Abdomen soft, non-tender, nondistended. Hepatic and splenic margins not palpable. MUSCULOSKELETAL: No obvious deformities. No clubbing. No cyanosis. No edema. NEUROLOGICAL: Awake and alert. No obvious cranial nerve deficits. Motor grossly within normal limits. Normal speech. PSYCHIATRIC: Appropriate mood and affect; insight and judgment normal. Procedures Laceration Laceration 1: Site: upper extremity Side (If applicable): right Size (cm): 7 Description: irregular and contaminated Depth: simple, single layer Anesthetic used: lidocaine 1% Anesthesia technique:: local infiltration Amount (mL): 5 Pre-repair:: wound explored, irrigated extensively and deep structures intact Skin layer closed with: prolene Size (cm): 3-0 Number of sutures:: 3 Technique:: simple, interrupted Laceration 2: Site: upper extremity Side (If applicable): right Size (cm): 5 Description: irregular Depth: simple, single layer Anesthetic used: lidocaine 1% Anesthesia technique:: local infiltration Amount (mL): 4 Pre-repair:: wound explored, irrigated extensively and deep structures intact Skin layer closed with: prolene Size (cm): 3-0 Number of sutures:: 2 Course Initial Documented Vital Signs Temperature 98.7 F 12/22/17 20:27 Pulse Rate 92 H 12/22/17 20:27 Respiratory Rate 22 12/22/17 20:27 Blood Pressure 120/64 12/22/17 20:27 Pulse Oximetry 91 L 12/22/17 20:27 Last Documented Vital Signs Temperature 98.8 F 12/25/17 16:00 Pulse Rate 86 12/25/17 16:00 Respiratory Rate 17 12/25/17 16:00 Blood Pressure 125/73 12/25/17 16:00 Pulse Oximetry 95 12/25/17 16:00 Medical Decision Making MDM Narrative Medical decision making narrative: DILIP NOTE: I was asked to loosely approximate this patient's dog bite lacerations. On my exam there is a 7 cm last forearm and a 5 cm laceration on the posterior aspect of the same forearm. There are several other smaller puncture wounds and lacerations. Wounds were irrigated with approximately 1 L normal saline. They were loosely approximated with 3-0 Prolene. Patient tolerated the procedure well. Dr. Moulton retains care of the patient. I discussed the case with hand surgeon Dr. Quick and expressed to her that in my opinion patient should go to the OR to get the wound washed out and approximated. She would take the patient to the OR tomorrow but wanted the wound to be washed here and loosely approximated. My PA has done the procedure. Please refer to her procedure note. Blood test results are back and within acceptable limit. Given the history of cancer and the syncopal episode my concern is PE. I have ordered a CT pulmonary angiogram as well as a CT of his brain. Awaiting for the CAT scan to be done and resulted. Patient will require admission after that. Patient has been given IV Unasyn and medicated for pain. 11:35 PM CTA is negative for PE. It shows the metastatic lung cancer with some retroperitoneal lymph nodes. Head CT is negative. Patient will be admitted for the hand surgeon. I discussed the case with the hospitalist was accepted the patient. Medical Screen Exam Complete: Yes Emergency Medical Condition: Yes Lab Data Result diagrams: 12/23/17 05:40 12/23/17 05:40 Lab Results 12/22/17 12/22/17 12/23/17 Range/Units 21:11 21:11 00:08 WBC 9.9 (4.0-11.0) th/mm3 RBC 4.53 (4.50-5.90) mil/mm3 Hgb 13.9 (13.0-17.0) gm/dL Hct 39.3 (39.0-51.0) % MCV 86.6 (80.0-100.0) fL MCH 30.7 (27.0-34.0) pg MCHC 35.4 (32.0-36.0) % RDW 13.6 (11.6-17.2) % Plt Count 237 D (150-450) th/mm3 MPV 6.8 L (7.0-11.0) fL Prelim Diff (Auto) Slide review pending Neut % (Auto) 42.2 (16.0-70.0) % Lymph % (Auto) 46.2 H (9.0-44.0) % [place] % (Auto) 9.0 H (0.0-8.0) % Eos % (Auto) 2.2 (0.0-4.0) % Baso % (Auto) 0.4 (0.0-2.0) % Neut # (Auto) 4.2 (1.8-7.7) th/mm3 Lymph # (Auto) 4.6 (1.0-4.8) th/mm3 [place] # (Auto) 0.9 (0.0-0.9) th/mm3 Eos # (Auto) 0.2 (0.0-0.4) th/mm3 Baso # (Auto) 0.0 (0.0-0.2) th/mm3 WBC Differential . Diff Scan Auto diff confirmed Differential Comment . Platelet Estimate Normal (Normal) Platelet Morphology Normal (Normal) Sodium 138 (136-145) meq/L Potassium 3.7 (3.5-5.1) meq/L Chloride 103 (98-107) meq/L Carbon Dioxide 26.8 (21.0-32.0) meq/L Anion Gap 8 (5-15) meq/L BUN 12 (7-18) mg/dL Creatinine 0.84 (0.60-1.30) mg/dL Estimated GFR Greater than 89 (>89) mL/min Random Glucose 105 (74-106) mg/dL Calcium 8.1 L (8.5-10.1) mg/dL Total Bilirubin (0.2-1.0) mg/dL AST (15-37) U/L ALT (12-78) U/L Alkaline Phosphatase (45-117) U/L Troponin I Less than 0.02 L (0.02-0.05) ng/mL Total Protein (6.4-8.2) g/dL Albumin (3.4-5.0) g/dL Urine Color [place] (Yellw/Straw) Urine Clarity Hazy H (Clear) Urine pH 5.0 (5.0-8.5) Ur Specific [place] 1.029 (1.002-1.035) Urine Protein 30 H (Neg-Trace) mg/dL Urine Glucose (UA) Negative (Negative) mg/dL Urine Ketones Negative (Negative) mg/dL Urine Occult Blood Negative (Negative) Urine Nitrate Negative (Negative) Urine Bilirubin Negative (Negative) Urine Urobilinogen 2.0 H (Less than 2) mg/dL Ur Leukocyte Esterase Negative (Negative) Urine RBC Less than 1 (0-3) /hpf Urine WBC 2 (0-5) /hpf Ur Squamous Epith Cells <1 (0-5) /hpf Hyaline Casts 1 (0-3) /lpf Urine Mucus Many H (Occasional) /lpf Micro UA Comment Culture not ind Ur Microscopic Review Not Reportable Urine Culture Comments Culture not ind 12/23/17 12/23/17 12/23/17 Range/Units 00:15 05:40 05:40 WBC 9.7 (4.0-11.0) th/mm3 RBC 4.14 L (4.50-5.90) mil/mm3 Hgb 12.6 L (13.0-17.0) gm/dL Hct 37.2 L (39.0-51.0) % MCV 89.9 (80.0-100.0) fL MCH 30.4 (27.0-34.0) pg MCHC 33.8 (32.0-36.0) % RDW 14.4 (11.6-17.2) % Plt Count 229 (150-450) th/mm3 MPV 6.5 L (7.0-11.0) fL Prelim Diff (Auto) Neut % (Auto) 37.4 (16.0-70.0) % Lymph % (Auto) 51.6 H (9.0-44.0) % [place] % (Auto) 8.3 H (0.0-8.0) % Eos % (Auto) 1.8 (0.0-4.0) % Baso % (Auto) 0.9 (0.0-2.0) % Neut # (Auto) 3.6 (1.8-7.7) th/mm3 Lymph # (Auto) 5.0 H (1.0-4.8) th/mm3 [place] # (Auto) 0.8 (0.0-0.9) th/mm3 Eos # (Auto) 0.2 (0.0-0.4) th/mm3 Baso # (Auto) 0.1 (0.0-0.2) th/mm3 WBC Differential . Diff Scan Differential Comment Auto diff final Platelet Estimate (Normal) Platelet Morphology (Normal) Sodium 139 (136-145) meq/L Potassium 3.7 (3.5-5.1) meq/L Chloride 104 (98-107) meq/L Carbon Dioxide 27.7 (21.0-32.0) meq/L Anion Gap 7 (5-15) meq/L BUN 10 (7-18) mg/dL Creatinine 0.85 (0.60-1.30) mg/dL Estimated GFR Greater than 89 (>89) mL/min Random Glucose 100 (74-106) mg/dL Calcium 7.5 L (8.5-10.1) mg/dL Total Bilirubin 0.8 (0.2-1.0) mg/dL AST 30 (15-37) U/L ALT 52 (12-78) U/L Alkaline Phosphatase 127 H (45-117) U/L Troponin I Less than 0.02 L Less than 0.02 L (0.02-0.05) ng/mL Total Protein 6.5 (6.4-8.2) g/dL Albumin 3.0 L (3.4-5.0) g/dL Urine Color (Yellw/Straw) Urine Clarity (Clear) Urine pH (5.0-8.5) Ur Specific [place] (1.002-1.035) Urine Protein (Neg-Trace) mg/dL Urine Glucose (UA) (Negative) mg/dL Urine Ketones (Negative) mg/dL Urine Occult Blood (Negative) Urine Nitrate (Negative) Urine Bilirubin (Negative) Urine Urobilinogen (Less than 2) mg/dL Ur Leukocyte Esterase (Negative) Urine RBC (0-3) /hpf Urine WBC (0-5) /hpf Ur Squamous Epith Cells (0-5) /hpf Hyaline Casts (0-3) /lpf Urine Mucus (Occasional) /lpf Micro UA Comment Ur Microscopic Review Urine Culture Comments Imaging Data Radiologist's impression: Forearm X-Ray 12/22/17 20:46 CONCLUSION: Deep soft tissue lacerations anteromedially of the mid forearm. No bony abnormality. Chest CTA 12/22/17 20:48 CONCLUSION: 1. No pulmonary emboli. 2. Diffuse metastatic disease involving the lungs bilaterally. 3. Partial visualization of a retroperitoneal mass on the left likely relating to metastatic lesion. Head CT 12/22/17 20:48 CONCLUSION: 1. Negative CT Head non contrast. . ECG Data Attestation: I personally reviewed and interpreted this ECG as follows: Interpretation: Twelve-lead EKG was reviewed by me. Normal sinus rhythm, left axis deviation, nonspecific ST-T wave changes. Heart rate of 93 bpm. Discharge Plan Discharge Disposition Patient Disposition: 30 Still Patient Discharge Condition Condition: Good Discharge Order Discharge Orders: Discharge Order (Routine); Ordered 12/25/17 Ordered By: Ernst Ordonez Hand Surgery Clear for Discharge (Routine); Ordered 12/23/17 Ordered By: Nicolasa Quick Physicians Team ED Provider: Andrea Moulton ED Midlevel Provider: Claudia Salas Primary Care Provider: Primary Care [facility]cy Ortez Attending Provider: Ernst Ordonez Other Providers: Nicolasa Quick ; Sharon Gracia Status ED Status: Left Department Discharge Information Discharge Date/Time: 12/23/17 00:45
--- NOTE | 2017-12-22 23:13 | CT ---
EXAM DATE: 12/22/2017 11:08 PM EST AGE/SEX: 32 years / Male INDICATIONS: Syncopal episode. CLINICAL DATA: This is the patient's initial encounter. Patient reports that signs and symptoms have been present for 1 day and indicates a pain score of 0/10. MEDICAL/SURGICAL HISTORY: Carcinoma, lung. Carcinoma, testicular. Asthma. . arm surgery RADIATION DOSE: 56.35 CTDI (mGy) COMPARISON: [facility] [place] HEAD W/O CONTRAST, 11/10/2017. . TECHNIQUE: CT of the head without contrast. Using automated exposure control and adjustment of the mA and/or kV according to patient size, radiation dose was kept as low as reasonably achievable to ob tain optimal diagnostic quality images. DICOM format image data is available electronically for revi ew and comparison. FINDINGS: Cerebrum: The ventricles are normal for age. No evidence of midline shift, mass lesion, hemorrhage or acute infarction. No extraaxial fluid collections are seen. Posterior Fossa: The cerebellum and brainstem are intact. The 4th ventricle is midline. The cerebe llopontine angle is unremarkable. Extracranial: The visualized portion of the orbits is intact. Skull: The calvaria is intact. No evidence of skull fracture. CONCLUSION: 1. Negative CT Head non contrast. . Electronically signed by: Xavi Childers MD 12/22/2017 11:12 PM EST
--- NOTE | 2017-12-22 23:29 | CT ---
EXAM DATE: 12/22/2017 11:14 PM EST AGE/SEX: 32 years / Male INDICATIONS: Syncopal episode; rule out pulmonary embolus. CLINICAL DATA: This is the patient's initial encounter. Patient reports that signs and symptoms have been present for 1 day and indicates a pain score of 0/10. MEDICAL/SURGICAL HISTORY: Carcinoma, lung. Carcinoma, testicular. Asthma. . Arm surgery RADIATION DOSE: 10.83 CTDI (mGy) COMPARISON: C, CTA PULMONARY W CONTRAST W 3D, 12/10/2017. . TECHNIQUE: Volumetric scanning was performed using a multi-row detector CT scanner during bolus infu butch of 74 ml Omnipaque 350 (iohexol) nonionic water-soluble contrast as a single exam dose. The hailee a was post processed with a variety of visualization algorithms including full volume maximum intensi ty projection and sliding thin slab reformation. Using automated exposure control and adjustment of t he mA and/or kV according to patient size, radiation dose was kept as low as reasonably achievable to obtain optimal diagnostic quality images. DICOM format image data is available electronically for r eview and comparison. FINDINGS: Pulmonary Arteries: No filling defects are seen in the pulmonary arteries out to the subsegmental ve ssels. The left and right pulmonary arteries are normal in diameter. Lung: Diffuse pulmonary parenchymal metastatic lesions scattered throughout both lungs. There is a m ore confluent mass involving the anterior right chest. In the short interval from the prior study the re has been no change in these lesions. No infiltrate or pneumothorax.. Effusion: None. Mediastinum: No evidence of mediastinal or hilar adenopathy. Other: The axilla is unremarkable. Partial visualization of a left retroperitoneal mass. Right-sided Port-A-Cath. CONCLUSION: 1. No pulmonary emboli. 2. Diffuse metastatic disease involving the lungs bilaterally. 3. Partial visualization of a retroperitoneal mass on the left likely relating to metastatic lesion. Electronically signed by: Xavi Childers MD 12/22/2017 11:28 PM EST
[2017-12-22] MEDS ORDERED: Vancomycin Consult Pharmacy OTHER PRN (23:35)
[2017-12-22] MEDS ORDERED: Acetaminophen 325 MG Tablet PO PRN (23:36)
[2017-12-22] MEDS ORDERED: Bisacodyl 10 MG Supp RECTAL PRN (23:36)
--- NOTE | 2017-12-22 23:42 | P.HPIM ---
History of Present Illness Primary Care Physician: No Primary Care Physician History of Present Illness: This is a 32-year-old male with a PMH of Metastatic Testicular CA and Tobacco Abuse who was brought to the ER by EMS after syncopal episode and dog bite. Pt states he was having dinner, felt something got stuck in his throat and had sudden onset of coughing followed by syncopal event. Denies dizziness or lightheadedness. Per report, pt's girlfriend found him unresponsive on the floor having convulsions, apparently she started screaming at which point the pt 's dog bit his right arm. Pt currently awake and alert. Reports severe pain to right arm, 10/10, non-radiating, worse w/ movement. On arrival, BP 120/64, HR 92, O2 sat 91% on RA, Afebrile. CBC unremarkable. Chemistry unremarkable. Troponin negative. UA negative. Forearm X-ray deep soft tissue lacerations anterior medially of the mid forearm. CTA Chest no PE, diffuse metastatic disease involving lungs bilaterally, retroperitoneal mass likely related to metastatic lesion. CT Head negative. Dr. Quick consulted by ER physician, plan for surgical intervention in am. - Diagnosis (1) Syncope (2) Dog bite (3) Testicular cancer Review of Systems PAST FAMILY HISTORY: Reviewed. 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, Psychological Anthropologist / EMT - Medical History Medical History: Medical History (Last Reviewed 12/22/17 @ 22:34 by Andrea Moulton MD) Asthma Lung cancer Testicular cancer - Surgical History Surgical History: Surgical History (Last Reviewed 12/22/17 @ 22:34 by Andrea Moulton MD) History of surgery on arm - Tobacco History Second Hand Smoke Exposure: Yes Tobacco Use In Past 30 Days: No Smoking Status: Former smoker Tobacco Type: Cigarettes Cigarettes Per Day: 4 - Alcohol History How Often Do You Have a Drink Containing Alcohol: Never - Substance Use History Substance History: No History of Abuse - Travel History Recent Travel in the [place] Within the Last 8 Weeks: No Recent Travel Out of the Country Within the Last 8 Weeks: No - Immunization History Tetanus Immunization: <5 Years Medications and Allergies Active Medications: Active Medications Acetaminophen (Tylenol) 650 mg PO Q4H PRN PRN Reason: Temp > 100.4 Al Hydroxide/Mg Hydroxide (Milk Of Magnesia Liq) 30 ml PO Q12H PRN PRN Reason: Mild Constipation Bisacodyl (Dulcolax Supp) 10 mg RECTAL DAILY PRN PRN Reason: SEVERE CONSITIPATION Ampicillin Sodium/Sulbactam (Sodium 3 gm/ Sodium Chloride) 100 mls @ 200 mls/ hr IV.SIG Q6H [facility] Sodium Chloride (Ns Inj) 1,000 mls @ 100 mls/hr IV.CONT .Q10H [facility] Lactulose (Lactulose Liq) 30 ml PO DAILY PRN PRN Reason: SEVERE CONSITIPATION Ondansetron HCl (Zofran Inj) 4 mg IV.PUSH Q6H PRN PRN Reason: NAUSEA OR VOMITING Pharmacy Profile Note (Vancomycin Consult Pharmacy) 1 each OTHER UNSCH PRN PRN Reason: Pharmacy to dose Senna/Docusate Sodium (Dorothy-Colace) 1 tab PO BID [facility] Sennosides (Senokot) 17.2 mg PO Q12H PRN PRN Reason: Moderate Constipation Allergies Allergy/AdvReac Type Severity Reaction Status Date / Time broccoli Allergy Severe Hives Verified 12/10/17 01:57 Home Medications Medication Instructions Recorded Confirmed Type oxycodone-acetaminophen [Percocet] 1 tab PO Q4-6H PRN 08/19/17 12/22/17 History ondansetron [Zofran ODT] 4 mg PO TID PRN 10/11/17 12/22/17 History prochlorperazine 10 mg PO Q8HR 10/11/17 12/22/17 History sotalol 80 mg PO BID 10/11/17 12/22/17 History Exam Vital signs: Vital Signs 12/22/17 20:27 12/22/17 20:31 12/22/17 21:16 Temperature 98.7 F Pulse Rate 92 H 92 H Respiratory Rate 22 20 Blood Pressure 120/64 120/64 Pulse Oximetry 91 L 94 L 94 L Intake & Output 12/22/17 12/22/17 12/23/17 06:59 18:59 06:59 Intake Total 150 / 150 Balance 150 / 150 Weight 90.718 kg Intake: IV 150 / 150 Unasyn Inj 3 GM In NS Inj 100 100 / 100 ML @ 200 mls/hr IV.SIG ONCE ONE Rx#:[id number] Ancef 2 GM Premix Inj 2 gm In 50 / 50 50 ml @ 100 mls/hr IV.SIG ONCE ONE Rx#:[id number] Narrative: PE: GENERAL: Young male in no acute distress. Smells strongly of tobacco. Family members at bedside. SKIN: Focused skin assessment warm and dry. HEENT: PERRLA, EOMI. No scleral icterus or conjunctival pallor. No lid lag or facial droop. CARDIOVASCULAR: Regular rate and rhythm. No obvious murmurs to auscultation. No chest tenderness to palpation. Right Chest Port RESPIRATORY: No obvious rhonchi or wheezing. Clear to auscultation. Breath sounds equal bilaterally. GASTROINTESTINAL: Abdomen soft, non-tender, nondistended. BS normal. MUSCULOSKELETAL: Extremities without clubbing, cyanosis, or edema. No obvious deformities. Multiple tattoos. Right forearm w/ dressing in place, decreased ROM of wrist/fingers due to pain. Pulses intact. NEUROLOGICAL: Awake, alert and oriented x4. No focal neurologic deficits. Moving both upper and lower extremities spontaneously. PSYCHIATRIC: Appropriate mood and affect. Insight and judgment normal. Results - Labs CBC & Chem 7: 12/22/17 21:11 12/22/17 21:11 Labs: Short CBC 12/22/17 Range/Units 21:11 WBC 9.9 (4.0-11.0) th/mm3 Hgb 13.9 (13.0-17.0) gm/dL Hct 39.3 (39.0-51.0) % Plt Count 237 D (150-450) th/mm3 BMP 12/22/17 21:11 Sodium 138 Potassium 3.7 Chloride 103 Carbon Dioxide 26.8 BUN 12 Creatinine 0.84 Calcium 8.1 L Cardiac Enzymes 12/22/17 Range/Units 21:11 Troponin I Less than 0.02 L (0.02-0.05) ng/mL - Imaging Impressions Forearm X-Ray 12/22/17 20:46 CONCLUSION: Deep soft tissue lacerations anteromedially of the mid forearm. No bony abnormality. Chest CTA 12/22/17 20:48 CONCLUSION: 1. No pulmonary emboli. 2. Diffuse metastatic disease involving the lungs bilaterally. 3. Partial visualization of a retroperitoneal mass on the left likely relating to metastatic lesion. Head CT 12/22/17 20:48 CONCLUSION: 1. Negative CT Head non contrast. . Caprini VTE Risk Assessment Caprini VTE Risk Assessment: No/Low Risk (score <= 1) Caprini Risk Assessment Model: Point Value = 1 Point Value = 2 Point Value = 3 Point Value = 5 Age 41-60 Minor surgery BMI > 25 kg/m2 Swollen legs Varicose veins or History of unexplained or recurrent spontaneous Oral contraceptives or hormone replacement Sepsis (< 1 month) Serious lung disease, including pneumonia (< 1 month) Abnormal pulmonary function Acute myocardial infarction Congestive heart failure (< 1 month) History of inflammatory bowel disease Medical patient at bed rest Age 61-74 Arthroscopic surgery Major open surgery (> 45 min) Laparoscopic surgery (> 45 min) Malignancy Confined to bed (> 72 hours) Immobilizing plaster cast Central venous access Age >= 75 History of VTE Family history of VTE Factor V Leiden Prothrombin [id number] Lupus anticoagulant Anticardiolipin antibodies Elevated serum homocysteine Heparin-induced thrombocytopenia Other congenital or acquired thrombophilia Stroke (< 1 month) Elective arthroplasty Hip, pelvis, or leg fracture Acute spinal cord injury (< 1 month) Prophylaxis Regimen: Total Risk Factor Score Risk Level Prophylaxis Regimen 0-1 Low Early ambulation 2 Moderate Order ONE of the following: *Sequential Compression Device (SCD) *Heparin 5000 units SQ BID 3-4 Higher Order ONE of the following medications: *Heparin 5000 units SQ TID *Enoxaparin/Lovenox 40 mg SQ daily (WT < 150 kg, CrCl > 30 mL/min) *Enoxaparin/Lovenox 30 mg SQ daily (WT < 150 kg, CrCl > 10-29 mL/min) *Enoxaparin/Lovenox 30 mg SQ BID (WT < 150 kg, CrCl > 30 mL/min) AND/OR *Sequential Compression Device (SCD) 5 or more Highest Order ONE of the following medications: *Heparin 5000 units SQ TID (Preferred with Epidurals) *Enoxaparin/Lovenox 40 mg SQ daily (WT < 150 kg, CrCl > 30 mL/min) *Enoxaparin/Lovenox 30 mg SQ daily (WT < 150 kg, CrCl > 10-29 mL/min) *Enoxaparin/Lovenox 30 mg SQ BID (WT < 150 kg, CrCl > 30 mL/min) AND *Sequential Compression Device (SCD) Assessment and Plan - Assessment (1) Syncope Code(s): R55 - Syncope and collapse Status: Acute (2) Dog bite Code(s): W54.0XXA - Bitten by dog, initial encounter Status: Acute (3) Testicular cancer Code(s): C62.90 - Malignant neoplasm of unspecified testis, unspecified whether descended or undescended Status: Acute - Plan A/P: 1. Syncope: acute syncopal event after coughing, possibly vasovagal. Girlfriend noted convulsions, ?convulsive syncope vs seizure activity. Admit for further eval, telemetry, check Echo to eval for cardiomyopathy/valvular abnormalities, check EEG to eval for possible seizure. Initial trop negative, check serial cardiac enzymes to eval for ischemia. CTA Chest w/ no PE, + retroperitoneal mass/metastatic disease, images reviewed. 2. Dog Bite: Right Forearm. S/p bite from pt's dog during syncope/ convulsions. Forearm X-ray w/ deep soft tissue lacerations of mid forearm, images reviewed. Dr. Quick consulted, plan is for surgical intervention. NPO, IVF, analgesics/antiemetics as needed. 3. Testicular CA: Metastatic. Follows w/ Dr. Olivier as outpatient, currently on chemo. Continue outpatient follow up as scheduled. 4. DVT Prophylaxis: SCD/Teds 5. Social work for d/c planning as needed. 6. Case discussed w/ ER physician at length, labs/records/imaging reviewed by me.
[2017-12-23] MEDS: Sod Chloride 0.9% Inj 1,000 ML IV.CONT SCH ×3 (00:27→21:28)
[2017-12-23 00:55] LABS: Bilirubin,Urine Negative (Negative); Clarity,Urine Hazy (Clear); Color,Urine Amber (Yellw/Straw); Glucose,Urine (UA) Negative (Negative); Hyaline Casts,Urine 1 /lpf (0-3); Leukocyte Esterase,Urine Negative (Negative); Mucus,Urine Many /lpf (Occasional); Nitrite,Urine Negative (Negative); Specific Gravity,Urine 1.029 (1.002-1.035); Squamous Epithelial Cell,Urine <1 /hpf (0-5)
[2017-12-23] MEDS ORDERED: Vancomycin Inj 1,750 MG in Sodium Chlor 0.9% Inj 500 ML IV.SIG ONE (01:00)
[2017-12-23] MEDS ORDERED: Morphine Sulfate Inj 2 MG/ML Vial IV.PUSH PRN (01:18)
[2017-12-23] MEDS: HYDROmorphone PF Inj 2 MG/ML Vial IV.PUSH PRN ×6 (01:35→21:29)
[2017-12-23] MEDS: Ampicillin/Sulbactam Inj 3 GM in Sodium Chloride 0.9% Inj 100 ML IV.SIG SCH ×4 (05:27→22:45)
[2017-12-23 06:08] LABS: Baso # (Auto) 0.1 th/mm3 (0.0-0.2); Baso % (Auto) 0.9 % (0.0-2.0); Eos # (Auto) 0.2 th/mm3 (0.0-0.4); Eos % (Auto) 1.8 % (0.0-4.0); Hematocrit 37.2 % (39.0-51.0); Hemoglobin 12.6 gm/dL (13.0-17.0); Lymph % (Auto) 51.6 % (9.0-44.0); Mean Corpuscular HGB Conc 33.8 % (32.0-36.0); Mean Corpuscular Hemoglobin 30.4 pg (27.0-34.0); Mean Corpuscular Volume 89.9 fL (80.0-100.0); Mean Platelet Volume 6.5 fL (7.0-11.0); Mono # (Auto) 0.8 th/mm3 (0.0-0.9); Mono % (Auto) 8.3 % (0.0-8.0); Neut # (Auto) 3.6 th/mm3 (1.8-7.7); Neut % (Auto) 37.4 % (16.0-70.0); Platelet Count 229 th/mm3 (150-450); Red Blood Count 4.14 mil/mm3 (4.50-5.90); Red Cell Distribution Width 14.4 % (11.6-17.2); White Blood Count 9.7 th/mm3 (4.0-11.0)
[2017-12-23 06:36] LABS: Alanine Aminotransferase 52 U/L (12-78); Anion Gap 7 meq/L (5-15); Aspartate Aminotransferase 30 U/L (15-37); Calcium 7.5 mg/dL (8.5-10.1); Carbon Dioxide 27.7 meq/L (21.0-32.0); Chloride 104 meq/L (98-107); Glomerular Filtration Rate Greater Than 89 mL/min (>89); Glucose,Random 100 mg/dL (74-106); Potassium 3.7 meq/L (3.5-5.1); Sodium 139 meq/L (136-145)
[2017-12-23 06:40] LABS: Alkaline Phosphatase 127 U/L (45-117); Blood Urea Nitrogen 10 mg/dL (7-18); Total Protein 6.5 g/dL (6.4-8.2)
[2017-12-23] MEDS: Senna/Docusate Sodium 8.6/50 MG Tablet PO SCH ×2 (09:34→21:28)
--- NOTE | 2017-12-23 10:09 | ECG ---
Date Performed: 12/22/2017 Time Performed: 21:20:39 PTAGE: 32 years EKG: Sinus rhythm INDETERMINATE AXIS INCOMPLETE RIGHT BUNDLE BRANCH BLOCK LEFT POSTERIOR FASCICULAR BLOCK ABNORMAL ECG No significant change from prior electrocardiogram. PREVIOUS TRACING : 12/10/2017 03.35 DOCTOR: Reg Bishop Interpretating Date/Time 12/23/2017 10:08:31
--- NOTE | 2017-12-23 11:19 | P.PNIM ---
Subjective Interval history: Pt seen and examined for f/u syncope and R forearm dog bite wound. Complains of significant pain around the wound. States he is able to extend his wrist and fingers but limited by pain. Denies paresthesias. No further syncopal events or convulsions. Patient reports feeling a "scales" prior to passing out which he recalls. He states when he came-to he was very confused and felt like he couldn' t articulate his words. Denies history of seizures. Denies EtOH or drug use. Currently his only other complaint besides pain is a dry mouth since he has been NPO. Otherwise denies CP, SOB, abdominal pain, N/V. Physical Exam Vital signs: Vital Signs 12/22/17 20:27 12/22/17 20:31 12/22/17 21:16 Temperature 98.7 F Pulse Rate 92 H 92 H Respiratory Rate 22 20 Blood Pressure 120/64 120/64 Pulse Oximetry 91 L 94 L 94 L 12/23/17 00:06 12/23/17 01:39 12/23/17 04:00 Temperature 98.1 F 99.0 F 99.9 F H Pulse Rate 90 90 99 H Respiratory Rate 18 18 18 Blood Pressure 124/66 134/54 L 126/71 Pulse Oximetry 94 L 92 L 97 12/23/17 08:00 Temperature 97.9 F Pulse Rate 94 H Respiratory Rate 16 Blood Pressure 128/62 Pulse Oximetry 90 L Intake & Output 12/22/17 12/23/17 12/23/17 18:59 06:59 18:59 Intake Total 925 / 925 600 / 600 Output Total 100 / 100 Balance 825 / 825 600 / 600 Weight 100.4 kg Intake: IV 685 / 685 600 / 600 NS Inj 1,000 ML @ 100 mls/hr IV 400 / 400 .CONT .Q10H [facility] Rx#:[id number] Unasyn Inj 3 GM In NS Inj 100 100 / 100 200 / 200 ML @ 200 mls/hr IV.SIG Q6H [facility] Rx#:[id number] Vancomycin Inj 1,750 MG In NS 535 / 535 Inj 500 ML @ 267.5 mls/hr IV. SIG ONCE ONE Rx#:[id number] Ancef 2 GM Premix Inj 2 gm In 50 / 50 50 ml @ 100 mls/hr IV.SIG ONCE ONE Rx#:[id number] Oral 240 / 240 Output: Urine 100 / 100 Other: Date of Last Bowel Movement 12/23/17 Weight On Admission 90.71 kg Narrative: GENERAL: WN, WD male resting in bed in NAD. SKIN: Warm and dry. Multiple tattoos over extremities, torso, and back. HEENT: AT/NC. Pupils equal and round. No scleral icterus. MMM. HEART: RRR no m/r/g. LUNGS: CTAB without wheezes or crackles. ABDOMEN: +BS, soft, NT, ND. EXTREMITIES: No LE edema. 2+ pedal pulses. RUE forearm wrapped in dressing. Neurovascular in tact. Able to flex and extend fingers and wrist extension limited by pain. NEURO: Awake and alert. Results - Labs CBC & Chem 7: 12/23/17 05:40 12/23/17 05:40 Laboratory Results - last 24 hr 12/22/17 12/22/17 12/23/17 21:11 21:11 00:08 WBC 9.9 RBC 4.53 Hgb 13.9 Hct 39.3 MCV 86.6 MCH 30.7 MCHC 35.4 RDW 13.6 Plt Count 237 D MPV 6.8 L Prelim Diff (Auto) Slide review pending Neut % (Auto) 42.2 Lymph % (Auto) 46.2 H Coffee % (Auto) 9.0 H Eos % (Auto) 2.2 Baso % (Auto) 0.4 Neut # (Auto) 4.2 Lymph # (Auto) 4.6 Coffee # (Auto) 0.9 Eos # (Auto) 0.2 Baso # (Auto) 0.0 WBC Differential . Diff Scan Auto diff confirmed Differential Comment . Platelet Estimate Normal Platelet Morphology Normal Sodium 138 Potassium 3.7 Chloride 103 Carbon Dioxide 26.8 Anion Gap 8 BUN 12 Creatinine 0.84 Estimated GFR Greater than 89 Random Glucose 105 Calcium 8.1 L Total Bilirubin AST ALT Alkaline Phosphatase Troponin I Less than 0.02 L Total Protein Albumin Urine Color [place] Urine Clarity Hazy H Urine pH 5.0 Ur Specific [place] 1.029 Urine Protein 30 H Urine Glucose (UA) Negative Urine Ketones Negative Urine Occult Blood Negative Urine Nitrate Negative Urine Bilirubin Negative Urine Urobilinogen 2.0 H Ur Leukocyte Esterase Negative Urine RBC Less than 1 Urine WBC 2 Ur Squamous Epith Cells <1 Hyaline Casts 1 Urine Mucus Many H Micro UA Comment Culture not ind Ur Microscopic Review Not Reportable Urine Culture Comments Culture not ind 12/23/17 12/23/17 12/23/17 00:15 05:40 05:40 WBC 9.7 RBC 4.14 L Hgb 12.6 L Hct 37.2 L MCV 89.9 MCH 30.4 MCHC 33.8 RDW 14.4 Plt Count 229 MPV 6.5 L Prelim Diff (Auto) Neut % (Auto) 37.4 Lymph % (Auto) 51.6 H Coffee % (Auto) 8.3 H Eos % (Auto) 1.8 Baso % (Auto) 0.9 Neut # (Auto) 3.6 Lymph # (Auto) 5.0 H Coffee # (Auto) 0.8 Eos # (Auto) 0.2 Baso # (Auto) 0.1 WBC Differential . Diff Scan Differential Comment Auto diff final Platelet Estimate Platelet Morphology Sodium 139 Potassium 3.7 Chloride 104 Carbon Dioxide 27.7 Anion Gap 7 BUN 10 Creatinine 0.85 Estimated GFR Greater than 89 Random Glucose 100 Calcium 7.5 L Total Bilirubin 0.8 AST 30 ALT 52 Alkaline Phosphatase 127 H Troponin I Less than 0.02 L Less than 0.02 L Total Protein 6.5 Albumin 3.0 L Urine Color Urine Clarity Urine pH Ur Specific [place] Urine Protein Urine Glucose (UA) Urine Ketones Urine Occult Blood Urine Nitrate Urine Bilirubin Urine Urobilinogen Ur Leukocyte Esterase Urine RBC Urine WBC Ur Squamous Epith Cells Hyaline Casts Urine Mucus Micro UA Comment Ur Microscopic Review Urine Culture Comments - Imaging Impressions Forearm X-Ray 12/22/17 20:46 CONCLUSION: Deep soft tissue lacerations anteromedially of the mid forearm. No bony abnormality. Chest CTA 12/22/17 20:48 CONCLUSION: 1. No pulmonary emboli. 2. Diffuse metastatic disease involving the lungs bilaterally. 3. Partial visualization of a retroperitoneal mass on the left likely relating to metastatic lesion. Head CT 12/22/17 20:48 CONCLUSION: 1. Negative CT Head non contrast. . Assessment and Plan - Assessment (1) Syncope Code(s): R55 - Syncope and collapse Status: Acute (2) Dog bite Code(s): W54.0XXA - Bitten by dog, initial encounter Status: Acute (3) Testicular cancer Code(s): C62.90 - Malignant neoplasm of unspecified testis, unspecified whether descended or undescended Status: Acute - Plan 32-year-old male with metastatic testicular cancer admitted overnight for evaluation of right arm dog bite wound sustained following a syncopal event. 1. Dog bite wound RUE - Sustained while patient was having some convulsive episode following syncope - Dog is fully vaccinated - Forearm XR showing deep soft tissue lacerations with no bony abnormality - Hand surgery consulted, keeping NPO for surgical intervention - Continue Unasyn - Pain control - Administer TDAP 2. Syncope - Sounds vasovagal as it was preceded by a coughing fit - Occurred while he was seated unlikely orthostatic - CT head negative - 2D echo with normal LV systolic function and EF 60-65% - EEG ordered - Cardiac enzymes negative - Electrolytes WNL - CTA negative for PE 3. Metastatic testicular cancer - CT showing adenopathy - Followed as outpatient DVT prophylaxis: holding chemical anticoagulation in anticipation for surgery Discussed Condition With: Patient and his mother
--- NOTE | 2017-12-23 11:47 | ECHRPT ---
Indication: SYNCOPE CONCLUSIONS The left ventricular systolic function is normal with an estimated ejection fraction in the range of 60-65%. Normal left ventricular size. Wall thickness is normal. No definite regional wall motion abnormalit ies are present. No valvular abnormalities. BP: / HR: Rhythm: Sinus MEASUREMENTS (Male / Female) Normal Values Technical Quality:Poor 2D ECHO LV Diastolic Diameter PLAX 4.7 cm 4.2 - 5.9 / 3.9 - 5.3 cm LV Systolic Diameter PLAX 3.2 cm IVS Diastolic Thickness 1.0 cm 0.6 - 1.0 / 0.6 - 0.9 cm LVPW Diastolic Thickness 1.0 cm 0.6 - 1.0 / 0.6 - 0.9 cm LV Relative Wall Thickness 0.4 LVOT Diameter 2.1 cm LA Systolic Diameter LX 3.7 cm 3.0 - 4.0 / 2.7 - 3.8 cm M-MODE Aortic Root Diameter MM 2.5 cm LA Systolic Diameter MM 3.0 cm LA Ao Ratio MM 1.2 AV Cusp Separation MM 2.1 cm DOPPLER AV Peak Velocity 117.0 cm/s AV Peak Gradient 5.5 mmHg LVOT Peak Velocity 103.0 cm/s LVOT Peak Gradient 4.2 mmHg AV Area Cont Eq pk 3.0 cm MV Area PHT 4.9 cm Mitral E Point Velocity 80.5 cm/s Mitral A Point Velocity 56.3 cm/s Mitral E to A Ratio 1.4 LV E' Lateral Velocity 17.8 cm/s Mitral E to LV E' Lateral Ratio 4.5 LV E' Septal Velocity 8.2 cm/s Mitral E to LV E' Septal Ratio 9.8 PV Peak Velocity 109.0 cm/s PV Peak Gradient 4.8 mmHg FINDINGS LEFT VENTRICLE The left ventricular systolic function is normal with an estimated ejection fraction in the range of 60-65%. Normal left ventricular size. Wall thickness is normal. No definite regional wall motion abnormalit ies are present. RIGHT VENTRICLE Normal right ventricular size and systolic function. LEFT ATRIUM The left atrial size is normal. RIGHT ATRIUM The right atrial size is normal. ATRIAL SEPTUM Normal atrial septal thickness without atrial level shunting by limited color doppler interrogation. AORTA The aortic root and proximal ascending aorta are normal in size on limited imaging. MITRAL VALVE Structurally normal mitral valve. No mitral valve stenosis or regurgitation. AORTIC VALVE Trileaflet aortic valve. No aortic valve stenosis or regurgitation. TRICUSPID VALVE Structurally normal tricuspid valve. No tricuspid valve stenosis or regurgitation. PULMONARY VALVE The pulmonary valve is not well visualized. VESSELS The inferior vena cava is normal in size. PERICARDIUM No pericardial effusion. Tom Escoto MD (Electronically Signed) Final Date:23 December 2017 11:46
[2017-12-23] MEDS ORDERED: Diphtheria/Tetanus/Pertussis Vaccine Inj 0.5 ML Syringe IM ONE (13:30)
[2017-12-23] MEDS: Vancomycin Inj 1,500 MG in Sodium Chlor 0.9% Inj 500 ML IV.SIG SCH (13:40)
--- NOTE | 2017-12-23 15:48 | MB ---
cc: Nicolasa Quick MD DATE: 12/23/2017 REASON FOR CONSULTATION: Dog bite, right forearm. HISTORY OF PRESENT ILLNESS: Jonathan Malik is a 32-year-old, [id number] male with a past medical history significant for metastatic testicular cancer, lung cancer, who was brought into the emergency room yesterday after a syncopal episode of unknown cause. The patient states that while he was unconscious, he sustained a dog bite by his own dog to his right arm. He presented to the emergency room for evaluation. He does see Dr. Olivier at [facility] for his chemotherapy. He states he is scheduled to have an appointment on Monday. The patient reports pain in the right forearm. Denies any paresthesias. Denies any prior significant surgeries to the right forearm. PAST MEDICAL HISTORY: Again, metastatic testicular cancer and lung cancer, asthma. SOCIAL HISTORY: The patient states he is currently on disability. He is a past smoker. Denies any active drug use. The patient states he is currently on chemotherapy again to start on Monday. PHYSICAL EXAMINATION: The patient is alert and oriented. There are loose sutures in place over 2 lacerations over the volar aspect of the right forearm. Compartments are soft and compressible. Sensation intact in the median, ulnar and radial distributions. 2+ radial pulse. Function intact of FDS and FDP to all the fingers. IMAGING DATA: X-ray shows no evidence of fracture or retained foreign body. ASSESSMENT AND PLAN: A 32-year-old male with metastatic testicular and lung cancer with a dog bite to the right forearm. At this time, no indication for surgical intervention. The patient may follow up with his primary physician in approximately 2 weeks for suture removal. Consider consulting infectious disease for antibiotics due to the patient's cancer history. He should follow up with his oncologist in regard to his chemotherapy and may have to delay it a few weeks until the wounds heal. Hand surgery will sign off. Please call with any further questions. Nicolasa Quick MD [facility] , 03:11 PM , 03:16 PM
--- NOTE | 2017-12-23 16:05 | P.CONID ---
History of Present Illness Service: Infectious Disease Consult date: 12/23/17 Requesting Physician: Nicolasa Quick Reason for Consult: Evaluation and Mment of hand infection dog bite in an IC pt Primary Care Provider: No Primary Care Physician History of Present Illness: Mr. Malik is a 32-year-old male with past medical history significant for metastatic testicular cancer with lung lesions, tobacco abuse. Patient sees Dr. Jones for his oncology needs. Patient has an [id number] in the right chest wall which is used for IV infusions and IV times admitted to the hospital. Patient reports that his last cycle of chemotherapy was in late August early September 2017. Patient reports being admitted in the past for suspected infections and having his port accessed at that time. With this background patient presents to the emergency department by EMS after syncopal episode and a dog bite. Patient's girlfriend provided most of the history and reports that patient was getting ready to have his dinner was sitting by the bedside and had a coughing spell after which he passed out. She thinks he had possibly some convulsive activity as she cannot confirmed. There is no known prior history of seizure disorder. When the girlfriend found him unresponsive on the floor she started screaming at which point the patient's dog bit his right arm. On arrival in the emergency department patient's blood pressure was 120 x 64, heart rate 92 O2 sats 91% on room air and he was afebrile. His CBC was unremarkable and his chemistry as well. A forearm x-ray deep soft tissue showed lacerations anterior medially of the mid forearm. A CT of the chest was performed which did not show any PE but does show diffuse metastatic disease involving the lungs bilaterally. Patient also was noted to have retroperitoneal mass likely related to the metastatic lesion. Patient had a CT of the head and an EEG performed the results of the EEG report currently pending. Patient has had no seizure-like activity during the entire hospitalization. Patient does not have any further coughing spells. Patient was evaluated by hand surgery for the dog bite area in the right arm. He reports severe pain to the right arm 10 out of 10 nonrad[address] worse with movement. Dr. Quick evaluated the patient bedside and performed bedside debridement. She does not think patient needs any further surgery. Infectious diseases consulted for evaluation and management of right hand dog bite related infection/cellulitis. 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 - Medical History Medical History: Medical History (Last Reviewed 12/22/17 @ 22:34 by Andrea Moulton MD) Asthma Lung cancer Testicular cancer - Surgical History Surgical History: Surgical History (Last Reviewed 12/22/17 @ 22:34 by Andrea Moulton MD) History of surgery on arm - Tobacco History Second Hand Smoke Exposure: Yes Tobacco Use In Past 30 Days: No Smoking Status: Former smoker Tobacco Type: Cigarettes Cigarettes Per Day: 4 - Alcohol History How Often Do You Have a Drink Containing Alcohol: Never - Substance Use History Substance History: No History of Abuse - Travel History Recent Travel in the [place] Within the Last 8 Weeks: No Recent Travel Out of the Country Within the Last 8 Weeks: No - Immunization History Tetanus Immunization: <5 Years Tetanus Immunization Year if Known: 2017 Hx Influenza Vaccine This Season: No Medications and Allergies Active Medications: Active Medications Acetaminophen (Tylenol) 650 mg PO Q4H PRN PRN Reason: Temp > 100.4 Al Hydroxide/Mg Hydroxide (Milk Of Radha Flores) 30 ml PO Q12H PRN PRN Reason: Mild Constipation Albuterol (Ventolin Hfa Inh) 2 puff INH Q4H PRN PRN Reason: SHORTNESS OF BREATH/WHEEZING Albuterol (Duoneb Neb (Prn)) 1 ampul NEB Q4HR NEB PRN PRN Reason: SHORTNESS OF BREATH/WHEEZING Bisacodyl (Dulcolax Supp) 10 mg RECTAL DAILY PRN PRN Reason: SEVERE CONSITIPATION Hydromorphone HCl (Dilaudid Pf Inj) 1 mg IV.PUSH Q4H PRN PRN Reason: pain 1 to 10 Last Admin: 12/23/17 13:39 Dose: 1 mg Ampicillin Sodium/Sulbactam (Sodium 3 gm/ Sodium Chloride) 100 mls @ 200 mls/ hr IV.SIG Q6H [facility] Last Infusion: 12/23/17 10:43 Dose: Infused Sodium Chloride (Ns Inj) 1,000 mls @ 100 mls/hr IV.CONT .Q10H [facility] Last Admin: 12/23/17 15:11 Dose: 100 mls/hr Vancomycin HCl 1,500 mg/ (Sodium Chloride) 530 mls @ 267.5 mls/hr IV.SIG Q12H [facility] Last Admin: 12/23/17 13:40 Dose: 200 mls/hr Lactulose (Lactulose Liq) 30 ml PO DAILY PRN PRN Reason: SEVERE CONSITIPATION Miscellaneous Information ([facility] Ordered Lab Info) 1 each OTHER ONCE ONE Stop: 12/24/17 12:46 Ondansetron HCl (Zofran Inj) 4 mg IV.PUSH Q6H PRN PRN Reason: NAUSEA OR VOMITING Pharmacy Profile Note (Vancomycin Consult Pharmacy) 1 each OTHER UNSCH PRN PRN Reason: Pharmacy to dose Senna/Docusate Sodium (Dorothy-Colace) 1 tab PO BID [facility] Last Admin: 12/23/17 09:34 Dose: 1 tab Sennosides (Senokot) 17.2 mg PO Q12H PRN PRN Reason: Moderate Constipation Allergies Allergy/AdvReac Type Severity Reaction Status Date / Time broccoli Allergy Severe Hives Verified 12/10/17 01:57 Home Medications Medication Instructions Recorded Confirmed Type oxycodone-acetaminophen [Percocet] 1 tab PO Q4-6H PRN 08/19/17 12/22/17 History ondansetron [Zofran ODT] 4 mg PO TID PRN 10/11/17 12/22/17 History prochlorperazine 10 mg PO Q8HR 10/11/17 12/22/17 History sotalol 80 mg PO BID 10/11/17 12/22/17 History Exam Vital signs: Vital Signs 12/22/17 20:27 12/22/17 20:31 12/22/17 21:16 Temperature 98.7 F Pulse Rate 92 H 92 H Respiratory Rate 22 20 Blood Pressure 120/64 120/64 Pulse Oximetry 91 L 94 L 94 L 12/23/17 00:06 12/23/17 01:39 12/23/17 04:00 Temperature 98.1 F 99.0 F 99.9 F H Pulse Rate 90 90 99 H Respiratory Rate 18 18 18 Blood Pressure 124/66 134/54 L 126/71 Pulse Oximetry 94 L 92 L 97 12/23/17 08:00 12/23/17 12:00 12/23/17 15:35 Temperature 97.9 F 97.6 F Pulse Rate 94 H 92 H 89 Respiratory Rate 16 17 18 Blood Pressure 128/62 131/67 Pulse Oximetry 90 L 92 L 94 L Intake & Output 12/22/17 12/23/17 12/23/17 18:59 06:59 18:59 Intake Total 925 / 925 1200 / 1200 Output Total 100 / 100 Balance 825 / 825 1200 / 1200 Weight 100.4 kg Intake: IV 685 / 685 1200 / 1200 NS Inj 1,000 ML @ 100 mls/hr IV 1000 / 1000 .CONT .Q10H [facility] Rx#:[id number] Unasyn Inj 3 GM In NS Inj 100 100 / 100 200 / 200 ML @ 200 mls/hr IV.SIG Q6H [facility] Rx#:[id number] Vancomycin Inj 1,750 MG In NS 535 / 535 Inj 500 ML @ 267.5 mls/hr IV. SIG ONCE ONE Rx#:[id number] Ancef 2 GM Premix Inj 2 gm In 50 / 50 50 ml @ 100 mls/hr IV.SIG ONCE ONE Rx#:[id number] Oral 240 / 240 Output: Urine 100 / 100 Other: Date of Last Bowel Movement 12/23/17 Weight On Admission 90.71 kg Narrative: GENERAL: Well-nourished well-developed, not in acute distress SKIN: Cool and dry, no generalized rash HEAD: Atraumatic. Normocephalic. No temporal or scalp tenderness. EYES: Pupils equal round and reactive. Scleral icterus. No injection or drainage. No petechia ENT: Nothing abnormal detected NECK: Trachea midline. Supple, nontender, no meningeal signs. CARDIOVASCULAR: HS audible. Right chest wall port site with no evidence of infection. RESPIRATORY: Clear to auscultation bilaterally. GASTROINTESTINAL: Abdomen soft nontender. MUSCULOSKELETAL: Right hand in postop dressing. NEUROLOGICAL: Alert oriented 3. Nonfocal. Psych cooperative IV line sites ok. Results - Labs CBC & Chem 7: 12/23/17 05:40 12/23/17 05:40 Labs: Laboratory Results - last 24 hr 12/22/17 12/22/17 12/23/17 21:11 21:11 00:08 WBC 9.9 RBC 4.53 Hgb 13.9 Hct 39.3 MCV 86.6 MCH 30.7 MCHC 35.4 RDW 13.6 Plt Count 237 D MPV 6.8 L Prelim Diff (Auto) Slide review pending Neut % (Auto) 42.2 Lymph % (Auto) 46.2 H Pitkin % (Auto) 9.0 H Eos % (Auto) 2.2 Baso % (Auto) 0.4 Neut # (Auto) 4.2 Lymph # (Auto) 4.6 Pitkin # (Auto) 0.9 Eos # (Auto) 0.2 Baso # (Auto) 0.0 WBC Differential . Diff Scan Auto diff confirmed Differential Comment . Platelet Estimate Normal Platelet Morphology Normal Sodium 138 Potassium 3.7 Chloride 103 Carbon Dioxide 26.8 Anion Gap 8 BUN 12 Creatinine 0.84 Estimated GFR Greater than 89 Random Glucose 105 Calcium 8.1 L Total Bilirubin AST ALT Alkaline Phosphatase Troponin I Less than 0.02 L Total Protein Albumin Urine Color [place] Urine Clarity Hazy H Urine pH 5.0 Ur Specific [place] 1.029 Urine Protein 30 H Urine Glucose (UA) Negative Urine Ketones Negative Urine Occult Blood Negative Urine Nitrate Negative Urine Bilirubin Negative Urine Urobilinogen 2.0 H Ur Leukocyte Esterase Negative Urine RBC Less than 1 Urine WBC 2 Ur Squamous Epith Cells <1 Hyaline Casts 1 Urine Mucus Many H Micro UA Comment Culture not ind Ur Microscopic Review Not Reportable Urine Culture Comments Culture not ind 12/23/17 12/23/17 12/23/17 00:15 05:40 05:40 WBC 9.7 RBC 4.14 L Hgb 12.6 L Hct 37.2 L MCV 89.9 MCH 30.4 MCHC 33.8 RDW 14.4 Plt Count 229 MPV 6.5 L Prelim Diff (Auto) Neut % (Auto) 37.4 Lymph % (Auto) 51.6 H Pitkin % (Auto) 8.3 H Eos % (Auto) 1.8 Baso % (Auto) 0.9 Neut # (Auto) 3.6 Lymph # (Auto) 5.0 H Pitkin # (Auto) 0.8 Eos # (Auto) 0.2 Baso # (Auto) 0.1 WBC Differential . Diff Scan Differential Comment Auto diff final Platelet Estimate Platelet Morphology Sodium 139 Potassium 3.7 Chloride 104 Carbon Dioxide 27.7 Anion Gap 7 BUN 10 Creatinine 0.85 Estimated GFR Greater than 89 Random Glucose 100 Calcium 7.5 L Total Bilirubin 0.8 AST 30 ALT 52 Alkaline Phosphatase 127 H Troponin I Less than 0.02 L Less than 0.02 L Total Protein 6.5 Albumin 3.0 L Urine Color Urine Clarity Urine pH Ur Specific [place] Urine Protein Urine Glucose (UA) Urine Ketones Urine Occult Blood Urine Nitrate Urine Bilirubin Urine Urobilinogen Ur Leukocyte Esterase Urine RBC Urine WBC Ur Squamous Epith Cells Hyaline Casts Urine Mucus Micro UA Comment Ur Microscopic Review Urine Culture Comments - Imaging Impressions Forearm X-Ray 12/22/17 20:46 CONCLUSION: Deep soft tissue lacerations anteromedially of the mid forearm. No bony abnormality. Chest CTA 12/22/17 20:48 CONCLUSION: 1. No pulmonary emboli. 2. Diffuse metastatic disease involving the lungs bilaterally. 3. Partial visualization of a retroperitoneal mass on the left likely relating to metastatic lesion. Head CT 12/22/17 20:48 CONCLUSION: 1. Negative CT Head non contrast. . Assessment and Plan - Plan Right hand cellulitis post dog bite Unexplained syncopal episode likely triggered by cough possible vasovagal episode. Rule out sepsis/bacteremia secondary to port infection Immune compromised host Testicular cancer status post chemotherapy with metastases to the lung. [id number] in place Recommendations Continue Unasyn IV Continue Vanco IV Obtain blood cultures one from periphery and one from the port Recommend blood cultures be negative for at least 72 hours prior to patient being considered for discharge additionally patient is to be clinically stable. Patient has signed off AMA in the past and was informed me me that he may likely sign out AMA. I explained to the patient that given his immune compromised status would not recommend the same. If blood cultures remain negative at 72 hours and clinically patient is stable will consider discharge on oral Augmentin for 10-14 days with follow-up with hand surgery. Case discussed with patient Case discussed with Dr. Alvarez
--- NOTE | 2017-12-23 18:06 | MG ---
cc: Memo Barrera MD, PhD TEST NUMBER: [id number]. TECHNIQUE: This is a 17-channel electroencephalogram. DESCRIPTION: The background rhythm reveals symmetrical alpha activity, frequently 8-9 Hz. Amplitude is 20-30 microvolts. There is some sharp activity identified bilaterally in the parietal area, which is not truly epileptiform in nature. The patient falls asleep and sleep spindles and vertex sharp waves are identified. There are no lateralizing features. Photic is normal. INTERPRETATION: Overall normal electroencephalogram. Some nonspecific sharp activity is seen, but I think this is artifactual. Memo Barrera MD, PhD MAGALIS/ts , 04:04 PM , 04:09 PM
[2017-12-24] MEDS: Vancomycin Inj 1,500 MG in Sodium Chlor 0.9% Inj 500 ML IV.SIG SCH ×2 (01:44→13:41)
[2017-12-24] MEDS: HYDROmorphone PF Inj 2 MG/ML Vial IV.PUSH PRN ×4 (01:46→21:46)
[2017-12-24] MEDS: Ampicillin/Sulbactam Inj 3 GM in Sodium Chloride 0.9% Inj 100 ML IV.SIG SCH ×4 (04:41→21:46)
[2017-12-24] MEDS: Sod Chloride 0.9% Inj 1,000 ML IV.CONT SCH ×3 (05:51→17:27)
--- NOTE | 2017-12-24 08:12 | P.PNIM ---
Subjective Interval history: Pt seen and examined. Anxious to go home since his children are coming in town in the next couple days and he hasn't seem them in 9 months. He also states he was supposed to have chemo tomorrow. He states his pain is overall controlled with the medications. He is eating without problems. Denies abdominal pain, nausea, vomiting. Has intermittent bouts of shortness of breath which he attributes to the metastatic lesions and he states he has an inhaler and nebulizers he uses at home. He states he doesn't want to leave AMA but he wants to be able to see his kids and he doesn't want them seeing him in the hospital. His is present at the bedside and all questions were answered. Physical Exam Vital signs: Vital Signs 12/23/17 12:00 12/23/17 15:35 12/23/17 16:00 Temperature 97.6 F 98.9 F Pulse Rate 92 H 89 96 H Respiratory Rate 17 18 16 Blood Pressure 131/67 138/67 Pulse Oximetry 92 L 94 L 93 L 12/23/17 19:50 12/23/17 20:00 12/24/17 00:00 Temperature 98.6 F 99.6 F Pulse Rate 89 86 Respiratory Rate 22 22 Blood Pressure 120/59 L 130/68 Pulse Oximetry 93 L 93 L 93 L 12/24/17 04:00 Temperature 99.6 F Pulse Rate 93 H Respiratory Rate 22 Blood Pressure 118/56 L Pulse Oximetry 95 Intake & Output 12/23/17 12/24/17 12/24/17 18:59 06:59 18:59 Intake Total 2355 / 2355 2130 / 2130 Output Total 450 / 450 Balance 2355 / 2355 1680 / 1680 Weight 101.2 kg Intake: IV 1830 / 1830 2130 / 2130 NS Inj 1,000 ML @ 100 mls/hr IV 1000 / 1000 1400 / 1400 .CONT .Q10H [facility] Rx#:[id number] Unasyn Inj 3 GM In NS Inj 100 300 / 300 200 / 200 ML @ 200 mls/hr IV.SIG Q6H [facility] Rx#:[id number] Vancomycin Inj 1,500 MG In NS 530 / 530 530 / 530 Inj 500 ML @ 267.5 mls/hr IV. SIG Q12H [facility] Rx#:[id number] Oral 525 / 525 Output: Urine 450 / 450 Other: # Voids 4 Date of Last Bowel Movement 12/23/17 12/23/17 # Bowel Movements 1 Narrative: GENERAL: WN, WD male resting in bed in NAD. SKIN: Warm and dry. Multiple tattoos over extremities, torso, and back. HEENT: AT/NC. Pupils equal and round. No scleral icterus. MMM. HEART: RRR no m/r/g. LUNGS: CTAB without wheezes or crackles. ABDOMEN: +BS, soft, NT, ND. EXTREMITIES: No LE edema. 2+ pedal pulses. RUE forearm wrapped in dressing. Neurovascular in tact. Able to flex and extend fingers and wrist, extension limited by pain. NEURO: Awake and alert. Results - Labs CBC & Chem 7: 12/23/17 05:40 12/23/17 05:40 Assessment and Plan - Assessment (1) Syncope Code(s): R55 - Syncope and collapse Status: Acute (2) Dog bite Code(s): W54.0XXA - Bitten by dog, initial encounter Status: Acute (3) Testicular cancer Code(s): C62.90 - Malignant neoplasm of unspecified testis, unspecified whether descended or undescended Status: Acute - Plan 32-year-old male with metastatic testicular cancer admitted overnight for evaluation of right arm dog bite wound sustained following a syncopal event. 1. Dog bite wound RUE - Sustained while patient was having some convulsive episode following syncope - Dog is fully vaccinated - Forearm XR showing deep soft tissue lacerations with no bony abnormality - Hand surgery consulted, no surgical intervention at this time. Lacerations cleaned at the bedside. Recommends suture removal in 2 weeks with PCP - ID consulted, recommend following blood cultures to completion prior to consideration of discharge - Continue Unasyn (then Augmentin for 10-14 d on d/c) - Pain control - Administered TDAP 2. Syncope - Sounds vasovagal as it was preceded by a coughing fit - Occurred while he was seated unlikely orthostatic - CT head negative - 2D echo with normal LV systolic function and EF 60-65% - EEG overall negative with some artifacts - Cardiac enzymes negative - Electrolytes WNL - CTA negative for PE 3. Metastatic testicular cancer - CT chest showing adenopathy - Followed as outpatient DVT prophylaxis: Lovenox (high risk given malignancy) Code Status: FULL Discussed Condition With: Patient Discharge Planning: Anticipate D/C when/if cultures negative x 72 hours
[2017-12-24] MEDS: Senna/Docusate Sodium 8.6/50 MG Tablet PO SCH ×2 (09:24→21:46)
[2017-12-24] MEDS: Enoxaparin Inj 40 MG/0.4 ML Syringe SQ SCH (11:59)
[2017-12-24] MEDS ORDERED: Pharmacy Ordered Lab Info OTHER ONE (12:45)
[2017-12-24] MEDS ORDERED: HYDROmorphone PF Inj 4 MG/ML Ampul IV.PUSH PRN (13:07)
[2017-12-24] MEDS: oxyCODONE/Acetaminophen 10/325 Tablet PO PRN (19:38)
[2017-12-25] MEDS: oxyCODONE/Acetaminophen 10/325 Tablet PO PRN ×4 (00:59→16:51)
[2017-12-25] MEDS: Vancomycin Inj 1,500 MG in Sodium Chlor 0.9% Inj 500 ML IV.SIG SCH ×2 (00:59→12:27)
[2017-12-25] MEDS: Sod Chloride 0.9% Inj 1,000 ML IV.CONT SCH ×2 (01:01→10:54)
[2017-12-25] MEDS: HYDROmorphone PF Inj 2 MG/ML Vial IV.PUSH PRN ×2 (03:23→08:55)
[2017-12-25] MEDS: Ampicillin/Sulbactam Inj 3 GM in Sodium Chloride 0.9% Inj 100 ML IV.SIG SCH ×3 (05:29→15:03)
[2017-12-25 08:55] VITALS: RESP 17; O2SAT 95
[2017-12-25] MEDS: Senna/Docusate Sodium 8.6/50 MG Tablet PO SCH (08:55)
[2017-12-25] MEDS ORDERED: Vancomycin Consult Pharmacy 1 EACH OTHER SCH (10:00)
[2017-12-25] MEDS: Enoxaparin Inj 40 MG/0.4 ML Syringe SQ SCH (10:49)
--- NOTE | 2017-12-25 12:23 | P.PN ---
Subjective Interval history: Follow-up dog bite wound/now bacteremia/history of testicular cancer with metastases December 25, 2017-patient seen and examined, blood culture positive x1, Afebrile. case discussed with Dr Basil Herrera Physical Exam Vital signs: Vital Signs 12/24/17 16:00 12/24/17 16:25 12/24/17 17:13 Temperature 98.1 F Pulse Rate 77 76 Respiratory Rate 18 14 Blood Pressure 151/81 H Pulse Oximetry 93 L 93 L 12/24/17 20:00 12/25/17 00:00 12/25/17 04:00 Temperature 99.2 F 98.1 F 98.7 F Pulse Rate 85 80 90 Respiratory Rate 22 20 20 Blood Pressure 126/62 121/64 117/64 Pulse Oximetry 95 94 L 93 L 12/25/17 08:00 Temperature 98.5 F Pulse Rate 76 Respiratory Rate 17 Blood Pressure 118/61 Pulse Oximetry 95 Intake & Output 12/24/17 12/25/17 12/25/17 18:59 06:59 18:59 Intake Total 2530 / 2530 2210 / 2210 1100 / 1100 Output Total 1025 / 1025 Balance 2530 / 2530 1185 / 1185 1100 / 1100 Weight 100.6 kg Intake: IV 1330 / 1330 1730 / 1730 1100 / 1100 NS Inj 1,000 ML @ 100 mls/hr IV 600 / 600 1000 / 1000 1000 / 1000 .CONT .Q10H [facility] Rx#:[id number] Unasyn Inj 3 GM In NS Inj 100 200 / 200 200 / 200 100 / 100 ML @ 200 mls/hr IV.SIG Q6H [facility] Rx#:[id number] Vancomycin Inj 1,500 MG In NS 530 / 530 530 / 530 Inj 500 ML @ 267.5 mls/hr IV. SIG Q12H [facility] Rx#:[id number] Oral 1200 / 1200 480 / 480 Output: Urine 1025 / 1025 Other: # Voids 7 Date of Last Bowel Movement 12/23/17 12/24/17 # Bowel Movements 1 Narrative: GENERAL: Well-nourished well-developed, NAD SKIN: Cool and dry, no generalized rash HEAD: Atraumatic. Normocephalic. No temporal or scalp tenderness. EYES: Pupils equal round and reactive. Scleral icterus. No injection or drainage. No petechia ENT: Nothing abnormal detected NECK: Trachea midline. Supple, nontender, no meningeal signs. CARDIOVASCULAR: HS audible. Right chest wall port site with no evidence of infection. RESPIRATORY: Clear to auscultation bilaterally. GASTROINTESTINAL: Abdomen soft nontender. MUSCULOSKELETAL: Right hand in postop dressing. NEUROLOGICAL: Alert oriented 3. Nonfocal. Results - Labs CBC & Chem 7: 12/23/17 05:40 12/23/17 05:40 Microbiology 12/23/17 19:35 Blood - Peripheral Aerobic Blood Culture - Preliminary gram positive cocci 12/23/17 19:35 Blood - Peripheral Anaerobic Blood Culture - Preliminary No growth in 2 days 12/23/17 18:25 Blood - Other Aerobic Blood Culture - Preliminary No growth in 2 days 12/23/17 18:25 Blood - Other Anaerobic Blood Culture - Preliminary No growth in 2 days 12/23/17 18:30 Blood - Peripheral Aerobic Blood Culture - Preliminary No growth in 2 days 12/23/17 18:30 Blood - Peripheral Anaerobic Blood Culture - Preliminary No growth in 2 days Assessment and Plan - Assessment (1) Syncope Code(s): R55 - Syncope and collapse Status: Acute (2) Dog bite Code(s): W54.0XXA - Bitten by dog, initial encounter Status: Acute (3) Testicular cancer Code(s): C62.90 - Malignant neoplasm of unspecified testis, unspecified whether descended or undescended Status: Acute - Plan 32-year-old man with 1. Bacteremia -BC x 1 for GPC -Repeat Blood culture -Currently on Unasyn and Vancomycin -Appreciate input from ID 2. Dog bite wound RUE - Forearm XR showing deep soft tissue lacerations with no bony abnormality - Hand surgery consulted, no surgical intervention at this time. Lacerations cleaned at the bedside. Recommends suture removal in 2 weeks with PCP - ID consulted, recommend following blood cultures to completion prior to consideration of discharge - Continue Unasyn and Vancomycin (then Augmentin for 10-14 d on d/c) 3. Syncope-Resolved - 2D echo with normal LV systolic function and EF 60-65% - EEG overall negative with some artifacts - Cardiac enzymes negative - CTA negative for PE 4. Metastatic testicular cancer - CT chest showing adenopathy - Consult Oncology DVT prophylaxis: Lovenox (high risk given malignancy) [facility] Prescription Drug Monitoring Database has been queried and verified prior to prescribing the controlled substance. Acute pain exception. This patient has normal, predicted, physiological, and time limited response to an adverse mechanical stimulus associated with surgery, trauma, or acute illness as described in my notes. There is a lack of alternative treatment options other than to include the prescribed narcotic treatment for this condition.
--- NOTE | 2017-12-25 14:27 | P.PNID ---
Subjective Remarks: Mr. Malik is a 32-year-old male with past medical history significant for metastatic testicular cancer with lung lesions, tobacco abuse. Patient sees Dr. Jones for his oncology needs. Patient has an [id number] in the right chest wall which is used for IV infusions and IV times admitted to the hospital. Patient reports that his last cycle of chemotherapy was in late August early September 2017. Patient reports being admitted in the past for suspected infections and having his port accessed at that time. With this background patient presents to the emergency department by EMS after syncopal episode and a dog bite. Patient's girlfriend provided most of the history and reports that patient was getting ready to have his dinner was sitting by the bedside and had a coughing spell after which he passed out. She thinks he had possibly some convulsive activity as she cannot confirmed. There is no known prior history of seizure disorder. When the girlfriend found him unresponsive on the floor she started screaming at which point the patient's dog bit his right arm. On arrival in the emergency department patient's blood pressure was 120 x 64, heart rate 92 O2 sats 91% on room air and he was afebrile. His CBC was unremarkable and his chemistry as well. A forearm x-ray deep soft tissue showed lacerations anterior medially of the mid forearm. A CT of the chest was performed which did not show any PE but does show diffuse metastatic disease involving the lungs bilaterally. Patient also was noted to have retroperitoneal mass likely related to the metastatic lesion. Patient had a CT of the head and an EEG performed the results of the EEG report currently pending. Patient has had no seizure-like activity during the entire hospitalization. Patient does not have any further coughing spells. Patient was evaluated by hand surgery for the dog bite area in the right arm. He reports severe pain to the right arm 10 out of 10 nonradiating worse with movement. Dr. Quick evaluated the patient bedside and performed bedside debridement. She does not think patient needs any further surgery. Infectious diseases consulted for evaluation and management of right hand dog bite related infection/cellulitis. Overnight events reviewed No fever No rash No diarrhea Antibiotics: Unasyn IV Vanco IV Lines: Lines ok Past Medical History: reviewed Allergies/Adverse Reactions: Allergies broccoli Allergy (Severe, Verified 12/10/17 01:57) Hives Objective Vital Signs 12/24/17 16:00 12/24/17 16:25 12/24/17 17:13 Temperature 98.1 F Pulse Rate 77 76 Respiratory Rate 18 14 Blood Pressure 151/81 H Pulse Oximetry 93 L 93 L 12/24/17 20:00 12/25/17 00:00 12/25/17 04:00 Temperature 99.2 F 98.1 F 98.7 F Pulse Rate 85 80 90 Respiratory Rate 22 20 20 Blood Pressure 126/62 121/64 117/64 Pulse Oximetry 95 94 L 93 L 12/25/17 08:00 12/25/17 12:00 Temperature 98.5 F 98.6 F Pulse Rate 76 92 H Respiratory Rate 17 17 Blood Pressure 118/61 114/62 Pulse Oximetry 95 Intake & Output 12/24/17 12/25/17 12/25/17 18:59 06:59 18:59 Intake Total 2530 / 2530 2210 / 2210 1600 / 1600 Output Total 1025 / 1025 Balance 2530 / 2530 1185 / 1185 1600 / 1600 Weight 100.6 kg Intake: IV 1330 / 1330 1730 / 1730 1600 / 1600 NS Inj 1,000 ML @ 100 mls/hr IV 600 / 600 1000 / 1000 1000 / 1000 .CONT .Q10H [facility] Rx#:[id number] Unasyn Inj 3 GM In NS Inj 100 200 / 200 200 / 200 100 / 100 ML @ 200 mls/hr IV.SIG Q6H [facility] Rx#:[id number] Vancomycin Inj 1,500 MG In NS 530 / 530 530 / 530 500 / 500 Inj 500 ML @ 267.5 mls/hr IV. SIG Q12H [facility] Rx#:[id number] Oral 1200 / 1200 480 / 480 Output: Urine 1025 / 1025 Other: # Voids 7 Date of Last Bowel Movement 12/23/17 12/24/17 # Bowel Movements 1 12/23/17 19:35 Blood - Peripheral Aerobic Blood Culture - Preliminary Staphylococcus coag negative 12/23/17 19:35 Blood - Peripheral Anaerobic Blood Culture - Preliminary No growth in 2 days 12/23/17 18:25 Blood - Other Aerobic Blood Culture - Preliminary No growth in 2 days 12/23/17 18:25 Blood - Other Anaerobic Blood Culture - Preliminary No growth in 2 days 12/23/17 18:30 Blood - Peripheral Aerobic Blood Culture - Preliminary No growth in 2 days 12/23/17 18:30 Blood - Peripheral Anaerobic Blood Culture - Preliminary No growth in 2 days Imaging: ITS Impressions Forearm X-Ray 12/22/17 20:46 CONCLUSION: Deep soft tissue lacerations anteromedially of the mid forearm. No bony abnormality. Chest CTA 12/22/17 20:48 CONCLUSION: 1. No pulmonary emboli. 2. Diffuse metastatic disease involving the lungs bilaterally. 3. Partial visualization of a retroperitoneal mass on the left likely relating to metastatic lesion. Head CT 12/22/17 20:48 CONCLUSION: 1. Negative CT Head non contrast. . Physical Exam: GENERAL: Well-nourished well-developed, not in acute distress SKIN: Cool and dry, no generalized rash HEAD: Atraumatic. Normocephalic. No temporal or scalp tenderness. EYES: Pupils equal round and reactive. Scleral icterus. No injection or drainage. No petechia ENT: Nothing abnormal detected NECK: Trachea midline. Supple, nontender, no meningeal signs. CARDIOVASCULAR: HS audible. Right chest wall port site with no evidence of infection. RESPIRATORY: Clear to auscultation bilaterally. GASTROINTESTINAL: Abdomen soft nontender. MUSCULOSKELETAL: Right hand in postop dressing. NEUROLOGICAL: Alert oriented 3. Nonfocal. Psych cooperative IV line sites ok. Assessment and Plan - Plan Right hand cellulitis post dog bite Unexplained syncopal episode likely triggered by cough possible vasovagal episode. Rule out sepsis/bacteremia secondary to port infection Immune compromised host Testicular cancer status post chemotherapy with metastases to the lung. [id number] in place Recommendations DC Unasyn IV DC Vanco IV Discharge home on oral augmentin for 7 more days. Dw patient if any further positive cultures or if he feels differently to come back home. He agrees and requesting to go home with his children. Yday and day before he was wanting to sign off AMA. to write scripts for Augmentin. Case discussed with patient Case discussed with Dr. Ordonez and RN.
--- NOTE | 2017-12-25 14:44 | P.DS ---
Date of admission: 12/22/17 23:37 Primary care physician: No Primary Care Physician Brief History from admission: This is a 32-year-old male with a PMH of Metastatic Testicular CA and Tobacco Abuse who was brought to the ER by EMS after syncopal episode and dog bite. Pt states he was having dinner, felt something got stuck in his throat and had sudden onset of coughing followed by syncopal event. Denies dizziness or lightheadedness. Per report, pt's girlfriend found him unresponsive on the floor having convulsions, apparently she started screaming at which point the pt 's dog bit his right arm. Pt currently awake and alert. Reports severe pain to right arm, 10/10, non-radiating, worse w/ movement. On arrival, BP 120/64, HR 92, O2 sat 91% on RA, Afebrile. CBC unremarkable. Chemistry unremarkable. Troponin negative. UA negative. Forearm X-ray deep soft tissue lacerations anterior medially of the mid forearm. CTA Chest no PE, diffuse metastatic disease involving lungs bilaterally, retroperitoneal mass likely related to metastatic lesion. CT Head negative. Dr. Quick consulted by ER physician, plan for surgical intervention in am. DS: Diagnosis - Discharge Diagnosis (1) Syncope Status: Acute (2) Dog bite Status: Acute (3) Testicular cancer Status: Acute DS: Medications - Discharge Medications Prescriptions: oxycodone-acetaminophen 1 tab PO Q4H PRN #10 tab PRN Reason: Acute Pain DS: Summary Hospital Course: While in the hospital, patient was treated for: 1. Bacteremia -BC x 1 for GPC -Repeat Blood culture -Currently on Unasyn and Vancomycin -Appreciate input from ID 2. Dog bite wound RUE - Forearm XR showing deep soft tissue lacerations with no bony abnormality - Hand surgery consulted, no surgical intervention at this time. Lacerations cleaned at the bedside. Recommends suture removal in 2 weeks with PCP - ID consulted, recommend following blood cultures to completion prior to consideration of discharge - Continue Unasyn and Vancomycin (then Augmentin X 7 d on d/c) 3. Syncope-Resolved - 2D echo with normal LV systolic function and EF 60-65% - EEG overall negative with some artifacts - Cardiac enzymes negative - CTA negative for PE 4. Metastatic testicular cancer - CT chest showing adenopathy - Outpatient follow up with Oncology DVT prophylaxis: Lovenox (high risk given malignancy) - Time Spent with Patient Total time spent providing and/or coordinating discharge services: Less than 30 minutes - Quality: VTE Deep Vein Thrombosis/Pulmonary Embolism Present on Admission: No Exam Vital signs: Vital Signs 12/24/17 16:00 12/24/17 16:25 12/24/17 17:13 Temperature 98.1 F Pulse Rate 77 76 Respiratory Rate 18 14 Blood Pressure 151/81 H Pulse Oximetry 93 L 93 L 12/24/17 20:00 12/25/17 00:00 12/25/17 04:00 Temperature 99.2 F 98.1 F 98.7 F Pulse Rate 85 80 90 Respiratory Rate 22 20 20 Blood Pressure 126/62 121/64 117/64 Pulse Oximetry 95 94 L 93 L 12/25/17 08:00 12/25/17 12:00 Temperature 98.5 F 98.6 F Pulse Rate 76 92 H Respiratory Rate 17 17 Blood Pressure 118/61 114/62 Pulse Oximetry 95 Intake & Output 12/24/17 12/25/17 12/25/17 18:59 06:59 18:59 Intake Total 2530 / 2530 2210 / 2210 1600 / 1600 Output Total 1025 / 1025 Balance 2530 / 2530 1185 / 1185 1600 / 1600 Weight 100.6 kg Intake: IV 1330 / 1330 1730 / 1730 1600 / 1600 NS Inj 1,000 ML @ 100 mls/hr IV 600 / 600 1000 / 1000 1000 / 1000 .CONT .Q10H [facility] Rx#:[id number] Unasyn Inj 3 GM In NS Inj 100 200 / 200 200 / 200 100 / 100 ML @ 200 mls/hr IV.SIG Q6H [facility] Rx#:[id number] Vancomycin Inj 1,500 MG In NS 530 / 530 530 / 530 500 / 500 Inj 500 ML @ 267.5 mls/hr IV. SIG Q12H [facility] Rx#:[id number] Oral 1200 / 1200 480 / 480 Output: Urine 1025 / 1025 Other: # Voids 7 Date of Last Bowel Movement 12/23/17 12/24/17 # Bowel Movements 1 Narrative: GENERAL: Well-nourished well-developed, NAD SKIN: Cool and dry, no generalized rash HEAD: Atraumatic. Normocephalic. No temporal or scalp tenderness. EYES: Pupils equal round and reactive. Scleral icterus. No injection or drainage. No petechia ENT: Nothing abnormal detected NECK: Trachea midline. Supple, nontender, no meningeal signs. CARDIOVASCULAR: HS audible. Right chest wall port site with no evidence of infection. RESPIRATORY: Clear to auscultation bilaterally. GASTROINTESTINAL: Abdomen soft nontender. MUSCULOSKELETAL: Right hand in postop dressing. NEUROLOGICAL: Alert oriented 3. Nonfocal. Results Procedures completed during hospitalization: None Labs on day of discharge: Preliminary micro results at discharge 12/23/17 19:35 Aerobic Blood Culture - Preliminary Blood - Peripheral Staphylococcus coag negative Anaerobic Blood Culture - Preliminary No growth in 2 days 12/23/17 18:25 Aerobic Blood Culture - Preliminary Blood - Other No growth in 2 days Anaerobic Blood Culture - Preliminary No growth in 2 days 12/23/17 18:30 Aerobic Blood Culture - Preliminary Blood - Peripheral No growth in 2 days Anaerobic Blood Culture - Preliminary No growth in 2 days - Impressions ITS Impressions Forearm X-Ray 12/22/17 20:46 CONCLUSION: Deep soft tissue lacerations anteromedially of the mid forearm. No bony abnormality. Chest CTA 12/22/17 20:48 CONCLUSION: 1. No pulmonary emboli. 2. Diffuse metastatic disease involving the lungs bilaterally. 3. Partial visualization of a retroperitoneal mass on the left likely relating to metastatic lesion. Head CT 12/22/17 20:48 CONCLUSION: 1. Negative CT Head non contrast. . Discharge Plan - Discharge Disposition Patient Disposition: 01 Discharge Home - Discharge Condition Condition: Good - Discharge Order Discharge Orders: Discharge Order (Routine); Ordered 12/25/17 Ordered By: Ernst Ordonez Hand Surgery Clear for Discharge (Routine); Ordered 12/23/17 Ordered By: Nicolasa Quick - Physicians Team Primary Care Provider: [facility] Attending Provider: Ernst Ordonez Other Providers: Nicolasa Quick MD ; Sharon Gracia MD
[2017-12-25 16:08] VITALS: BP 125/73; PULSE 86; TEMP 98.8
[2017-12-25] MEDS ORDERED: Heparin Central Flush 100 UNIT/ML 5 ML Vial IV.FLUSH PRN ×2 (18:25)
== END 2017-12-25 18:39 | disposition home or self-care (01) ==
LOC: NEPC 20:14 → NEDA 23:37 → N07 12-23 00:42
PROVIDERS: ADMIT Hospitalist; ATTEND Hospitalist

== ENCOUNTER 2018-04-08 14:57 | Inpatient (IN) ==
[2018-04-08] MEDS ORDERED: Sod Chloride 0.9% Inj 1,000 ML IV.SIG ONE ×2 (15:15→16:01)
--- NOTE | 2018-04-08 15:28 | ED ---
HPI General Chief complaint: Respiratory Symptoms Stated complaint: SOB/Vomiting Complaint Time Seen by Provider: 04/08/18 15:15 Source: family Mode of arrival: ambulatory Limitations: no limitations History of Present Illness HPI narrative: Due to the patient's symptoms of nausea and vomiting diffuse body aches, the patient had a difficult time answering questions about a history of present illness. Patient is Saying I just went to [facility] was seen discharge and now i'm back here for help. deonte is not answering questions about what his specific symptoms are, or what is worse, etc.... he also could not answer source of his cancer.... he states he has chest and abdomen cancer but i'm unsure as to the source....but states last chemo 2 weeks ago....possibly testicular cancer with mets? Onset (ago): day(s) Pain Consistency: intermittent Relieving factors: none Exacerbating factors: none Associated symptoms: Reports nausea/vomiting Treatments prior to arrival: Reports none Related Data Previous Rx's Medication Instructions Recorded oxycodone-acetaminophen 1 tab PO Q4H PRN #10 tab 12/25/17 albuterol sulfate 2 inh INHALATION Q4-6H PRN #8.5 g 01/26/18 ondansetron 4 mg PO Q6H PRN #7 tab 02/09/18 albuterol sulfate 2 inh INHALATION Q4-6H PRN #18 g 02/14/18 albuterol sulfate 2.5 mg INHALATION Q4-6H PRN #90 02/14/18 each Allergies Allergy/AdvReac Type Severity Reaction Status Date / Time broccoli Allergy Severe Hives Verified 04/08/18 15:04 [facility] Medical History Medical History Asthma (Acute) Lung cancer (Acute) Testicular cancer (Acute) Surgical History Surgical History History of surgery on arm (Acute) Social History Social History Substance History: Past History Second Hand Smoke Exposure: No Smoking Status: Former smoker Tobacco Type: Cigarettes Cigarettes Per Day: 4 How Often Do You Have a Drink Containing Alcohol: Monthly or less Recent Travel in [facility] within the Last 8 Weeks: No Recent Out of Country Travel within the Last 8 Weeks: No Immunization History Tetanus Immunization Year if Known: 2018 Exam Narrative Exam Narrative: GENERAL: Obese appearing male in moderate GI distress. SKIN: Warm and dry. HEAD: Atraumatic. Normocephalic. EYES: Pupils equal and round. No scleral icterus. No injection or drainage. ENT: No nasal bleeding or discharge. Mucous membranes pink and moist. NECK: Trachea midline. No JVD. CARDIOVASCULAR: Tachycardic rate regular rhythm . no rubs or gallops RESPIRATORY: No accessory muscle use. Clear to auscultation except right lower lobe crackles. Tidal volume equal bilaterally. GASTROINTESTINAL: Abdomen soft, non-tender, nondistended. No rebound or guarding MUSCULOSKELETAL: Extremities without clubbing, cyanosis, or edema. No obvious deformities. NEUROLOGICAL: Awake and alert. No obvious cranial nerve deficits. Motor grossly within normal limits. Five out of 5 muscle strength in the arms and legs. Normal speech. PSYCHIATRIC: Appropriate mood and affect; insight and judgment normal. Course Initial Documented Vital Signs Temperature 102.8 F H 04/08/18 15:02 Pulse Rate 120 H 04/08/18 15:02 Respiratory Rate 30 H 04/08/18 15:02 Blood Pressure 154/63 H 04/08/18 15:02 Pulse Oximetry 95 04/08/18 15:02 Last Documented Vital Signs Temperature 98.2 F 04/11/18 00:00 Pulse Rate 117 H 04/10/18 23:41 Respiratory Rate 22 04/11/18 00:00 Blood Pressure 120/71 04/10/18 22:51 Pulse Oximetry 95 04/11/18 00:00 Medical Decision Making [facility] Narrative Medical decision making narrative: 13,000 white count with 87% neutrophilia no evidence of any anemia no evidence of any abnormal platelet count Elect lites are within normal limits. Normal kidney liver functions Hypocalcemia of 7.7 Mild hypokalemia 3.[address] chest on March 31 which showed no evidence of pulmonary embolism, small right pleural effusion, diffuse pulmonary metastasis. Chest x-ray performed today read by radiologist as extensive bilateral pulmonary metastasis unchanged from prior exams over the past month no new findings. The patient will be treated as a fever of unknown origin and provided with cefepime and vancomycin IV as empiric antibiotics. Medical Screen Exam Complete: Yes Emergency Medical Condition: Yes Medical Records Medical records reviewed: Yes I reviewed the patient's medical records. Lab Data Result diagrams: 04/10/18 03:20 04/10/18 03:20 Lab Results 04/08/18 04/08/18 04/08/18 Range/Units 15:53 15:53 15:53 WBC 13.1 H (4.0-11.0) th/mm3 RBC 4.50 (4.50-5.90) mil/mm3 Hgb 12.9 L (13.0-17.0) gm/dL Hct 38.1 L (39.0-51.0) % MCV 84.5 (80.0-100.0) fL MCH 28.6 (27.0-34.0) pg MCHC 33.8 (32.0-36.0) % RDW 14.9 (11.6-17.2) % Plt Count 335 D (150-450) th/mm3 MPV 6.8 L (7.0-11.0) fL Prelim Diff (Auto) Slide review pending Neut % (Auto) 87.3 H (16.0-70.0) % Lymph % (Auto) 8.7 L (9.0-44.0) % [place] % (Auto) 3.0 (0.0-8.0) % Eos % (Auto) 0.4 (0.0-4.0) % Baso % (Auto) 0.6 (0.0-2.0) % Neut # (Auto) 11.4 H (1.8-7.7) th/mm3 Lymph # (Auto) 1.1 (1.0-4.8) th/mm3 [place] # (Auto) 0.4 (0.0-0.9) th/mm3 Eos # (Auto) 0.0 (0.0-0.4) th/mm3 Baso # (Auto) 0.1 (0.0-0.2) th/mm3 WBC Differential . Diff Scan Auto diff confirmed Seg Neuts % (Manual) (16-70) % Band Neuts % (Manual) (0-6) % Lymphocytes % (Manual) (9-44) % Monocytes % (Manual) (0-8) % Myelocytes % (Man) (0-0) % Abs Neuts (Manual) (1.8-7.7) th/mm3 Differential Comment . Platelet Estimate (Normal) Platelet Morphology (Normal) Sodium 135 L (136-145) meq/L Potassium 3.0 L (3.5-5.1) meq/L Chloride 102 (98-107) meq/L Carbon Dioxide 22.8 (21.0-32.0) meq/L Anion Gap 10 (5-15) meq/L BUN 7 (7-18) mg/dL Creatinine 0.78 (0.60-1.30) mg/dL Estimated GFR Greater than 89 (>89) mL/min Random Glucose 110 H (74-106) mg/dL Lactic Acid 1.6 (0.4-2.0) mmol/L Calcium 7.7 L (8.5-10.1) mg/dL Calcium Adj for Albumin (8.5-10.1) mg/dL Magnesium (1.5-2.5) mg/dL Total Bilirubin 1.2 H (0.2-1.0) mg/dL AST 18 (15-37) U/L ALT 32 (12-78) U/L Alkaline Phosphatase 115 (45-117) U/L B-Natriuretic Peptide (0-100) pg/mL Total Protein 6.7 (6.4-8.2) g/dL Albumin 2.8 L (3.4-5.0) g/dL Urine Color (Yellw/Straw) Urine Clarity (Clear) Urine pH (5.0-8.5) Ur Specific Gunpowder (1.002-1.035) Urine Protein (Neg-Trace) mg/dL Urine Glucose (UA) (Negative) mg/dL Urine Ketones (Negative) mg/dL Urine Occult Blood (Negative) Urine Nitrate (Negative) Urine Bilirubin (Negative) Urine Ictotest (Negative) Urine Urobilinogen (Less than 2) mg/dL Ur Leukocyte Esterase (Negative) Urine RBC (0-3) /hpf Urine WBC (0-5) /hpf Ur Squamous Epith Cells (0-5) /hpf Urine Mucus (Occasional) /lpf Micro UA Comment Ur Microscopic Review Urine Culture Comments Stl C.difficile DNA Amp (Negative) St C. diff Tox Epid 027 (Negative) Vancomycin Trough (5.0-10.0) mcg/mL 04/08/18 04/08/18 04/09/18 Range/Units 16:30 21:30 05:45 WBC 22.3 H D (4.0-11.0) th/mm3 RBC 4.20 L (4.50-5.90) mil/mm3 Hgb 11.8 L (13.0-17.0) gm/dL Hct 35.9 L (39.0-51.0) % MCV 85.5 (80.0-100.0) fL MCH 28.1 (27.0-34.0) pg MCHC 32.9 (32.0-36.0) % RDW 15.1 (11.6-17.2) % Plt Count 284 (150-450) th/mm3 MPV 7.2 (7.0-11.0) fL Prelim Diff (Auto) Slide review pending Neut % (Auto) 86.3 H (16.0-70.0) % Lymph % (Auto) 6.9 L (9.0-44.0) % [place] % (Auto) 6.4 (0.0-8.0) % Eos % (Auto) 0.2 (0.0-4.0) % Baso % (Auto) 0.2 (0.0-2.0) % Neut # (Auto) 19.3 H (1.8-7.7) th/mm3 Lymph # (Auto) 1.5 (1.0-4.8) th/mm3 [place] # (Auto) 1.4 H (0.0-0.9) th/mm3 Eos # (Auto) 0.0 (0.0-0.4) th/mm3 Baso # (Auto) 0.0 (0.0-0.2) th/mm3 WBC Differential Manual diff final Diff Scan Seg Neuts % (Manual) 75 H (16-70) % Band Neuts % (Manual) 13 H (0-6) % Lymphocytes % (Manual) 3 L (9-44) % Monocytes % (Manual) 7 (0-8) % Myelocytes % (Man) 2 H (0-0) % Abs Neuts (Manual) 20.1 H (1.8-7.7) th/mm3 Differential Comment . Platelet Estimate Normal (Normal) Platelet Morphology Normal (Normal) Sodium (136-145) meq/L Potassium (3.5-5.1) meq/L Chloride (98-107) meq/L Carbon Dioxide (21.0-32.0) meq/L Anion Gap (5-15) meq/L BUN (7-18) mg/dL Creatinine (0.60-1.30) mg/dL Estimated GFR (>89) mL/min Random Glucose (74-106) mg/dL Lactic Acid (0.4-2.0) mmol/L Calcium (8.5-10.1) mg/dL Calcium Adj for Albumin (8.5-10.1) mg/dL Magnesium (1.5-2.5) mg/dL Total Bilirubin (0.2-1.0) mg/dL AST (15-37) U/L ALT (12-78) U/L Alkaline Phosphatase (45-117) U/L B-Natriuretic Peptide (0-100) pg/mL Total Protein (6.4-8.2) g/dL Albumin (3.4-5.0) g/dL Urine Color Yellow [place] (Yellw/Straw) Urine Clarity Hazy H Cloudy H (Clear) Urine pH 5.0 5.0 (5.0-8.5) Ur Specific Gunpowder 1.016 1.029 (1.002-1.035) Urine Protein Negative 30 H (Neg-Trace) mg/dL Urine Glucose (UA) 50 50 (Negative) mg/dL Urine Ketones Trace H 20 (Negative) mg/dL Urine Occult Blood Negative Negative (Negative) Urine Nitrate Negative Negative (Negative) Urine Bilirubin Negative Negative (Negative) Urine Ictotest Negative (Negative) Urine Urobilinogen Less than 2 Less than 2 (Less than 2) mg/dL Ur Leukocyte Esterase Negative Negative (Negative) Urine RBC Less than 1 (0-3) /hpf Urine WBC 2 4 (0-5) /hpf Ur Squamous Epith Cells <1 <1 (0-5) /hpf Urine Mucus Few H Moderate H (Occasional) /lpf Micro UA Comment Culture not ind Culture not ind Ur Microscopic Review Not Reportable Not Reportable Urine Culture Comments Culture not ind Culture not ind Stl C.difficile DNA Amp (Negative) St C. diff Tox Epid 027 (Negative) Vancomycin Trough (5.0-10.0) mcg/mL 04/09/18 04/09/18 04/09/18 Range/Units 05:45 05:45 13:20 WBC (4.0-11.0) th/mm3 RBC (4.50-5.90) mil/mm3 Hgb (13.0-17.0) gm/dL Hct (39.0-51.0) % MCV (80.0-100.0) fL MCH (27.0-34.0) pg MCHC (32.0-36.0) % RDW (11.6-17.2) % Plt Count (150-450) th/mm3 MPV (7.0-11.0) fL Prelim Diff (Auto) Neut % (Auto) (16.0-70.0) % Lymph % (Auto) (9.0-44.0) % [place] % (Auto) (0.0-8.0) % Eos % (Auto) (0.0-4.0) % Baso % (Auto) (0.0-2.0) % Neut # (Auto) (1.8-7.7) th/mm3 Lymph # (Auto) (1.0-4.8) th/mm3 [place] # (Auto) (0.0-0.9) th/mm3 Eos # (Auto) (0.0-0.4) th/mm3 Baso # (Auto) (0.0-0.2) th/mm3 WBC Differential Diff Scan Seg Neuts % (Manual) (16-70) % Band Neuts % (Manual) (0-6) % Lymphocytes % (Manual) (9-44) % Monocytes % (Manual) (0-8) % Myelocytes % (Man) (0-0) % Abs Neuts (Manual) (1.8-7.7) th/mm3 Differential Comment Platelet Estimate (Normal) Platelet Morphology (Normal) Sodium 137 (136-145) meq/L Potassium 3.0 L (3.5-5.1) meq/L Chloride 104 (98-107) meq/L Carbon Dioxide 22.7 (21.0-32.0) meq/L Anion Gap 10 (5-15) meq/L BUN 7 (7-18) mg/dL Creatinine 0.76 (0.60-1.30) mg/dL Estimated GFR Greater than 89 (>89) mL/min Random Glucose 89 (74-106) mg/dL Lactic Acid (0.4-2.0) mmol/L Calcium 7.2 L* (8.5-10.1) mg/dL Calcium Adj for Albumin 8.6 (8.5-10.1) mg/dL Magnesium 1.6 (1.5-2.5) mg/dL Total Bilirubin (0.2-1.0) mg/dL AST (15-37) U/L ALT (12-78) U/L Alkaline Phosphatase (45-117) U/L B-Natriuretic Peptide (0-100) pg/mL Total Protein (6.4-8.2) g/dL Albumin 2.3 L (3.4-5.0) g/dL Urine Color (Yellw/Straw) Urine Clarity (Clear) Urine pH (5.0-8.5) Ur Specific Gunpowder (1.002-1.035) Urine Protein (Neg-Trace) mg/dL Urine Glucose (UA) (Negative) mg/dL Urine Ketones (Negative) mg/dL Urine Occult Blood (Negative) Urine Nitrate (Negative) Urine Bilirubin (Negative) Urine Ictotest (Negative) Urine Urobilinogen (Less than 2) mg/dL Ur Leukocyte Esterase (Negative) Urine RBC (0-3) /hpf Urine WBC (0-5) /hpf Ur Squamous Epith Cells (0-5) /hpf Urine Mucus (Occasional) /lpf Micro UA Comment Ur Microscopic Review Urine Culture Comments Stl C.difficile DNA Amp Negative (Negative) St C. diff Tox Epid 027 Negative (Negative) Vancomycin Trough (5.0-10.0) mcg/mL 04/09/18 04/10/18 04/10/18 Range/Units 16:40 03:20 03:20 WBC 21.2 H (4.0-11.0) th/mm3 RBC 4.00 L (4.50-5.90) mil/mm3 Hgb 11.3 L (13.0-17.0) gm/dL Hct 33.8 L (39.0-51.0) % MCV 84.5 (80.0-100.0) fL MCH 28.3 (27.0-34.0) pg MCHC 33.5 (32.0-36.0) % RDW 15.5 (11.6-17.2) % Plt Count 289 (150-450) th/mm3 MPV 7.0 (7.0-11.0) fL Prelim Diff (Auto) Neut % (Auto) 86.7 H (16.0-70.0) % Lymph % (Auto) 5.6 L (9.0-44.0) % [place] % (Auto) 6.8 (0.0-8.0) % Eos % (Auto) 0.6 (0.0-4.0) % Baso % (Auto) 0.3 (0.0-2.0) % Neut # (Auto) 18.4 H (1.8-7.7) th/mm3 Lymph # (Auto) 1.2 (1.0-4.8) th/mm3 [place] # (Auto) 1.4 H (0.0-0.9) th/mm3 Eos # (Auto) 0.1 (0.0-0.4) th/mm3 Baso # (Auto) 0.1 (0.0-0.2) th/mm3 WBC Differential . Diff Scan Seg Neuts % (Manual) (16-70) % Band Neuts % (Manual) (0-6) % Lymphocytes % (Manual) (9-44) % Monocytes % (Manual) (0-8) % Myelocytes % (Man) (0-0) % Abs Neuts (Manual) (1.8-7.7) th/mm3 Differential Comment Auto diff final Platelet Estimate (Normal) Platelet Morphology (Normal) Sodium 137 (136-145) meq/L Potassium 3.3 L (3.5-5.1) meq/L Chloride 104 (98-107) meq/L Carbon Dioxide 26.6 (21.0-32.0) meq/L Anion Gap 6 (5-15) meq/L BUN 6 L (7-18) mg/dL Creatinine 0.53 L (0.60-1.30) mg/dL Estimated GFR Greater than 89 (>89) mL/min Random Glucose 115 H (74-106) mg/dL Lactic Acid (0.4-2.0) mmol/L Calcium 7.6 L (8.5-10.1) mg/dL Calcium Adj for Albumin (8.5-10.1) mg/dL Magnesium (1.5-2.5) mg/dL Total Bilirubin (0.2-1.0) mg/dL AST (15-37) U/L ALT (12-78) U/L Alkaline Phosphatase (45-117) U/L B-Natriuretic Peptide (0-100) pg/mL Total Protein (6.4-8.2) g/dL Albumin (3.4-5.0) g/dL Urine Color (Yellw/Straw) Urine Clarity (Clear) Urine pH (5.0-8.5) Ur Specific Gunpowder (1.002-1.035) Urine Protein (Neg-Trace) mg/dL Urine Glucose (UA) (Negative) mg/dL Urine Ketones (Negative) mg/dL Urine Occult Blood (Negative) Urine Nitrate (Negative) Urine Bilirubin (Negative) Urine Ictotest (Negative) Urine Urobilinogen (Less than 2) mg/dL Ur Leukocyte Esterase (Negative) Urine RBC (0-3) /hpf Urine WBC (0-5) /hpf Ur Squamous Epith Cells (0-5) /hpf Urine Mucus (Occasional) /lpf Micro UA Comment Ur Microscopic Review Urine Culture Comments Stl C.difficile DNA Amp (Negative) St C. diff Tox Epid 027 (Negative) Vancomycin Trough 8.9 (5.0-10.0) mcg/mL 04/10/18 04/11/18 Range/Units 16:00 00:30 WBC (4.0-11.0) th/mm3 RBC (4.50-5.90) mil/mm3 Hgb (13.0-17.0) gm/dL Hct (39.0-51.0) % MCV (80.0-100.0) fL MCH (27.0-34.0) pg MCHC (32.0-36.0) % RDW (11.6-17.2) % Plt Count (150-450) th/mm3 MPV (7.0-11.0) fL Prelim Diff (Auto) Neut % (Auto) (16.0-70.0) % Lymph % (Auto) (9.0-44.0) % [place] % (Auto) (0.0-8.0) % Eos % (Auto) (0.0-4.0) % Baso % (Auto) (0.0-2.0) % Neut # (Auto) (1.8-7.7) th/mm3 Lymph # (Auto) (1.0-4.8) th/mm3 [place] # (Auto) (0.0-0.9) th/mm3 Eos # (Auto) (0.0-0.4) th/mm3 Baso # (Auto) (0.0-0.2) th/mm3 WBC Differential Diff Scan Seg Neuts % (Manual) (16-70) % Band Neuts % (Manual) (0-6) % Lymphocytes % (Manual) (9-44) % Monocytes % (Manual) (0-8) % Myelocytes % (Man) (0-0) % Abs Neuts (Manual) (1.8-7.7) th/mm3 Differential Comment Platelet Estimate (Normal) Platelet Morphology (Normal) Sodium (136-145) meq/L Potassium (3.5-5.1) meq/L Chloride (98-107) meq/L Carbon Dioxide (21.0-32.0) meq/L Anion Gap (5-15) meq/L BUN (7-18) mg/dL Creatinine (0.60-1.30) mg/dL Estimated GFR (>89) mL/min Random Glucose (74-106) mg/dL Lactic Acid (0.4-2.0) mmol/L Calcium (8.5-10.1) mg/dL Calcium Adj for Albumin (8.5-10.1) mg/dL Magnesium (1.5-2.5) mg/dL Total Bilirubin (0.2-1.0) mg/dL AST (15-37) U/L ALT (12-78) U/L Alkaline Phosphatase (45-117) U/L B-Natriuretic Peptide 73 (0-100) pg/mL Total Protein (6.4-8.2) g/dL Albumin (3.4-5.0) g/dL Urine Color (Yellw/Straw) Urine Clarity (Clear) Urine pH (5.0-8.5) Ur Specific Gunpowder (1.002-1.035) Urine Protein (Neg-Trace) mg/dL Urine Glucose (UA) (Negative) mg/dL Urine Ketones (Negative) mg/dL Urine Occult Blood (Negative) Urine Nitrate (Negative) Urine Bilirubin (Negative) Urine Ictotest (Negative) Urine Urobilinogen (Less than 2) mg/dL Ur Leukocyte Esterase (Negative) Urine RBC (0-3) /hpf Urine WBC (0-5) /hpf Ur Squamous Epith Cells (0-5) /hpf Urine Mucus (Occasional) /lpf Micro UA Comment Ur Microscopic Review Urine Culture Comments Stl C.difficile DNA Amp (Negative) St C. diff Tox Epid 027 (Negative) Vancomycin Trough 9.1 (5.0-10.0) mcg/mL Imaging Data Radiologist's impression: Chest X-Ray 04/08/18 15:15 CONCLUSION: Extensive bilateral pulmonary metastases unchanged from prior exams over the past month. No new findings. Abdomen/Pelvis CT 04/08/18 15:18 CONCLUSION: 1. No dilated loops of small or large bowel. 2. Large retroperitoneal mass and multiple lower lung masses. Chest X-Ray 04/10/18 23:00 CONCLUSION: 1. Bilateral pulmonary masses. 2. Increasing pleural-parenchymal density throughout the right lung compared to previous study. Discharge Plan Discharge Disposition Patient Disposition: ED Admit(ED Internal Use Only) Discharge Condition Condition: Stable Discharge Order Discharge Orders: ED Use Only Admit Order (Routine); Ordered 04/08/18 Ordered By: Kirill Tabor Discharge Details Diagnosis: Intractable pain, Testicular cancer, SIRS (systemic inflammatory response syndrome) Physicians Team ED Provider: Kirill Tabor Primary Care Provider: UNKNOWN, Attending Provider: Shahriar Leroy Other Providers: Mine Jones ; Lis Bustos ; Ondina Moore Status ED Status: Left Department Discharge Information Discharge Date/Time: 04/08/18 19:13
[2018-04-08] MEDS ORDERED: Ketorolac Inj 30 MG/ML (IVP) Vial IV.PUSH ONE (16:01)
[2018-04-08] MEDS ORDERED: Morphine Inj 4 MG/ML Vial IV.PUSH ONE ×2 (16:01→17:53)
[2018-04-08 16:03] LABS: Baso # (Auto) 0.1 th/mm3 (0.0-0.2); Baso % (Auto) 0.6 % (0.0-2.0); Eos % (Auto) 0.4 % (0.0-4.0); Hematocrit 38.1 % (39.0-51.0); Hemoglobin 12.9 gm/dL (13.0-17.0); Lymph # (Auto) 1.1 th/mm3 (1.0-4.8); Lymph % (Auto) 8.7 % (9.0-44.0); Mean Corpuscular HGB Conc 33.8 % (32.0-36.0); Mean Corpuscular Hemoglobin 28.6 pg (27.0-34.0); Mean Corpuscular Volume 84.5 fL (80.0-100.0); Mean Platelet Volume 6.8 fL (7.0-11.0); Mono # (Auto) 0.4 th/mm3 (0.0-0.9); Neut # (Auto) 11.4 th/mm3 (1.8-7.7); Neut % (Auto) 87.3 % (16.0-70.0); Platelet Count 335 th/mm3 (150-450); Red Cell Distribution Width 14.9 % (11.6-17.2); White Blood Count 13.1 th/mm3 (4.0-11.0)
[2018-04-08 16:25] LABS: Alanine Aminotransferase 32 U/L (12-78); Albumin 2.8 g/dL (3.4-5.0); Anion Gap 10 meq/L (5-15); Aspartate Aminotransferase 18 U/L (15-37); Blood Urea Nitrogen 7 mg/dL (7-18); Calcium 7.7 mg/dL (8.5-10.1); Carbon Dioxide 22.8 meq/L (21.0-32.0); Chloride 102 meq/L (98-107); Glomerular Filtration Rate Greater Than 89 mL/min (>89); Glucose,Random 110 mg/dL (74-106); Sodium 135 meq/L (136-145)
[2018-04-08 16:27] LABS: Alkaline Phosphatase 115 U/L (45-117); Total Protein 6.7 g/dL (6.4-8.2)
--- NOTE | 2018-04-08 16:59 | XR ---
EXAM DATE: 04/08/2018 4:48 PM EST AGE/SEX: 32 years / Male INDICATIONS: . Pneumonia CLINICAL DATA: This is the patient's initial encounter. Patient reports that signs and symptoms have been present for 4 - 6 days and indicates a pain score of 8/10. MEDICAL/SURGICAL HISTORY: Carcinoma, lung. Carcinoma, testicular. None. COMPARISON: [facility] [place], CTA PULMONARY W CONTRAST W 3D, 03/31/2018. [facility] [place], CHEST 1V SINGLE AP, 03/09/2018. . FINDINGS: The patient has known extensive pulmonary disease with bilateral pulmonary nodules and masses through out both lungs, measuring up to 6 cm in size. The appearance is very similar to prior chest x-ray 02/14. [id number] catheter tip at the cavoatrial junction. Osseous structures are intact. CONCLUSION: Extensive bilateral pulmonary metastases unchanged from prior exams over the past month. No new findi ngs. Electronically signed by: Xavi Blakely MD Board Certified Radiologist 04/08/2018 4:57 PM EST
[2018-04-08] MEDS ORDERED: Vancomycin Inj 1,000 MG in Sodium Chlor 0.9% Inj 250 ML IV.SIG STA (17:18)
[2018-04-08] MEDS ORDERED: Acetaminophen 325 MG Tablet PO PRN ×2 (17:20→18:20)
--- NOTE | 2018-04-08 17:55 | CT ---
EXAM DATE: 04/08/2018 5:46 PM EST AGE/SEX: 32 years / Male INDICATIONS: Vomiting and diffuse abdomen pain. CLINICAL DATA: This is the patient's initial encounter. Patient reports that signs and symptoms have been present for 1 day and indicates a pain score of 8/10. MEDICAL/SURGICAL HISTORY: Carcinoma, lung. Carcinoma, testicular. Asthma. None. RADIATION DOSE: 14.55 CTDI (mGy) COMPARISON: No prior exams available for comparison. TECHNIQUE: Multiple contiguous axial images were obtained through the abdomen. Images were obtained using multiple row detector helical technique. Using automated exposure control and adjustment of the mA and/or kV according to patient size, radiation dose was kept as low as reasonably achievable to o btain optimal diagnostic quality images. DICOM format image data is available electronically for rev iew and comparison. FINDINGS: Lower Lungs: Multiple bilateral lower lung masses. Liver: The liver has a homogeneous density without space-occupying lesion for noncontrast technique. There is no dilation of the biliary tree. No calcified gallstones. Spleen: Homogeneous density without enlargement. Pancreas: Unremarkable without mass or calcification. Kidneys: Normal in size and shape. No evidence of mass or hydronephrosis. Adrenal Glands: Unremarkable. Aorta: The aorta and proximal iliac vessels are grossly unremarkable without aneurysmal dilation. Bowel/Mesentery: No dilated loops of small or large bowel. No enlarged mesenteric nodes. Abdominal Wall: Intact. Retroperitoneum: Numerous a large smooth margin heterogeneous density retroperitoneal mass in the mi d abdomen which obscures the left margin of the aorta and the anterior margin of the psoas measuring 11.1 cm in superior/inferior extent and 8.5 cm in width. There are scattered calcifications throughou t the mass. This mass has previously been biopsied. Bladder: Contours are smooth. Reproductive Organs: No abnormal masses or calcifications seen. Inguinal: The inguinal region is unremarkable without evidence of adenopathy. Bony Structures: No lytic or sclerotic lesions seen.. CONCLUSION: 1. No dilated loops of small or large bowel. 2. Large retroperitoneal mass and multiple lower lung masses. Electronically signed by: Xavi Blakely MD Board Certified Radiologist 04/08/2018 5:53 PM EST
[2018-04-08 18:18] LABS: Bilirubin,Urine Negative (Negative); Clarity,Urine Hazy (Clear); Color,Urine Yellow (Yellw/Straw); Glucose,Urine (UA) 50 mg/dL (Negative); Leukocyte Esterase,Urine Negative (Negative); Mucus,Urine Few /lpf (Occasional); Nitrite,Urine Negative (Negative); Specific Gravity,Urine 1.016 (1.002-1.035); Squamous Epithelial Cell,Urine <1 /hpf (0-5)
[2018-04-08] MEDS ORDERED: Vancomycin Consult Pharmacy OTHER PRN (18:18)
--- NOTE | 2018-04-08 18:23 | P.HPIM ---
History of Present Illness Primary Care Physician: UNKNOWN Chief Complaint: fever History of Present Illness: patient is a 32 y/o male with metastatic testicular cancer who presented to ER with fever. he says that he had a fever few days ago. he went to [facility]. he says that after a day his fever resolved and he left against medical advice. he says that he was initially fine but then he started to have fever again. he reports non-bloody diarrhea since then. he has mild generalized abdominal pain along with nausea and vomiting. he reports generalized body ache. he was diagnosed with testicular cancer about a year and half ago and is currently on chemotherapy. Inpatient Certification Inpatient Certification: I certify that the inpatient services were ordered in accordance with Medicare regulations governing the order. This includes certification that hospital inpatient services are reasonable and necessary and in the case of services not specified as inpatient-only under 42 CFR 419.22(n), that they are appropriately provided as inpatient services in accordance to with the 2-midnight benchmark under 43 CFR 412.3(e) Estimated Total Length of Stay (Days): 2 Plans for Post Hospital Care: Home Review of Systems Review of Systems: all other systems reviewed are negative [facility] Medical History Medical History Asthma (Acute) Lung cancer (Acute) Testicular cancer (Acute) Surgical History Surgical History History of surgery on arm (Acute) Social History Social History Substance History: Past History Second Hand Smoke Exposure: No Smoking Status: Former smoker Tobacco Type: Cigarettes Cigarettes Per Day: 4 How Often Do You Have a Drink Containing Alcohol: Monthly or less Recent Travel in [place] within the Last 8 Weeks: No Recent Out of Country Travel within the Last 8 Weeks: No Immunization History Tetanus Immunization: Unsure Tetanus Immunization Year if Known: 2017 Medications and Allergies Allergies Allergy/AdvReac Type Severity Reaction Status Date / Time broccoli Allergy Severe Hives Verified 04/08/18 15:04 Home Medications Medication Instructions Recorded Confirmed Type prochlorperazine 10 mg PO Q8HR 10/11/17 03/09/18 History sotalol 80 mg PO BID 10/11/17 03/09/18 History Active Medications: Active Medications Acetaminophen (Tylenol) 650 mg PO ONCE PRN PRN Reason: FEVER > 100.4 F Last Admin: 04/08/18 18:16 Dose: 650 mg Acetaminophen (Tylenol) 650 mg PO Q4H PRN PRN Reason: fever/pain Albuterol (Albuterol Neb (Prn)) 0.63 mg NEB Q6HR NEB PRN PRN Reason: sob Potassium Chloride (Kcl 20 Meq Premix Inj) 20 meq in 100 mls @ 50 mls/hr IV.SIG ONCE ONE Stop: 04/08/18 20:59 Cefepime HCl 1,000 mg/ Sodium (Chloride) 100 mls @ 200 mls/hr IV.SIG Q12H [facility] Sodium Chloride (Ns Inj) 1,000 mls @ 125 mls/hr IV.CONT .Q8H [facility] Ondansetron HCl (Zofran Inj) 4 mg IV.PUSH Q8H PRN PRN Reason: NAUSEA Pharmacy Profile Note (Vancomycin Consult Pharmacy) 1 each OTHER UNSCH PRN PRN Reason: Pharmacy to dose Physical Exam Vital signs: Vital Signs 04/08/18 15:02 04/08/18 15:15 04/08/18 16:04 Temperature 102.8 F H Pulse Rate 120 H 115 H 100 H Respiratory Rate 30 H 28 H Blood Pressure 154/63 H 165/85 H Pulse Oximetry 95 94 L 94 L 04/08/18 18:09 Temperature 100.4 F H Pulse Rate 113 H Respiratory Rate 20 Blood Pressure 130/55 L Pulse Oximetry Intake & Output 04/07/18 04/08/18 04/08/18 18:59 06:59 18:59 Intake Total 2099 Balance 2099 Weight 81.647 kg Intake: IV 2099 Maxipime Inj 2,000 MG In NS Inj 100 / 100 100 ML @ 200 mls/hr IV.SIG STAT STA Rx#:[id number] NS Inj 1,000 ML @ Wide Open IV. 1999 SIG BOLUS ONE Rx#:[id number] Constitutional no acute distress Routine HEENT Exam Eye: Present PERRL Routine Neck Exam Present supple Routine Chest/Breast/Axilla Exam Comments: port in place on right chest with no erythema. Routine Respiratory Exam Present CTA bilaterally Routine Cardiovascular Exam Present tachycardia Routine Abdominal Exam Present soft Routine Extremities Exam Comments: no pedal edema. Routine Neurological Exam Present alert and oriented X3 Results Labs CBC & Chem 7: 04/08/18 15:53 04/08/18 15:53 Imaging Impressions Chest X-Ray 04/08/18 15:15 CONCLUSION: Extensive bilateral pulmonary metastases unchanged from prior exams over the past month. No new findings. Abdomen/Pelvis CT 04/08/18 15:18 CONCLUSION: 1. No dilated loops of small or large bowel. 2. Large retroperitoneal mass and multiple lower lung masses. Caprini VTE Risk Assessment Caprini VTE Risk Assessment: Moderate/High Risk (score >= 2) Caprini Risk Assessment Model: Point Value = 1 Point Value = 2 Point Value = 3 Point Value = 5 Age 41-60 Minor surgery BMI > 25 kg/m2 Swollen legs Varicose veins or History of unexplained or recurrent spontaneous Oral contraceptives or hormone replacement Sepsis (< 1 month) Serious lung disease, including pneumonia (< 1 month) Abnormal pulmonary function Acute myocardial infarction Congestive heart failure (< 1 month) History of inflammatory bowel disease Medical patient at bed rest Age 61-74 Arthroscopic surgery Major open surgery (> 45 min) Laparoscopic surgery (> 45 min) Malignancy Confined to bed (> 72 hours) Immobilizing plaster cast Central venous access Age >= 75 History of VTE Family history of VTE Factor V Leiden Prothrombin [id number] Lupus anticoagulant Anticardiolipin antibodies Elevated serum homocysteine Heparin-induced thrombocytopenia Other congenital or acquired thrombophilia Stroke (< 1 month) Elective arthroplasty Hip, pelvis, or leg fracture Acute spinal cord injury (< 1 month) Prophylaxis Regimen: Total Risk Factor Score Risk Level Prophylaxis Regimen 0-1 Low Early ambulation 2 Moderate Order ONE of the following: *Sequential Compression Device (SCD) *Heparin 5000 units SQ BID 3-4 Higher Order ONE of the following medications: *Heparin 5000 units SQ TID *Enoxaparin/Lovenox 40 mg SQ daily (WT < 150 kg, CrCl > 30 mL/min) *Enoxaparin/Lovenox 30 mg SQ daily (WT < 150 kg, CrCl > 10-29 mL/min) *Enoxaparin/Lovenox 30 mg SQ BID (WT < 150 kg, CrCl > 30 mL/min) AND/OR *Sequential Compression Device (SCD) 5 or more Highest Order ONE of the following medications: *Heparin 5000 units SQ TID (Preferred with Epidurals) *Enoxaparin/Lovenox 40 mg SQ daily (WT < 150 kg, CrCl > 30 mL/min) *Enoxaparin/Lovenox 30 mg SQ daily (WT < 150 kg, CrCl > 10-29 mL/min) *Enoxaparin/Lovenox 30 mg SQ BID (WT < 150 kg, CrCl > 30 mL/min) AND *Sequential Compression Device (SCD) Assessment and Plan Plan A/P - fever with no definite source/ with metastatic testicular cancer ( currently on cehmo) continue with empiric broad spectrum IV antibiotics and follow the cultures- will check the stool for c- diff. consult oncology. consider ID evalaution. will obtain the medical record from [facility]. continue supportive care with IV fluid and antipyretics as needed. -hypokalemia replace and monitor. -asthma- with no exacerbation neb treatment as needed. -DVT prophylaxis with subq lovenox. home meds need to be verified. Discussed Condition With: the ER physician and the patient.
[2018-04-08] MEDS ORDERED: Potassium Chlor 20 mEq Premix 20 MEQ/100 ML PIGGYBACK IV.SIG ONE (19:00)
[2018-04-08] MEDS: Morphine Inj 4 MG/ML Vial IV.PUSH PRN (21:23)
[2018-04-08] MEDS: Sod Chloride 0.9% Inj 1,000 ML IV.CONT SCH (22:27)
[2018-04-08 23:14] LABS: Clarity,Urine Cloudy (Clear); Color,Urine Amber (Yellw/Straw); Glucose,Urine (UA) 50 mg/dL (Negative); Leukocyte Esterase,Urine Negative (Negative); Mucus,Urine Moderate /lpf (Occasional); Nitrite,Urine Negative (Negative); Specific Gravity,Urine 1.029 (1.002-1.035); Squamous Epithelial Cell,Urine <1 /hpf (0-5)
[2018-04-08 23:40] LABS: Bilirubin,Urine Negative (Negative); Ictotest,Urine Negative (Negative)
[2018-04-09] MEDS: Vancomycin Inj 1,250 MG in Sodium Chlor 0.9% Inj 250 ML IV.SIG SCH ×3 (00:19→16:46)
[2018-04-09] MEDS: Morphine Inj 4 MG/ML Vial IV.PUSH PRN ×6 (01:17→22:49)
[2018-04-09] MEDS ORDERED: Ibuprofen 600 MG Tablet PO ONE (03:58)
[2018-04-09 06:38] LABS: Baso % (Auto) 0.2 % (0.0-2.0); Eos % (Auto) 0.2 % (0.0-4.0); Hematocrit 35.9 % (39.0-51.0); Hemoglobin 11.8 gm/dL (13.0-17.0); Lymph # (Auto) 1.5 th/mm3 (1.0-4.8); Lymph % (Auto) 6.9 % (9.0-44.0); Mean Corpuscular HGB Conc 32.9 % (32.0-36.0); Mean Corpuscular Hemoglobin 28.1 pg (27.0-34.0); Mean Corpuscular Volume 85.5 fL (80.0-100.0); Mean Platelet Volume 7.2 fL (7.0-11.0); Mono # (Auto) 1.4 th/mm3 (0.0-0.9); Mono % (Auto) 6.4 % (0.0-8.0); Neut # (Auto) 19.3 th/mm3 (1.8-7.7); Neut % (Auto) 86.3 % (16.0-70.0); Platelet Count 284 th/mm3 (150-450); Red Cell Distribution Width 15.1 % (11.6-17.2); White Blood Count 22.3 th/mm3 (4.0-11.0)
[2018-04-09 07:06] LABS: Anion Gap 10 meq/L (5-15); Blood Urea Nitrogen 7 mg/dL (7-18); Calcium 7.2 mg/dL (8.5-10.1); Carbon Dioxide 22.7 meq/L (21.0-32.0); Chloride 104 meq/L (98-107); Glomerular Filtration Rate Greater Than 89 mL/min (>89); Glucose,Random 89 mg/dL (74-106); Sodium 137 meq/L (136-145)
[2018-04-09 07:17] LABS: Albumin 2.3 g/dL (3.4-5.0); Calcium-Albumin Corrected 8.6 mg/dL (8.5-10.1)
[2018-04-09 08:04] LABS: Lymphocytes 3 % (9-44); Monocytes 7 % (0-8); Myelocytes 2 % (0-0)
[2018-04-09 08:05] LABS: Platelet Estimate Normal (Normal); Platelet Morphology Normal (Normal)
[2018-04-09] MEDS: Enoxaparin Inj 40 MG/0.4 ML Syringe SQ SCH (09:28)
[2018-04-09] MEDS ORDERED: oxyCODONE/Acetaminophen 10/325 Tablet PO PRN ×2 (09:35→14:42)
[2018-04-09] MEDS ORDERED: Morphine Inj 4 MG/ML Vial IV.PUSH PRN (09:41)
[2018-04-09] MEDS: Sod Chloride 0.9% Inj 1,000 ML IV.CONT SCH ×3 (10:02→20:36)
[2018-04-09] MEDS ORDERED: Azithromycin Inj 500 MG in Sodium Chlor 0.9% Inj 250 ML IV.SIG SCH (11:30)
[2018-04-09] MEDS ORDERED: Piperacil/Tazo 3.375 GM Premix 3.375 GM/50 ML PIGGYBACK IV.SIG SCH (12:00)
[2018-04-09] MEDS: guaiFENesin/Codeine Syrup 200 MG/20 MG 10 ML UDC PO PRN ×2 (12:20→17:44)
--- NOTE | 2018-04-09 12:38 | ECG ---
Date Performed: 04/08/2018 Time Performed: 15:23:49 PTAGE: 32 years EKG: SINUS TACHYCARDIA INDETERMINATE AXIS ABNORMAL ECG Compared to PREVIOUS TRACING rate has increased PREVIOUS TRACIN03/31/2018 07.46 DOCTOR: Favio Webber Interpretating Date/Time 04/09/2018 12:36:35
--- NOTE | 2018-04-09 14:31 | P.CONID ---
History of Present Illness Service: Infectious disease Consult date: 04/09/18 Requesting Physician: Shahriar Leroy Reason for Consult: Evaluate patient with fever, immunocompromise state Primary Care Provider: UNKNOWN Chief Complaint: fever History of Present Illness: Patient seen and examined. Records reviewed. Patient is not a very good historian. 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 Olivier at [facility], apparently has been getting chemotherapy in the last 9 months. Patient states he gets chemo for 7 days, once a month. His last chemo was in February, and he is due for another chemo but he got sick and has not had his chemo for this month. Patient apparently started having fevers on April 06. He went to the hospital at [facility], and was apparently admitted, but his fevers improved, so he signed out AGAINST MEDICAL ADVICE on April 07. On the day of admission here at [place], his fevers came back, so he decided to go to the hospital here for further evaluation and treatment. Patient has a cough which is fairly dry. It is not bad, and he seems to have been present for a while. He is a smoker. He has had diarrhea at least once a day over the last 2 days. He has had some mild abdominal pain and some nausea and vomiting. He denies any sore throat. Denies any urinary complaints. He has a port, and has not had any problem with the use of his port. Since admission he is had fevers up to 102. Last temperature was up to o'clock this morning, and he has been afebrile. His chest x-ray is showing significant evidence of pole of pulmonary metastatic disease. CT of the abdomen and pelvis shows evidence of large retroperitoneal metastases. He is not neutropenic. He is currently on Zithromax, Zosyn, and vancomycin. Infectious disease consultation has been requested to assist with evaluation and treatment. Review of Systems Constitutional: Reports chills, Reports fever(s), Denies headache(s), Denies night sweats Eyes: Denies discharge, Denies dry eyes Ears, Nose, Mouth, and Throat: Denies difficulty swallowing, Denies dry mouth, Denies nasal congestion, Denies nasal discharge, Denies pain with swallowing, Denies sore throat Cardiovascular: Denies chest pain, Denies shortness of breath Respiratory: Reports cough, Denies shortness of breath Gastrointestinal: Reports abdominal pain, Reports loose stools, Reports nausea, Reports vomiting, Denies pain with swallowing Genitourinary: Denies difficulty urinating, Denies painful urination Musculoskeletal: Denies joint pain, Denies joint swelling Skin/Breast: Denies sores, Denies wounds PMFSH - History History Provided By: Patient - Medical History Medical History: Medical History (Last Reviewed 04/08/18 @ 18:26 by Sharla Gonzalez MD) Testicular cancer Asthma Lung cancer - Surgical History Surgical History: Surgical History (Last Reviewed 04/08/18 @ 18:26 by Sharla Gonzalez MD) History of surgery on arm - Tobacco History Second Hand Smoke Exposure: No Smoking Status: Former smoker Tobacco Type: Cigarettes Cigarettes Per Day: 4 - Alcohol History How Often Do You Have a Drink Containing Alcohol: Monthly or less - Substance Use History Substance History: Past History - Travel History Recent Travel in the [place] Within the Last 8 Weeks: No Recent Travel Out of the Country Within the Last 8 Weeks: No - Immunization History Tetanus Immunization: Unsure Tetanus Immunization Year if Known: 2018 Medications and Allergies Active Medications: Active Medications Acetaminophen (Tylenol) 650 mg PO Q4H PRN PRN Reason: fever >100.4 Last Admin: 04/09/18 00:30 Dose: 650 mg Albuterol (Albuterol Neb (Prn)) 0.63 mg NEB Q6HR NEB PRN PRN Reason: SHORTNESS OF BREATH Last Admin: 04/09/18 00:52 Dose: 0.63 mg Enoxaparin Sodium (Lovenox Inj) 40 mg SQ DAILY [facility] Last Admin: 04/09/18 09:28 Dose: 40 mg Guaifenesin/Codeine Phosphate (Robitussin Ac Liq) 10 ml PO Q4H PRN PRN Reason: COUGH Last Admin: 04/09/18 12:20 Dose: 10 ml Sodium Chloride (Ns Inj) 1,000 mls @ 100 mls/hr IV.CONT .Q10H [facility] Last Admin: 04/09/18 10:10 Dose: 125 mls/hr Vancomycin HCl 1,250 mg/ (Sodium Chloride) 262.5 mls @ 250 mls/hr IV.SIG Q8H [facility] Last Infusion: 04/09/18 12:09 Dose: Infused Levofloxacin/Dextrose (Levaquin 750 Mg Premix Inj) 150 mls @ 100 mls/hr IV.SIG Q24H [facility] Miscellaneous Information ([facility] Ordered Lab Info) 0 each OTHER ONCE ONE Stop: 04/09/18 15:46 Morphine Sulfate (Morphine Inj) 4 mg IV.PUSH Q4H PRN PRN Reason: PAIN 6-10;IF UNABLE TO TAKE PO Last Admin: 04/09/18 13:29 Dose: 4 mg Morphine Sulfate (Morphine Inj) 2 mg IV.PUSH Q4H PRN PRN Reason: pain 4-6 Ondansetron HCl (Zofran Inj) 4 mg IV.PUSH Q8H PRN PRN Reason: NAUSEA Last Admin: 04/08/18 21:22 Dose: 4 mg Pharmacy Profile Note (Vancomycin Consult Pharmacy) 1 each OTHER UNSCH PRN PRN Reason: Pharmacy to dose Allergies Allergy/AdvReac Type Severity Reaction Status Date / Time broccoli Allergy Severe Hives Verified 04/08/18 15:04 Home Medications Medication Instructions Recorded Confirmed Type sotalol 80 mg PO BID 10/11/17 04/09/18 History Exam Vital signs: Vital Signs 04/08/18 15:02 04/08/18 15:15 04/08/18 16:04 Temperature 102.8 F H Pulse Rate 120 H 115 H 100 H Respiratory Rate 30 H 28 H Blood Pressure 154/63 H 165/85 H Pulse Oximetry 95 94 L 94 L 04/08/18 18:09 04/08/18 20:00 04/09/18 00:00 Temperature 100.4 F H 99.8 F H 101.9 F H Pulse Rate 113 H 107 H 110 H Respiratory Rate 20 24 18 Blood Pressure 130/55 L 99/57 L 128/63 Pulse Oximetry 94 L 96 04/09/18 01:02 04/09/18 02:24 04/09/18 02:33 Temperature 102.8 F H Pulse Rate 108 H 110 H Respiratory Rate 18 Blood Pressure Pulse Oximetry 04/09/18 03:53 04/09/18 04:00 04/09/18 06:24 Temperature 103.1 F H 98.2 F Pulse Rate 95 H 87 Respiratory Rate 20 Blood Pressure 107/58 L Pulse Oximetry 94 L 04/09/18 07:00 04/09/18 08:30 04/09/18 11:00 Temperature 97.7 F Pulse Rate 80 70 79 Respiratory Rate 24 Blood Pressure 96/57 L Pulse Oximetry 93 L 04/09/18 12:13 Temperature 97.6 F Pulse Rate 73 Respiratory Rate 20 Blood Pressure 108/58 L Pulse Oximetry 92 L Intake & Output 04/08/18 04/09/18 04/09/18 18:59 06:59 18:59 Intake Total 2099 1480 / 1480 1225.0 / 1225.0 Output Total 1200 / 1200 225 / 225 Balance 2099 280 / 280 1000.0 / 1000.0 Weight 81.647 kg 95 kg Intake: IV 2099 / 2099 1000 / 1000 1225.0 / 1225.0 NS Inj 1,000 ML @ 125 mls/hr IV 1000 / 1000 .CONT .Q8H [facility] Rx#:[id number] Azithromycin Inj 500 MG In NS 250 / 250 Inj 250 ML @ 250 mls/hr IV.SIG Q24H [facility] Rx#:[id number] Maxipime Inj 1,000 MG In NS Inj 100 / 100 100 ML @ 200 mls/hr IV.SIG Q12H [facility] Rx#:[id number] Maxipime Inj 2,000 MG In NS Inj 100 / 100 100 ML @ 200 mls/hr IV.SIG STAT STA Rx#:[id number] NS Inj 1,000 ML @ Wide Open IV. 1999 SIG BOLUS ONE Rx#:[id number] Vancomycin Inj 1,250 MG In NS 525.0 / 525.0 Inj 250 ML @ 250 mls/hr IV.SIG Q8H [facility] Rx#:[id number] Oral 480 / 480 Output: Urine 1200 / 1200 225 / 225 Narrative: Physical examination GENERAL: Patient is a well-nourished, well-developed male, awake and alert, not in respiratory distress. SKIN: Cool and dry. No generalized rash, no ecchymoses and no evidence of embolic lesions. HEAD: Atraumatic. Normocephalic. No temporal wasting, or tenderness. EYES: [place] conjunctiva. No petechia or hemorrhage. Pupils equal, round and reactive to light. Extraocular movements full and intact. No scleral icterus. No injection or drainage. EARS, NOSE AND THROAT: Nose without bleeding or purulent nasal discharge. No sinus tenderness. Mucous membranes pink and moist. No oral lesions noted. No exudate. No oral thrush. NECK: Trachea midline. Supple and not tender, no meningeal signs CARDIOVASCULAR: Regular rate and rhythm. No murmurs, rubs or gallops heard RESPIRATORY: Clear to auscultation. Breath sounds equal bilaterally. No rales , wheezing or rhonchi. Port in R upper chest looks ok ABDOMEN: Soft, non-tender, nondistended. Bowel sounds present and normoactive. No guarding. No rebound. No organomegaly. EXTREMITIES: No clubbing, cyanosis, or edema. No joint effusion, has good ROM. No calf tenderness. Well perfused and warm. NEUROLOGICAL: Awake and alert. Cranial nerves grossly intact. Motor grossly within normal limits. PSYCHIATRIC: Normal affect, calm and cooperative. LINE: No evidence of infection Results - Labs CBC & Chem 7: 04/09/18 05:45 04/09/18 05:45 Labs: Laboratory Results - last 24 hr 04/08/18 04/08/18 04/08/18 15:53 15:53 15:53 WBC 13.1 H RBC 4.50 Hgb 12.9 L Hct 38.1 L MCV 84.5 MCH 28.6 MCHC 33.8 RDW 14.9 Plt Count 335 D MPV 6.8 L Prelim Diff (Auto) Slide review pending Neut % (Auto) 87.3 H Lymph % (Auto) 8.7 L [place] % (Auto) 3.0 Eos % (Auto) 0.4 Baso % (Auto) 0.6 Neut # (Auto) 11.4 H Lymph # (Auto) 1.1 [place] # (Auto) 0.4 Eos # (Auto) 0.0 Baso # (Auto) 0.1 WBC Differential . Diff Scan Auto diff confirmed Seg Neuts % (Manual) Band Neuts % (Manual) Lymphocytes % (Manual) Monocytes % (Manual) Myelocytes % (Man) Abs Neuts (Manual) Differential Comment . Platelet Estimate Platelet Morphology Sodium 135 L Potassium 3.0 L Chloride 102 Carbon Dioxide 22.8 Anion Gap 10 BUN 7 Creatinine 0.78 Estimated GFR Greater than 89 Random Glucose 110 H Lactic Acid 1.6 Calcium 7.7 L Calcium Adj for Albumin Magnesium Total Bilirubin 1.2 H AST 18 ALT 32 Alkaline Phosphatase 115 Total Protein 6.7 Albumin 2.8 L Urine Color Urine Clarity Urine pH Ur Specific [place] Urine Protein Urine Glucose (UA) Urine Ketones Urine Occult Blood Urine Nitrate Urine Bilirubin Urine Ictotest Urine Urobilinogen Ur Leukocyte Esterase Urine RBC Urine WBC Ur Squamous Epith Cells Urine Mucus Micro UA Comment Ur Microscopic Review Urine Culture Comments 04/08/18 04/08/18 04/09/18 16:30 21:30 05:45 WBC 22.3 H D RBC 4.20 L Hgb 11.8 L Hct 35.9 L MCV 85.5 MCH 28.1 MCHC 32.9 RDW 15.1 Plt Count 284 MPV 7.2 Prelim Diff (Auto) Slide review pending Neut % (Auto) 86.3 H Lymph % (Auto) 6.9 L [place] % (Auto) 6.4 Eos % (Auto) 0.2 Baso % (Auto) 0.2 Neut # (Auto) 19.3 H Lymph # (Auto) 1.5 [place] # (Auto) 1.4 H Eos # (Auto) 0.0 Baso # (Auto) 0.0 WBC Differential Manual diff final Diff Scan Seg Neuts % (Manual) 75 H Band Neuts % (Manual) 13 H Lymphocytes % (Manual) 3 L Monocytes % (Manual) 7 Myelocytes % (Man) 2 H Abs Neuts (Manual) 20.1 H Differential Comment . Platelet Estimate Normal Platelet Morphology Normal Sodium Potassium Chloride Carbon Dioxide Anion Gap BUN Creatinine Estimated GFR Random Glucose Lactic Acid Calcium Calcium Adj for Albumin Magnesium Total Bilirubin AST ALT Alkaline Phosphatase Total Protein Albumin Urine Color Yellow [place] Urine Clarity Hazy H Cloudy H Urine pH 5.0 5.0 Ur Specific [place] 1.016 1.029 Urine Protein Negative 30 H Urine Glucose (UA) 50 50 Urine Ketones Trace H 20 Urine Occult Blood Negative Negative Urine Nitrate Negative Negative Urine Bilirubin Negative Negative Urine Ictotest Negative Urine Urobilinogen Less than 2 Less than 2 Ur Leukocyte Esterase Negative Negative Urine RBC Less than 1 Urine WBC 2 4 Ur Squamous Epith Cells <1 <1 Urine Mucus Few H Moderate H Micro UA Comment Culture not ind Culture not ind Ur Microscopic Review Not Reportable Not Reportable Urine Culture Comments Culture not ind Culture not ind 04/09/18 04/09/18 05:45 05:45 WBC RBC Hgb Hct MCV MCH MCHC RDW Plt Count MPV Prelim Diff (Auto) Neut % (Auto) Lymph % (Auto) [place] % (Auto) Eos % (Auto) Baso % (Auto) Neut # (Auto) Lymph # (Auto) [place] # (Auto) Eos # (Auto) Baso # (Auto) WBC Differential Diff Scan Seg Neuts % (Manual) Band Neuts % (Manual) Lymphocytes % (Manual) Monocytes % (Manual) Myelocytes % (Man) Abs Neuts (Manual) Differential Comment Platelet Estimate Platelet Morphology Sodium 137 Potassium 3.0 L Chloride 104 Carbon Dioxide 22.7 Anion Gap 10 BUN 7 Creatinine 0.76 Estimated GFR Greater than 89 Random Glucose 89 Lactic Acid Calcium 7.2 L* Calcium Adj for Albumin 8.6 Magnesium 1.6 Total Bilirubin AST ALT Alkaline Phosphatase Total Protein Albumin 2.3 L Urine Color Urine Clarity Urine pH Ur Specific [place] Urine Protein Urine Glucose (UA) Urine Ketones Urine Occult Blood Urine Nitrate Urine Bilirubin Urine Ictotest Urine Urobilinogen Ur Leukocyte Esterase Urine RBC Urine WBC Ur Squamous Epith Cells Urine Mucus Micro UA Comment Ur Microscopic Review Urine Culture Comments - Imaging Impressions Chest X-Ray 04/08/18 15:15 CONCLUSION: Extensive bilateral pulmonary metastases unchanged from prior exams over the past month. No new findings. Abdomen/Pelvis CT 04/08/18 15:18 CONCLUSION: 1. No dilated loops of small or large bowel. 2. Large retroperitoneal mass and multiple lower lung masses. Assessment and Plan - Plan Impression Febrile illness, patient with known metastatic teratoma testicular CA - receiving chemo, not neutropenic - non-localizing - ?tumor - has extensive lung mets and retroperitoneal mets Metastatic teratoma testicular CA Recommendation Continue IV Vanco IV Levaquin Agree with getting records from [place] Follow cultures Follow temps Monitor progress I will determine course of antibiotic depending on the results of the workup I will follow along with you Thank you for this consultation
--- NOTE | 2018-04-09 14:41 | P.PNIM ---
Subjective Interval history: Patient reports productive cough with clear phlegm. Having chills and fever. No symptoms of abdominal pain. No further diarrhea overnight. No nausea or vomiting. No active chest pain. Mild shortness of breath. Physical Exam Vital signs: Vital Signs 04/08/18 15:02 04/08/18 15:15 04/08/18 16:04 Temperature 102.8 F H Pulse Rate 120 H 115 H 100 H Respiratory Rate 30 H 28 H Blood Pressure 154/63 H 165/85 H Pulse Oximetry 95 94 L 94 L 04/08/18 18:09 04/08/18 20:00 04/09/18 00:00 Temperature 100.4 F H 99.8 F H 101.9 F H Pulse Rate 113 H 107 H 110 H Respiratory Rate 20 24 18 Blood Pressure 130/55 L 99/57 L 128/63 Pulse Oximetry 94 L 96 04/09/18 01:02 04/09/18 02:24 04/09/18 02:33 Temperature 102.8 F H Pulse Rate 108 H 110 H Respiratory Rate 18 Blood Pressure Pulse Oximetry 04/09/18 03:53 04/09/18 04:00 04/09/18 06:24 Temperature 103.1 F H 98.2 F Pulse Rate 95 H 87 Respiratory Rate 20 Blood Pressure 107/58 L Pulse Oximetry 94 L 04/09/18 07:00 04/09/18 08:30 04/09/18 11:00 Temperature 97.7 F Pulse Rate 80 70 79 Respiratory Rate 24 Blood Pressure 96/57 L Pulse Oximetry 93 L 04/09/18 12:13 Temperature 97.6 F Pulse Rate 73 Respiratory Rate 20 Blood Pressure 108/58 L Pulse Oximetry 92 L Intake & Output 04/08/18 04/09/18 04/09/18 18:59 06:59 18:59 Intake Total 2099 1480 / 1480 1225.0 / 1225.0 Output Total 1200 / 1200 225 / 225 Balance 2099 280 / 280 1000.0 / 1000.0 Weight 81.647 kg 95 kg Intake: IV 2099 / 2099 1000 / 1000 1225.0 / 1225.0 NS Inj 1,000 ML @ 125 mls/hr IV 1000 / 1000 .CONT .Q8H [facility] Rx#:[id number] Azithromycin Inj 500 MG In NS 250 / 250 Inj 250 ML @ 250 mls/hr IV.SIG Q24H [facility] Rx#:[id number] Maxipime Inj 1,000 MG In NS Inj 100 / 100 100 ML @ 200 mls/hr IV.SIG Q12H [facility] Rx#:[id number] Maxipime Inj 2,000 MG In NS Inj 100 / 100 100 ML @ 200 mls/hr IV.SIG STAT [facility] Rx#:[id number] NS Inj 1,000 ML @ Wide Open IV. 1999 SIG [facility] Rx#:[id number] Vancomycin Inj 1,250 MG In NS 525.0 / 525.0 Inj 250 ML @ 250 mls/hr IV.SIG Q8H [facility] Rx#:[id number] Oral 480 / 480 Output: Urine 1200 / 1200 225 / 225 Narrative: Well-nourished well-developed white male in no acute distress laying in bed Cardiovascular regular rate and rhythm Lungs few bibasilar crackles Abdomen soft nontender nondistended normoactive bowel sounds No cyanosis clubbing or edema Neurological exam alert and oriented x3, moves all 4 extremities well Results Labs CBC & Chem 7: 04/09/18 05:45 04/09/18 05:45 Labs: Microbiology 04/08/18 15:53 Blood - Peripheral Aerobic Blood Culture - Preliminary No growth in 1 day 04/08/18 15:53 Blood - Peripheral Anaerobic Blood Culture - Preliminary No growth in 1 day 04/08/18 15:58 Blood - Peripheral Aerobic Blood Culture - Preliminary No growth in 1 day 04/08/18 15:58 Blood - Peripheral Anaerobic Blood Culture - Preliminary No growth in 1 day 04/08/18 16:10 Nasal Wash Influenza Types A,B Antigen - Final Negative for FLU A and B antigen Infection due to influenza A or B cannot be ruled out since the antigen present in the sample may be below the detection limit of the test. Imaging Imaging: Impressions Chest X-Ray 04/08/18 15:15 CONCLUSION: Extensive bilateral pulmonary metastases unchanged from prior exams over the past month. No new findings. Abdomen/Pelvis CT 04/08/18 15:18 CONCLUSION: 1. No dilated loops of small or large bowel. 2. Large retroperitoneal mass and multiple lower lung masses. Assessment and Plan Plan 32-year-old white male with a history of testicular cancer with lung metastasis on recent chemotherapy presents with fever Sepsis present on admission with fever, leukocytosis due to ?suspected source pneumonia ?Pneumonia in a patient with a history of immunosuppression, last chemo about 1- 2 months ago Due to worsening leukocytosis overnight, will discontinue cefepime and add Zosyn and vancomycin azithromycin until infectious disease can review the case. Infectious disease consultation. Follow-up with blood cultures, sputum cultures and sensitivity Continue IV fluid hydration, supportive care History of testicular cancer with [facility] in which Dr[facility] Olivier is his onc[facility]. We will consult oral oncologist here for further recommendations. Hold off on chemotherapy secondary to sepsis Hypokalemiareplete DVT prophylaxis Lovenox.
[2018-04-09] MEDS ORDERED: Naloxone Inj 0.4 MG/ML Vial IV.PUSH PRN (14:42)
[2018-04-09] MEDS ORDERED: Pharmacy Ordered Lab Info OTHER ONE (15:45)
[2018-04-09] MEDS: Ibuprofen 400 MG Tablet PO PRN (20:35)
[2018-04-09] MEDS ORDERED: Sodium Chlor 0.9% Inj 250 ML IV.SIG SCH (22:00)
[2018-04-10] MEDS: Vancomycin Inj 1,500 MG in Sodium Chlor 0.9% Inj 500 ML IV.SIG SCH ×3 (00:40→16:11)
[2018-04-10] MEDS: Sod Chloride 0.9% Inj 1,000 ML IV.CONT SCH ×3 (00:41→20:33)
--- NOTE | 2018-04-10 01:37 | MB ---
cc: Saman Jones MD DATE: 04/09/2018 REASON FOR CONSULTATION: Consult requested by hospitalist for evaluation of metastatic testicular cancer. HISTORY OF PRESENT ILLNESS: Jonathan is a 32-year-old male. He has metastatic testicular cancer. He used to see Dr. Rip Olivier in our group about 2 years ago. He was treated with chemotherapy. Then he switched over to Dr. Lul Carlson, my associate. The patient had received VIP chemotherapy with a good response. Dr. Carlson was trying to make arrangements for him to go to [facility] in [place] to evaluate for autologous bone marrow transplant. However, the patient has been noncompliant. The patient moved to [facility]. He decided to switch the oncologist to [facility], Dr. Elo Olivier. The patient states that he has been getting chemotherapy for the last [id number]. Patient does not recall the name of the chemotherapy. Recent scans shows that the tumor is getting better according to the patient. He was admitted to [facility] about a week ago. He was treated with antibiotics. When his fever came down, he decided to leave the hospital against medical advice. A day after he left the hospital, he developed fever again associated with chills. This time, he decided to come to [place]. Infectious disease has been consulted. His antibiotics have been adjusted. I have been asked to see him for further evaluation. The patient is a poor historian. He does not remember the name of the chemotherapy that he has been getting presently. He states that he takes chemotherapy 7 days of the 28-day cycle. He is in a lot of pain. He states that Percocet and oxycodone does not work. He has been getting IV morphine. He is requesting for something stronger. The rest of the review of systems is negative. PAST MEDICAL HISTORY: Metastatic testicular cancer, asthma. PAST SURGICAL HISTORY: Infusaport placement. ALLERGIES: NONE TO MEDICATIONS. MEDICATIONS: Prior to the hospital, sotalol. FAMILY HISTORY: None for malignancy. SOCIAL HISTORY: The patient does not smoke cigarettes. He does not drink alcohol significantly. PHYSICAL EXAMINATION: GENERAL: Reveals a well-developed, ill-appearing white male in no apparent distress. VITAL SIGNS: 102.9, heart rate is 125. Blood pressure is 130/67. HEAD, EYES, EARS, NOSE, AND THROAT: Pupils equal, round, reactive to light and accommodation, extraocular movements intact. Anicteric. No oral lesions noted. No thrush noted. NECK: Supple. No JVD. No masses noted. LUNGS: Clear. No wheezing, rhonchi, or rales. HEART: Regular rate and rhythm. No murmur heard. ABDOMEN: Soft and nontender. No hepatosplenomegaly. No abnormal bowel sounds. No guarding or rigidity noted. EXTREMITIES: No pedal edema. No cyanosis, no clubbing. NEUROLOGIC: Awake, alert, oriented x 3. Sensory and motor seem to be intact. SKIN: No bruises or petechiae noted. Multiple tattoos noted LYMPH NODES: No cervical, supraclavicular, or axillary lymphadenopathy noted. BACK: There is no spinal tenderness noted. ASSESSMENT: 1. Metastatic testicular cancer, currently on palliative chemotherapy. The type is unknown. 2. Fever with chills, most likely due to the infection. Certainly endocarditis cannot be ruled out. The other possibility could be tumor fever 3. Nonacute chronic pain from metastatic malignancy. PLAN: I have reviewed his available records and I have discussed with the patient regarding further treatment plan. The patient has high-grade fever, leukocytosis, toxic granulation and bandemia. Most likely, he has fever from infection. The other possibility that this could be a tumor fever. He still has significant tumor burden. We have already requested to get his oncology records from Dr. Elo Olivier. The patient says that he wants to go to [facility] to consider bone marrow transplant. I advised him that he needs to be in remission before he can be eligible for bone marrow transplant. 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 For the pain I will start him on Duragesic patch 25 mcg and give him Dilaudid 2 mg p.o. every 6 as scheduled. He can have IV morphine for breakthrough pain Further recommendations based on his hospital stay. Thank you for asking my opinion. MD RENU Hughes/tenzin , 11:38 PM , 11:52 PM [facility]ENTERJohn
[2018-04-10 03:39] LABS: Baso # (Auto) 0.1 th/mm3 (0.0-0.2); Baso % (Auto) 0.3 % (0.0-2.0); Eos # (Auto) 0.1 th/mm3 (0.0-0.4); Eos % (Auto) 0.6 % (0.0-4.0); Hematocrit 33.8 % (39.0-51.0); Hemoglobin 11.3 gm/dL (13.0-17.0); Lymph # (Auto) 1.2 th/mm3 (1.0-4.8); Lymph % (Auto) 5.6 % (9.0-44.0); Mean Corpuscular HGB Conc 33.5 % (32.0-36.0); Mean Corpuscular Hemoglobin 28.3 pg (27.0-34.0); Mean Corpuscular Volume 84.5 fL (80.0-100.0); Mono # (Auto) 1.4 th/mm3 (0.0-0.9); Mono % (Auto) 6.8 % (0.0-8.0); Neut # (Auto) 18.4 th/mm3 (1.8-7.7); Neut % (Auto) 86.7 % (16.0-70.0); Platelet Count 289 th/mm3 (150-450); Red Cell Distribution Width 15.5 % (11.6-17.2); White Blood Count 21.2 th/mm3 (4.0-11.0)
[2018-04-10] MEDS: Morphine Inj 4 MG/ML Vial IV.PUSH PRN ×2 (03:51→10:19)
[2018-04-10 03:57] LABS: Anion Gap 6 meq/L (5-15); Blood Urea Nitrogen 6 mg/dL (7-18); Calcium 7.6 mg/dL (8.5-10.1); Carbon Dioxide 26.6 meq/L (21.0-32.0); Chloride 104 meq/L (98-107); Glomerular Filtration Rate Greater Than 89 mL/min (>89); Glucose,Random 115 mg/dL (74-106); Potassium 3.3 meq/L (3.5-5.1); Sodium 137 meq/L (136-145)
[2018-04-10] MEDS: guaiFENesin/Codeine Syrup 200 MG/20 MG 10 ML UDC PO PRN ×2 (05:48→14:28)
[2018-04-10] MEDS: Enoxaparin Inj 40 MG/0.4 ML Syringe SQ SCH (08:40)
[2018-04-10] MEDS: Magnesium Oxide 400 MG Tablet PO SCH ×2 (10:22→20:30)
--- NOTE | 2018-04-10 11:28 | P.PNONC ---
Subjective Interval history: T-max 102.9 F. Patient previously seen by attending and she is adjusting his pain medications. He is currently pain-free, status post pain medication dose. He ambulated the hallways last night, complains of dyspnea on exertion, improves with rest. Continues to have productive cough, yellow sputum. Appetite appropriate, urinating often. Objective Vital Signs/Intake & Output: Vital Signs 04/09/18 12:13 04/09/18 15:17 04/09/18 16:00 Temperature 97.6 F 98.3 F Pulse Rate 73 86 89 Respiratory Rate 20 18 Blood Pressure 108/58 L 107/71 Pulse Oximetry 92 L 95 04/09/18 20:05 04/09/18 20:29 04/10/18 00:10 Temperature 102.9 F H Pulse Rate 117 H 125 H 124 H Respiratory Rate 22 Blood Pressure 130/67 Pulse Oximetry 93 L 04/10/18 00:37 04/10/18 03:06 04/10/18 03:51 Temperature 98.6 F 98.9 F Pulse Rate 96 H 95 H Respiratory Rate 20 24 24 Blood Pressure 120/72 120/73 Pulse Oximetry 94 L 92 L 04/10/18 04:04 04/10/18 08:00 Temperature 99.4 F Pulse Rate 96 H 109 H Respiratory Rate 18 Blood Pressure 105/58 L Pulse Oximetry 92 L Intake & Output 04/09/18 04/10/18 04/10/18 18:59 06:59 18:59 Intake Total 4187.5 / 4187.5 970 / 970 Output Total 925 / 925 950 / 950 Balance 3262.5 / 3262.5 Weight 94 kg Intake: IV 2687.5 / 2687.5 530 / 530 NS Inj 1,000 ML @ 100 mls/hr IV 1000 / 1000 .CONT .Q10H [facility] Rx#:[id number] Azithromycin Inj 500 MG In NS 250 / 250 Inj 250 ML @ 250 mls/hr IV.SIG Q24H [facility] Rx#:[id number] Maxipime Inj 1,000 MG In NS Inj 100 / 100 100 ML @ 200 mls/hr IV.SIG Q12H [facility] Rx#:[id number] Levaquin 750 mg Premix Inj 150 150 / 150 ML @ 100 mls/hr IV.SIG Q24H [facility] Rx#:[id number] Zosyn 3.375 GM Premix 3.375 gm 50 / 50 In 50 ml @ 100 mls/hr IV.SIG Q6H [facility] Rx#:[id number] Vancomycin Inj 1,250 MG In NS 787.5 / 787.5 Inj 250 ML @ 250 mls/hr IV.SIG Q8H [facility] Rx#:[id number] Vancomycin Inj 1,500 MG In NS 530 / 530 Inj 500 ML @ 257.5 mls/hr IV. SIG Q8H [facility] Rx#:[id number] Oral 1500 / 1500 440 / 440 Output: Urine 925 / 925 950 / 950 Other: Date of Last Bowel Movement 04/09/18 04/09/18 Result Diagrams: 04/10/18 03:20 04/10/18 03:20 Laboratory Results: Laboratory Results - last 24 hr 04/09/18 04/09/18 04/10/18 13:20 16:40 03:20 WBC 21.2 H RBC 4.00 L Hgb 11.3 L Hct 33.8 L MCV 84.5 MCH 28.3 MCHC 33.5 RDW 15.5 Plt Count 289 MPV 7.0 Neut % (Auto) 86.7 H Lymph % (Auto) 5.6 L [place] % (Auto) 6.8 Eos % (Auto) 0.6 Baso % (Auto) 0.3 Neut # (Auto) 18.4 H Lymph # (Auto) 1.2 [place] # (Auto) 1.4 H Eos # (Auto) 0.1 Baso # (Auto) 0.1 WBC Differential . Differential Comment Auto diff final Sodium Potassium Chloride Carbon Dioxide Anion Gap BUN Creatinine Estimated GFR Random Glucose Calcium Stl C.difficile DNA Amp Negative St C. diff Tox Epid 027 Negative Vancomycin Trough 8.9 04/10/18 03:20 WBC RBC Hgb Hct MCV MCH MCHC RDW Plt Count MPV Neut % (Auto) Lymph % (Auto) [place] % (Auto) Eos % (Auto) Baso % (Auto) Neut # (Auto) Lymph # (Auto) [place] # (Auto) Eos # (Auto) Baso # (Auto) WBC Differential Differential Comment Sodium 137 Potassium 3.3 L Chloride 104 Carbon Dioxide 26.6 Anion Gap 6 BUN 6 L Creatinine 0.53 L Estimated GFR Greater than 89 Random Glucose 115 H Calcium 7.6 L Stl C.difficile DNA Amp St C. diff Tox Epid 027 Vancomycin Trough Culture Results: Microbiology 04/08/18 15:53 Aerobic Blood Culture - Preliminary Blood - Peripheral No growth in 1 day Anaerobic Blood Culture - Preliminary No growth in 1 day 04/08/18 15:58 Aerobic Blood Culture - Preliminary Blood - Peripheral No growth in 1 day Anaerobic Blood Culture - Preliminary No growth in 1 day 04/08/18 16:10 Influenza Types A,B Antigen - Final Nasal Wash Negative for FLU A and B antigen Infection due to influenza A or B cannot be ruled out since the antigen present in the sample may be below the detection limit of the test. Medications: Active Medications Generic Name Dose Route Start Last Admin Trade Name Freq PRN Reason Stop Dose Admin Acetaminophen 650 mg 04/08/18 18:20 04/09/18 00:30 Tylenol PO 650 mg Q4H PRN Administration fever >100.4 Albuterol 0.63 mg 04/08/18 18:20 04/09/18 00:52 Albuterol Neb (Prn) NEB 0.63 mg Q6HR NEB PRN Administration SHORTNESS OF BREATH Enoxaparin Sodium 40 mg 04/09/18 09:00 04/10/18 08:40 Lovenox Inj SQ 40 mg DAILY [facility] Administration Guaifenesin/Codeine Phosphate 10 ml 04/09/18 10:32 04/10/18 05:48 Robitussin Ac Liq PO 10 ml Q4H PRN Administration COUGH Hydromorphone HCl 2 mg 04/09/18 21:00 04/10/18 08:30 Dilaudid PO 2 mg Q6H [facility] Administration Sodium Chloride 1,000 mls @ 100 mls/hr 04/08/18 19:00 04/10/18 06:21 Ns Inj IV.CONT Not Given .Q10H [facility] Levofloxacin/Dextrose 150 mls @ 100 mls/hr 04/09/18 15:00 04/09/18 16:34 Levaquin 750 Mg Premix Inj IV.SIG Infused Q24H [facility] Infusion Vancomycin HCl 1,500 mg/ 515 mls @ 257.5 mls/hr 04/10/18 00:00 04/10/18 08:30 Sodium Chloride IV.SIG 250 mls/hr Q8H [facility] Administration Ibuprofen 400 mg 04/09/18 14:42 04/09/18 20:35 Motrin PO 400 mg Q6HR PRN Administration PAIN SCALE 1 TO 2 Magnesium Oxide 400 mg 04/10/18 09:00 04/10/18 10:22 Mag-Ox PO 400 mg BID [facility] Administration Morphine Sulfate 4 mg 04/09/18 14:43 04/10/18 10:19 Morphine Inj IV.PUSH 4 mg Q4H PRN Administration BREAKTHROUGH PAIN Ondansetron HCl 4 mg 04/08/18 18:20 04/09/18 15:58 Zofran Inj IV.PUSH 4 mg Q8H PRN Administration NAUSEA Objective Remarks: GENERAL: Well-nourished, well-developed young male patient, no acute distress. SKIN: Warm and dry. Numerous tattoos. HEAD: Normocephalic. EYES: No scleral icterus. No injection or drainage. NECK: Supple, trachea midline. CARDIOVASCULAR: Regular rate and rhythm without murmurs. RESPIRATORY: Posterior breath sounds diminished on right. No accessory muscle use. GASTROINTESTINAL: Abdomen soft, non-tender, nondistended. EXTREMITIES: No cyanosis, or edema. MUSCULOSKELETAL: Adequate muscle tone. NEUROLOGICAL: No obvious focal deficit. Awake, alert, and oriented x3. PSYCHIATRIC: Appropriate mood and affect; insight and judgment normal. Assessment/Plan - Plan Mr. schroeder is a 32-year-old male patient with metastatic testicular cancer, under the care of Dr. Olivier at [facility]. Currently admitted with fevers. Patient unaware of his current chemo regimen. Plan: 1. Metastatic testicular cancer, obtain records from [facility]. Discussed with RN. 2. Fever, T-max 102.9 F, continues on Levaquin and vancomycin, infectious disease is following. Blood cultures negative times 2 days. 3. Pain, management per attending. - Attending Statement The exam, history, and the medical decision-making described in the above note were completed with the assistance of the mid-level provider. I reviewed and agree with the findings presented. I attest that I had a [id number] encounter with the patient on the same day, and personally performed and documented my assessment and findings in the medical record. Patient states that his pain is better with Duragesic patch and Dilaudid p.o. He is still complaining of shortness of breath Patient has fever which could be due to tumor or infection Patient is on antibiotics per ID We are waiting to get records from his oncologist from [place] [facility] Dr. Mckenzie Olivier. Case discussed with patient and his . They want to go back to see Dr. Mckenzie Olivier to continue his chemotherapy. He also wants to go to [facility].
[2018-04-10] MEDS ORDERED: Naloxone Inj 0.4 MG/ML Vial IV.PUSH PRN (12:10)
[2018-04-10] MEDS ORDERED: Acetaminophen 325 MG Tablet PO PRN (12:10)
--- NOTE | 2018-04-10 12:16 | P.PNIM ---
Subjective Interval history: reports productive cough with yellow phlegm. Breathing is not better compared to yesterday. Reports continued lower back pain, no further diarrhea. Tolerating diet. No nausea or vomiting. Physical Exam Vital signs: Vital Signs 04/09/18 12:13 04/09/18 15:17 04/09/18 16:00 Temperature 97.6 F 98.3 F Pulse Rate 73 86 89 Respiratory Rate 20 18 Blood Pressure 108/58 L 107/71 Pulse Oximetry 92 L 95 04/09/18 20:05 04/09/18 20:29 04/10/18 00:10 Temperature 102.9 F H Pulse Rate 117 H 125 H 124 H Respiratory Rate 22 Blood Pressure 130/67 Pulse Oximetry 93 L 04/10/18 00:37 04/10/18 03:06 04/10/18 03:51 Temperature 98.6 F 98.9 F Pulse Rate 96 H 95 H Respiratory Rate 20 24 24 Blood Pressure 120/72 120/73 Pulse Oximetry 94 L 92 L 04/10/18 04:04 04/10/18 08:00 04/10/18 12:00 Temperature 99.4 F 98.9 F Pulse Rate 96 H 109 H 111 H Respiratory Rate 18 18 Blood Pressure 105/58 L 125/72 Pulse Oximetry 92 L 92 L Intake & Output 04/09/18 04/10/18 04/10/18 18:59 06:59 18:59 Intake Total 4187.5 / 4187.5 970 / 970 515 / 515 Output Total 925 / 925 950 / 950 Balance 3262.5 / 3262.5 20 / 20 515 / 515 Weight 94 kg Intake: IV 2687.5 / 2687.5 530 / 530 515 / 515 NS Inj 1,000 ML @ 100 mls/hr IV 1000 / 1000 .CONT .Q10H [facility] Rx#:[id number] Azithromycin Inj 500 MG In NS 250 / 250 Inj 250 ML @ 250 mls/hr IV.SIG Q24H [facility] Rx#:[id number] Maxipime Inj 1,000 MG In NS Inj 100 / 100 100 ML @ 200 mls/hr IV.SIG Q12H [facility] Rx#:[id number] Levaquin 750 mg Premix Inj 150 150 / 150 ML @ 100 mls/hr IV.SIG Q24H [facility] Rx#:[id number] Zosyn 3.375 GM Premix 3.375 gm 50 / 50 In 50 ml @ 100 mls/hr IV.SIG Q6H [facility] Rx#:[id number] Vancomycin Inj 1,250 MG In NS 787.5 / 787.5 Inj 250 ML @ 250 mls/hr IV.SIG Q8H [facility] Rx#:[id number] Vancomycin Inj 1,500 MG In NS 530 / 530 515 / 515 Inj 500 ML @ 257.5 mls/hr IV. SIG Q8H [facility] Rx#:[id number] Oral 1500 / 1500 440 / 440 Output: Urine 925 / 925 950 / 950 Other: Date of Last Bowel Movement 04/09/18 04/09/18 Narrative: Well-nourished well-developed white male in no acute distress laying in bed Cardiovascular regular rate and rhythm Lungs few bibasilar crackles Abdomen soft nontender nondistended normoactive bowel sounds No cyanosis clubbing or edema Neurological exam alert and oriented x3, moves all 4 extremities well Results Labs CBC & Chem 7: 04/10/18 03:20 04/10/18 03:20 Labs: Microbiology 04/09/18 12:15 Sputum - Expectorated Sputum Gram Stain - Final 04/09/18 21:50 Blood - Line Aerobic Blood Culture - Preliminary No growth in 1 day 04/09/18 21:50 Blood - Line Anaerobic Blood Culture - Preliminary No growth in 1 day 04/08/18 15:53 Blood - Peripheral Aerobic Blood Culture - Preliminary No growth in 2 days 04/08/18 15:53 Blood - Peripheral Anaerobic Blood Culture - Preliminary No growth in 2 days 04/08/18 15:58 Blood - Peripheral Aerobic Blood Culture - Preliminary No growth in 2 days 04/08/18 15:58 Blood - Peripheral Anaerobic Blood Culture - Preliminary No growth in 2 days Assessment and Plan Plan 32-year-old white male with a history of testicular cancer with lung metastasis on recent chemotherapy presents with fever Sepsis present on admission with fever, leukocytosis due to bronchitis, ? Pneumonia, ?Pneumonia in a patient with a history of immunosuppression, last chemo about 1- 2 months ago Infectious disease placed placed on Levaquin and continue IV vancomycin, sputum cultures currently pending Follow-up with blood cultures, sputum cultures and sensitivity Continue IV fluid hydration, supportive care Overall tumor fever History of testicular cancer with [facility]aw[facility] in [facility] Dr. Olivier is his oncologist. Appreciate oncology's recommendations. Patient needs to be in remission prior to going to [facility] consider bone marrow transplant. For pain control patient would like to go back to Percocets as needed for pain with IV Dilaudid for breakthrough pain. Hypokalemiareplete, supplement magnesium DVT prophylaxis Lovenox.
[2018-04-10] MEDS ORDERED: Pharmacy Ordered Lab Info OTHER ONE (15:45)
[2018-04-10] MEDS: HYDROmorphone PF Inj 1 MG/ML Ampul IV.PUSH PRN ×2 (16:17→20:27)
[2018-04-10] MEDS: Benzonatate 100 MG Capsule PO PRN (18:53)
[2018-04-10] MEDS: oxyCODONE/Acetaminophen 10/325 Tablet PO PRN (21:30)
[2018-04-10] MEDS: Ibuprofen 400 MG Tablet PO PRN (22:57)
--- NOTE | 2018-04-10 23:35 | XR ---
EXAM DATE: 04/10/2018 11:32 PM EST AGE/SEX: 32 years / Male INDICATIONS: Short of breath. CLINICAL DATA: This is the patient's subsequent encounter. Patient reports that signs and symptoms h ave been present for 4 - 6 days and indicates a pain score of 6/10. MEDICAL/SURGICAL HISTORY: . Carcinoma, lung. Carcinoma, testicular None. COMPARISON: [facility] [place], CHEST 2V PA&LAT, 04/08/2018. . FINDINGS: A single AP view of the chest demonstrates multiple bilateral pulmonary masses. Increasing pleural-pa renchymal density throughout the right lung when compared to previous study. Right-sided port unchang ed. The cardiomediastinal contours are unremarkable. Osseous structures are intact. CONCLUSION: 1. Bilateral pulmonary masses. 2. Increasing pleural-parenchymal density throughout the right lung compared to previous study. Electronically signed by: Ernst Sequeira MD Board Certified Radiologist 04/10/2018 11:33 PM EST
[2018-04-11] MEDS: Piperacil/Tazo 3.375 GM Premix 3.375 GM/50 ML PIGGYBACK IV.SIG SCH ×2 (01:05→06:40)
[2018-04-11] MEDS: HYDROmorphone PF Inj 1 MG/ML Ampul IV.PUSH PRN ×4 (01:12→20:56)
[2018-04-11] MEDS: Vancomycin Inj 1,500 MG in Sodium Chlor 0.9% Inj 500 ML IV.SIG SCH ×4 (01:46→23:22)
[2018-04-11] MEDS: Sod Chloride 0.9% Inj 1,000 ML IV.CONT SCH ×3 (01:47→23:23)
[2018-04-11 05:31] LABS: Baso # (Auto) 0.1 th/mm3 (0.0-0.2); Baso % (Auto) 0.3 % (0.0-2.0); Eos # (Auto) 0.1 th/mm3 (0.0-0.4); Eos % (Auto) 0.5 % (0.0-4.0); Hematocrit 33.9 % (39.0-51.0); Hemoglobin 11.1 gm/dL (13.0-17.0); Lymph % (Auto) 4.9 % (9.0-44.0); Mean Corpuscular HGB Conc 32.9 % (32.0-36.0); Mean Corpuscular Hemoglobin 28.2 pg (27.0-34.0); Mean Corpuscular Volume 85.9 fL (80.0-100.0); Mean Platelet Volume 7.1 fL (7.0-11.0); Mono # (Auto) 1.6 th/mm3 (0.0-0.9); Mono % (Auto) 7.9 % (0.0-8.0); Neut # (Auto) 17.5 th/mm3 (1.8-7.7); Neut % (Auto) 86.4 % (16.0-70.0); Platelet Count 290 th/mm3 (150-450); Red Blood Count 3.95 mil/mm3 (4.50-5.90); Red Cell Distribution Width 15.6 % (11.6-17.2); White Blood Count 20.3 th/mm3 (4.0-11.0)
[2018-04-11 05:49] LABS: Anion Gap 9 meq/L (5-15); Blood Urea Nitrogen 4 mg/dL (7-18); Carbon Dioxide 27.5 meq/L (21.0-32.0); Chloride 101 meq/L (98-107); Glomerular Filtration Rate Greater Than 89 mL/min (>89); Glucose,Random 132 mg/dL (74-106); Potassium 3.2 meq/L (3.5-5.1); Sodium 137 meq/L (136-145)
[2018-04-11 07:14] LABS: Lymphocytes 2 % (9-44); Monocytes 3 % (0-8); Platelet Estimate Normal (Normal); Platelet Morphology Normal (Normal)
[2018-04-11] MEDS: Enoxaparin Inj 40 MG/0.4 ML Syringe SQ SCH (08:28)
[2018-04-11] MEDS: oxyCODONE/Acetaminophen 10/325 Tablet PO PRN (08:28)
[2018-04-11] MEDS: guaiFENesin/Codeine Syrup 200 MG/20 MG 10 ML UDC PO PRN ×2 (08:29→21:11)
[2018-04-11] MEDS: Magnesium Oxide 400 MG Tablet PO SCH ×2 (08:29→20:56)
[2018-04-11] MEDS: Benzonatate 100 MG Capsule PO PRN (08:42)
--- NOTE | 2018-04-11 09:31 | P.PNIM ---
Subjective Interval history: Still with productive cough with yellowish sputum. Had fever last night and felt better with the new medication given. Did make appointment with Dr. Olivier his oncologist for tomorrow at 11:15. Was advised by oncologist here to follow-up very closely to start chemo as they feel this is likely tumor fever vs infection. Physical Exam Vital signs: Vital Signs 04/10/18 12:00 04/10/18 15:19 04/10/18 15:37 Temperature 98.9 F 99.5 F Pulse Rate 115 H 120 H 107 H Respiratory Rate 18 24 Blood Pressure 125/72 125/68 Pulse Oximetry 92 L 95 04/10/18 19:31 04/10/18 19:41 04/10/18 20:03 Temperature 99.8 F H Pulse Rate 113 H 111 H 124 H Respiratory Rate 28 H 24 Blood Pressure 128/74 Pulse Oximetry 91 L 96 04/10/18 21:01 04/10/18 21:20 04/10/18 22:51 Temperature 101.6 F H Pulse Rate 115 H 115 H 109 H Respiratory Rate 28 H 24 Blood Pressure 120/71 Pulse Oximetry 95 04/10/18 23:25 04/10/18 23:41 04/11/18 00:00 Temperature 98.2 F Pulse Rate 108 H 117 H Respiratory Rate 22 Blood Pressure Pulse Oximetry 95 04/11/18 03:31 04/11/18 04:14 04/11/18 04:34 Temperature 97.9 F Pulse Rate 97 H 104 H 97 H Respiratory Rate 24 34 H Blood Pressure 118/80 Pulse Oximetry 92 L 04/11/18 07:20 Temperature Pulse Rate 100 H Respiratory Rate 24 Blood Pressure Pulse Oximetry 94 L Intake & Output 04/10/18 04/11/18 04/11/18 18:59 06:59 18:59 Intake Total 2900 / 2900 1095 / 1095 55 / 55 Output Total 1150 / 1150 850 / 850 300 / 300 Balance 1750 / 1750 245 / 245 -245 / -245 Weight 94.4 kg Intake: IV 2180 / 2180 615 / 615 55 / 55 NS Inj 1,000 ML @ 100 mls/hr IV 1000 / 1000 .CONT .Q10H [facility] Rx#:[id number] Levaquin 750 mg Premix Inj 150 150 / 150 ML @ 100 mls/hr IV.SIG Q24H [facility] Rx#:[id number] Zosyn 3.375 GM Premix 3.375 gm 55 / 55 55 / 55 In 50 ml @ 100 mls/hr IV.SIG Q6H [facility] Rx#:[id number] Vancomycin Inj 1,500 MG In NS 1030 / 1030 560 / 560 Inj 500 ML @ 257.5 mls/hr IV. SIG Q8H [facility] Rx#:[id number] Oral 720 / 720 480 / 480 Output: Urine 1150 / 1150 850 / 850 300 / 300 Other: Date of Last Bowel Movement 04/09/18 Narrative: Well-nourished well-developed white male in no acute distress laying in bed Cardiovascular regular rate and rhythm Lungs few bibasilar crackles Abdomen soft nontender nondistended normoactive bowel sounds No cyanosis clubbing or edema Neurological exam alert and oriented x3, moves all 4 extremities well Results Labs CBC & Chem 7: 04/11/18 05:10 04/11/18 05:10 Labs: Microbiology 04/09/18 12:15 Sputum - Expectorated Sputum Gram Stain - Final 04/09/18 12:15 Sputum - Expectorated Sputum Sputum Culture - Preliminary Heavy growth normal respiratory brad at 24 hours 04/09/18 21:50 Blood - Line Aerobic Blood Culture - Preliminary No growth in 1 day 04/09/18 21:50 Blood - Line Anaerobic Blood Culture - Preliminary No growth in 1 day 04/08/18 15:53 Blood - Peripheral Aerobic Blood Culture - Preliminary No growth in 2 days 04/08/18 15:53 Blood - Peripheral Anaerobic Blood Culture - Preliminary No growth in 2 days 04/08/18 15:58 Blood - Peripheral Aerobic Blood Culture - Preliminary No growth in 2 days 04/08/18 15:58 Blood - Peripheral Anaerobic Blood Culture - Preliminary No growth in 2 days Imaging Imaging: Impressions Chest X-Ray 04/10/18 23:00 CONCLUSION: 1. Bilateral pulmonary masses. 2. Increasing pleural-parenchymal density throughout the right lung compared to previous study. Assessment and Plan Plan 32-year-old white male with a history of testicular cancer with lung metastasis on recent chemotherapy presents with fever Sepsis present on admission with fever, leukocytosis due to bronchitis, ? Pneumonia, or tumor fever ?Pneumonia/bronchitis in a patient with a history of immunosuppression, last chemo about 1-2 months ago Infectious disease placed placed on Levaquin and continue IV vancomycin, sputum cultures shows normal brad. IV Zosyn started last night due to fever Follow-up with blood cultures; 04/08 showed no growth to date, repeat cultures on 04/10 secondary to fever Continue IV fluid hydration, supportive care Oncologist feels this could be tumor fever and needs urgent follow-up with his oncologist in [facility] to discuss about starting chemo Respiratory walk test today to arrange for oxygen, patient has a appointment with Dr. Olivier, oncologist at [facility] at 1115 tomorrow morning History of testicular cancer with metastasisawait records of [facility] in which Dr. Olivier is his oncologist. Appreciate oncology's recommendations. Patient needs to be in remission prior to going to [facility] consider bone marrow transplant. Discharge planning for patient to be seen by his own oncologist in the morning. Continue Percocets as needed for pain with IV Dilaudid for breakthrough pain. Hypokalemiareplete, supplement magnesium DVT prophylaxis Lovenox.
--- NOTE | 2018-04-11 10:10 | P.PNID ---
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 Olivier at [facility], apparently has been getting chemotherapy in the last 9 months. Patient states he gets chemo for 7 days, once a month. His last chemo was in February, and he is due for another chemo but he got sick and has not had his chemo for this month. Patient apparently started having fevers on April 06. He went to the hospital at [facility], and was apparently admitted, but his fevers improved, so he signed out AGAINST MEDICAL ADVICE on April 07. On the day of admission here at [place], his fevers came back, so he decided to go to the hospital here for further evaluation and treatment. Patient has a cough which is fairly dry. It is not bad, and he seems to have been present for a while. He is a smoker. He has had diarrhea at least once a day over the last 2 days. He has had some mild abdominal pain and some nausea and vomiting. He denies any sore throat. Denies any urinary complaints. He has a port, and has not had any problem with the use of his port. Since admission he is had fevers up to 102. Last temperature was up to o'clock this morning, and he has been afebrile. His chest x-ray is showing significant evidence of pole of pulmonary metastatic disease. CT of the abdomen and pelvis shows evidence of large retroperitoneal metastases. He is not neutropenic. He is currently on Zithromax, Zosyn, and vancomycin. Infectious disease consultation has been requested to assist with evaluation and treatment. Notes reviewed Still with fevers Looks SOB this morning CXR yesterday with increased consolidation on R BC negative WBC up to 20K C diff negative Sputum normal resp brad Antibiotics: Vancomycin Levaquin Zosyn Past Medical History: Testicular cancer Asthma Lung cancer History of surgery on arm Allergies/Adverse Reactions: Allergies broccoli Allergy (Severe, Verified 04/08/18 15:04) Hives Objective Vital Signs 04/10/18 12:00 04/10/18 15:19 04/10/18 15:37 Temperature 98.9 F 99.5 F Pulse Rate 115 H 120 H 107 H Respiratory Rate 18 24 Blood Pressure 125/72 125/68 Pulse Oximetry 92 L 95 04/10/18 19:31 04/10/18 19:41 04/10/18 20:03 Temperature 99.8 F H Pulse Rate 113 H 111 H 124 H Respiratory Rate 28 H 24 Blood Pressure 128/74 Pulse Oximetry 91 L 96 04/10/18 21:01 04/10/18 21:20 04/10/18 22:51 Temperature 101.6 F H Pulse Rate 115 H 115 H 109 H Respiratory Rate 28 H 24 Blood Pressure 120/71 Pulse Oximetry 95 04/10/18 23:25 04/10/18 23:41 04/11/18 00:00 Temperature 98.2 F Pulse Rate 108 H 117 H Respiratory Rate 22 Blood Pressure Pulse Oximetry 95 04/11/18 03:31 04/11/18 04:14 04/11/18 04:34 Temperature 97.9 F Pulse Rate 97 H 104 H 97 H Respiratory Rate 24 34 H Blood Pressure 118/80 Pulse Oximetry 92 L 04/11/18 07:20 Temperature Pulse Rate 100 H Respiratory Rate 24 Blood Pressure Pulse Oximetry 94 L Intake & Output 04/10/18 04/11/18 04/11/18 18:59 06:59 18:59 Intake Total 2900 / 2900 1095 / 1095 55 / 55 Output Total 1150 / 1150 850 / 850 300 / 300 Balance 1750 / 1750 245 / 245 -245 / -245 Weight 94.4 kg Intake: IV 2180 / 2180 615 / 615 55 / 55 NS Inj 1,000 ML @ 100 mls/hr IV 1000 / 1000 .CONT .Q10H [facility] Rx#:[id number] Levaquin 750 mg Premix Inj 150 150 / 150 ML @ 100 mls/hr IV.SIG Q24H [facility] Rx#:[id number] Zosyn 3.375 GM Premix 3.375 gm 55 / 55 55 / 55 In 50 ml @ 100 mls/hr IV.SIG Q6H [facility] Rx#:[id number] Vancomycin Inj 1,500 MG In NS 1030 / 1030 560 / 560 Inj 500 ML @ 257.5 mls/hr IV. SIG Q8H [facility] Rx#:[id number] Oral 720 / 720 480 / 480 Output: Urine 1150 / 1150 850 / 850 300 / 300 Other: Date of Last Bowel Movement 04/09/18 04/09/18 12:15 Sputum - Expectorated Sputum Gram Stain - Final 04/09/18 12:15 Sputum - Expectorated Sputum Sputum Culture - Preliminary Heavy growth normal respiratory brad at 24 hours 04/09/18 21:50 Blood - Line Aerobic Blood Culture - Preliminary No growth in 1 day 04/09/18 21:50 Blood - Line Anaerobic Blood Culture - Preliminary No growth in 1 day 04/08/18 15:53 Blood - Peripheral Aerobic Blood Culture - Preliminary No growth in 2 days 04/08/18 15:53 Blood - Peripheral Anaerobic Blood Culture - Preliminary No growth in 2 days 04/08/18 15:58 Blood - Peripheral Aerobic Blood Culture - Preliminary No growth in 2 days 04/08/18 15:58 Blood - Peripheral Anaerobic Blood Culture - Preliminary No growth in 2 days 04/10/18 08:51 Blood - Peripheral Aerobic Blood Culture - Pending 04/10/18 08:51 Blood - Peripheral Anaerobic Blood Culture - Pending 04/08/18 16:10 Nasal Wash Influenza Types A,B Antigen - Final Negative for FLU A and B antigen Infection due to influenza A or B cannot be ruled out since the antigen present in the sample may be below the detection limit of the test. Lab - Hematology Results 04/10/18 04/11/18 03:20 05:10 WBC 21.2 H 20.3 H RBC 4.00 L 3.95 L Hgb 11.3 L 11.1 L Hct 33.8 L 33.9 L MCV 84.5 85.9 MCH 28.3 28.2 MCHC 33.5 32.9 RDW 15.5 15.6 Plt Count 289 290 MPV 7.0 7.1 Prelim Diff (Auto) Slide review pending Neut % (Auto) 86.7 H 86.4 H Lymph % (Auto) 5.6 L 4.9 L [place] % (Auto) 6.8 7.9 Eos % (Auto) 0.6 0.5 Baso % (Auto) 0.3 0.3 Neut # (Auto) 18.4 H 17.5 H Lymph # (Auto) 1.2 1.0 [place] # (Auto) 1.4 H 1.6 H Eos # (Auto) 0.1 0.1 Baso # (Auto) 0.1 0.1 WBC Differential . Manual diff final Seg Neuts % (Manual) 78 H Band Neuts % (Manual) 17 H Lymphocytes % (Manual) 2 L Monocytes % (Manual) 3 Abs Neuts (Manual) 19.3 H Differential Comment Auto diff final . Platelet Estimate Normal Platelet Morphology Normal Lab - Chemistry Results 04/10/18 04/11/18 04/11/18 03:20 00:30 05:10 Sodium 137 137 Potassium 3.3 L 3.2 L Chloride 104 101 Carbon Dioxide 26.6 27.5 Anion Gap 6 9 BUN 6 L 4 L Creatinine 0.53 L 0.48 L Estimated GFR Greater than 89 Greater than 89 Random Glucose 115 H 132 H Calcium 7.6 L 8.0 L B-Natriuretic Peptide 73 Imaging: ITS Impressions Abdomen/Pelvis CT 04/08/18 15:18 CONCLUSION: 1. No dilated loops of small or large bowel. 2. Large retroperitoneal mass and multiple lower lung masses. Chest X-Ray 04/10/18 23:00 CONCLUSION: 1. Bilateral pulmonary masses. 2. Increasing pleural-parenchymal density throughout the right lung compared to previous study. Physical Exam: GENERAL: awake and alert, dyspneic at rest SKIN: Cool and dry. No generalized rash, no ecchymoses and no evidence of embolic lesions. HEAD: Atraumatic. Normocephalic. No temporal wasting, or tenderness. EYES: [place] conjunctiva. No petechia or hemorrhage. Pupils equal, round and reactive to light. Extraocular movements full and intact. No scleral icterus. No injection or drainage. EARS, NOSE AND THROAT: Nose without bleeding or purulent nasal discharge. Mucous membranes pink and moist. No oral lesions noted. No exudate. No oral thrush. NECK: Trachea midline. Supple and not tender, no meningeal signs CARDIOVASCULAR: Regular rate and rhythm. No murmurs, rubs or gallops heard RESPIRATORY: Decreased breath sounds R. Port in R upper chest looks ok ABDOMEN: Soft, non-tender, nondistended. Bowel sounds present and normoactive. No guarding. No rebound. No organomegaly. EXTREMITIES: No clubbing, cyanosis, or edema. No joint effusion, has good ROM. No calf tenderness. Well perfused and warm. NEUROLOGICAL: Awake and alert. Cranial nerves grossly intact. Motor grossly within normal limits. PSYCHIATRIC: calm and cooperative. LINE: No evidence of infection Assessment and Plan - Plan Impression Febrile illness, patient with known metastatic teratoma testicular CA - receiving chemo, not neutropenic - non-localizing - ?tumor - has extensive lung mets and retroperitoneal mets Increased consolidation R lung, with SOB Metastatic teratoma testicular CA Recommendation Continue IV Vanco IV Levaquin Also now on Zosyn CT chest Follow cultures Follow temps Monitor progress
--- NOTE | 2018-04-11 10:34 | P.PNONC ---
Subjective Interval history: Patient lying in bed awake, no acute distress. Visitors at bedside. Patient states that he is going home tomorrow morning and will be following up with his oncologist at [facility] Dr. Olivier at 11 AM tomorrow. Patient states that the Tessalon Perles were mild to moderately effective. Currently on oxygen by nasal cannula, denies any shortness of breath or chest pain while at rest. Objective Vital Signs/Intake & Output: Vital Signs 04/10/18 12:00 04/10/18 15:19 04/10/18 15:37 Temperature 98.9 F 99.5 F Pulse Rate 115 H 120 H 107 H Respiratory Rate 18 24 Blood Pressure 125/72 125/68 Pulse Oximetry 92 L 95 04/10/18 19:31 04/10/18 19:41 04/10/18 20:03 Temperature 99.8 F H Pulse Rate 113 H 111 H 124 H Respiratory Rate 28 H 24 Blood Pressure 128/74 Pulse Oximetry 91 L 96 04/10/18 21:01 04/10/18 21:20 04/10/18 22:51 Temperature 101.6 F H Pulse Rate 115 H 115 H 109 H Respiratory Rate 28 H 24 Blood Pressure 120/71 Pulse Oximetry 95 04/10/18 23:25 04/10/18 23:41 04/11/18 00:00 Temperature 98.2 F Pulse Rate 108 H 117 H Respiratory Rate 22 Blood Pressure Pulse Oximetry 95 04/11/18 03:31 04/11/18 04:14 04/11/18 04:34 Temperature 97.9 F Pulse Rate 97 H 104 H 97 H Respiratory Rate 24 34 H Blood Pressure 118/80 Pulse Oximetry 92 L 04/11/18 07:20 Temperature Pulse Rate 100 H Respiratory Rate 24 Blood Pressure Pulse Oximetry 94 L Intake & Output 04/10/18 04/11/18 04/11/18 18:59 06:59 18:59 Intake Total 2900 / 2900 1095 / 1095 55 / 55 Output Total 1150 / 1150 850 / 850 300 / 300 Balance 1750 / 1750 245 / 245 -245 / -245 Weight 94.4 kg Intake: IV 2180 / 2180 615 / 615 55 / 55 NS Inj 1,000 ML @ 100 mls/hr IV 1000 / 1000 .CONT .Q10H [facility] Rx#:[id number] Levaquin 750 mg Premix Inj 150 150 / 150 ML @ 100 mls/hr IV.SIG Q24H [facility] Rx#:[id number] Zosyn 3.375 GM Premix 3.375 gm 55 / 55 55 / 55 In 50 ml @ 100 mls/hr IV.SIG Q6H [facility] Rx#:[id number] Vancomycin Inj 1,500 MG In NS 1030 / 1030 560 / 560 Inj 500 ML @ 257.5 mls/hr IV. SIG Q8H [facility] Rx#:[id number] Oral 720 / 720 480 / 480 Output: Urine 1150 / 1150 850 / 850 300 / 300 Other: Date of Last Bowel Movement 04/09/18 Result Diagrams: 04/11/18 05:10 04/11/18 05:10 Laboratory Results: Laboratory Results - last 24 hr 04/10/18 04/11/18 04/11/18 16:00 00:30 05:10 WBC 20.3 H RBC 3.95 L Hgb 11.1 L Hct 33.9 L MCV 85.9 MCH 28.2 MCHC 32.9 RDW 15.6 Plt Count 290 MPV 7.1 Prelim Diff (Auto) Slide review pending Neut % (Auto) 86.4 H Lymph % (Auto) 4.9 L [place] % (Auto) 7.9 Eos % (Auto) 0.5 Baso % (Auto) 0.3 Neut # (Auto) 17.5 H Lymph # (Auto) 1.0 [place] # (Auto) 1.6 H Eos # (Auto) 0.1 Baso # (Auto) 0.1 WBC Differential Manual diff final Seg Neuts % (Manual) 78 H Band Neuts % (Manual) 17 H Lymphocytes % (Manual) 2 L Monocytes % (Manual) 3 Abs Neuts (Manual) 19.3 H Differential Comment . Platelet Estimate Normal Platelet Morphology Normal Sodium Potassium Chloride Carbon Dioxide Anion Gap BUN Creatinine Estimated GFR Random Glucose Calcium B-Natriuretic Peptide 73 Vancomycin Trough 9.1 04/11/18 05:10 WBC RBC Hgb Hct MCV MCH MCHC RDW Plt Count MPV Prelim Diff (Auto) Neut % (Auto) Lymph % (Auto) [place] % (Auto) Eos % (Auto) Baso % (Auto) Neut # (Auto) Lymph # (Auto) [place] # (Auto) Eos # (Auto) Baso # (Auto) WBC Differential Seg Neuts % (Manual) Band Neuts % (Manual) Lymphocytes % (Manual) Monocytes % (Manual) Abs Neuts (Manual) Differential Comment Platelet Estimate Platelet Morphology Sodium 137 Potassium 3.2 L Chloride 101 Carbon Dioxide 27.5 Anion Gap 9 BUN 4 L Creatinine 0.48 L Estimated GFR Greater than 89 Random Glucose 132 H Calcium 8.0 L B-Natriuretic Peptide Vancomycin Trough Culture Results: Microbiology 04/09/18 12:15 Gram Stain - Final Sputum - Expectorated Sputum Sputum Culture - Preliminary Heavy growth normal respiratory brad at 24 hours 04/09/18 21:50 Aerobic Blood Culture - Preliminary Blood - Line No growth in 1 day Anaerobic Blood Culture - Preliminary No growth in 1 day 04/08/18 15:53 Aerobic Blood Culture - Preliminary Blood - Peripheral No growth in 2 days Anaerobic Blood Culture - Preliminary No growth in 2 days 04/08/18 15:58 Aerobic Blood Culture - Preliminary Blood - Peripheral No growth in 2 days Anaerobic Blood Culture - Preliminary No growth in 2 days 04/08/18 16:10 Influenza Types A,B Antigen - Final Nasal Wash Negative for FLU A and B antigen Infection due to influenza A or B cannot be ruled out since the antigen present in the sample may be below the detection limit of the test. Imaging Studies: Impressions Chest X-Ray 04/10/18 23:00 CONCLUSION: 1. Bilateral pulmonary masses. 2. Increasing pleural-parenchymal density throughout the right lung compared to previous study. Medications: Active Medications Generic Name Dose Route Start Last Admin Trade Name Freq PRN Reason Stop Dose Admin Acetaminophen 650 mg 04/08/18 18:20 04/09/18 00:30 Tylenol PO 650 mg Q4H PRN Administration fever >100.4 Albuterol 0.63 mg 04/08/18 18:20 04/11/18 07:37 Albuterol Neb (Prn) NEB 0.63 mg Q6HR NEB PRN Administration SHORTNESS OF BREATH Benzonatate 200 mg 04/10/18 16:48 04/11/18 08:42 Tessalon Perles PO 200 mg Q8H PRN Administration COUGH Enoxaparin Sodium 40 mg 04/09/18 09:00 04/11/18 08:28 Lovenox Inj SQ 40 mg DAILY [facility] Administration Guaifenesin/Codeine Phosphate 10 ml 04/09/18 10:32 04/11/18 08:29 Robitussin Ac Liq PO 10 ml Q4H PRN Administration COUGH Hydromorphone HCl 1 mg 04/10/18 13:00 04/11/18 01:12 Dilaudid Pf Inj IV.PUSH 1 mg Q4H PRN Administration BREAKTHROUGH PAIN Sodium Chloride 1,000 mls @ 100 mls/hr 04/08/18 19:00 04/11/18 01:47 Ns Inj IV.CONT Not Given .Q10H [facility] Levofloxacin/Dextrose 150 mls @ 100 mls/hr 04/09/18 15:00 04/10/18 16:23 Levaquin 750 Mg Premix Inj IV.SIG Infused Q24H [facility] Infusion Vancomycin HCl 1,500 mg/ 515 mls @ 257.5 mls/hr 04/10/18 00:00 04/11/18 08:28 Sodium Chloride IV.SIG 250 mls/hr Q8H [facility] Administration Ibuprofen 400 mg 04/09/18 14:42 04/10/18 22:57 Motrin PO 400 mg Q6HR PRN Administration PAIN SCALE 1 TO 2 Magnesium Oxide 400 mg 04/10/18 09:00 04/11/18 08:29 Mag-Ox PO 400 mg BID [facility] Administration Ondansetron HCl 4 mg 04/08/18 18:20 04/11/18 02:29 Zofran Inj IV.PUSH 4 mg Q8H PRN Administration NAUSEA Oxycodone/Acetaminophen 1 tab 04/10/18 12:10 04/11/18 08:28 Percocet 10/325 Mg PO 1 tab Q6H PRN Administration PAIN SCALE 6 TO 10 Oxycodone/Acetaminophen 1 tab 04/10/18 12:10 04/10/18 15:18 Percocet 5/325 Mg PO 1 tab Q6H PRN Administration PAIN SCALE 3 TO 5 Objective Remarks: GENERAL: Well-nourished, well-developed young male patient, no acute distress. SKIN: Warm and dry. Numerous tattoos. HEAD: Normocephalic. EYES: No scleral icterus. No injection or drainage. NECK: Supple, trachea midline. CARDIOVASCULAR: Regular rate and rhythm without murmurs. RESPIRATORY: Anterior and posterior breath sounds diminished on right. Expiratory wheezing bilaterally. Nonlabored at rest. GASTROINTESTINAL: Abdomen soft, non-tender, nondistended. EXTREMITIES: No cyanosis, or edema. MUSCULOSKELETAL: Adequate muscle tone. NEUROLOGICAL: No obvious focal deficit. Awake, alert, and oriented x3. PSYCHIATRIC: Appropriate mood and affect; insight and judgment normal. Assessment/Plan - Plan Mr. schroeder is a 32-year-old male patient with metastatic testicular cancer, under the care of Dr. Olivier at [facility] [address]. Currently admitted with fevers. Patient unaware of his current chemo regimen. Plan: 1. Metastatic testicular cancer, records were requested from [facility] yesterday, have not yet received. Plan for patient to be discharged home in the a.m. to follow-up with Dr. Olivier at [facility] [address] tomorrow at 11 AM. 2. Fever, T-max 101.6 F, continues on Levaquin and vancomycin, infectious disease is following. Blood cultures negative times 2 days. 3. Pain, management per attending. 4. Cough, Tessalon Perles mild to moderately effective patient reports he prefers these over Robitussin-AC. 5. Clear for discharge in the morning from an oncology standpoint. - Attending Statement The exam, history, and the medical decision-making described in the above note were completed with the assistance of the mid-level provider. I reviewed and agree with the findings presented. I attest that I had a [id number] encounter with the patient on the same day, and personally performed and documented my assessment and findings in the medical record. Patient states that his pain is under control However he still has shortness of breath at times His fever goes away and come back Blood cultures are negative so far Fever is most likely due to tumor I did receive call from her primary oncologist Dr. Ang yesterday. Patient is noncompliant with the appointments and the chemotherapy. His last chemotherapy was in December 2017. After that he did not show up for the treatment According to the patient he stated that he was having side effects such as hallucination from the chemotherapy. Therefore he had stop taking the chemotherapy His cancer is progressing. He has extensive lung metastasis. He is short of breath. He has tumor fever. I had a very umang discussion in the presence of his and RN. I explained to him that without the chemotherapy he is going to soon If he wants to still stay alive then he need to reconsider resuming the chemotherapy. I advised that his oncologist will tweak the chemotherapy to lessen the side effects. We also discussed that he is not a candidate for bone marrow transplant at [facility] at this time. Patient agreed to see his oncologist Dr. Ang to resume the chemotherapy. His had to call Dr. Buckner's office and he has an appointment tomorrow at 11 AM Patient can be discharged tomorrow morning from my standpoint. His fever is not from infection in my opinion. This is a tumor fever. He needs to restart the chemotherapy to control his diffuse metastatic disease otherwise he is going to soon.
[2018-04-11] MEDS: Piperacil/Tazo 4.5 GM Premix 4.5 GM/100 ML BAG IV.SIG SCH ×2 (13:26→18:37)
--- NOTE | 2018-04-11 14:53 | P.CONPAL ---
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 decision making. Patient's Jessica Lara should patient loses decision- making capacity. * GOALS OF CARE: Patient electing to pursue aggressive management to include full code. He tells me that he is to follow with [place] cancer specialist tomorrow 04/12 to resume systemic treatment. Patient's goal of treatment is for symptom control and prolongation of survival, he verbalizes understanding that his cancer is metastatic and not curable. He further tells me that he wishes to be considered at [facility] for a bone marrow transplant, he is to follow-up with [place] cancer specialists for guidance. * SYMPTOMS: = Dyspnea: In the setting of profound tumor burden. Most recent chest CT 08/19/17, chest CTA 03/31/18 and chest x-ray 04/10/18 reviewed, patient with diffuse pulmonary metastases. sputum cultures with no growth so far. ID following, patient on IV antibiotics. O2 as tolerated, appears very dyspneic at the time of my visit. Hydromorphone IV and Percocet available as needed. = pain: Endorsing right-sided chest pain worsened with inspiration. Cough reported for the past week, Tessalon Perles available as needed. * Case discussed with bedside RN. * Patient/ were provided with healthcare surrogate form/living will for completion. * Palliative care contact information has been provided to patient and . * Palliative care to continue to follow-up for further clarifications of goals of care as patient's clinical course continues to evolve. Time Spent Total Floor Time (mins): 60 (Total time to include review and summarization of available medical records to include multiple prior ED visits, physical exam, goals of care conversation with patient and , case discussion with bedside RN.) >50% Time in Counseling or Coordination of Care: Yes (Total visit time = 60 minutes; > 50% spent counseling/coordinating care) Appreciation Thank you for the opportunity to participate in the care of Jonathan Malik SR. Attestation Attestation: To help prompt me to consider important information that might be impacting today's encounter and assessment, information from prior notes written by myself or my colleagues may have been "brought forward" into today's note. My signature on this note, however, is an attestation that I personally performed the exam, history, and/or decision-making noted today, and, unless otherwise indicated, the interactions with patient, family, and staff as well as the review of records all occurred today. I also attest that the listed assessment and stated plan reflect my best clinical judgment today based on the combination of historical information, prior notes, and today's exam/ interactions. When time spent is documented, it refers only to time spent today by the signer, or if indicated, combined time spent today by collaborating physician/nurse practitioner.
[2018-04-11] MEDS ORDERED: Pharmacy Ordered Lab Info OTHER ONE (15:45)
--- NOTE | 2018-04-11 16:55 | CT ---
EXAM DATE: 04/11/2018 4:49 PM EST AGE/SEX: 32 years / Male INDICATIONS: Pneumonia. CLINICAL DATA: This is the patient's initial encounter. Patient reports that signs and symptoms have been present for 3 days and indicates a pain score of 2/10. MEDICAL/SURGICAL HISTORY: Asthma. Carcinoma, lung. Carcinoma, testicular. None. RADIATION DOSE: 17.00 CTDI (mGy) COMPARISON: No prior exams available for comparison. TECHNIQUE: Multiple contiguous axial images were obtained through the chest during bolus infusion of 72 ml Omnipaque 350 (iohexol) nonionic water-soluble contrast as a single exam dose. Images were obtained in suspended respiration using multiple row detector helical technique. Using automated exp osure control and adjustment of the mA and/or kV according to patient size, radiation dose was kept a s low as reasonably achievable to obtain optimal diagnostic quality images. DICOM format image data is available electronically for review and comparison. FINDINGS: There is a large right-sided pleural effusion with patchy consolidation and atelectasis of the right upper, middle and lower lobes. There is a small left sided pleural effusion. There are numerous bilat eral pulmonary nodules identified, too numerous to count. This includes a 5.2 cm mass left upper lobe , and a pleural-based mass in the left upper lobe measuring 7.4 cm. In the right lung numerous masses are seen for example right lower lobe demonstrates a 3.6 cm mass. This is characteristic of metastat ic disease. There is adenopathy in the mediastinum. Subcarinal nodes measuring up to 1.1 cm in short axis dimension, right paratracheal 1.2 cm short axis node, right paratracheal 1.3 cm short axis node, subcentimeter prevascular and AP window lymph nodes. Right hilar adenopathy up to 2.1 cm. Several ma sses in the appearance of possible necrosis. There is a left upper lobe mass seen which abuts the med iastinum on image 28 measuring 6.2 x 5 cm in AP transverse dimension. The osseous structures are inta ct. CONCLUSION: 1. Innumerable pulmonary masses are seen, bilateral pleural effusions and patchy consolidation and a telectasis seen in the right lung with mild pleural enhancement. The constellation of findings is sukumar racteristic of widespread pulmonary metastatic disease. Electronically signed by: Crow Roberts MD Board Certified Radiologist 04/11/2018 4:54 PM EST
[2018-04-11] MEDS: Ibuprofen 400 MG Tablet PO PRN ×2 (17:32→20:56)
[2018-04-12] MEDS: HYDROmorphone PF Inj 1 MG/ML Ampul IV.PUSH PRN ×3 (01:21→09:42)
[2018-04-12] MEDS: Piperacil/Tazo 4.5 GM Premix 4.5 GM/100 ML BAG IV.SIG SCH ×2 (01:23→03:15)
[2018-04-12] MEDS: Vancomycin Inj 1,500 MG in Sodium Chlor 0.9% Inj 500 ML IV.SIG SCH (05:33)
[2018-04-12] MEDS ORDERED: Heparin Central Flush 100 UNIT/ML 5 ML Vial IV.FLUSH PRN ×2 (06:18)
[2018-04-12] MEDS: guaiFENesin/Codeine Syrup 200 MG/20 MG 10 ML UDC PO PRN (07:42)
[2018-04-12] MEDS ORDERED: Piperacil/Tazo 4.5 GM Premix 4.5 GM/100 ML BAG IV.SIG SCH (09:00)
[2018-04-12] MEDS: oxyCODONE/Acetaminophen 10/325 Tablet PO PRN (09:19)
[2018-04-12 09:43] VITALS: O2SAT 93
--- NOTE | 2018-04-12 09:46 | P.DS ---
DS: Providers Date of admission: 04/08/18 17:41 Primary care physician: UNKNOWN Consults: 04/08/18 18:18 Consult to Oncology Routine Consulting Provider: Benjamin Sims [employer]ored Car Driver:: Lul Carlson Reason for Consultation: metastatic testicular cancer/ with fever. 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 Ordering Provider: LILIAN 04/09/18 13:03 Consult to Infectious Diseases Routine Consulting Provider: Lis Bustos Reason for Consultation: Sepsis, immunosuppresion history Notified:: Service Spoke with:: Phyllis Date Notified:: 04/09/18 Time Notified:: 13:13 Ordering Provider: SABINE 04/11/18 00:09 Consult to Palliative Care Routine Consulting Provider: Ondina Moore Reason for Consultation: clarify goals please Notified:: Service Spoke with:: Eileen Date Notified:: 04/11/18 Time Notified:: 00:19 Ordering Provider: NATALY Brief History from admission: patient is a 32 y/o male with metastatic testicular cancer who presented to ER with fever. he says that he had a fever few days ago. he went to [facility]. he says that after a day his fever resolved and he left against medical advice. he says that he was initially fine but then he started to have fever again. he reports non-bloody diarrhea since then. he has mild generalized abdominal pain along with nausea and vomiting. he reports generalized body ache. he was diagnosed with testicular cancer about a year and half ago and is currently on chemotherapy. DS: Diagnosis Discharge Diagnosis (1) Lung metastasis: Status: Acute Diagnosis: Principal (2) Acute respiratory failure with hypoxia: Status: Resolved Diagnosis: Principal (3) Bronchitis: Status: Acute Diagnosis: Secondary (4) Sepsis: Status: Resolved Diagnosis: Principal (5) Testicular cancer: Status: Chronic DS: Summary 32-year-old white male with a history of testicular cancer with lung metastasis presents with fever and admitted for with sepsis due to bronchitis and was initially placed on IV cefepime and vancomycin and then transitioned to IV Levaquin and vancomycin per infectious disease recommendations. Due to persistent fevers Zosyn was later added. His sputum showed normal brad. Blood cultures showed no growth. Oncology was consulted who feels the intermittent fevers due to tumor related fever from his lung metastasis. It was recommended that he follow-up as soon as possible with his own oncologist at [facility], Dr. Olivier to initiate palliative chemo. He presented with acute respiratory failure requiring oxygen support likely due to his underlying widespread lung metastasis. Oxygen was arranged on discharge. CT of the chest obtained during hospitalization which verified small pleural effusion and multiple metastasis. At this time, patient does have appointment today at 11: 00 with his own oncologist at [facility] and will be discharged from the hospital to be seen by Dr. Olivier. Time Spent with Patient Total time spent providing and/or coordinating discharge services: Exam Narrative Exam Narrative: Well-nourished well-developed white male in no acute distress l sitting up in bed Cardiovascular regular rate and rhythm Lungs few bibasilar crackles Abdomen soft nontender nondistended normoactive bowel sounds No cyanosis clubbing or edema Neurological exam alert and oriented x3, moves all 4 extremities well Results Labs on day of discharge: Labs from last 24 hours 04/11/18 17:00 Vancomycin Trough 9.0 Preliminary micro results at discharge 04/10/18 08:51 Aerobic Blood Culture - Preliminary Blood - Peripheral No growth in 1 day Anaerobic Blood Culture - Preliminary No growth in 1 day 04/09/18 21:50 Aerobic Blood Culture - Preliminary Blood - Line No growth in 2 days Anaerobic Blood Culture - Preliminary No growth in 2 days 04/08/18 15:53 Aerobic Blood Culture - Preliminary Blood - Peripheral No growth in 3 days Anaerobic Blood Culture - Preliminary No growth in 3 days 04/08/18 15:58 Aerobic Blood Culture - Preliminary Blood - Peripheral No growth in 3 days Anaerobic Blood Culture - Preliminary No growth in 3 days Impressions ITS Impressions Abdomen/Pelvis CT 04/08/18 15:18 CONCLUSION: 1. No dilated loops of small or large bowel. 2. Large retroperitoneal mass and multiple lower lung masses. Chest X-Ray 04/10/18 23:00 CONCLUSION: 1. Bilateral pulmonary masses. 2. Increasing pleural-parenchymal density throughout the right lung compared to previous study. Chest CT 04/11/18 00:00 CONCLUSION: 1. Innumerable pulmonary masses are seen, bilateral pleural effusions and patchy consolidation and atelectasis seen in the right lung with mild pleural enhancement. The constellation of findings is characteristic of widespread pulmonary metastatic disease. Discharge Plan Discharge Disposition Patient Disposition: Discharge Home Discharge Condition Condition: Stable Discharge Order Discharge Orders: Discharge Order (Routine); Ordered 04/12/18 Ordered By: Shahriar Leroy Physicians Team Primary Care Provider: UNKNOWN, Attending Provider: Shahriar Leroy Other Providers: Mine Jones ; Lis Bustos ; Ondina Moore Rxs /Orders / Referrals /Forms Prescriptions: New magnesium 200 mg tablet 400 mg PO DAILY Qty: 30 RF: 0 levofloxacin 750 mg tablet 750 mg PO DAILY 7 Days Qty: 7 RF: 0 codeine-guaifenesin 10-100 mg/5 mL Liquid 10 ml PO Q4H PRN (Reason: Cough) Qty: 250 RF: 0 Continue ondansetron 4 mg tablet,disintegrating 4 mg PO Q6H PRN (Reason: nausea and vomiting) Qty: 7 RF: 0 albuterol sulfate 90 mcg/actuation HFA aerosol inhaler 2 inh INHALATION Q4-6H PRN (Reason: shortness of breath or wheezing) Qty: 18 RF: 0 albuterol sulfate 2.5 mg/0.5 mL solution for nebulization 2.5 mg INHALATION Q4-6H PRN (Reason: shortness of breath or wheezing) Qty: 90 RF: 0 oxycodone-acetaminophen 10-325 mg Tablet 1 tab PO Q4H PRN (Reason: Acute Pain) Qty: 10 RF: 0 albuterol sulfate 90 mcg/actuation HFA aerosol inhaler 2 inh INHALATION Q4-6H PRN (Reason: shortness of breath or wheezing) Qty: 8.5 RF: 0 Ambulatory Orders / Order Sets / DME: Nebulizer Adult Kit (1 kit) (Routine) Location: Determined by Patient Ordered By: Shahriar Leroy Oxygen Tank (2-5 liter) (Routine) Location: Determined by Patient Ordered By: Shahriar Leroy Referrals: [facility] [employer] [Outside] - See Instructions ( Your appointment has been scheduled for 04/13 at 11:45am with Dr. Elo Olivier, hematology oncology If you cannot make this appointment, please call the office to reschedule ) UNKNOWN, [Primary Care Provider] - See Instructions Discharge Instructions Patient Printed Instructions: Levofloxacin (By mouth), Lung Cancer (DC), Testicular Cancer (DC), Using Oxygen at Home (DC) Additional Instructions: Follow-up with Dr. Elo Olivier, hematology oncology today Post Discharge Care Plan Care Plan Goals: Your Health Problems: Metastatic testicular cancer Goals to Promote Your Health: * To prevent worsening of your condition * To maintain your health at the optimal level Directions to Meet Your Goals: * Take your medications as prescribed * Follow your dietary instruction * Follow activity as directed * Keep your appointments as scheduled * Take your immunizations and boosters as scheduled * If your symptoms worsen call your PCP * If no PCP go to Urgent Care or Emergency Room Smoking is dangerous to your health. Avoid second hand smoke. You may reach the 24-hour crisis hotline for domestic abuse at . Status ED Status: Left Department
[2018-04-12] MEDS: Enoxaparin Inj 40 MG/0.4 ML Syringe SQ SCH (09:49)
[2018-04-12] MEDS: Magnesium Oxide 400 MG Tablet PO SCH (09:49)
[2018-04-12 10:39] VITALS: BP 125/77; PULSE 98; RESP 22; TEMP 98.2
[2018-04-12] MEDS ORDERED: Pharmacy Ordered Lab Info OTHER ONE (16:45)
== END 2018-04-12 10:12 | disposition home or self-care (01) | DRG 871 ==
LOC: NEPE 14:57 → NEDA 17:41 → HCIN 18:55
PROVIDERS: ADMIT Family Medicine; ATTEND Family Medicine
DX: E87.6 Hypokalemia; A41.9 Sepsis, unspecified organism; J90 Pleural effusion, not elsewhere classified; C78.6 Secondary malignant neoplasm of retroperitoneum and peritoneum; G89.3 Neoplasm related pain (acute) (chronic); J96.01 Acute respiratory failure with hypoxia; C62.90 Malignant neoplasm of unspecified testis, unspecified whether descended or undescended; Z91.19 Patient's noncompliance with other medical treatment and regimen; C78.01 Secondary malignant neoplasm of right lung; J45.909 Unspecified asthma, uncomplicated; J40 Bronchitis, not specified as acute or chronic; Z91.14 Patient's other noncompliance with medication regimen; F17.210 Nicotine dependence, cigarettes, uncomplicated; C78.02 Secondary malignant neoplasm of left lung; E83.51 Hypocalcemia; J18.9 Pneumonia, unspecified organism; R11.2 Nausea with vomiting, unspecified; Z68.33 Body mass index [BMI] 33.0-33.9, adult; R19.7 Diarrhea, unspecified; R50.81 Fever presenting with conditions classified elsewhere; E66.9 Obesity, unspecified
CPT/HCPCS: 71010; 71020; 71045; 71046; 71260; 74176; 80048; 80053; 80202; 81001; 82040; 83520; 83605; 83735; 83880; 85025; 87040; 87070; 87205; 87275; 87276; 87493; 87804; 90761; 90774; 90775; 90784; 93005; 94618; 94620; 94640; 94665; 96361; 96374; 96375; 97162; 99285; C8952; J0456; J0692; J1170; J1650; J1885; J1956; J2270; J2405; J2543; J2550; J3370; J3480; J7030; J7040; J7050; Q9967